=== PATIENT | female | born 1940 | race Caucasian/White ===

== ENCOUNTER 2016-08-25 13:25 | Emergency (ER) | payer MEDICARE ==
[~2016-08-25] VITALS: Ht 160 cm; Wt 58.0 kg
[~2016-08-25 13:25] MED LIST: ALPR.5 PO; ASPI-110 PO; BACL10TA PO; COZA100T PO; GABA600T PO; HYDR-3533 PO; HYDR-3583 PO; HYDR12.56 PO; LIDO2SOL11 PO; METO25TA3 PO; MIRTA15 PO; PRAV80TA PO; REST0.05 EACH EYE; VITA1000 PO; VITA500S3 SL; [UNRECOGNIZED DRUG - CODE] TOPICAL
[2016-08-25 13:30] VITALS: BP 160/75; PULSE 83; RESP 16; TEMP 97.9; O2SAT 95
--- NOTE | 2016-08-25 13:35 | PD ---
HPI . RASH WITH ITCHING X 2 DAYS Chief Complaint: Skin Problem Time Seen by Provider: 13:35 Travel History International Travel<30 days: No Contact w/Intl Traveler<30days: No Traveled to known affect area: No History of Present Illness HPI 76-year-old female with history of hypertension, hyperlipidemia, osteoarthritis , chronic back pain status post spinal fusion 2 and a wound on her back, which she is following at the wound care center here with complaints of an itchy rash that started about 2 days ago. Patient reports that the rash is localized to her neck sternum and back. She admits to increased itching, but denies any pain. She has tried [id number] diaper rash cream without any improvement. She denies any other symptoms. She denies any new hygiene products. She denies any change of laundry detergent. She is not certain with may have triggered the rash. Her biggest concern is the intense itching. PFSH Past Medical History Arthritis: Yes Asthma: No Autoimmune Disease: No Blood Disorders: No Anxiety: Yes Depression: Yes Heart Rhythm Problems: No Cancer: Yes ( LEFT TONSILAR REMOVED) Cardiovascular Problems: Yes High Cholesterol: Yes Chemotherapy: No Chest Pain: No Congestive Heart Failure: No COPD: No Cerebrovascular Accident: No Diabetes: No Endocrine: No GERD: Yes Genitourinary: No Hepatitis: No Hiatal Hernia: No Hypertension: Yes Immune Disorder: No Implanted Vascular Access Dvce: No Kidney Stones: No Musculoskeletal: Yes (OA) Neurologic: Yes (BACK PAIN) Psychiatric: No Reproductive: No Respiratory: No Migraines: Yes Radiation Therapy: No Renal Failure: No Seizures: No Sickle Cell Disease: No Sleep Apnea: No Thyroid Disease: No Ulcer: Yes PNEUMOCCOCAL Vaccine (Year): 1 Menopausal: Yes Dilation and Curettage (D&C): Yes Past Surgical History Abdominal Surgery: Yes (EXPL. LAP) AICD: No Arteriovenous Shunt: No Body Medical Devices: LUMBAR HARDWARE, BREASTS Cardiac Surgery: No Ear Surgery: No Endocrine Surgery: No Eye Surgery: Yes (GONZÁLEZ CATARACTS) Genitourinary Surgery: No Gynecologic Surgery: Yes (LASH/BSO) Hysterectomy: Yes Insulin Pump: No Joint Replacement: No Neurologic Surgery: Yes (LUMBAR FUSION - lami with resection 06/06) Oral Surgery: Yes (EXC. TUMOR LEFT THROAT) Pacemaker: No Thoracic Surgery: No Tonsillectomy: Yes Other Surgery: Yes (BREAST AUGMENTATION X 2) Social History Alcohol Use: No Tobacco Use: No Substance Use: No Allergies-Medications (Allergen,Severity, Reaction): Coded Allergies: RAJEEV Inhibitors (Verified Allergy, Severe, throat closure facial swelling, 08/25/16) Reported Meds & Prescriptions Reported Meds & Active Scripts Active Triamcinolone Topical (Triamcinolone Acetonide) 0.025% Cream 1 Applic TOPICAL BID dispense 30 gram tube Medrol Dosepak (Methylprednisolone) 4 Mg Dspk 4 Mg PO DIRECTED Per Pharmacist direction Balmex Complete Protection Topical (Zinc Oxide Topical) 11.3% Cream 1 Applic TOPICAL DIRECTED Hydrocodone-Acetaminophen 10-325 mg Tab 1 Tab PO Q8HR PRN Reported Baclofen 10 Mg Tab 10 Mg PO TID PRN Lidocaine Viscous 2% Liq 2 % Liq 15 Ml PO BID Vitamin D-1000 (Cholecalciferol) 1,000 Unit Tab 1,000 Units PO DAILY Vitamin B-12 (Cyanocobalamin) 500 Mcg Subl 500 Mcg SL DAILY Hydrochlorothiazide 12.5 Mg Tab 12.5 Mg PO DAILY Xanax (Alprazolam) 0.5 Mg Tab 0.5 Mg PO TID PRN Restasis Opth Drops (Cyclosporine Opth Drops) 0.05% Emul 1 Drop EACH EYE BID Mirtazapine 15 Mg Tab 15 Mg PO HS Metoprolol Tartrate 25 Mg Tab 25 Mg PO BID Gabapentin 600 Mg Tab 600 Mg PO TID Cozaar (Losartan Potassium) 100 Mg Tab 100 Mg PO DAILY Aspirin 81 (Aspirin) 81 Mg Tabdr 81 Mg PO DAILY Pravachol (Pravastatin) 80 Mg Tab 80 Mg PO HS Review of Systems General / Constitutional: No: Fever Eyes: No: Visual changes HENT: No: Headaches Cardiovascular: No: Chest Pain or Discomfort Respiratory: No: Shortness of Breath Gastrointestinal: No: Abdominal Pain Genitourinary: No: Dysuria Musculoskeletal: No: Pain Skin: Positive Rash, Positive Itching, Positive Dryness Neurologic: No: Weakness Psychiatric: No: Depression Endocrine: No: Polydipsia Hematologic/Lymphatic: No: Easy Bruising Physical Exam Narrative GENERAL: AAO x 3, no acute distress, Well-nourished, well-developed patient. SKIN: Warm and dry. There is a dry scaling rash to the patient's right side chest, sternum and scattered across her back. It is macular without evidence of pustules, blisters or herpetic-like lesions. It is very dry and does not show any signs of open excoriations or evidence of cellulitis. HEAD: Normocephalic and atraumatic. EYES: No scleral icterus. No injection or drainage. ENT: No nasal drainage noted. Mucous membranes pink. Airway patent. NECK: Supple, trachea midline. No JVD. CARDIOVASCULAR: Regular rate and rhythm without murmurs, gallops, or rubs. RESPIRATORY: Breath sounds equal bilaterally. No accessory muscle use. No rhonchi or rales. GASTROINTESTINAL: Abdomen soft, non-tender, nondistended. EXTREMITIES: No cyanosis or edema. BACK: Nontender without obvious deformity. No CVA tenderness. small dime sized wound with slight purulent drainage and minimal erythema. PSYCH: AAO x 3, normal affect. Data Data Last Documented VS Vital Signs Date Time Temp Pulse Resp B/P Pulse Ox O2 Delivery O2 Flow Rate FiO2 08/25/16 13:30 97.9 83 16 160/75 95 MDM Medical Decision Making Medical Screen Exam Complete: Yes Emergency Medical Condition: Yes Medical Record Reviewed: Yes Differential Diagnosis Contact dermatitis, intertrigo, tinea Narrative Course 76-year-old female with history of hypertension, hyperlipidemia, osteoarthritis , chronic back pain status post spinal fusion 2 and a wound on her back, which she is following at the wound care center here with complaints of an itchy rash that started about 2 days ago. Patient reports that the rash is localized to her neck sternum and back. She admits to increased itching, but denies any pain. She has tried [id number] diaper rash cream without any improvement. She denies any other symptoms. She denies any new hygiene products. She denies any change of laundry detergent. She is not certain with may have triggered the rash. Her biggest concern is the intense itching. Patient seen and examined. She has a dry scaly rash to her neck, sternum and spread across her back. There are no blisters or specific distribution. There is no evidence of cellulitis. This appears to be a contact dermatitis. The offending agent is unknown at this time. The rash is not characteristic of shingles, tinea, or cellulitis. Recommend treatment with a round of short term steroids, lower dose as well as topical corticosteroid. Advised that if the rash continues, to follow-up with her primary care provider. Patient verbalized understanding of instructions, questions were answered, and thanked me for their care. I advised them if their condition worsens, please return to the nearest emergency room for further care. Diagnosis Primary Impression: Contact dermatitis Qualified Code: L25.9 - Contact dermatitis, unspecified contact dermatitis type, unspecified trigger Patient Instructions: Contact Dermatitis (ED), General Instructions Additional Instructions: Please return to emergency department if your symptoms return or worsen. Follow up with your primary care provider. Take medications as prescribed. These medications should help lessen the severity of ear itching. If this rash continues to spread please return to the emergency department or follow-up with her primary care provider. If the rash persists through this treatment, you may want to seek care from your primary care provider for further workup and possible dermatology referral. Med/Other Pt SpecificInfo: Prescription(s) given Scripts Triamcinolone Topical 0.025% Cream1 Applic TOPICAL BID #1 GM Ref 0 dispense 30 gram tube Prov:Emily Whitley MD 08/25/16 Methylprednisolone Dosepak (Medrol Dosepak)4 Mg Dspk4 Mg PO DIRECTED #1 DSPK Ref 0 Per Pharmacist direction Prov:Emily Whitley MD 08/25/16 Disposition: 01 DISCHARGE HOME Condition: Stable Shannon Craven Aug 25, 2016 13:35
[2016-08-25] MEDS ORDERED: TRIA.025%T TOPICAL (13:50)
[2016-08-25] MEDS ORDERED: MEDR4PAK PO (13:50)
[2016-09-11] MEDS ORDERED: PRED10PA PO (15:13)
== END 2016-08-25 14:02 | disposition home or self-care (01) ==
LOC: PHEFT 13:25
DX: L25.9 Unspecified contact dermatitis, unspecified cause (principal); I10 Essential (primary) hypertension; M54.9 Dorsalgia, unspecified; G89.29 Other chronic pain; E78.00 Pure hypercholesterolemia, unspecified
CPT/HCPCS: 99282

== ENCOUNTER 2016-11-06 14:39 | Emergency (ER) | payer MEDICARE ==
[~2016-11-06] VITALS: Ht 160 cm; Wt 59.0 kg
[~2016-11-06 14:39] MED LIST changes: -HYDR-3533 PO; +TRIA.025%T TOPICAL
[2016-11-06 14:45] VITALS: BP 112/56; PULSE 112; RESP 18; TEMP 99.1; O2SAT 92
[2016-11-06] MEDS ORDERED: MELO-1 PO (15:05)
[2016-11-06] MEDS ORDERED: SODIUM CHLORIDE 0.9% FLUSH 10 ML FLUSH IVF PRN (15:30)
--- NOTE | 2016-11-06 15:38 | PD ---
HPI Chief Complaint: Fall Time Seen by Provider: 15:33 Travel History International Travel<30 days: No Contact w/Intl Traveler<30days: No Traveled to known affect area: No History of Present Illness HPI 76-year-old female presents to the emergency room for evaluation of fall earlier today. Patient states she has felt shaky since waking up this morning and fell in the bathroom at 11:00 AM after her legs felt weak. She struck the back of her head on the toilet paper dispenser. She denies loss of consciousness. She also hurt her left ankle and bilateral elbows. Her home health aide came and bandaged her wounds. Patient takes aspirin daily. She reports associated mild, posterior headache, neck pain, and lightheadedness but denies chest pain, abdominal pain, nausea, vomiting, or paresthesias. Last tetanus was in 2014. is with her and states she is seemed a little woozy since falling. PFSH Past Medical History Arthritis: Yes Asthma: No Autoimmune Disease: No Blood Disorders: No Anxiety: Yes Depression: Yes Heart Rhythm Problems: No Cancer: Yes ( LEFT TONSILAR REMOVED) Cardiovascular Problems: Yes High Cholesterol: Yes Chemotherapy: No Chest Pain: No Congestive Heart Failure: No COPD: No Cerebrovascular Accident: No Diabetes: No Diminished Hearing: Yes Endocrine: No GERD: Yes Genitourinary: No Hepatitis: No Hiatal Hernia: No Hypertension: Yes Immune Disorder: No Implanted Vascular Access Dvce: No Kidney Stones: No Musculoskeletal: Yes (OA) Neurologic: Yes (BACK PAIN) Psychiatric: No Reproductive: No Respiratory: No Immunizations Current: Yes Migraines: Yes Radiation Therapy: No Renal Failure: No Seizures: No Sickle Cell Disease: No Sleep Apnea: No Thyroid Disease: No Ulcer: Yes Tetanus Vaccination: < 5 Years Influenza Vaccination: Yes PNEUMOCCOCAL Vaccine (Year): 1 ?: Not Menopausal: Yes Dilation and Curettage (D&C): Yes Past Surgical History Abdominal Surgery: Yes (EXPL. LAP) AICD: No Arteriovenous Shunt: No Body Medical Devices: LUMBAR HARDWARE, BREASTS Cardiac Surgery: No Ear Surgery: No Endocrine Surgery: No Eye Surgery: Yes (GONZÁLEZ CATARACTS) Genitourinary Surgery: No Gynecologic Surgery: Yes (LASH/BSO) Hysterectomy: Yes Insulin Pump: No Joint Replacement: No Mastectomy: Yes Neurologic Surgery: Yes (LUMBAR FUSION - lami with resection 06/06) Oral Surgery: Yes (EXC. TUMOR LEFT THROAT) Pacemaker: No Thoracic Surgery: No Tonsillectomy: Yes Other Surgery: Yes (BREAST AUGMENTATION X 2) Social History Alcohol Use: No Tobacco Use: No Substance Use: No Allergies-Medications (Allergen,Severity, Reaction): Coded Allergies: RAJEEV Inhibitors (Verified Allergy, Severe, throat closure facial swelling, 11/06/16) Reported Meds & Prescriptions Reported Meds & Active Scripts Active Walker/Adult/Folding (Device) 1 Mis Mis 1 Ea .ROUTE DIRECTED Lortab (Hydrocodone-Acetaminophen) 5-325 Mg Tab 1 Tab PO Q6H PRN Hydrocodone-Acetaminophen 10-325 mg Tab 1 Tab PO Q8HR PRN Reported Meloxicam 15 Mg Tab 15 Mg PO DAILY Baclofen 10 Mg Tab 10 Mg PO TID PRN Lidocaine Viscous 2% Liq 2 % Liq 15 Ml PO BID Vitamin D-1000 (Cholecalciferol) 1,000 Unit Tab 1,000 Units PO DAILY Vitamin B-12 (Cyanocobalamin) 500 Mcg Subl 500 Mcg SL DAILY Hydrochlorothiazide 12.5 Mg Tab 12.5 Mg PO DAILY Xanax (Alprazolam) 0.5 Mg Tab 0.5 Mg PO TID PRN Mirtazapine 15 Mg Tab 15 Mg PO HS Metoprolol Tartrate 25 Mg Tab 25 Mg PO BID Gabapentin 600 Mg Tab 600 Mg PO TID Cozaar (Losartan Potassium) 100 Mg Tab 100 Mg PO DAILY Aspirin 81 (Aspirin) 81 Mg Tabdr 81 Mg PO DAILY Pravachol (Pravastatin) 80 Mg Tab 80 Mg PO HS Review of Systems Except as stated in HPI: all other systems reviewed are Neg Physical Exam Narrative GENERAL: Well-developed, well-nourished female in no acute distress. SKIN: Focused skin assessment warm/dry. Moderate ecchymosis over the left lateral malleolus. There is a 5 cm well-approximated laceration in the posterior scalp with multiple ceramic foreign bodies. HEAD: Normocephalic. EYES: Pupils equal and round. No scleral icterus. No injection or drainage. ENT: No nasal bleeding or discharge. Mucous membranes pink and moist. EARS: Bilateral pinnae and external canals appear within normal limits. Bilateral tympanic membranes without erythema, dullness or perforation. No hemotympanum. NECK: Trachea midline. No JVD. No midline tenderness. Full range of motion. CARDIOVASCULAR: Regular rate and rhythm. No murmur appreciated. RESPIRATORY: No accessory muscle use. Clear to auscultation. Breath sounds equal bilaterally. MUSCULOSKELETAL: No obvious deformities. No clubbing. No cyanosis. Mild edema over the left lateral malleolus. 1+ dorsalis pedis pulse. Full range motion of the ankle and foot. Less than 2 second capillary refill distally. Mild to moderate tenderness to palpation of the left lateral malleolus. NEUROLOGICAL: Awake and alert. No obvious cranial nerve deficits. Motor grossly within normal limits. Normal speech. No pronator drift in upper or lower extremities. Strength 5/5 and equal in upper and lower extremity. Finger to nose test is normal. PSYCHIATRIC: Appropriate mood and affect; insight and judgment normal. Data Data Last Documented VS Vital Signs Date Time Temp Pulse Resp B/P Pulse Ox O2 Delivery O2 Flow Rate FiO2 11/06/16 19:13 88 18 127/68 98 11/06/16 16:35 Room Air 11/06/16 14:[address] Brain W/O Iv Contrast(Rout) (11/06/16 ) Ct Cerv Spine W/O Contrast (11/06/16 ) Electrocardiogram (11/06/16 15:28) Ckmb (Isoenzyme) Profile (11/06/16 15:28) Complete Blood Count With Diff (11/06/16 15:28) Comprehensive Metabolic Panel (11/06/16 15:28) Prothrombin Time / Inr (Pt) (11/06/16 15:28) Act Partial Throm Time (Ptt) (11/06/16 15:28) Troponin I (11/06/16 15:28) Ecg Monitoring (11/06/16 15:28) Bilateral Bp Monitoring (11/06/16 15:28) Iv Access Insert/Monitor (11/06/16 15:28) Oximetry (11/06/16 15:28) Oxygen Administration (11/06/16 15:28) Sodium Chloride 0.9% Flush (Ns Flush) (11/06/16 15:30) Urinalysis - C+S If Indicated (11/06/16 15:28) Ankle, Complete ([id number]) (11/06/16 ) Sodium Chlorid 0.9% 500 Ml Inj (Ns 500 M (11/06/16 16:30) Splint Or Brace Apply/Monitor (11/06/16 17:16) Lidocai-Epi 1%-1:100,000 Inj (Xylocaine- (11/06/16 18:15) Fiberglass Short Leg Splint Ad (11/06/16 ) Fiberglass Sugartong Sp Ad Sl (11/06/16 ) Labs Laboratory Tests Test 11/06/16 11/06/16 15:30 16:15 Urine Collection Type CLEAN CATCH Urine Color YELLOW Urine Turbidity CLEAR Urine pH 5.5 Urine Specific [place] 1.012 Urine Protein NEG mg/dL Urine Glucose (UA) NEG mg/dL Urine Ketones NEG mg/dL Urine Occult Blood NEG Urine Nitrite NEG Urine Bilirubin NEG Urine Leukocyte Esterase NEG Urine Squamous Epithelial 0-5 /hpf Cells Microscopic Urinalysis Comment CULT NOT INDICATED Urine Collection Time 15:30 White Blood Count 10.5 TH/MM3 Red Blood Count 3.09 MIL/MM3 Hemoglobin 9.0 GM/DL Hematocrit 27.7 % Mean Corpuscular Volume 89.7 FL Mean Corpuscular Hemoglobin 29.1 PG Mean Corpuscular Hemoglobin 32.4 % Concent Red Cell Distribution Width 14.6 % Platelet Count 351 TH/MM3 Mean Platelet Volume 7.2 FL Neutrophils (%) (Auto) 79.7 % Lymphocytes (%) (Auto) 12.3 % Monocytes (%) (Auto) 7.0 % Eosinophils (%) (Auto) 0.3 % Basophils (%) (Auto) 0.7 % Neutrophils # (Auto) 8.4 TH/MM3 Lymphocytes # (Auto) 1.3 TH/MM3 Monocytes # (Auto) 0.7 TH/MM3 Eosinophils # (Auto) 0.0 TH/MM3 Basophils # (Auto) 0.1 TH/MM3 CBC Comment DIFF FINAL Differential Comment Prothrombin Time 11.9 SEC Prothromb Time International 1.1 RATIO Ratio Activated Partial 27.3 SEC Thromboplast Time Sodium Level 139 MEQ/L Potassium Level 4.9 MEQ/L Chloride Level 106 MEQ/L Carbon Dioxide Level 25.4 MEQ/L Anion Gap 8 MEQ/L Blood Urea Nitrogen 40 MG/DL Creatinine 1.30 MG/DL Estimat Glomerular Filtration 40 ML/MIN Rate Random Glucose 104 MG/DL Calcium Level 9.1 MG/DL Total Bilirubin 0.3 MG/DL Aspartate Amino Transf 18 U/L (AST/SGOT) Alanine Aminotransferase 22 U/L (ALT/SGPT) Alkaline Phosphatase 123 U/L Total Creatine Kinase 66 U/L Troponin I LESS THAN 0.02 NG/ML Total Protein 7.3 GM/DL Albumin 3.0 GM/DL MDM Medical Decision Making Medical Screen Exam Complete: Yes Emergency Medical Condition: Yes Medical Record Reviewed: Yes Differential Diagnosis CAD versus electrolyte abnormality versus anemia versus intracranial hemorrhage Narrative Course 76 year-old female presents to the emergency room for evaluation after falling earlier today. Patient states she felt weak and her legs gave out which caused her to fall backwards striking her head on the toilet paper gonzalez. The toilet paper gonzalez shattered and cut her head. She denies loss of consciousness. Patient takes aspirin daily. She also reports left ankle pain. Left lower extremity is neurovascular intact with 1+ dorsalis pedis pulse, confirmed with Doppler. There is moderate ecchymosis over the lateral malleolus and mild tenderness to palpation. Full range of motion. In and out catheter was performed and patient had no urine in her bladder. She was given 1000 cc bolus and was able to urinate on her own. CBC shows mild anemia, stable for patient. CMP shows evidence of dehydration with elevated BUN and creatinine. Troponin is negative. EKG shows sinus rhythm with a rate of 97, no ST changes, signed out by my attending physician. UA negative. Orthostatic blood pressures within normal limits. CTs of the head and neck are negative for acute abnormality. X-ray of the left ankle shows distal fibular fracture. Patient placed in Damon splint and discharged with prescription for Lortab. is concerned that he will be unable to care for his because she cannot bear weight; however, she has home health and physical therapy who come to the house. She was told to follow up with orthopedic surgeon or return to the emergency room for worsening symptoms. She understands and agrees to plan. Procedures Procedure Narrative LACERATION LOCATION: Back of scalp LENGTH: 5 cm NUMBER OF STITCHES/VANE: 6 vane REPAIR: The area of the laceration was prepped with Betadine and sterilely draped. The laceration was infiltrated with 1% lidocaine with epinephrine. The wound was copiously irrigated and explored without evidence of foreign body , tendon injury or neurovascular injury. The wound was closed using staple gun. This was a single layer repair. A sterile dressing was applied. The patient was advised to keep the dressing clean and dry. Patient tolerated the procedure well. Diagnosis Primary Impression: Dehydration Additional Impressions: DERIC (acute kidney injury) Closed fibular fracture Qualified Code: S82.832A - Closed fracture of distal end of left fibula, unspecified fracture morphology, initial encounter Laceration of head Qualified Code: S01.02XA - Laceration of scalp with foreign body, initial encounter Referrals: iDck Lutz MD Orthopaedic Surgeon Primary Care Physician Patient Instructions: Dehydration (ED), General Instructions Additional Instructions: Rest and drink plenty of fluids. Keep wound clean and dry. Apply triple antibiotic appointment daily. Return in 7 days to have vane removed. Take Lortab with food as directed, as needed for pain. Do not drink alcohol or drive while taking this medication. Keep splint on. Elevate and apply ice to the affected area for 20 minutes at a time, as needed for pain and swelling. Do not bear weight. Follow-up with a primary care physician and orthopedic surgeon. Return to the emergency room for worsening symptoms. Med/Other Pt SpecificInfo: Prescription(s) given Scripts Walker/Adult/Folding 1 Mis Mis #1 EA .ROUTE DIRECTED Ref 0 Prov:Diogenes Nogueira MD 11/06/16 Hydrocodone-Acetaminophen (Lortab)5-325 Mg Tab1 Tab PO Q6H PRN (PAIN) #12 TAB Ref 0 Prov:Diogenes Nogueira MD 11/06/16 Disposition: 01 DISCHARGE HOME Condition: Stable Kristina Salvador November 06, 2016 15:38
--- NOTE | 2016-11-06 16:06 | RADHPO ---
EXAM DATE/TIME: 11/06/2016 15:36 [facility] COMPARISON: No previous studies available for comparison. INDICATIONS : Left ankle pain after fall today MEDICAL HISTORY : None. SURGICAL HISTORY : None. ENCOUNTER: Initial ACUITY: 1 day PAIN SCORE: 8/10 LOCATION: Left lateral ankle FINDINGS: There is a complete fracture of the distal fibula above the lateral malleolus without any significant angulation or displacement. There are atherosclerotic calcifications involving the visualized blood vessels chronic in nature. CONCLUSION: Distal fibular fracture. Eduard Marie MD on November 06, 2016 at 16:02 Board Certified Radiologist. This report was verified electronically.
[2016-11-06 16:29] LABS: AUTOMATED NEUTROPHIL # 8.4 TH/MM3 (1.8-7.7); BASOPHIL # 0.1 TH/MM3 (0-0.2); BASOPHIL % 0.7 % (0.0-2.0); EOSINOPHIL % 0.3 % (0.0-4.0); HEMATOCRIT 27.7 % (35.0-46.0); LYMPH % 12.3 % (9.0-44.0); LYMPHOCYTE # 1.3 TH/MM3 (1.0-4.8); MEAN CELL VOLUME 89.7 FL (80.0-100.0); MEAN CORPUSCULAR HEMOGLOBIN 29.1 PG (27.0-34.0); MEAN CORPUSCULAR HGB CONC 32.4 % (32.0-36.0); NEUT % 79.7 % (16.0-70.0); PLATELET COUNT 351 TH/MM3 (150-450); RED BLOOD COUNT 3.09 MIL/MM3 (4.00-5.30); RED CELL DISTRIBUTION WIDTH 14.6 % (11.6-17.2); WHITE BLOOD COUNT 10.5 TH/MM3 (4.0-11.0)
--- NOTE | 2016-11-06 16:29 | RADHPO ---
EXAM DATE/TIME: 11/06/2016 15:49 [facility] COMPARISON: CT BRAIN W/O CONTRAST, July 24, 2015, 13:02. INDICATIONS : Trauma, fall. RADIATION DOSE: 62.64 CTDIvol (mGy) MEDICAL HISTORY : Hypertension. Osteoporosis. Arthritis. SURGICAL HISTORY : None. ENCOUNTER: Initial ACUITY: 1 day PAIN SCALE: 5/10 LOCATION: cranial TECHNIQUE: Multiple contiguous axial images were obtained of the head. Using automated exposure control and adj ustment of the mA and/or kV according to patient size, radiation dose was kept as low as reasonably a chievable to obtain optimal diagnostic quality images. FINDINGS: CEREBRUM: The ventricles are normal for age. No evidence of midline shift, mass lesion, hemorrhage or acute in farction. No extra-axial fluid collections are seen. POSTERIOR FOSSA: The cerebellum and brainstem are intact. The 4th ventricle is midline. The cerebellopontine angle i s unremarkable. EXTRACRANIAL: The visualized portion of the orbits is intact. SKULL: The calvaria is intact. No evidence of skull fracture. CONCLUSION: 1. No evidence of acute intracranial pathology. No masses are identified. Pawel Gan MD on November 06, 2016 at 16:26 Board Certified Radiologist. This report was verified electronically.
[2016-11-06] MEDS ORDERED: SODIUM CHLORID 0.9% 500 ML INJ 500 ML IV ONE (16:30)
[2016-11-06 16:31] LABS: HEMO FLAGS DIFF FINAL
[2016-11-06 16:35] VITALS: BP_SYST 101; BP_SYST 107; BP_DIAS 55; BP_DIAS 57; O2SAT 95
[2016-11-06 16:39] LABS: CHLORIDE 106 MEQ/L (98-107); POTASSIUM 4.9 MEQ/L (3.5-5.1); SODIUM (NA) 139 MEQ/L (136-145)
[2016-11-06 16:43] LABS: ANION GAP 8 MEQ/L (5-15); BICARBONATE 25.4 MEQ/L (21.0-32.0); BLOOD UREA NITROGEN 40 MG/DL (7-18)
[2016-11-06 16:46] LABS: ALT (GPT) 22 U/L (10-53); AST (GOT) 18 U/L (15-37); GLOMERULAR FILTRATION RATE 40 ML/MIN (>89)
[2016-11-06 16:47] LABS: TOTAL BILIRUBIN ADULT 0.3 MG/DL (0.2-1.0)
[2016-11-06 16:49] LABS: ALKALINE PHOSPHATASE 123 U/L (45-117)
[2016-11-06 16:53] LABS: CREATINE KINASE 66 U/L (26-192)
--- NOTE | 2016-11-06 17:01 | RADHPO ---
EXAM DATE/TIME: 11/06/2016 15:49 [facility] COMPARISON: CT BRAIN W/O CONTRAST, July 24, 2015, 13:02. INDICATIONS : Trauma, fall. RADIATION DOSE: 25.23 CTDIvol (mGy) MEDICAL HISTORY : Osteoporosis. Hypercholesterolemia. Arthritis. SURGICAL HISTORY : None. ENCOUNTER: Initial ACUITY: 1 day PAIN SCALE: 5/10 LOCATION: neck TECHNIQUE: Volumetric scanning of the cervical spine was performed. Multiplanar reconstructions in the sagittal, coronal and oblique axial planes were performed. Using automated exposure control and adjustment o f the mA and/or kV according to patient size, radiation dose was kept as low as reasonably achievable to obtain optimal diagnostic quality images. FINDINGS: SAGITTAL AND CORONAL REFORMATS DEMONSTRATE SEVERE DEGENERATIVE CHANGES WITHIN THE CERVICAL SPINE. THE RE IS GRADE ONE ANTRAL LISTHESIS OF C2 RELATIVE TO C3. THERE ARE MODERATE DEGENERATIVE CHANGES IN THE ATL[place]OD[place] JOINT. C2-C3: There is a degenerated disc with diffuse osteophytic ridging. The facet joints appear fused. The thec al space and foramina are adequate. C3-C4: There is a degenerated disc. There is diffuse osteophytic ridging from the vertebral endplates. The f acet joints appear fused. There is mild bony foraminal narrowing bilaterally. C4-C5: There is a degenerated disc. There is osteophytic ridging and a small disc bulge. There is mild bony foraminal narrowing bilaterally. The facet joints appear fused. C5-C6: There is a severely degenerated disc. There is osteophytic ridging from the vertebral endplates. Ther e is moderate bony foraminal narrowing on the left. There is mild bony foraminal narrowing on the rig ht. The facet joints are severely arthritic bilaterally. C6-C7: There is a degenerated disc with diffuse osteophytic ridging. There is mild bony foraminal narrowing bilaterally. There is moderate facet arthritis bilaterally. C7-T1: There is a degenerated disc and osteophytic ridging. There is moderate facet arthritis bilaterally. T he thecal space and the foramina are adequate. CONCLUSION: Advanced degenerative changes throughout the cervical spine with grade 1 anterolisthesis of C2 relati ve to C3. No acute fracture is seen. Arnoldo Baer MD on November 06, 2016 at 16:56 Board Certified Radiologist. This report was verified electronically.
[2016-11-06 17:26] LABS: APTT (PATIENT) 27.3 SEC (24.3-30.1); INTERNATIONAL NORMALIZED RATIO 1.1 RATIO; PROTHROMBIN TIME - PATIENT 11.9 SEC (9.8-11.6)
[2016-11-06 17:38] LABS: BLOOD, URINE NEG (NEG); GLUCOSE,URINE NEG (NEG); KETONE, URINE NEG (NEG); NITRITE,URINE NEG (NEG); PH, URINE 5.5 (5.0-8.5)
[2016-11-06 17:52] LABS: METHOD OF COLLECTION CLEAN CATCH
[2016-11-06 17:53] LABS: URINE COLOR YELLOW (YELLW/STRAW)
[2016-11-06 17:57] LABS: COMMENT (UR) CULT NOT INDICATED; CULTURE IF INDICATED CULT NOT INDICATED; SQUAMOUS EPITHELIAL CELL URINE 0-5 /hpf (0-5)
[2016-11-06] MEDS ORDERED: HYDR-3533 PO (18:04)
[2016-11-06] MEDS ORDERED: LIDOCAINE 1%/EPINEPHrine 1:100,000 SOLN 20 ML VIAL INFIL ONE (18:15)
[2016-11-06] MEDS ORDERED: WALKER/ADULT/FO1 MIS (18:22)
[2016-11-06 19:13] VITALS: BP 127/68
--- NOTE | 2016-11-07 14:08 | EKG ---
Date Performed: 11/06/2016 Time Performed: 15:33:34 PTAGE: 76 years EKG: Sinus rhythm Low QRS voltages in precordial leads New Q-waves in III, cannot rule out inferior injury Poor R wave progression V1,V2- cannot rule out old anterior injury Voltage has decreased since prior tracing but otherwise largely unchanged Borderline ECG PREVIOUS TRACING : 07/24/2015 11.30 DOCTOR: Joshua Arango Interpretating Date/Time 11/07/2016 14:06:38
== END 2016-11-06 19:16 | disposition home or self-care (01) ==
LOC: PHEFT 14:39
DX: E86.0 Dehydration (principal); N17.9 Acute kidney failure, unspecified; S82.832A Other fracture of upper and lower end of left fibula, initial encounter for closed fracture; S01.01XA Laceration without foreign body of scalp, initial encounter; R94.31 Abnormal electrocardiogram [ECG] [EKG]; I10 Essential (primary) hypertension; W17.89XA Other fall from one level to another, initial encounter; Y92.002 Bathroom of unspecified non-institutional (private) residence as the place of occurrence of the external cause
CPT/HCPCS: 12002; 29515; 70450; 72125; 73610; 80053; 81001; 82550; 84484; 85025; 85610; 85730; 93005; 99284; J7040

== ENCOUNTER 2016-11-07 16:11 | Inpatient (IN) | payer MEDICARE ==
[~2016-11-07] VITALS: Ht 160 cm; Wt 63.0 kg
[~2016-11-07 16:11] MED LIST changes: +HYDR-3533 PO; +MELO-1 PO; -REST0.05 EACH EYE; -TRIA.025%T TOPICAL; +WALKER/ADULT/FO1 MIS; -[UNRECOGNIZED DRUG - CODE] TOPICAL
[2016-11-07 16:15] VITALS: BP 130/58; PULSE 84; RESP 16; TEMP 98.5; O2SAT 99
--- NOTE | 2016-11-07 16:58 | PD ---
HPI Chief Complaint: Pain: Acute or Chronic Time Seen by Provider: 16:17 Travel History International Travel<30 days: No Contact w/Intl Traveler<30days: No Traveled to known affect area: No History of Present Illness HPI 76-year-old female came to the emergency room brought by EMS with history of left leg/ankle pain. Patient was seen in the emergency room yesterday after sustaining a fall and was diagnosed with left distal fibular fracture. She had splint placed at that time. She also had a scalp laceration from the fall which was stapled. CAT scan of her head and cervical spine was done and they were within normal limit. Patient was discharged home after that. However patient says that she was up all night due to the pain and currently she is unable to take care of herself. Her is here with her as well and says that he cannot take care of her and would like her to be admitted for couple days. There was home health care arranged for her but patient came to the emergency room before home healthcare could go to their house at 4 PM. Also she was discharged home with a prescription for Lortab which she has not filled. She says she has Lortab with stronger strength at home for her chronic pain. Patient did not take any pain medication today. She received 4 mg of IV morphine once EMS got her. She was also asked to follow up with Dr. De La Fuente as outpatient for or so but no phone calls have been made yet by her or the family to get an appointment. [facility] Past Medical History Narrative Medical List of her past medical, surgical, social and family history was reviewed from the nursing note. Arthritis: Yes Asthma: No Autoimmune Disease: No Blood Disorders: No Anxiety: Yes Depression: Yes Heart Rhythm Problems: No Cancer: Yes ( LEFT TONSILAR REMOVED) Cardiovascular Problems: Yes High Cholesterol: Yes Chemotherapy: No Chest Pain: No Congestive Heart Failure: No COPD: No Cerebrovascular Accident: No Diabetes: No Diminished Hearing: Yes Endocrine: No Gastrointestinal Disorders: No GERD: Yes Genitourinary: No Headaches: No Hepatitis: No Hiatal Hernia: No Heparin Induced Thrombocytopen: No Hypertension: Yes Immune Disorder: No Implanted Vascular Access Dvce: No Kidney Stones: No Medical other: No Musculoskeletal: Yes (OA) Neurologic: Yes (BACK PAIN) Psychiatric: No Reproductive: No Respiratory: No Immunizations Current: Yes Migraines: Yes Radiation Therapy: No Renal Failure: No Seizures: No Sickle Cell Disease: No Sleep Apnea: No Thyroid Disease: No Ulcer: Yes Tetanus Vaccination: < 5 Years PNEUMOCCOCAL Vaccine (Year): 1 ?: Not Menopausal: Yes Dilation and Curettage (D&C): Yes Past Surgical History Abdominal Surgery: Yes (EXPL. 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 Reported Meds & Prescriptions Reported Meds & Active Scripts Active Walker/Adult/Folding (Device) 1 Mis Mis 1 Ea .ROUTE DIRECTED Lortab (Hydrocodone-Acetaminophen) 5-325 Mg Tab 1 Tab PO Q6H PRN Hydrocodone-Acetaminophen 10-325 mg Tab 1 Tab PO Q8HR PRN Reported Meloxicam 15 Mg Tab 15 Mg PO DAILY Baclofen 10 Mg Tab 10 Mg PO TID PRN Lidocaine Viscous 2% Liq 2 % Liq 15 Ml PO BID Vitamin D-1000 (Cholecalciferol) 1,000 Unit Tab 1,000 Units PO DAILY Vitamin B-12 (Cyanocobalamin) 500 Mcg Subl 500 Mcg SL DAILY Hydrochlorothiazide 12.5 Mg Tab 12.5 Mg PO DAILY Xanax (Alprazolam) 0.5 Mg Tab 0.5 Mg PO TID PRN Mirtazapine 15 Mg Tab 15 Mg PO HS Metoprolol Tartrate 25 Mg Tab 25 Mg PO BID Gabapentin 600 Mg Tab 600 Mg PO TID Cozaar (Losartan Potassium) 100 Mg Tab 100 Mg PO DAILY Aspirin 81 (Aspirin) 81 Mg Tabdr 81 Mg PO DAILY Pravachol (Pravastatin) 80 Mg Tab 80 Mg PO HS Narrative Medication List of her home medications reviewed from the nursing note. Review of Systems Except as stated in HPI: all other systems reviewed are Neg Physical Exam Narrative GENERAL: Awake, alert, elderly, looks older than her age, extremely depressed and crying SKIN: Focused skin assessment warm/dry. HEAD: Atraumatic. Normocephalic. EYES: Pupils equal and round. No scleral icterus. No injection or drainage. ENT: No nasal bleeding or discharge. Mucous membranes pink and moist. NECK: Trachea midline. No JVD. CARDIOVASCULAR: Regular rate and rhythm. No murmur appreciated. RESPIRATORY: No accessory muscle use. Clear to auscultation. Breath sounds equal bilaterally. GASTROINTESTINAL: Abdomen soft, non-tender, nondistended. Hepatic and splenic margins not palpable. MUSCULOSKELETAL: No obvious deformities. No clubbing. No cyanosis. No edema. The left foot splint was taken down. Cap refill distally at the toe tips are less than 2 seconds. Toes are pink in color. Sensation is intact. The splint was reapplied only the posterior splint at this point. NEUROLOGICAL: Awake and alert. No obvious cranial nerve deficits. Motor grossly within normal limits. Normal speech. PSYCHIATRIC: Appropriate mood and affect; insight and judgment normal. Data Data Last Documented VS Vital Signs Date Time Temp Pulse Resp B/P Pulse Ox O2 Delivery O2 Flow Rate FiO2 11/07/16 16:15 98.5 84 16 130/58 99 Orders Alprazolam (Xanax) (11/07/16 17:30) Baclofen (Lioresal) (11/07/16 17:30) Cholecalciferol (Vitamin D3) (11/08/16 09:00) Cyanocobalamin (Vitamin B12) (11/08/16 09:00) Gabapentin (Neurontin) (11/07/16 18:00) Hydrochlorothiazide (Microzide) (11/08/16 09:00) Acetamin-Hydrocod 325-10 Mg (Victor 10-32 (11/07/16 17:30) Acetamin-Hydrocod 325-5 Mg (Victor 5-325 (11/07/16 17:30) Losartan (Cozaar) (11/08/16 09:00) Meloxicam (Mobic) (11/08/16 09:00) Metoprolol Tartrate (Lopressor) (11/07/16 21:00) Mirtazapine (Remeron) (11/07/16 21:00) Pravastatin (Pravachol) (11/07/16 21:00) Aspirin Ec (Ecotrin Ec) (11/08/16 09:00) Lidocaine 2% Viscous (Xylocaine 2% Visco (11/07/16 21:00) Admit Order (Ed Use Only) (11/07/16 17:23) MDM Medical Decision Making Medical Screen Exam Complete: Yes Emergency Medical Condition: Yes Medical Record Reviewed: Yes Differential Diagnosis Inability to ambulate, depression Narrative Course 4:56 PM both patient and at this point her claiming that she is unsafe to be at home since she is unable to ambulate at all. There is no way she could go to see the orthopedist because of this. ED case management was involved and patient will be admitted for overnight observation and physical therapy evaluation. Awaiting for the hospitalist to call back. Procedures EKG Prior to Arrival: No Diagnosis Primary Impression: Fracture of distal fibula Qualified Code: S82.832D - Other closed fracture of distal end of left fibula with routine healing, subsequent encounter Additional Impression: Inability to ambulate due to ankle or foot Admitting Information Admitting Physician Requests: Observation Liseth Mejias MD November 07, 2016 16:58 Liseth Mejias MD November 07, 2016 16:58
[2016-11-07] MEDS ORDERED: MAGNESIUM HYDROXIDE SUSP 30 ML CUP PO PRN (17:30)
[2016-11-07] MEDS ORDERED: ONDANSETRON HCL 4 MG/2 ML VIAL IVP PRN (17:30)
[2016-11-07] MEDS ORDERED: BACLOFEN 10 MG TAB PO PRN (17:30)
[2016-11-07] MEDS ORDERED: ACETAMINOPHEN 325 MG TAB PO PRN (17:30)
[2016-11-07] MEDS ORDERED: ACETAMINOPHEN/HYDROcodone 325 MG/5 MG TAB PO PRN (17:30)
[2016-11-07] MEDS ORDERED: SODIUM CHLORIDE 0.9% FLUSH 10 ML FLUSH IV FLUSH PRN (17:30)
[2016-11-07 17:38] VITALS: BP 127/59; PULSE 77; RESP 16; O2SAT 96
[2016-11-07 17:59] VITALS: O2SAT 95
[2016-11-07] MEDS ORDERED: GABAPENTIN 300 MG CAP PO SCH (18:00)
[2016-11-07] MEDS: ENOXAPARIN SODIUM 40 MG/0.4 ML SYRINGE SQ SCH (18:18)
[2016-11-07 20:00] VITALS: BP 150/69; PULSE 82; RESP 19; TEMP 97.5; O2SAT 93
[2016-11-07 21:10] VITALS: O2SAT 96
[2016-11-07] MEDS: METOPROLOL TARTRATE 25 MG TAB PO SCH (21:20)
[2016-11-07] MEDS: LIDOCAINE VISCOUS 2% SOLN 15 ML UDC PO SCH (21:20)
[2016-11-07] MEDS: ACETAMINOPHEN/HYDROcodone 325 MG/10 MG TAB PO PRN (21:20)
[2016-11-07] MEDS: MIRTAZAPINE 15 MG TAB PO SCH (21:20)
[2016-11-07] MEDS: PRAVASTATIN SOD 80 MG TAB PO SCH (21:20)
--- NOTE | 2016-11-07 21:28 | HHI.HP ---
HPI Service [facility] Primary Care Physician Leander Marcus MD Admission Diagnosis distal fibular fracture, inability to ambulate Diagnoses: Chief Complaint: pain , inability to ambulate Travel History International Travel<30 Days: No Contact w/Intl Traveler <30 Da: No Traveled to Known Affected Are: No History of Present Illness 76-year-old female with past medical history of hypertension, hyperlipidemia, chronic pain, depression and anxiety came to the emergency room brought by EMS with history of left leg/ankle pain. Patient was seen in the emergency room yesterday after sustaining a fall and was diagnosed with left distal fibular fracture. She had splint placed at that time. She also had a scalp laceration from the fall which was stapled. CAT scan of her head and cervical spine was done and they were within normal limit. Patient was discharged home after that. However patient says that she was up all night due to the pain and currently she is unable to take care of herself. Her is here with her as well and says that he cannot take care of her and would like her to be admitted for couple days. There was home health care arranged for her but patient came to the emergency room before home healthcare could go to their house at 4 PM. Also she was discharged home with a prescription for Lortab which she has not filled. She says she has Lortab with stronger strength at home for her chronic pain. Patient did not take any pain medication today. She received 4 mg of IV morphine once EMS got her. She was also asked to follow up with Dr. De La Fuente as outpatient for or so but no phone calls have been made yet by her or the family to get an appointment. Review of Systems Except as stated in HPI: all other systems reviewed are Neg Past Family Social History Past Medical History Hypertension, hyperlipidemia, chronic pain, depression and anxiety Past Surgical History 2 back surgeries Breast implant. Hysterectomy Exploratory laparotomy Bilateral cataracts. Lumbar fusion laminectomy with resection 2014. Tumor removal left throat Reported Medications Reported Meds & Active Scripts Active Walker/Adult/Folding (Device) 1 Mis Mis 1 Ea .ROUTE DIRECTED Lortab (Hydrocodone-Acetaminophen) 5-325 Mg Tab 1 Tab PO Q6H PRN Hydrocodone-Acetaminophen 10-325 mg Tab 1 Tab PO Q8HR PRN Reported Meloxicam 15 Mg Tab 15 Mg PO DAILY Baclofen 10 Mg Tab 10 Mg PO TID PRN Lidocaine Viscous 2% Liq 2 % Liq 15 Ml PO BID Vitamin D-1000 (Cholecalciferol) 1,000 Unit Tab 1,000 Units PO DAILY Vitamin B-12 (Cyanocobalamin) 500 Mcg Subl 500 Mcg SL DAILY Hydrochlorothiazide 12.5 Mg Tab 12.5 Mg PO DAILY Xanax (Alprazolam) 0.5 Mg Tab 0.5 Mg PO TID PRN Mirtazapine 15 Mg Tab 15 Mg PO HS Metoprolol Tartrate 25 Mg Tab 25 Mg PO BID Gabapentin 600 Mg Tab 600 Mg PO TID Cozaar (Losartan Potassium) 100 Mg Tab 100 Mg PO DAILY Aspirin 81 (Aspirin) 81 Mg Tabdr 81 Mg PO DAILY Pravachol (Pravastatin) 80 Mg Tab 80 Mg PO HS Allergies: Coded Allergies: RAJEEV Inhibitors (Verified Allergy, Severe, throat closure facial swelling, 11/07/16) Family History Mother was healthy she at the age is 86. Father had colon cancer and and at the a 59 Social History Denies alcohol use, illicit drug use or tobacco use Physical Exam Vital Signs Vital Signs Date Time Temp Pulse Resp B/P Pulse Ox O2 Delivery O2 Flow Rate FiO2 11/07/16 21:10 96 21 11/07/16 18:22 72 16 96 11/07/16 17:59 95 21 11/07/16 17:38 77 16 127/59 96 Room Air 11/07/16 16:15 98.5 84 16 130/58 99 Physical Exam GENERAL: This is a well-nourished, well-developed patient, in no apparent distress. SKIN: No rashes, ecchymoses or lesions. Cool and dry. HEAD: Atraumatic. Normocephalic. No temporal or scalp tenderness. EYES: Pupils equal round and reactive. Extraocular motions intact. No scleral icterus. No injection or drainage. ENT: Nose without bleeding, purulent drainage or septal hematoma. Throat without erythema, tonsillar hypertrophy or exudate. Uvula midline. Airway patent. NECK: Trachea midline. No JVD or lymphadenopathy. Supple, nontender, no meningeal signs. CARDIOVASCULAR: Regular rate and rhythm without murmurs, gallops, or rubs. RESPIRATORY: Clear to auscultation. Breath sounds equal bilaterally. No wheezes , rales, or rhonchi. GASTROINTESTINAL: Abdomen soft, non-tender, nondistended. No hepato-splenomegaly , or palpable masses. No guarding. MUSCULOSKELETAL: Left foot splint in place. Left foot neurovascular intact. No calf tenderness. Negative Homans sign bilaterally. NEUROLOGICAL: Awake and alert. Cranial nerves II through XII intact. Motor and sensory grossly within normal limits. Five out of 5 muscle strength in all muscle groups. Normal speech. Assessment and Plan Assessment and Plan 76-year-old female with Closed fracture of distal end of left distal fibula with routine healing. Splint in place Inability to ambulate due to ankle or foot Pain medications by mouth and IV per pain scale Was instructed to follow up with orthopedic doctor as outpatient Consult physical therapy for evaluation Hypertension, hyperlipidemia, appears stable. Continue home medications. Monitor vital signs DVT prophylaxis SCD/teds, Lizettex Discussed Condition With Patient, nurse Rosemary Avery MD November 07, 2016 21:28
[2016-11-07] MEDS: SODIUM CHLORIDE 0.9% FLUSH 10 ML FLUSH IV FLUSH SCH (21:35)
[2016-11-07] MEDS: ALPRAZolam 0.5 MG TAB PO PRN (21:41)
[2016-11-08] VITALS: BP 106/52; PULSE 75; RESP 18; TEMP 96.5; O2SAT 93
[2016-11-08 07:28] LABS: AUTOMATED NEUTROPHIL # 4.1 TH/MM3 (1.8-7.7); BASOPHIL % 0.5 % (0.0-2.0); EOSINOPHIL # 0.1 TH/MM3 (0-0.4); EOSINOPHIL % 1.7 % (0.0-4.0); HEMATOCRIT 25.9 % (35.0-46.0); HEMO FLAGS DIFF FINAL; LYMPH % 21.9 % (9.0-44.0); LYMPHOCYTE # 1.4 TH/MM3 (1.0-4.8); MEAN CELL VOLUME 88.5 FL (80.0-100.0); MEAN CORPUSCULAR HEMOGLOBIN 28.3 PG (27.0-34.0); NEUT % 62.9 % (16.0-70.0); PLATELET COUNT 348 TH/MM3 (150-450); RED BLOOD COUNT 2.92 MIL/MM3 (4.00-5.30); RED CELL DISTRIBUTION WIDTH 13.8 % (11.6-17.2); WHITE BLOOD COUNT 6.4 TH/MM3 (4.0-11.0)
[2016-11-08 07:56] LABS: BICARBONATE 29.6 MEQ/L (21.0-32.0); POTASSIUM 4.1 MEQ/L (3.5-5.1)
[2016-11-08] MEDS: MELOXICAM 15 MG TAB PO SCH (08:31)
[2016-11-08] MEDS: CHOLECALCIFEROL (VIT D3) 1000 UNIT TAB PO SCH (08:31)
[2016-11-08] MEDS: LIDOCAINE VISCOUS 2% SOLN 15 ML UDC PO SCH ×2 (08:31→21:11)
[2016-11-08] MEDS: GABAPENTIN 300 MG CAP PO SCH ×2 (08:32→21:12)
[2016-11-08] MEDS: ASPIRIN EC 81 MG TABEC PO SCH (08:32)
[2016-11-08] MEDS: LOSARTAN 50 MG TAB PO SCH (08:32)
[2016-11-08] MEDS: HYDROCHLOROTHIAZIDE 12.5 MG CAP PO SCH (08:32)
[2016-11-08] MEDS: METOPROLOL TARTRATE 25 MG TAB PO SCH ×2 (08:32→21:13)
[2016-11-08] MEDS: CYANOCOBALAMIN 1,000 MCG TAB PO SCH (08:32)
[2016-11-08] MEDS: SODIUM CHLORIDE 0.9% FLUSH 10 ML FLUSH IV FLUSH SCH ×2 (08:33→21:13)
[2016-11-08] MEDS: ACETAMINOPHEN/HYDROcodone 325 MG/10 MG TAB PO PRN ×3 (08:45→21:12)
[2016-11-08 09:46] VITALS: BP 142/71; PULSE 81; RESP 17; TEMP 98.2; O2SAT 90
[2016-11-08] MEDS: HYDROmorphone HCL PF 1 MG/ML VIAL IV PUSH PRN (12:43)
[2016-11-08 13:20] VITALS: BP 140/73; PULSE 82; RESP 19; TEMP 98.3; O2SAT 91
[2016-11-08] MEDS ORDERED: HYPROMELLOSE 0.3 % OPTH GEL 10 GM (0.34 FL OZ) TUBE EACH EYE PRN (14:45)
[2016-11-08 16:19] VITALS: BP 141/72; PULSE 85; RESP 17; TEMP 98.3; O2SAT 90
[2016-11-08] MEDS: ENOXAPARIN SODIUM 40 MG/0.4 ML SYRINGE SQ SCH (18:13)
[2016-11-08 20:39] VITALS: O2SAT 93
[2016-11-08 21:02] VITALS: BP 103/62; PULSE 73; RESP 14; TEMP 98; O2SAT 92
[2016-11-08] MEDS: PRAVASTATIN SOD 80 MG TAB PO SCH (21:11)
[2016-11-08] MEDS: MIRTAZAPINE 15 MG TAB PO SCH (21:12)
[2016-11-08] MEDS: ALPRAZolam 0.5 MG TAB PO PRN (21:13)
[2016-11-09] VITALS (7 sets, daily range): BP systolic 102–126; BP diastolic 59–71; PULSE 63–99; RESP 14–20; TEMP 96–98.4; O2SAT 92–95
[2016-11-09] MEDS: ACETAMINOPHEN/HYDROcodone 325 MG/10 MG TAB PO PRN ×4 (02:27→21:32)
--- NOTE | 2016-11-09 08:36 | HHI.PR ---
Subjective Remarks Lat eentry> Patient was seen 11/08/16 at 1200pm Patient is in bed, says she feels tired. Says she is weak. Says she has severe pain but would rather hold taking pain meds as it makes her sick. Denies fever or chills. Denies n/v/d/c. No chest pain or sob. Objective Vitals Vital Signs Date Time Temp Pulse Resp B/P Pulse Ox O2 Delivery O2 Flow Rate FiO2 11/09/16 08:00 96.0 79 18 116/61 92 11/09/16 00:04 96.2 71 14 102/59 93 11/08/16 21:02 98.0 73 14 103/62 92 11/08/16 20:39 93 21 11/08/16 16:32 16 11/08/16 16:19 98.3 85 17 141/72 90 11/08/16 13:20 98.3 82 19 140/73 91 11/08/16 13:15 16 11/08/16 09:46 98.2 81 17 142/71 90 I/O 11/08/16 11/08/16 11/08/16 11/09/16 11/09/16 11/09/16 07:00 15:00 23:00 07:00 15:00 23:00 Intake Total 240 ml 950 ml Balance 240 ml 950 ml Intake Oral 240 ml 950 ml # Voids 3 4 1 # Bowel Movements 0 1 Result Diagram: 11/08/1615 11/08/16 0615 Objective Remarks GENERAL: This is a frail elderly female, well-nourished, well-developed patient , in no apparent distress. SKIN: No rashes, ecchymoses or lesions. Cool and dry. HEAD: Atraumatic. Normocephalic. No temporal or scalp tenderness. EYES: Pupils equal round and reactive. Extraocular motions intact. No scleral icterus. No injection or drainage. ENT: Nose without bleeding, purulent drainage or septal hematoma. Throat without erythema, tonsillar hypertrophy or exudate. Uvula midline. Airway patent. NECK: Trachea midline. No JVD or lymphadenopathy. Supple, nontender, no meningeal signs. CARDIOVASCULAR: Regular rate and rhythm without murmurs, gallops, or rubs. RESPIRATORY: Clear to auscultation. Breath sounds equal bilaterally. No wheezes , rales, or rhonchi. GASTROINTESTINAL: Abdomen soft, non-tender, nondistended. No hepato-splenomegaly , or palpable masses. No guarding. MUSCULOSKELETAL: Left foot splint in place. Left foot neurovascular intact. No calf tenderness. Negative Homans sign bilaterally. NEUROLOGICAL: Awake and alert. Cranial nerves II through XII intact. Motor and sensory grossly within normal limits. Five out of 5 muscle strength in all muscle groups. Normal speech. A/P Assessment and Plan 76-year-old female with Closed fracture of distal end of left distal fibula with routine healing. Splint in place Inability to ambulate due to ankle or foot pain Pain medications by mouth and IV per pain scale. Monitor VS closely. Was instructed to follow up with orthopedic doctor as outpatient Consult physical therapy for evaluation Hypertension, hyperlipidemia, appears stable. Continue home medications. Monitor vital signs DVT prophylaxis SCD/tedsDrea Discussed Condition With Patient, nurse Rosemary Avery MD November 09, 2016 08:36
[2016-11-09] MEDS: SODIUM CHLORIDE 0.9% FLUSH 10 ML FLUSH IV FLUSH SCH ×2 (09:11→21:31)
[2016-11-09] MEDS: METOPROLOL TARTRATE 25 MG TAB PO SCH ×2 (09:11→21:31)
[2016-11-09] MEDS: HYDROCHLOROTHIAZIDE 12.5 MG CAP PO SCH (09:11)
[2016-11-09] MEDS: LOSARTAN 50 MG TAB PO SCH (09:12)
[2016-11-09] MEDS: GABAPENTIN 300 MG CAP PO SCH ×2 (09:12→21:31)
[2016-11-09] MEDS: CYANOCOBALAMIN 1,000 MCG TAB PO SCH (09:12)
[2016-11-09] MEDS: CHOLECALCIFEROL (VIT D3) 1000 UNIT TAB PO SCH (09:12)
[2016-11-09] MEDS: ASPIRIN EC 81 MG TABEC PO SCH (09:12)
[2016-11-09] MEDS: LIDOCAINE VISCOUS 2% SOLN 15 ML UDC PO SCH ×2 (09:12→21:31)
[2016-11-09] MEDS: MELOXICAM 15 MG TAB PO SCH (09:12)
--- NOTE | 2016-11-09 10:20 | HHI.PR ---
Subjective Remarks Patient in nad. At the margin of the bed. Says she feels improved today. No chest pain, sob, n/v/d/c. Had a normal BM yesterday . Eating better. Pain is better controlled. However she feels dizzy after taking pain meds. Objective Vitals Vital Signs Date Time Temp Pulse Resp B/P Pulse Ox O2 Delivery O2 Flow Rate FiO2 11/09/16 09:46 93 21 11/09/16 08:00 96.0 79 18 116/61 92 11/09/16 00:04 96.2 71 14 102/59 93 11/08/16 21:02 98.0 73 14 103/62 92 11/08/16 20:39 93 21 11/08/16 16:32 16 11/08/16 16:19 98.3 85 17 141/72 90 11/08/16 13:20 98.3 82 19 140/73 91 11/08/16 13:15 16 I/O 11/08/16 11/08/16 11/08/16 11/09/16 11/09/16 11/09/16 07:00 15:00 23:00 07:00 15:00 23:00 Intake Total 240 ml 950 ml Balance 240 ml 950 ml Intake Oral 240 ml 950 ml # Voids 3 4 1 # Bowel Movements 0 1 Result Diagram: 11/08/1661411/08/16614 Objective Remarks GENERAL: This is a frail elderly female, well-nourished, well-developed patient , in no apparent distress. SKIN: No rashes, ecchymoses or lesions. Cool and dry. HEAD: Atraumatic. Normocephalic. No temporal or scalp tenderness. EYES: Pupils equal round and reactive. Extraocular motions intact. No scleral icterus. No injection or drainage. ENT: Nose without bleeding, purulent drainage or septal hematoma. Throat without erythema, tonsillar hypertrophy or exudate. Uvula midline. Airway patent. NECK: Trachea midline. No JVD or lymphadenopathy. Supple, nontender, no meningeal signs. CARDIOVASCULAR: Regular rate and rhythm without murmurs, gallops, or rubs. RESPIRATORY: Clear to auscultation. Breath sounds equal bilaterally. No wheezes , rales, or rhonchi. GASTROINTESTINAL: Abdomen soft, non-tender, nondistended. No hepato-splenomegaly , or palpable masses. No guarding. MUSCULOSKELETAL: Left foot splint in place. Left foot neurovascular intact. No calf tenderness. Negative Homans sign bilaterally. NEUROLOGICAL: Awake and alert. Cranial nerves II through XII intact. Motor and sensory grossly within normal limits. Five out of 5 muscle strength in all muscle groups. Normal speech. A/P Assessment and Plan 76-year-old female with Closed fracture of distal end of left distal fibula with routine healing. Splint in place Inability to ambulate due to ankle or foot pain Pain medications by mouth and IV per pain scale. Monitor VS closely. Was instructed to follow up with orthopedic doctor as outpatient Consult physical therapy for evaluation. PT recommends rehab Hypertension, hyperlipidemia, appears stable. Continue home medications. Monitor vital signs DVT prophylaxis SCD/teds, Lizettex Discussed Condition With Patient, nurse DC plan: Plan to DC to rehab. CM consulted for DC plan . Rosemary Avery MD November 09, 2016 10:20
[2016-11-09] MEDS: ALPRAZolam 0.5 MG TAB PO PRN (16:05)
[2016-11-09] MEDS: ENOXAPARIN SODIUM 40 MG/0.4 ML SYRINGE SQ SCH (17:41)
[2016-11-09] MEDS: PRAVASTATIN SOD 80 MG TAB PO SCH (21:30)
[2016-11-09] MEDS: MIRTAZAPINE 15 MG TAB PO SCH (21:31)
[2016-11-10] VITALS (7 sets, daily range): BP systolic 105–130; BP diastolic 61–71; PULSE 75–92; RESP 16–20; TEMP 96.9–98.9; O2SAT 92–95
[2016-11-10] MEDS: SODIUM CHLORIDE 0.9% FLUSH 10 ML FLUSH IV FLUSH SCH ×2 (08:12→20:45)
[2016-11-10] MEDS: ACETAMINOPHEN/HYDROcodone 325 MG/10 MG TAB PO PRN ×2 (08:12→20:43)
[2016-11-10] MEDS: MELOXICAM 15 MG TAB PO SCH (08:13)
[2016-11-10] MEDS: LIDOCAINE VISCOUS 2% SOLN 15 ML UDC PO SCH ×2 (08:13→20:45)
[2016-11-10] MEDS: METOPROLOL TARTRATE 25 MG TAB PO SCH ×2 (08:13→20:43)
[2016-11-10] MEDS: CHOLECALCIFEROL (VIT D3) 1000 UNIT TAB PO SCH (08:13)
[2016-11-10] MEDS: CYANOCOBALAMIN 1,000 MCG TAB PO SCH (08:13)
[2016-11-10] MEDS: HYDROCHLOROTHIAZIDE 12.5 MG CAP PO SCH (08:13)
[2016-11-10] MEDS: LOSARTAN 50 MG TAB PO SCH (08:13)
[2016-11-10] MEDS: GABAPENTIN 300 MG CAP PO SCH ×2 (08:13→20:43)
[2016-11-10] MEDS: ASPIRIN EC 81 MG TABEC PO SCH (08:13)
--- NOTE | 2016-11-10 09:29 | HHI.PR ---
Subjective Remarks Patient in nad. Says she is less dizzy today. Pain is fairly controlled by meds. No cp, sob, n/v/d/c. Objective Vitals Vital Signs Date Time Temp Pulse Resp B/P Pulse Ox O2 Delivery O2 Flow Rate FiO2 11/10/16 09:13 18 11/10/16 08:00 98.9 91 16 117/65 92 11/10/16 05:16 11/10/16 00:54 98.2 75 16 105/64 93 11/09/16 21:21 97.0 99 18 126/71 94 11/09/16 19:30 95 21 11/09/16 16:00 98.4 63 20 109/65 92 11/09/16 12:00 97.2 77 18 105/59 93 11/09/16 09:46 93 21 I/O 11/09/16 11/09/16 11/09/16 11/10/16 11/10/16 11/10/16 07:00 15:00 23:00 07:00 15:00 23:00 Intake Total 890 ml 0 ml 0 ml Output Total 300 ml 1 ml Balance 590 ml 0 ml -1 ml Intake Oral 890 ml IV Total 0 ml 0 ml Output Urine Total 300 ml 1 ml # Voids 1 2 2 # Bowel Movements 0 1 Result Diagram: 11/08/1661411/08/16614 Objective Remarks GENERAL: This is a frail elderly female, well-nourished, well-developed patient , in no apparent distress. SKIN: No rashes, ecchymoses or lesions. Cool and dry. HEAD: Atraumatic. Normocephalic. No temporal or scalp tenderness. EYES: Pupils equal round and reactive. Extraocular motions intact. No scleral icterus. No injection or drainage. ENT: Nose without bleeding, purulent drainage or septal hematoma. Throat without erythema, tonsillar hypertrophy or exudate. Uvula midline. Airway patent. NECK: Trachea midline. No JVD or lymphadenopathy. Supple, nontender, no meningeal signs. CARDIOVASCULAR: Regular rate and rhythm without murmurs, gallops, or rubs. RESPIRATORY: Clear to auscultation. Breath sounds equal bilaterally. No wheezes , rales, or rhonchi. GASTROINTESTINAL: Abdomen soft, non-tender, nondistended. No hepato-splenomegaly , or palpable masses. No guarding. MUSCULOSKELETAL: Left foot splint in place. Left foot neurovascular intact. No calf tenderness. Negative Homans sign bilaterally. NEUROLOGICAL: Awake and alert. Cranial nerves II through XII intact. Motor and sensory grossly within normal limits. Five out of 5 muscle strength in all muscle groups. Normal speech. A/P Assessment and Plan 76-year-old female with Closed fracture of distal end of left distal fibula with routine healing. Splint in place Inability to ambulate due to ankle / foot pain Pain medications by mouth and IV per pain scale. Monitor VS closely. Was instructed to follow up with orthopedic doctor as outpatient Consult physical therapy for evaluation. PT recommends rehab Hypertension, hyperlipidemia, appears stable. Continue home medications. Monitor vital signs DVT prophylaxis SCD/tedDrea laguerre Discussed Condition With Patient, nurse DC plan: Plan to DC to rehab. CM consulted for DC plan. Rosemary Avery MD November 10, 2016 09:29
[2016-11-10] MEDS: ALPRAZolam 0.5 MG TAB PO PRN ×2 (10:54→20:43)
[2016-11-10] MEDS: HYDROmorphone HCL PF 1 MG/ML VIAL IV PUSH PRN ×3 (10:55→22:18)
[2016-11-10] MEDS: ENOXAPARIN SODIUM 40 MG/0.4 ML SYRINGE SQ SCH (16:58)
[2016-11-10] MEDS: PRAVASTATIN SOD 80 MG TAB PO SCH (20:43)
[2016-11-10] MEDS: MIRTAZAPINE 15 MG TAB PO SCH (20:43)
[2016-11-11 00:39] VITALS: BP 114/60; PULSE 74; RESP 16; TEMP 96.5; O2SAT 95
[2016-11-11 08:00] VITALS: BP 172/91; PULSE 80; RESP 20; TEMP 97.3; O2SAT 93
[2016-11-11 08:01] VITALS: O2SAT 96
[2016-11-11] MEDS: CYANOCOBALAMIN 1,000 MCG TAB PO SCH (08:39)
[2016-11-11] MEDS: HYDROCHLOROTHIAZIDE 12.5 MG CAP PO SCH (08:39)
[2016-11-11] MEDS: METOPROLOL TARTRATE 25 MG TAB PO SCH (08:39)
[2016-11-11] MEDS: ASPIRIN EC 81 MG TABEC PO SCH (08:39)
[2016-11-11] MEDS: ACETAMINOPHEN/HYDROcodone 325 MG/10 MG TAB PO PRN ×2 (08:39→14:29)
[2016-11-11] MEDS: MELOXICAM 15 MG TAB PO SCH (08:39)
[2016-11-11] MEDS: GABAPENTIN 300 MG CAP PO SCH (08:39)
[2016-11-11] MEDS: LIDOCAINE VISCOUS 2% SOLN 15 ML UDC PO SCH (08:40)
[2016-11-11] MEDS: LOSARTAN 50 MG TAB PO SCH (08:40)
[2016-11-11] MEDS: SODIUM CHLORIDE 0.9% FLUSH 10 ML FLUSH IV FLUSH SCH (08:40)
[2016-11-11] MEDS: CHOLECALCIFEROL (VIT D3) 1000 UNIT TAB PO SCH (08:40)
[2016-11-11 12:00] VITALS: BP 87/69; PULSE 74; RESP 18; TEMP 96.8; O2SAT 95
--- NOTE | 2016-11-11 13:29 | HHI.DS ---
Discharge Summary Admission Date November 08, 2016 at 4:22 pm Discharge Date: November 11, 2016 Admitting Diagnosis distal fibular fracture, inability to ambulate (1) Fracture of distal fibula ICD Code: S82.839A Diagnosis: Principal (2) Inability to ambulate due to ankle or foot ICD Code: R26.2 Procedures None Brief History - From Admission 76-year-old female with past medical history of hypertension, hyperlipidemia, chronic pain, depression and anxiety came to the emergency room brought by EMS with history of left leg/ankle pain. Patient was seen in the emergency room yesterday after sustaining a fall and was diagnosed with left distal fibular fracture. She had splint placed at that time. She also had a scalp laceration from the fall which was stapled. CAT scan of her head and cervical spine was done and they were within normal limit. Patient was discharged home after that. However patient says that she was up all night due to the pain and currently she is unable to take care of herself. Her is here with her as well and says that he cannot take care of her and would like her to be admitted for couple days. There was home health care arranged for her but patient came to the emergency room before home healthcare could go to their house at 4 PM. Also she was discharged home with a prescription for Lortab which she has not filled. She says she has Lortab with stronger strength at home for her chronic pain. Patient did not take any pain medication today. She received 4 mg of IV morphine once EMS got her. She was also asked to follow up with Dr. De La Fuente as outpatient for or so but no phone calls have been made yet by her or the family to get an appointment. CBC/BMP: 11/08/1615 11/08/16 0615 PE at Discharge GENERAL: This is a frail elderly female, well-nourished, well-developed patient , in no apparent distress. SKIN: No rashes, ecchymoses or lesions. Cool and dry. HEAD: Atraumatic. Normocephalic. No temporal or scalp tenderness. EYES: Pupils equal round and reactive. Extraocular motions intact. No scleral icterus. No injection or drainage. ENT: Nose without bleeding, purulent drainage or septal hematoma. Throat without erythema, tonsillar hypertrophy or exudate. Uvula midline. Airway patent. NECK: Trachea midline. No JVD or lymphadenopathy. Supple, nontender, no meningeal signs. CARDIOVASCULAR: Regular rate and rhythm without murmurs, gallops, or rubs. RESPIRATORY: Clear to auscultation. Breath sounds equal bilaterally. No wheezes , rales, or rhonchi. GASTROINTESTINAL: Abdomen soft, non-tender, nondistended. No hepato-splenomegaly , or palpable masses. No guarding. MUSCULOSKELETAL: Left foot splint in place. Left foot neurovascular intact. No calf tenderness. Negative Homans sign bilaterally. NEUROLOGICAL: Awake and alert. Cranial nerves II through XII intact. Motor and sensory grossly within normal limits. Five out of 5 muscle strength in all muscle groups. Normal speech. Hospital Course Mrs. Parsons is a 76-year-old female who was admitted with a left distal fibular fracture. Other conditions are hypertension, hyperlipidemia, chronic pain, depression and anxiety. Fractures nonsurgical and she has been splinted. Thus far she has been unable to ambulate. Today she is medically stable but unable to return home secondary to poor ambulation. She will discharged to [facility] for further rehabilitation. Medically stable for discharge. Pt Condition on Discharge: Stable Discharge Disposition: Discharge to SNF Discharge Time: > 30 minutes Discharge Instructions DIET: Follow Instructions for: As Tolerated, No Restrictions Activities you can perform: Regular-No Restrictions Follow up Referrals: Orthopedics - 2 Weeks PCP Follow-up - 2 Weeks Continued Medications: Alprazolam (Xanax) 0.5 Mg Tab 0.5 MG PO TID PRN ANXIETY Ref [address] (Aspirin 81) 81 Mg Tabdr 81 MG PO DAILY Ref 0 TAB Baclofen (Baclofen) 10 Mg Tab 10 MG PO TID PRN MUSCLE SPASM Ref 0 TAB Cholecalciferol (Vitamin D-1000) 1,000 Unit Tab 1000 UNITS PO DAILY Nutritional Supplement Ref 0 BOTTLE Cyanocobalamin (Vitamin B-12) 500 Mcg Subl 500 MCG SL DAILY Nutritional Supplement Ref 0 TAB.SL Gabapentin (Gabapentin) 600 Mg Tab 600 MG PO TID Ref 0 TAB Hydrochlorothiazide (Hydrochlorothiazide) 12.5 Mg Tab 12.5 MG PO DAILY Ref 0 TAB Hydrocodone-Acetaminophen (Lortab) 5-325 Mg Tab 1 TAB PO Q6H PRN PAIN #12 Ref 0 TAB Lidocaine Viscous 2% Liq (Lidocaine Viscous 2% Liq) 2 % Liq 15 ML PO BID Losartan (Cozaar) 100 Mg Tab 100 MG PO DAILY Blood Pressure Management #30 Ref 0 TAB Meloxicam (Meloxicam) 15 Mg Tab 15 MG PO DAILY Arthritis Pain #30 Ref 0 TAB Metoprolol Tartrate (Metoprolol Tartrate) 25 Mg Tab 25 MG PO BID #60 Ref 0 TAB Mirtazapine (Mirtazapine) 15 Mg Tab 15 MG PO HS Depression Control Ref 0 TAB Pravastatin (Pravachol) 80 Mg Tab 80 MG PO HS Cholesterol Management Ref 0 TAB Walker/Adult/Folding (Walker/Adult/Folding) 1 Mis Mis 1 EA .ROUTE DIRECTED #1 Ref 0 EA Discontinued Medications: Hydrocodone-Acetaminophen (Hydrocodone-Acetaminophen) 10-325 mg Tab 1 TAB PO Q8HR PRN PAIN SCALE 1 TO 10 #90 Ref 0 TAB Arnoldo Mora MD November 11, 2016 1:29 pm
[2016-11-11 15:37] VITALS: RESP 16
== END 2016-11-11 16:10 | DRG 563 ==
LOC: PHED 16:11 → PHEDA 17:23 → PH3B 18:36 → OBSVTOIN 11-08 16:22
PROVIDERS: ADMIT Hospitalist; ATTEND Hospitalist
DX: S82.832A Other fracture of upper and lower end of left fibula, initial encounter for closed fracture (principal); N17.9 Acute kidney failure, unspecified; E86.0 Dehydration; I10 Essential (primary) hypertension; R26.2 Difficulty in walking, not elsewhere classified; F32.9 Major depressive disorder, single episode, unspecified; G89.29 Other chronic pain; F41.9 Anxiety disorder, unspecified; E78.5 Hyperlipidemia, unspecified; S01.01XA Laceration without foreign body of scalp, initial encounter; R94.31 Abnormal electrocardiogram [ECG] [EKG]; W17.89XA Other fall from one level to another, initial encounter; Y92.002 Bathroom of unspecified non-institutional (private) residence as the place of occurrence of the external cause
CPT/HCPCS: 12002; 29515; 70450; 72125; 73610; 80048; 80053; 81001; 82550; 84484; 85025; 85610; 85730; 93005; 99284; G8987-GP; G8988-GP; J1170; J1650; J7040

== ENCOUNTER 2017-01-08 23:36 | Inpatient (IN) | payer MEDICARE ==
[~2017-01-08] VITALS: Ht 160 cm; Wt 63.3 kg
[~2017-01-08 23:36] MED LIST changes: -HYDR-3583 PO
[2017-01-08 23:41] VITALS: BP 175/76; PULSE 81; RESP 20; TEMP 98; O2SAT 97
[2017-01-09] VITALS (11 sets, daily range): BP systolic 129–162; BP diastolic 63–74; PULSE 72–98; RESP 17–22; TEMP 98–98.9; O2SAT 94–98
[2017-01-09] MEDS ORDERED: Vancomycin Consult Pharmacy 1 EA OTHER SCH (00:45)
[2017-01-09] MEDS ORDERED: cefTRIAXone INJ 2,000 MG in SODIUM CHLORIDE 0.9% INJ 100 ML IV ONE (00:45)
[2017-01-09] MEDS ORDERED: NALOXONE HCL 0.4 MG/ML AMP IV PRN (00:45)
[2017-01-09] MEDS ORDERED: VANCOMYCIN INJ 1,500 MG in SODIUM CHLORID 0.9% 500 ML INJ 500 ML IV ONE (00:45)
[2017-01-09] MEDS ORDERED: SODIUM CHLORIDE 0.9% FLUSH 10 ML FLUSH IVF PRN (00:45)
[2017-01-09] MEDS ORDERED: SODIUM CHLORIDE 0.9% FLUSH 10 ML FLUSH IV FLUSH PRN (00:45)
--- NOTE | 2017-01-09 01:08 | PD ---
HPI Chief Complaint: Wound/Suture/Staple Re-Check Time Seen by Provider: 00:24 Travel History International Travel<30 days: No Contact w/Intl Traveler<30days: No Traveled to known affect area: No History of Present Illness HPI The patient 76 years old. She arrives as a direct transfer from [facility] in [place]. She underwent a spinal surgery in [address] Morrissey. She reports intermittent drainage from the area since. Drainage became somewhat purulent over the last couple days and the patient was evaluated there with an MRI revealing the appearance of abscess potentially as well as a fistula in addition to concern for discitis. Patient reports chronic severe pain involving her back. She also complains of pain involving the dorsal right foot where there is about a 2 cm wound. She received Zosyn from the outside hospital. PFSH Past Medical History Arthritis: Yes Asthma: No Autoimmune Disease: No Blood Disorders: No Anxiety: Yes Depression: Yes Heart Rhythm Problems: No Cancer: Yes ( LEFT TONSILAR REMOVED) Cardiovascular Problems: Yes High Cholesterol: Yes Chemotherapy: No Chest Pain: No Congestive Heart Failure: No COPD: No Cerebrovascular Accident: No Diabetes: No Diminished Hearing: Yes Endocrine: No Gastrointestinal Disorders: No GERD: Yes Genitourinary: No Headaches: No Hepatitis: No Hiatal Hernia: No Heparin Induced Thrombocytopen: No Hypertension: Yes Immune Disorder: No Implanted Vascular Access Dvce: No Kidney Stones: No Musculoskeletal: Yes (OA) Neurologic: Yes (BACK PAIN) Psychiatric: No Reproductive: No Respiratory: No Immunizations Current: Yes Migraines: Yes Radiation Therapy: No Renal Failure: No Seizures: No Sickle Cell Disease: No Sleep Apnea: No Thyroid Disease: No Ulcer: Yes PNEUMOCCOCAL Vaccine (Year): 1 ?: Not Menopausal: Yes Dilation and Curettage (D&C): Yes Past Surgical History Abdominal Surgery: Yes (EXPL. LAP) AICD: No Arteriovenous Shunt: No Body Medical Devices: LUMBAR HARDWARE, BREASTS Cardiac Surgery: No Ear Surgery: No Endocrine Surgery: No Eye Surgery: Yes (GONZÁLEZ CATARACTS) Genitourinary Surgery: No Gynecologic Surgery: Yes (LASH/BSO) Hysterectomy: Yes Insulin Pump: No Joint Replacement: No Mastectomy: Yes Neurologic Surgery: Yes Oral Surgery: Yes (EXC. TUMOR LEFT THROAT) Pacemaker: No Thoracic Surgery: No Tonsillectomy: Yes Other Surgery: Yes (BREAST AUGMENTATION X 2) Social History Alcohol Use: No Tobacco Use: No Substance Use: No Allergies-Medications (Allergen,Severity, Reaction): Coded Allergies: RAJEEV Inhibitors (Verified Allergy, Severe, throat closure facial swelling, 11/07/16) Reported Meds & Prescriptions Reported Meds & Active Scripts Active Walker/Adult/Folding (Device) 1 Mis Mis 1 Ea .ROUTE DIRECTED Lortab (Hydrocodone-Acetaminophen) 5-325 Mg Tab 1 Tab PO Q6H PRN Reported Meloxicam 15 Mg Tab 15 Mg PO DAILY Baclofen 10 Mg Tab 10 Mg PO TID PRN Lidocaine Viscous 2% Liq 2 % Liq 15 Ml PO BID Vitamin D-1000 (Cholecalciferol) 1,000 Unit Tab 1,000 Units PO DAILY Vitamin B-12 (Cyanocobalamin) 500 Mcg Subl 500 Mcg SL DAILY Hydrochlorothiazide 12.5 Mg Tab 12.5 Mg PO DAILY Xanax (Alprazolam) 0.5 Mg Tab 0.5 Mg PO TID PRN Mirtazapine 15 Mg Tab 15 Mg PO HS Metoprolol Tartrate 25 Mg Tab 25 Mg PO BID Gabapentin 600 Mg Tab 600 Mg PO TID Cozaar (Losartan Potassium) 100 Mg Tab 100 Mg PO DAILY Aspirin 81 (Aspirin) 81 Mg Tabdr 81 Mg PO DAILY Pravachol (Pravastatin) 80 Mg Tab 80 Mg PO HS Review of Systems Except as stated in HPI: all other systems reviewed are Neg Physical Exam Narrative GENERAL: 76 yo F, WNWD, moderate discomfort 2/2 pain SKIN: Warm and dry. HEAD: Atraumatic. Normocephalic. EYES: Pupils equal and round. No scleral icterus. No injection or drainage. ENT: No nasal bleeding or discharge. Mucous membranes pink and moist. NECK: Trachea midline. No JVD. CARDIOVASCULAR: Regular rate and rhythm. RESPIRATORY: No accessory muscle use. Clear to auscultation. Breath sounds equal bilaterally. GASTROINTESTINAL: Abdomen soft, non-tender, nondistended. Hepatic and splenic margins not palpable. MUSCULOSKELETAL: Midline lumbar spine drainage. Yellowish discharge about 4x4 dressing of lumbar spine. No erythema in area. Minimal TTP about the region. 2cm abrasion dorsal right foot. NEUROLOGICAL: Awake and alert. No obvious cranial nerve deficits. Motor grossly within normal limits. Ankle flexion/extension preserved. Hip flexion equally bilaterally. PSYCHIATRIC: Appropriate anxiety. Data Data Last Documented VS Vital Signs Date Time Temp Pulse Resp B/P Pulse Ox O2 Delivery O2 Flow Rate FiO2 01/08/17 23:41 98.0 81 20 175/76 97 VS reviewed Orders Ecg Monitoring (01/09/17 00:31) Oximetry (01/09/17 00:31) Sodium Chloride 0.9% Flush (Ns Flush) (01/09/17 00:45) Vancomycin Inj (Vancomycin Inj) (01/09/17 00:45) Ceftriaxone Inj (Rocephin Inj) (01/09/17 00:45) Consult Neurosurgery (01/09/17 ) Oxygen Administration (01/09/17 00:31) Admit To Inpatient (01/09/17 ) Vital Signs (Adult) Q4H (01/09/17 00:40) Activity Bed Rest (01/09/17 00:40) Sole Painter / Telemetry .CONTINUOUS (01/09/17 00:40) Diet Npo (01/09/17 Breakfast) Sodium Chloride 0.9% Flush (Ns Flush) (01/09/17 00:45) Sodium Chloride 0.9% Flush (Ns Flush) (01/09/17 09:00) Basic Metabolic Panel (Bmp) (01/10/17 06:00) Complete Blood Count With Diff (01/10/17 06:00) Case Management Consult (01/09/17 00:40) Naloxone Inj (Narcan Inj) (01/09/17 00:45) Inpatient Certification (01/09/17 ) (Hub Use Only)Inp Phy Cons/Ref (01/09/17 ) Admit Order (Ed Use Only) (01/09/17 00:40) Vancomycin Consult Pharmacy (Vancomycin (01/09/17 00:45) MDM Medical Decision Making Medical Screen Exam Complete: Yes Emergency Medical Condition: Yes Differential Diagnosis Epidural abscess, osteomyelitis, paraspinal abscess, cellulitis, chronic wound, sepsis Narrative Course Workup from outside hospital reveals a white count of 6.2 and a BUN/creatinine ratio 40 over 1.0. Two months prior BUN/creatinine was 19 over 0.76. The hemoglobin obtained just earlier today was 9.3. Two months prior Hgb 8.3. Case discussed with Dr. Morrissey who requests IV antibiotics and admission to the hospital service. Rocephin and vancomycin ordered. A CT biopsy will be performed. He reviewed MR images and notes there is no indication for surgical intervention at this time. Case d/w Dr Alvarado. Diagnosis Primary Impression: Non-healing surgical wound Qualified Code: T81.89XS - Non-healing surgical wound, sequela Admitting Information Admitting Physician Requests: Arnoldo Munoz MD Jan 09, 2017 01:08
[2017-01-09] MEDS: HYDROmorphone HCL PF 1 MG/ML VIAL IV PUSH PRN ×3 (01:14→16:04)
--- NOTE | 2017-01-09 01:20 | HHI.HP ---
[facility] Leander Marcus MD Admission Diagnosis Abscess Diagnoses: Chief Complaint: pain in back and left ankle Travel History International Travel<30 Days: No Contact w/Intl Traveler <30 Da: No Traveled to Known Affected Are: No History of Present Illness Written by MAKEDA Manzano acting as scribe for [Jenny] on 01/09/17 at 01: 04. 76 y/o female with a history of HTN, HLD, chronic pain, depression and anxiety was a transfer from [facility] with severe back pain and she couldn 't walk for the past 2 days. She was sent home from rehab 10 days ago after suffering an ankle fracture, she was being followed by [facility]. She explained to them her problem and they sent her to the hospital. She feels the ankle is the reason she can not walk, she tried taking off her boot to walk 2 days after rehab per Dr. Beach's ordered but it was not healed all the way and it was very painful. She has a history of lumbar spine surgery [address] Morrissey. Lumbar spine MRI completed at [facility] and shows a complex collection with a thick enhancing wall enhancing wall along the right side of the thecal sac at L4-L5 with a fistulous tract extending to the skin surface and commination with the disk space is suspicious for infection/phlegmon with only a minimal amount of nonenhancing internal fluid. Associated enhancement in the right side of the disk space with edema in the L4 and L5 vertebra is suspicious for diskitis osteomyelitis. She states she was taking antibiotics PO for the infection in her back and was seen by wound care in [place] [facility]. She denies any fever, chills, chest pain, sob, nausea, vomiting or headaches. Review of Systems Except as stated in HPI: all other systems reviewed are Neg Past Family Social History Past Medical History HTN HLD chronic pain depression anxiety Past Surgical History 2 Back surgeries 2015 Breast augmentation Hysterectomy Cataracts Throat tumor removed Appendectomy Multiple D&C Reported Medications Reported Meds & Active Scripts Active Walker/Adult/Folding (Device) 1 Mis Mis 1 Ea .ROUTE DIRECTED Lortab (Hydrocodone-Acetaminophen) 5-325 Mg Tab 1 Tab PO Q6H PRN Reported Meloxicam 15 Mg Tab 15 Mg PO DAILY Baclofen 10 Mg Tab 10 Mg PO TID PRN Lidocaine Viscous 2% Liq 2 % Liq 15 Ml PO BID Vitamin D-1000 (Cholecalciferol) 1,000 Unit Tab 1,000 Units PO DAILY Vitamin B-12 (Cyanocobalamin) 500 Mcg Subl 500 Mcg SL DAILY Hydrochlorothiazide 12.5 Mg Tab 12.5 Mg PO DAILY Xanax (Alprazolam) 0.5 Mg Tab 0.5 Mg PO TID PRN Mirtazapine 15 Mg Tab 15 Mg PO HS Metoprolol Tartrate 25 Mg Tab 25 Mg PO BID Gabapentin 600 Mg Tab 600 Mg PO TID Cozaar (Losartan Potassium) 100 Mg Tab 100 Mg PO DAILY Aspirin 81 (Aspirin) 81 Mg Tabdr 81 Mg PO DAILY Pravachol (Pravastatin) 80 Mg Tab 80 Mg PO HS Allergies: Coded Allergies: RAJEEV Inhibitors (Verified Allergy, Severe, throat closure facial swelling, 11/07/16) Active Ordered Medications Current Medications Medications (Trade) Dose Ordered Sig/Johan Route Start Time Stop Time Status Last Admin Vancomycin HCl 1500 mg/Sodium Chloride 515 ml @ 257.5 mls/ hr ONCE ONCE IV 01/09/17 00:45 01/09/17 02:44 (Rocephin Inj/NS Inj) 100 ml @ 200 mls/hr ONCE ONCE IV 01/09/17 00:45 01/09/17 01:14 (NS Flush) 2 ml UNSCH PRN IV FLUSH 01/09/17 00:45 (NS Flush) 2 ml BID IV FLUSH 01/09/17 09:00 Naloxone HCl 0.4 mg 0.4 mg UNSCH PRN IV 01/09/17 00:45 Pharmacy Profile Note 0 ml @ 0 mls/hr UNSCH OTHER 01/09/17 00:45 (Zosyn 4.5 Gm Premix) 100 ml @ 200 mls/hr Q6H IV 01/09/17 03:00 UNV Family History Dad: Colon cancer Sister: MS Brother: Lung cancer Social History Denies any tobacco, alcohol or illicit drug use. Physical Exam Vital Signs Vital Signs Date Time Temp Pulse Resp B/P Pulse Ox O2 Delivery O2 Flow Rate FiO2 01/08/17 23:41 98.0 81 20 175/76 97 Physical Exam GENERAL: This is a well-nourished, well-developed patient, who is emotional and painful SKIN: Small open area on lumbar spine with purulent drainage, Top of right foot wound open with no drainage covered with a bandage. HEAD: Atraumatic. Normocephalic. EYES: Pupils equal round and reactive. Extraocular motions intact. ENT: Nose without bleeding, purulent drainage or septal hematoma. Airway patent. NECK: Trachea midline. No JVD or lymphadenopathy. CARDIOVASCULAR: Regular rate and rhythm without murmurs, gallops, or rubs. RESPIRATORY: Clear to auscultation. Breath sounds equal bilaterally. No wheezes , rales, or rhonchi. GASTROINTESTINAL: Abdomen soft, round, non-tender, nondistended. No hepato- splenomegaly, or palpable masses. No guarding. MUSCULOSKELETAL: Extremities without clubbing, cyanosis, or edema. No joint tenderness, effusion, or edema noted. No calf tenderness. NEUROLOGICAL: Awake and alert. Motor and sensory grossly within normal limits. Normal speech. Assessment and Plan Problem List: (1) Infected surgical wound ICD Code: T81.4XXA Status: Acute (2) Inability to ambulate due to ankle or foot ICD Code: R26.2 Status: Acute Assessment and Plan 76 y/o female with a history of HTN, HLD, chronic pain, depression and anxiety was a transfer from [facility] with severe back pain and she couldn 't walk for the past 2 days. Infected surgical wound, spinal abscess on MRI -Consult Dr. Morrissey who recommended drainage with CT guided -Interventional radiology consulted for am -Infectious disease consult for recommendations -Pain management with IV Dilaudid -IV antibiotics Vancomycin and Zosyn -Wound culture ordered Inability to ambulate due to ankle pain, patient was in rehab for 7 weeks for a non surgical ankle fracture, increased pain -Consult Dr. Beach, orthopedics for recommendations, patient is known to him -Left ankle x ray ordered -PT eval and treat Right foot wound -Consult wound care for recommendations HTN, chronic -Will order home medication when med rec is updated DVT prophylaxis: SCDs This note was transcribed by rohithibsuellen [Ethel Linder]. I, Dr. Murali Alvarado personally performed the history, physical exam, and medical decision making; and confirmed the accuracy of the information in the transcribed note. Authenticated by Dr. Murali Alvarado on 01/09/17 at 01:04. Discussed Condition With Patient, RN and ED physician Physician Certification 2 Midnight Certification Type: Admission for Inpatient Services Order for Inpatient Services The services are ordered in accordance with Medicare regulations or non- Medicare payer requirements, as applicable. In the case of services not specified as inpatient-only, they are appropriately provided as inpatient services in accordance with the 2-midnight benchmark. Estimated LOS (days): 4 days is the estimated time the patient will need to remain in the hospital, assuming treatment plan goals are met and no additional complications. Post-Hospital Plan: Not yet determined Ethel Linder Jan 09, 2017 01:20 Murali Alvarado MD Jan 09, 2017 08:13
--- NOTE | 2017-01-09 02:52 | RADRPT ---
EXAM DATE/TIME: 01/09/2017 02:43 [facility] COMPARISON: ANKLE LEFT COMPLETE ([id number]), November 06, 2016, 15:36. INDICATIONS : Left ankle pain. MEDICAL HISTORY : Osteoporosis. Arthritis. SURGICAL HISTORY : None. ENCOUNTER: Initial ACUITY: 1 day PAIN SCORE: 5/10 LOCATION: Left ankle. FINDINGS: Patient has an oblique fracture involving the distal fibula. This was noted on the prior study. There has been no change in the alignment or position of the fracture fragments. The fracture line is stil l visible. There does appear to be some degree of healing. There is good alignment the mortise joint. No other new or significant changes are demonstrated. CONCLUSION: Healing fracture of the distal fibula. No change in alignment or position compared to the prior study . Memo Cheng MD on January 09, 2017 at 2:49 Board Certified Radiologist. This report was verified electronically.
[2017-01-09] MEDS ORDERED: LIDOCAINE 1%/EPINEPHrine 1:100,000 SOLN 20 ML VIAL ONE ×2 (08:57→09:32)
[2017-01-09] MEDS ORDERED: MIDAZOLAM HCL 2 MG/2 ML VIAL ONE (09:40)
--- NOTE | 2017-01-09 10:22 | MB ---
cc: KEVIN COSTELLO DATE OF CONSULTATION 01/09/[address] Stevan Oseguera REASON FOR CONSULTATION Pain in the left ankle with a history of a fracture. HISTORY This patient is a 76-year-old female [facility] yesterday. The patient has a known history of a fracture of her left ankle. She was seen by my partner, Dr. Deion Beach who recommend nonsurgical treatment. According to the patient, the fracture is about seven weeks old. The patient normally has a fracture boot on the left ankle which she left at home. She was admitted to the hospital with concerns of back pain with a workup consistent with a diskitis and possible abscess in her spine. She has been seen by the neurosurgical department. During her admission, she was noted to be having severe pain in the region of the left ankle. An x-ray was obtained showing evidence of healing lateral malleolus fracture. I have been asked to see the with regard to the left ankle. Dr. Beach is out-of-town PAST MEDICAL HISTORY MEDICATIONS 1. Meloxicam 2. Baclofen 3. Lidocaine 4. Multiple Vitamins 5. Hydrochlorothiazide 6. Xanax 7. Metoprolol 8. Gabapentin 9. Cozaar 10. Aspirin 11. Pravachol ALLERGIES RAJEEV INHIBITORS MEDICAL HISTORY Significant for: 1. Previous low back surgery with Dr. Morrissey in the past. 2. Breast augmentation 3. Hysterectomy 4. Cataracts 5. Previous head and neck cancer status post surgical removal. 6. Appendectomy 7. Multiple D&C's MEDICAL HISTORY 1. Hypertension 2. Hyperlipidemia 3. Chronic back pain 4. Depression 5. Anxiety REVIEW OF SYSTEMS All negative for anxiety, back pain, and left ankle pain. PHYSICAL EXAMINATION Alert cooperative, emotional white female. HEENT: Normocephalic, atraumatic. Pupils equal, round, reactive to light. Extraocular motions intact. NECK: Supple. CHEST: Clear. HEART: Regular rate rhythm. ABDOMEN: Soft, nontender. Active bowel sounds. MUSCULOSKELETAL: The lumbar spine is deferred to the neurosurgery department. Left ankle shows mild swelling over the lateral malleolus. Alignment is satisfactory nearly normal motion, mild pain to palpation. No obvious instability. Dorsalis pedis 1+. No redness, no warmth. There is significant swelling except for over the region of fracture. X-rays reviewed and review of the radiologist interpretation shows evidence of a lateral malleolus fracture with callus formation in the near anatomic alignment. The fracture is not completely healed. IMPRESSION Fracture left ankle, lateral malleolus PLAN 1. She has a fracture walker at home that I have encouraged her to have family members bring in. 2. Weightbearing as tolerated with a fracture walker. 3. No followup Hospital is necessary at this time. 4. Dr. Beach will follow her when he returns and she can be followed as an outpatient. MD ANH Escobedo/CARITO /8:31 AM /10:17 AM
--- NOTE | 2017-01-09 10:23 | PD.RAD ---
Post CT Procedure Prog Note Pre Procedure Diagnosis: (1) Paraspinal abscess Post Procedure Diagnosis: (1) paraspinal phlegmon Procedure Date: Jan 09, 2017 Supervising Radiologist: Jake Brown Proceduralist/Assist: Luz Elena Danielle Anesthesia: Conscious Sedation Plan of Activity Patient to Unit: ROPU Patient Condition: Good See PACS Report for procedural detail/treatment Jake Brown MD Jan 09, 2017 10:23
[2017-01-09] MEDS: PIPERACIL-TAZO 4.5 GM PREMIX 100 ML IV SCH ×3 (12:32→20:32)
[2017-01-09] MEDS: SODIUM CHLORIDE 0.9% FLUSH 10 ML FLUSH IV FLUSH SCH ×2 (12:32→20:32)
[2017-01-09] MEDS ORDERED: REST0.05 EACH EYE (13:35)
--- NOTE | 2017-01-09 15:04 | PD.CONS ---
(Casper Morrissey MD) HPI Consult Requested By Primary Care Physician Leander Marcus MD (Casper Morrissey MD) Service NRS History of Present Illness Ms. Parsons is a 75 year old female who had underwent a L4-5 laminectomy with interbody arthrodesis and posterolateral fusion on 05/24/15. She developed a wound infection that was surgically debrided on 06/08/15. She was doing well then unfortunately developed a nonhealing granuloma. She again underwent surgical debridement and resection of wound granuloma on 04/24/16. Ms. Parsons had been managed by wound care after that. She was transferred from [facility] for wound drainage and possible spinal infection. The MRI L spine shows some fluid collection and abnormality at the disc space at L4-5, no evidence of epidural abscess. She is awaiting to undergo CT guided aspiration. 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 Past Medical History Hypertension Hyperlipidemia depression anxiety Past Surgical History Lumbar laminectomy, I&D of lumbar wound Breast surgery Hysterectomy Cataracts Throat tumor removed Appendectomy Reported Medications reviewed in EMR Active Ordered Medications Current Medications Medications (Trade) Dose Ordered Sig/Johan Route PRN Reason Start Time Stop Time Status Last Admin Dose Admin Sodium Chloride (NS Flush) 2 ml UNSCH PRN IV FLUSH FLUSH AFTER USING IV ACCESS 01/09/17 00:45 01/09/17 16:04 Sodium Chloride (NS Flush) 2 ml BID IV FLUSH 01/09/17 09:00 01/09/17 12:32 Naloxone HCl 0.4 mg 0.4 mg UNSCH PRN IV SEE LABEL COMMENTS 01/09/17 00:45 Pharmacy Profile Note 0 ml @ 0 mls/hr UNSCH OTHER 01/09/17 00:45 Piperacillin Sod/ Tazobactam Sod (Zosyn 4.5 Gm Premix) 100 ml @ 200 mls/hr Q6H IV 01/09/17 08:00 01/09/17 12:32 Hydromorphone HCl 0.5 mg 0.5 mg Q4H PRN IV PUSH pain 6-10 01/09/17 01:15 01/09/17 16:04 Vancomycin HCl/ Sodium Chloride (Vancomycin Inj/ NS 250 ml Inj) 250 ml @ 250 mls/hr Q24H IV 01/10/17 15:00 Miscellaneous Information SPECIFIC LAB TO BE RYLEY... ONCE ONCE .XX 01/12/17 14:45 01/12/17 14:46 Family History noncontributory Social History denies tobacco, etoh, and illicit drug use (Marian Dow) Physical Exam Vital Signs Vital Signs Date Time Temp Pulse Resp B/P Pulse Ox O2 Delivery O2 Flow Rate FiO2 01/09/17 12:52 98.0 89 18 134/63 95 01/09/17 11:00 94 18 133/66 96 01/09/17 10:45 98 22 144/74 97 01/09/17 10:30 98.5 98 20 132/72 94 01/09/17 07:41 98.4 97 20 129/64 96 01/09/17 05:56 18 01/09/17 04:33 98.1 88 18 158/70 96 01/09/17 02:00 72 20 145/70 98 Room Air 01/09/17 01:00 98 Room Air 01/08/17 23:41 98.0 81 20 175/76 97 Physical Exam Ms Parsons is alert, anxious Lumbar wound there is a 3-4 mm round opening, there is mild drainage noted, her dressing moderately saturated with yellow/green drainage. 4 mm round opening, with yellow/green drainage. Wound was probe with measurement of 8 mm deep. Motor: moving all major muscle groups 4/5, except for left foot which she has very minimal movement due to her ankle injury Sensory: intact to light touch x 4 extremities Plantars flexion response bilateral Laboratory Laboratory Tests Test 01/09/17 12:03 Creatinine 0.69 Estimat Glomerular Filtration 83 Rate Date/Time Procedure Status Source Growth 01/09/17 10:15 Gram Stain Received Abscess Back Pending 01/09/17 10:15 Wound Culture Received Abscess Back Pending 01/09/17 10:15 Fungal Smear Received Abscess Back Pending 01/09/17 10:15 Fungal Culture Received Abscess Back Pending 01/09/17 10:15 Acid Fast Stain Received Abscess Back Pending 01/09/17 10:15 Mycobacterial Culture Received Abscess Back Pending 01/09/17 01:50 Gram Stain - Final Resulted Wound Back 01/09/17 01:50 Wound Culture Resulted Wound Back Pending (Casper Morrissey MD) Physical Exam Alert, appears mildly anxious awaiting CT aspiration Lumbar wound there is a 3-4 mm round opening, there is mild drainage noted, her dressing moderately saturated with yellow/green drainage. 4 mm round opening, with yellow/green drainage. Wound was probe with measurement of 8 mm deep. Motor: moving all major muscle groups 4/5, except for left foot which she has very minimal movement due to her ankle injury Sensory: intact to light touch x 4 extremities Plantars downgoing b/l (Marian Dow) Result Diagram: 01/09/17 1203 Imaging Last Impressions Ankle X-Ray 01/09/17 0000 Signed Impressions: Service Date/Time: December 02:43 - CONCLUSION: Healing fracture of the distal fibula. No change in alignment or position compared to the prior study. Memo Cheng MD (Casper Morrissey MD) Imaging Last Impressions Ankle X-Ray 01/09/17 0000 Signed Impressions: Service Date/Time: December 02:43 - CONCLUSION: Healing fracture of the distal fibula. No change in alignment or position compared to the prior study. Memo Cheng MD Abscess Drainage CT 01/09/17 0000 Signed Impressions: Service Date/Time: December 09:49 - CONCLUSION: No significant paraspinal fluid aspiration at L4-5. There was a small area of pus more inferiorly seen within a superficial fluid collection which was aspirated. Jake F. Tocci, MD (Marian Dow) Attending Statement Neuro. neuro checks in a serial fashion. I dont think she has a deep infection. A follow-up CT-guided aspiration for cultures.is appropriated. Discussed with Radiologist, Dr Brown Pulmonary. aggressive pulmonary toilette, nasotracheal suction, and breathing treatments with nebulizers. PT and OT evaluation Ankle fracture. X-rays reviewed and review of the radiologist interpretation shows evidence of a lateral malleolus fracture with callus formation in the near anatomic alignment. The fracture is not completely heale Nutrition. Oral diet Renal. monitor closely urine output, BUN and creatinine Endocrine. Monitor serial Acu checks and SSI as needed in detail ID monitor for signs of infection Protonix for stress ulcer prophylaxis Stevie hose and SCD's for DVT prophylaxis The exam, history, and the medical decision-making described in the above note were completed with the assistance of the mid-level provider. I reviewed and agree with the findings presented. I attest that I had a [id number] encounter with the patient on the same day, and personally performed and documented my assessment and findings in the medical record. (Casper Morrissey MD) Casper Morrissey MD Jan 09, 2017 15:04 Marian Dow Jan 09, 2017 17:05
--- NOTE | 2017-01-09 16:03 | RADRPT ---
EXAM DATE/TIME: 01/09/2017 09:49 [place] COMPARISON: No previous studies available for comparison. INDICATIONS : Lumbar spine abscess. SEDATION TIME: 30 minutes MEDICATION(S): 1.) 1 mg midazolam (Versed) IV 2.) 50 mcg fentanyl (Sublimaze) IV DEVICE(S): 1.) 18 gauge Poon blunt needle MEDICAL HISTORY : Hyperlipidemia. SURGICAL HISTORY : Appendectomy. Hysterectomy. Fusion, lumbar. Cholecystectomy. ENCOUNTER: Initial ACUITY: 1 day PAIN SCORE: 5/10 LOCATION: lower back. PROCEDURE: 1.) Conscious sedation with continuous EKG and oximetry monitoring. 2.) EKG and oximetry remained stable throughout the procedure. PROCEDURE : 1. CT guided aspiration of paraspinal posterior soft tissues 2. Conscious sedation with continuous EKG and oximetry monitoring. The risks, benefits and alternatives to the procedure were explained and verbal and written consent w as obtained. Using automated exposure control and adjustment of the mA and/or kV according to patient size, radiation dose was kept as low as reasonably achievable to obtain optimal diagnostic quality i mages. The site was prepped in sterile fashion. Full sterile technique was used, including cap, ma sk, sterile gloves and gown and a large sterile sheet. Hand hygiene and 2% chlorhexidine and/or beta dine/alcohol prep was utilized per protocol for cutaneous antisepsis. The skin and subcutaneous tiss ues were infiltrated with local anesthetic solution. DICOM format image data is available electronic ally for review and comparison. Using CT guidance the prescribed site was localized. Attempted aspiration of the L4-5 level was unsuc cessful. A small area of possibly seen at the skin at L5-S1 level. Minimal aspiration obtained. The patient tolerated the procedure well and there were no complications. Conscious sedation was per formed with the prescribed dosages and duration as above in the presence of an independent trained ra diology nurse to assist in the monitoring of the patient. EKG and oximetry remained stable throughou t the procedure. The patient tolerated the procedure well and there were no complications. The patient was sent to pos t anesthesia recovery in stable condition. CONCLUSION: No significant paraspinal fluid aspiration at L4-5. There was a small area of pus more inferiorly see n within a superficial fluid collection which was aspirated. Jake Brown MD on January 09, 2017 at 15:59 Board Certified Radiologist. This report was verified electronically.
--- NOTE | 2017-01-09 18:24 | PD.WCN.NOT ---
Wound Consult Description: Dorsal R foot Communicated with: ERIN Miller pod and Doctor Avery Recommendation: Please cleanse wound to R dorsal foot with normal saline or wound cleanser and apply optifoam AG non adhesive dressing and secure with rolled gauze and tape. Please change dressing every 2 days and PRN if saturated or dislodged. Additional Information: Patient seen on G pod for evaluation of wound to dorsal R foot. Patient assessed with Doctor Jamarcus in room. Removed rolled gauze, non stick dressing , and calcium alginate in place to reveal wound to R dorsal foot. Wound bed presents with ~50% clean red non granulation tissue, ~30% dark red tissue and ~ 20%adipose tissue. Wound noted with minimal sero-sanguinous drainage that is with out odor. Periwound is slightly edematous with slight erythema.Cleansed wound with normal saline and applied Optifoam AG non adhesive over wound bed and secured with rolled gauze and tape. Assisted Doctor Jamarcus with assessment of Lower back wound. Back wound presents as small abscess, measuring ~0.3 cm x ~0.3cm.Small puncture site noted at ~4cm above abscess. Abscess is noted with minimal active purulent drainage. Cleansed abscess wound on back with normal saline and applied bordered gauze in place. Covered small puncture site with bordered gauze. Manju Tierney CRN Jan 09, 2017 18:24
--- NOTE | 2017-01-09 23:16 | MB ---
cc: ASAY SHIN MD DATE OF CONSULTATION 01/09/[address] Alvarado REASON FOR CONSULTATION Spinal abscess and nonhealing wound to the right foot. HISTORY OF PRESENT ILLNESS This is a 76-year-old white female who has had spinal surgery on April 2016 for resection of a granuloma. The patient states that she has had some degree of seepage of fluid in small quantities from the back wound ever since. She has had problems with fracture of the left leg and subsequently when she was in rehab a bottle of liquid was dropped onto her right foot and caused a wound at the dorsum of the right foot which has been ongoing and really has never healed per patient. The patient is not a very poor historian. She reports that she was given antibiotics by mouth by an orthopedic physician whom she saw for left ankle fracture and she was following up with the wound care clinic for the wound. The drainage from the back continued all along. She states that she saw Dr. Morrissey and she had debridement of the wound on the back. From what I can see in the medical record the patient had L4-L5 laminectomy and posterior lateral fusion using transpedicular screws and rods and then she developed a small opening in the incision and was draining fluid. She had irrigation and debridement of the draining lumbar wound on June 08, 2015 and again in April of 2016 she underwent debridement and resection of the granuloma followup of the lumbar region which was noted to be nonhealing and had continued to grow and drain over the 6 months prior to that second debridement. The patient was having tremors at home and the mentioned that she had uncontrollable shaking and also that she spent 2 days in bed and when she tried to get up from bed she sort of slumped over and fortunately the was around and was able to hold onto her and prevent her from falling. She was brought to [facility] and an MRI of the back was performed and reportedly showed a fluid collection and the patient was subsequently transferred to [facility] for evaluation. She went to radiology for drainage procedure of the fluid collection. This was done under lumbar CT guidance. The report noted that there was a small area of pus more inferiorly seen within a superficial fluid collection which was aspirated and sent for culture. The culture is pending. The patient states that she has severe back pain approximately 8/10 scale. She denies fevers at home. She denies nausea or vomiting or abdominal pain. She has been afebrile since she was transferred here to [place] from [facility]. The patient went to [facility] yesterday. An ankle x-ray showed a healing fracture of the distal fibula on the left. PAST MEDICAL HISTORY Hypertension, anxiety, depression, hyperlipidemia, chronic pain, status post lumbar laminectomy with instrumentation, breast augmentation, hysterectomy, cataract surgery, appendectomy, removal of a throat tumor. ALLERGIES RAJEEV INHIBITORS. MEDICATIONS 1. Vancomycin. 2. Piperacillin/tazobactam. 3. Dilaudid p.r.n. PERSONAL AND SOCIAL HISTORY The patient is . No tobacco, no alcohol. No illicit drugs. FAMILY HISTORY Noncontributory. REVIEW OF SYSTEMS Pertinent mentioned in the history of present illness. No other significant findings on review of systems. PHYSICAL EXAMINATION GENERAL: This is a thin, frail-appearing female who is in no acute distress. She is awake and alert and oriented. She is in distress from pain. VITAL SIGNS: Include temperature 98.5, BP 135/68, respirations 20, heart rate 90. HEENT: Head is atraumatic. Extraocular movements grossly intact, pupils reactive to light. No icterus. Oropharynx no visible lesions. NECK: Supple without adenopathy. No swelling. LUNGS: Clear to auscultation. BACK: There was a tiny opening at the lumbar region which has some grayish tissue visible within the crater. This is approximately 1-2 mm diameter. No tenderness on palpation of the lower back. No swelling around the area of the opening. RECTAL: Not performed. EXTREMITIES: No clubbing or cyanosis. The right foot has a tiny ulceration approximately 1.5 cm diameter with an ulcer crater without slough but there is some purulence on the dressing that was removed. Once the dressing was taken off the crater appears clean based. SKIN: No rash. NEURO: Nonfocal. PSYCHIATRIC: The patient calm and cooperative. LABORATORY DATA Creatinine 0.69, estimated GFR 83. Wound cultures pending. IMPRESSION 1. 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 Patient status post lumbar laminectomy in the past. 2. 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 RECOMMENDATIONS 1. Continue vancomycin. 2. Monitor the aspirate culture of the spinal fluid. 3. Wound dressing to the wound to be recommended by wound nurse. The wound on the right foot does not appear grossly infected. 4. Monitor the patients symptomatology and temperature since she apparently had chills from the description of the tremors that was given by her . Thank you for this consultation. The patient's progress will be monitored and further recommendations will be given upon followup and review of cultures. Asya Shin MD FD/MAAME /6:01 PM /10:53 PM [facility]ZEGORZ
[2017-01-10] VITALS (10 sets, daily range): BP systolic 122–184; BP diastolic 66–84; PULSE 74–93; RESP 16–20; TEMP 96.6–98.7; O2SAT 96–98
[2017-01-10] MEDS ORDERED: ALPRAZolam 0.5 MG TAB PO ONE (00:30)
[2017-01-10] MEDS: MIRTAZAPINE 15 MG TAB PO SCH ×2 (00:51→22:03)
[2017-01-10] MEDS: PRAVASTATIN SOD 80 MG TAB PO SCH ×2 (00:51→22:03)
[2017-01-10] MEDS: PIPERACIL-TAZO 4.5 GM PREMIX 100 ML IV SCH ×3 (02:31→14:07)
[2017-01-10 07:49] LABS: AUTOMATED NEUTROPHIL # 4.2 TH/MM3 (1.8-7.7); BASOPHIL % 0.2 % (0.0-2.0); EOSINOPHIL % 0.3 % (0.0-4.0); HEMATOCRIT 28.8 % (35.0-46.0); HEMO FLAGS DIFF FINAL; LYMPH % 19.7 % (9.0-44.0); LYMPHOCYTE # 1.2 TH/MM3 (1.0-4.8); MEAN CELL VOLUME 85.6 FL (80.0-100.0); MEAN CORPUSCULAR HEMOGLOBIN 28.6 PG (27.0-34.0); MEAN CORPUSCULAR HGB CONC 33.4 % (32.0-36.0); MONO % 9.4 % (0.0-8.0); NEUT % 70.4 % (16.0-70.0); PLATELET COUNT 311 TH/MM3 (150-450); RED BLOOD COUNT 3.37 MIL/MM3 (4.00-5.30); RED CELL DISTRIBUTION WIDTH 13.7 % (11.6-17.2); WHITE BLOOD COUNT 5.9 TH/MM3 (4.0-11.0)
[2017-01-10 08:23] LABS: POTASSIUM 3.4 MEQ/L (3.5-5.1)
--- NOTE | 2017-01-10 08:47 | HHI.PR ---
Subjective Remarks Complaints of diarrhea. Feels cold, has chills, however the room is cold. Patient denies any pain at this time. No leg pain or abdominal pain. Feels very weak. Has the boot from home. No n/v, able to eat some. Denies cp or sob. Objective Vitals Vital Signs Date Time Temp Pulse Resp B/P Pulse Ox O2 Delivery O2 Flow Rate FiO2 01/10/17 08:15 97.8 84 16 158/77 96 01/10/17 06:42 98.0 77 18 122/68 97 01/10/17 03:48 89 01/10/17 03:42 98.7 74 18 145/66 98 01/10/17 00:05 84 01/09/17 23:33 98.4 90 18 162/73 97 01/09/17 20:05 83 01/09/17 19:55 98.9 81 17 140/65 95 01/09/17 15:56 98.5 90 21 135/68 95 01/09/17 12:52 98.0 89 18 134/63 95 01/09/17 11:00 94 18 133/66 96 01/09/17 10:45 98 22 144/74 97 01/09/17 10:30 98.5 98 20 132/72 94 I/O 01/09/17 01/09/17 01/09/17 01/10/17 01/10/17 01/10/17 07:00 15:00 23:00 07:00 15:00 23:00 Intake Total 250 ml 240 ml Balance 250 ml 240 ml Intake Oral 250 ml 240 ml # Voids 1 Result Diagram: 01/10/17 0645 01/10/17 0645 Imaging Last Impressions Ankle X-Ray 01/09/17 0000 Signed Impressions: Service Date/Time: December 02:43 - CONCLUSION: Healing fracture of the distal fibula. No change in alignment or position compared to the prior study. Memo Cheng MD Abscess Drainage CT 01/09/17 0000 Signed Impressions: Service Date/Time: December 09:49 - CONCLUSION: No significant paraspinal fluid aspiration at L4-5. There was a small area of pus more inferiorly seen within a superficial fluid collection which was aspirated. Jake Brown MD Objective Remarks GENERAL: This is a well-nourished, well-developed patient, who is emotional and painful SKIN: Small open area on lumbar spine with purulent drainage, Top of right foot wound open with no drainage covered with a bandage. CARDIOVASCULAR: Regular rate and rhythm without murmurs, gallops, or rubs. RESPIRATORY: Clear to auscultation. Breath sounds equal bilaterally. No wheezes , rales, or rhonchi. GASTROINTESTINAL: Abdomen soft, round, non-tender, nondistended. No hepato- splenomegaly, or palpable masses. No guarding. MUSCULOSKELETAL: Extremities without clubbing, cyanosis, or edema. No joint tenderness, effusion, or edema noted. No calf tenderness. NEUROLOGICAL: Awake and alert. Motor and sensory grossly within normal limits. Normal speech. A/P Problem List: (1) Infected surgical wound ICD Code: T81.4XXA Status: Acute (2) Inability to ambulate due to ankle or foot ICD Code: R26.2 Status: Acute Assessment and Plan 76 y/o female with a history of HTN, HLD, chronic pain, depression and anxiety was a transfer from [facility] with severe back pain and she couldn 't walk for the past 2 days. Infected surgical wound, spinal abscess on MRI Consult Dr. Morrissey who recommended drainage with CT guided Interventional radiology consulted s/p drainage Infectious disease consulted appreciate recommendations Pain management with IV Dilaudid IV antibiotics Vancomycin and Zosyn Wound culture ordered Inability to ambulate due to ankle pain, patient was in rehab for 7 weeks for a non surgical ankle fracture, increased pain Consult Dr. Beach, orthopedics for recommendations, patient is known to him. Patient was seen by ortho team, recommends follow up as OP with Dr Beach Left ankle x ray reviewed PT eval and treat Right foot wound Consult wound care for recommendations. Discussed with Shi from wound care Diarrhea: Check C diff. Start probiotic. Keep hydrated. Monitor electrolytes. HTN, chronic Monitor VS and adjust meds as appropriate Continue home medication DVT prophylaxis: SCDs Discussed Condition With Patient, nurse Rosemary Avery MD Jan 10, 2017 08:47
[2017-01-10] MEDS: RESTASIS EYE EACH EYE SCH ×2 (09:00→21:00)
[2017-01-10] MEDS: ALPRAZolam 0.5 MG TAB PO PRN ×2 (09:36→22:03)
[2017-01-10] MEDS: GABAPENTIN 300 MG CAP PO SCH ×3 (09:36→18:36)
[2017-01-10] MEDS: LIDOCAINE VISCOUS 2% SOLN 15 ML UDC PO SCH ×2 (09:36→21:00)
[2017-01-10] MEDS: HYDROCHLOROTHIAZIDE 12.5 MG CAP PO SCH (09:37)
[2017-01-10] MEDS: METOPROLOL TARTRATE 25 MG TAB PO SCH ×2 (09:37→22:03)
[2017-01-10] MEDS: LOSARTAN 50 MG TAB PO SCH (09:37)
[2017-01-10] MEDS: CYANOCOBALAMIN 1,000 MCG TAB PO SCH (09:37)
[2017-01-10] MEDS: ASPIRIN EC 81 MG TABEC PO SCH (09:37)
[2017-01-10] MEDS: CHOLECALCIFEROL (VIT D3) 1000 UNIT TAB PO SCH (09:38)
[2017-01-10] MEDS: SODIUM CHLORIDE 0.9% FLUSH 10 ML FLUSH IV FLUSH SCH ×2 (09:38→21:00)
[2017-01-10] MEDS ORDERED: LACTOBACILLUS ACIDOPHILUS TAB PO ONE (10:00)
--- NOTE | 2017-01-10 10:41 | HHI.NSPN ---
(Marian Dow) Note Status Status: Progress Note (Marian Dow) Interval History Interval History Ms. Parsons is a 75 year old female who had underwent a L4-5 laminectomy with interbody arthrodesis and posterolateral fusion on 05/24/15. She developed a wound infection that was surgically debrided on 06/08/15. She was doing well then unfortunately developed a nonhealing granuloma. She again underwent surgical debridement and resection of wound granuloma on 04/24/16. Ms. Parsons had been managed by wound care after that. She was transferred from [facility] for wound drainage and possible spinal infection. The MRI L spine shows some fluid collection and abnormality at the disc space at L4-5, no evidence of epidural abscess. She is awaiting to undergo CT guided aspiration. 01/10: unchanged symptoms overnight, cultures pending (Marian Dow) Labs, Micro, & Vital Signs Results Date Time Temp Pulse Resp B/P Pulse Ox O2 Delivery O2 Flow Rate FiO2 01/10/17 08:15 97.8 84 16 158/77 96 01/10/17 06:42 98.0 77 18 122/68 97 01/10/17 03:48 89 01/10/17 03:42 98.7 74 18 145/66 98 01/10/17 00:05 84 01/09/17 23:33 98.4 90 18 162/73 97 01/09/17 20:05 83 01/09/17 19:55 98.9 81 17 140/65 95 01/09/17 15:56 98.5 90 21 135/68 95 01/09/17 12:52 98.0 89 18 134/63 95 01/09/17 11:00 94 18 133/66 96 01/09/17 10:45 98 22 144/74 97 01/10/17 06:59 Intake Total 240 ml Balance 240 ml Constitutional Vital Signs Date Time Temp Pulse Resp B/P Pulse Ox O2 Delivery O2 Flow Rate FiO2 01/10/17 08:15 97.8 84 16 158/77 96 01/10/17 06:42 98.0 77 18 122/68 97 01/10/17 03:48 89 01/10/17 03:42 98.7 74 18 145/66 98 01/10/17 00:05 84 01/09/17 23:33 98.4 90 18 162/73 97 01/09/17 20:05 83 01/09/17 19:55 98.9 81 17 140/65 95 01/09/17 15:56 98.5 90 21 135/68 95 01/09/17 12:52 98.0 89 18 134/63 95 01/09/17 11:00 94 18 133/66 96 01/09/17 10:45 98 22 144/74 97 01/10/17 06:59 Intake Total 240 ml Balance 240 ml (Marian Dow) Review of Systems/Exam Exam She is Alert, awake, Ox3 Lumbar wound there is a 3-4 mm round opening, there is mild drainage noted, her dressing moderately saturated with yellow/green drainage. 4 mm round opening, with yellow/green drainage. Wound was probe with measurement of 8 mm deep. Motor: moving all major muscle groups 4/5, except for left foot which she has very minimal movement due to her ankle injury Sensory: intact to light touch x 4 extremities Plantars flexion response Cerebellarv exam is intact (Casper Morrissey MD) Medications Current Medications Current Medications Medications (Trade) Dose Ordered Sig/Johan Route PRN Reason Start Time Stop Time Status Last Admin Dose Admin Sodium Chloride (NS Flush) 2 ml UNSCH PRN IV FLUSH FLUSH AFTER USING IV ACCESS 01/09/17 00:45 01/09/17 16:04 Sodium Chloride (NS Flush) 2 ml BID IV FLUSH 01/09/17 09:00 01/10/17 09:38 Naloxone HCl 0.4 mg 0.4 mg UNSCH PRN IV SEE LABEL COMMENTS 01/09/17 00:45 Pharmacy Profile Note 0 ml @ 0 mls/hr UNSCH OTHER 01/09/17 00:45 Piperacillin Sod/ Tazobactam Sod (Zosyn 4.5 Gm Premix) 100 ml @ 200 mls/hr Q6H IV 01/09/17 08:00 01/10/17 09:36 Hydromorphone HCl 0.5 mg 0.5 mg Q4H PRN IV PUSH pain 6-10 01/09/17 01:15 01/09/17 16:04 Vancomycin HCl/ Sodium Chloride (Vancomycin Inj/ NS 250 ml Inj) 250 ml @ 250 mls/hr Q24H IV 01/10/17 15:00 Miscellaneous Information SPECIFIC LAB TO BE RYLEY... ONCE ONCE .XX 01/12/17 14:45 01/12/17 14:46 Alprazolam (Xanax) 0.5 mg TID PRN PO ANXIETY 01/10/17 00:30 01/10/17 09:36 Aspirin (Ecotrin Ec) 81 mg DAILY PO 01/10/17 09:00 01/10/17 09:37 Baclofen (Lioresal) 10 mg TID PRN PO MUSCLE SPASM 01/10/17 00:30 Cholecalciferol (Vitamin D3) 1,000 units DAILY PO 01/10/17 09:00 01/10/17 09:38 Cyanocobalamin (Vitamin B12) 500 mcg DAILY PO 01/10/17 09:00 01/10/17 09:37 Gabapentin (Neurontin) 600 mg TID PO 01/10/17 09:00 01/10/17 09:36 Hydrochlorothiazide (Microzide) 12.5 mg DAILY PO 01/10/17 09:00 01/10/17 09:37 Lidocaine HCl (Xylocaine 2% Viscous) 15 ml BID PO 01/10/17 09:00 01/10/17 09:36 Losartan Potassium (Cozaar) 100 mg DAILY PO 01/10/17 09:00 01/10/17 09:37 Meloxicam (Mobic) 15 mg DAILY PO 01/10/17 09:00 Metoprolol Tartrate (Lopressor) 25 mg BID PO 01/10/17 09:00 01/10/17 09:37 Mirtazapine (Remeron) 15 mg HS PO 01/10/17 00:30 01/10/17 00:51 Pravastatin Sodium (Pravachol) 80 mg HS PO 01/10/17 00:30 01/10/17 00:51 Patient Own Medication PT OWN MED: RESTA... BID EACH EYE 01/10/17 09:00 Lactobacillus Acidophilus (Lactinex) 1 tab TID PO 01/10/17 13:00 (Marian Dow) Medical Decision Making MDM Remarks 76 year old female with chronic nonhealing wound with drainage MRI L spine shows some fluid collection and abnormality at the disc space at L4- 5, no evidence of epidural abscess (Marian Dow) Plan Plan Remarks cont IV abx per Infectious Disease, wound care following, f/u wound cultures and needle aspiration if positive, will require I&D early next week (Marian Dow) Attending Statement Neuro. neuro checks in a serial fashion. I dont think she has a deep infection. A follow-up CT-guided aspiration for cultures.is appropriated. Discussed with Radiologist, Dr Brown Pulmonary. aggressive pulmonary toilette, nasotracheal suction, and breathing treatments with nebulizers. PT and OT evaluation Ankle fracture. X-rays reviewed and review of the radiologist interpretation shows evidence of a lateral malleolus fracture with callus formation in the near anatomic alignment. The fracture is not completely heale Nutrition. Oral diet Renal. monitor closely urine output, BUN and creatinine Endocrine. Monitor serial Acu checks and SSI as needed in detail ID monitor for signs of infection Protonix for stress ulcer prophylaxis Stevie hose and SCD's for DVT prophylaxis The exam, history, and the medical decision-making described in the above note were completed with the assistance of the mid-level provider. I reviewed and agree with the findings presented. I attest that I had a [id number] encounter with the patient on the same day, and personally performed and documented my assessment and findings in the medical record (Casper Morrissey MD) Marian Dow Jan 10, 2017 10:41 Casper Morrissey MD Jan 17, 2017 17:33
[2017-01-10] MEDS: MELOXICAM 15 MG TAB PO SCH (11:47)
[2017-01-10 12:16] LABS: C. DIFF EPI 027 PRESUMPTIVE NEGATIVE (NEGATIVE); C. DIFF TOXIN PCR NEGATIVE (NEGATIVE)
[2017-01-10] MEDS ORDERED: POTASSIUM CHLORIDE 10 MEQ CAP PO ONE (13:00)
[2017-01-10] MEDS: LACTOBACILLUS ACIDOPHILUS TAB PO SCH ×2 (13:35→18:37)
[2017-01-10] MEDS: VANCOMYCIN 1,000 MG/NS 250 ML IV SCH ×2 (15:23)
--- NOTE | 2017-01-10 17:25 | HHI.IDPN ---
Note Infectious Disease Note Patient feels better. Notes that she has diarrhea. No chills. Less pain in the back. Sitting on side of the bed. Stool c. diff is negative. Wound culture has staph PAST MEDICAL HISTORY Hypertension, anxiety, depression, hyperlipidemia, chronic pain, status post lumbar laminectomy with instrumentation, breast augmentation, hysterectomy, cataract surgery, appendectomy, removal of a throat tumor. ALLERGIES RAJEEV INHIBITORS. MEDICATIONS 1. Vancomycin. 2. Piperacillin/tazobactam. PERSONAL AND SOCIAL HISTORY The patient is . No tobacco, no alcohol. No illicit drugs. FAMILY HISTORY Noncontributory. PHYSICAL EXAMINATION GENERAL: No acute distress. She is awake and alert and oriented. HEENT: No icterus. Oropharynx no visible lesions. NECK: Supple without adenopathy. No swelling. LUNGS: Clear to auscultation. BACK: (+) drainage from back. There was a tiny opening at the lumbar region. EXTREMITIES: No clubbing or cyanosis or edema. SKIN: No rash. NEURO: Nonfocal. PSYCHIATRIC: The patient calm and cooperative. IMPRESSION 1. 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 Gram positive cocci. 2. Patient status post lumbar laminectomy. 3. 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 RECOMMENDATIONS 1. Continue vancomycin. 2. Stop Zosyn. 3. Monitor the wound culture. Francois Ricketts MD Jan 10, 2017 17:25
[2017-01-10] MEDS: BACLOFEN 10 MG TAB PO PRN (22:10)
[2017-01-11] VITALS (8 sets, daily range): BP systolic 131–175; BP diastolic 61–87; PULSE 75–96; RESP 16–20; TEMP 97.4–98.8; O2SAT 94–98
[2017-01-11] MEDS: HYDROmorphone HCL PF 1 MG/ML VIAL IV PUSH PRN ×3 (04:44→20:40)
[2017-01-11] MEDS: RESTASIS EYE EACH EYE SCH ×2 (09:00→20:41)
[2017-01-11] MEDS: LACTOBACILLUS ACIDOPHILUS TAB PO SCH ×3 (09:00→18:12)
[2017-01-11] MEDS: GABAPENTIN 300 MG CAP PO SCH ×3 (09:29→18:11)
[2017-01-11] MEDS: LOSARTAN 50 MG TAB PO SCH (09:29)
[2017-01-11] MEDS: ASPIRIN EC 81 MG TABEC PO SCH (09:29)
[2017-01-11] MEDS: CYANOCOBALAMIN 1,000 MCG TAB PO SCH (09:30)
[2017-01-11] MEDS: METOPROLOL TARTRATE 25 MG TAB PO SCH ×3 (09:30→20:39)
[2017-01-11] MEDS: HYDROCHLOROTHIAZIDE 12.5 MG CAP PO SCH (09:30)
[2017-01-11] MEDS: MELOXICAM 15 MG TAB PO SCH (09:31)
[2017-01-11] MEDS: CHOLECALCIFEROL (VIT D3) 1000 UNIT TAB PO SCH (09:31)
[2017-01-11] MEDS: SODIUM CHLORIDE 0.9% FLUSH 10 ML FLUSH IV FLUSH SCH ×2 (09:35→20:39)
--- NOTE | 2017-01-11 09:39 | HHI.PR ---
Subjective Remarks no fever or chills, no pain complains, no diarrhea states she has been dealingn with this on and off for about a year Objective Vitals Vital Signs Date Time Temp Pulse Resp B/P Pulse Ox O2 Delivery O2 Flow Rate FiO2 01/11/17 08:11 97.6 75 18 162/75 95 01/11/17 04:52 78 01/11/17 04:05 97.8 77 20 172/77 98 01/11/17 00:07 97.4 78 16 152/68 96 01/10/17 20:00 97.9 79 20 184/84 96 01/10/17 19:20 98.3 79 18 156/67 97 01/10/17 16:23 96.6 81 19 146/76 97 01/10/17 12:00 97.7 77 18 145/67 98 01/10/17 11:32 93 I/O 01/10/17 01/10/17 01/10/17 01/11/17 01/11/17 01/11/17 07:00 15:00 23:00 07:00 15:00 23:00 Intake Total 240 ml 80 ml 160 ml Output Total 15 ml 2 ml Balance 225 ml 80 ml 158 ml Intake Oral 240 ml 80 ml 160 ml Output Stool Total 15 ml 2 ml # Voids 2 2 # Bowel Movements 2 Result Diagram: 01/10/17 0645 01/10/17 0645 Imaging Last Impressions Ankle X-Ray 01/09/17 0000 Signed Impressions: Service Date/Time: December 02:43 - CONCLUSION: Healing fracture of the distal fibula. No change in alignment or position compared to the prior study. Memo Cheng MD Abscess Drainage CT 01/09/17 0000 Signed Impressions: Service Date/Time: December 09:49 - CONCLUSION: No significant paraspinal fluid aspiration at L4-5. There was a small area of pus more inferiorly seen within a superficial fluid collection which was aspirated. Jake Brown MD Objective Remarks awake and alert, NAD anicteric lungs clear regular rhythm abdomen soft nontender back- lumbar area- draining seropurulent drainage- extremities no edema, motor 5/5 A/P Problem List: (1) Infected surgical wound ICD Code: T81.4XXA Status: Acute (2) Inability to ambulate due to ankle or foot ICD Code: R26.2 Status: Acute Assessment and Plan 76 y/o female with a history of HTN, HLD, chronic pain, depression and anxiety was a transfer from [facility] with severe back pain and she couldn 't walk for the past 2 days. Infected surgical wound, spinal abscess on MRI- Gram + Neuro surgery ff- possible I and D early next week Infectious disease consulted appreciate recommendations- IV vancomycin Pain management with IV Dilaudid Inability to ambulate due to ankle pain, patient was in rehab for 7 weeks for a non surgical ankle fracture, increased pain Orthopedics ff PT eval and treat- up and ambulating - SBA Right foot wound- chronic ulcer - dry wound care team Diarrhea: Check C diff.- no further episodes. BM regular yesterday Start probiotic. Keep hydrated. Monitor electrolytes. HTN, chronic Monitor VS and adjust meds as appropriate on HCTZ and ARB. Increase Lopressor to 25 mg po q8 Continue home medication HYpokalemia- replaced. recheck today DVT prophylaxis: SCDs Up and ambulating Domitila Baron MD Jan 11, 2017 09:39 Domitila Baron MD Jan 11, 2017 09:39
[2017-01-11] MEDS: LIDOCAINE VISCOUS 2% SOLN 15 ML UDC PO SCH ×2 (11:00→20:53)
[2017-01-11 11:50] LABS: BICARBONATE 24.7 MEQ/L (21.0-32.0); POTASSIUM 3.8 MEQ/L (3.5-5.1)
[2017-01-11] MEDS: VANCOMYCIN 1,000 MG/NS 250 ML IV SCH ×2 (13:53)
--- NOTE | 2017-01-11 17:16 | HHI.NSPN ---
History Chief Complaint: low back pain Interval History 76-year-old female several months status post lumbar laminectomy with postoperative wound infection with several subsequent debridements. Readmitted now with paraspinal fluid collection noted on recent imaging study. Status post CT-guided aspiration of lumbar paraspinous fluid collection. Exam Results Vital Signs Date Time Temp Pulse Resp B/P Pulse Ox O2 Delivery O2 Flow Rate FiO2 01/11/17 16:47 98.2 89 18 175/82 95 01/09/17 02:00 Room Air Intake and Output 01/10/17 01/10/17 01/11/17 08:00 16:00 00:00 Intake Total 240 ml 80 ml Output Total 15 ml Balance 225 ml 80 ml Physical Examination Awake and alert She has a fracture boot at the left ankle and foot. Ambulating with a walker. Sensation intact to light touch in lower extremities with intact motor function except not fully tested left lower extremity due to fracture. Dressing is dry over the lumbar region. No significant erythema or edema or tenderness at the lumbosacral region. Lab, Micro, Other Results Microbiology Date/Time Procedure Status Source Growth 01/09/17 01:50 Gram Stain - Final Complete Wound Back 01/09/17 01:50 Wound Culture - Final Complete S. Aureus Mrsa 01/09/17 10:15 Gram Stain - Final Resulted Abscess Back 01/09/17 10:15 Wound Culture - Preliminary Resulted Abscess Back NO GROWTH IN 48 HOURS. 01/09/17 10:15 Acid Fast Stain - Final Resulted Abscess Back NO ACID FAST BACILLI SEEN 01/09/17 10:15 Mycobacterial Culture Resulted Abscess Back Pending 01/09/17 10:15 Fungal Smear - Final Resulted Abscess Back NO FUNGAL ELEMENTS SEEN. 01/09/17 10:15 Fungal Culture Resulted Abscess Back Pending Medical Decision Making Impression and Plan Impression: 1. Stable neurologic exam. 2. Initial superficial wound culture with staph aureus-MRSA but deep aspiration is negative for growth at 48 hours. Plan: Continue observation, PT, mobilize out of bed as tolerated. Await final culture results. Remains on vancomycin. Infectious disease is following. Joe Guerrero MD Jan 11, 2017 17:16
[2017-01-11] MEDS: BACLOFEN 10 MG TAB PO PRN (18:11)
[2017-01-11] MEDS: ALPRAZolam 0.5 MG TAB PO PRN (20:38)
[2017-01-11] MEDS: MIRTAZAPINE 15 MG TAB PO SCH (20:38)
[2017-01-11] MEDS: PRAVASTATIN SOD 80 MG TAB PO SCH (20:39)
[2017-01-12] VITALS: BP 133/63; PULSE 80; RESP 18; TEMP 97.9; O2SAT 95
[2017-01-12 04:00] VITALS: BP 139/62; PULSE 71; RESP 16; TEMP 98.7; O2SAT 93
[2017-01-12] MEDS: METOPROLOL TARTRATE 25 MG TAB PO SCH ×3 (06:03→20:28)
[2017-01-12 08:24] VITALS: BP 138/63; PULSE 69; RESP 17; TEMP 98.7; O2SAT 95
[2017-01-12] MEDS: LIDOCAINE VISCOUS 2% SOLN 15 ML UDC PO SCH ×2 (08:52→21:42)
[2017-01-12] MEDS: GABAPENTIN 300 MG CAP PO SCH ×3 (08:52→18:33)
[2017-01-12] MEDS: LACTOBACILLUS ACIDOPHILUS TAB PO SCH ×3 (08:52→18:33)
[2017-01-12] MEDS: MELOXICAM 15 MG TAB PO SCH (08:53)
[2017-01-12] MEDS: LOSARTAN 50 MG TAB PO SCH (08:53)
[2017-01-12] MEDS: ASPIRIN EC 81 MG TABEC PO SCH (08:54)
[2017-01-12] MEDS: CHOLECALCIFEROL (VIT D3) 1000 UNIT TAB PO SCH (08:54)
[2017-01-12] MEDS: CYANOCOBALAMIN 1,000 MCG TAB PO SCH (08:54)
[2017-01-12] MEDS: HYDROCHLOROTHIAZIDE 12.5 MG CAP PO SCH (08:54)
[2017-01-12] MEDS: SODIUM CHLORIDE 0.9% FLUSH 10 ML FLUSH IV FLUSH SCH ×2 (08:55→20:28)
[2017-01-12] MEDS: RESTASIS EYE EACH EYE SCH ×2 (08:55→20:28)
[2017-01-12] MEDS: BACLOFEN 10 MG TAB PO PRN ×2 (10:29→21:43)
[2017-01-12] MEDS: ALPRAZolam 0.5 MG TAB PO PRN ×2 (10:29→21:43)
[2017-01-12 12:01] VITALS: BP 124/60; PULSE 90; RESP 18; TEMP 97.9; O2SAT 96
[2017-01-12] MEDS: HYDROmorphone HCL PF 1 MG/ML VIAL IV PUSH PRN ×2 (14:44→21:43)
[2017-01-12] MEDS ORDERED: PHARMACY ORDERED LAB ONE (14:45)
--- NOTE | 2017-01-12 15:06 | HHI.NSPN ---
History Chief Complaint: low back pain Interval History 76-year-old female several months status post lumbar laminectomy with postoperative wound infection with several subsequent debridements. Readmitted now with paraspinal fluid collection noted on recent imaging study. Status post CT-guided aspiration of lumbar paraspinous fluid collection. Exam Results Vital Signs Date Time Temp Pulse Resp B/P Pulse Ox O2 Delivery O2 Flow Rate FiO2 01/12/17 12:01 97.9 90 18 124/60 96 01/09/17 02:00 Room Air Intake and Output 01/11/17 01/11/17 01/12/17 08:00 16:00 00:00 Intake Total 160 ml Output Total 2 ml Balance 158 ml Physical Examination Awake and alert She is ambulating without the left lower extremity fracture boot. She is doing well with this and states she has less pain without the boot in place. No significant lower extremity edema Ambulating with a walker. Sensation intact to light touch in lower extremities with intact motor function except not fully tested left lower extremity due to fracture. Dressing is dry over the lumbar region. No significant erythema or edema or tenderness at the lumbosacral region. Lab, Micro, Other Results Laboratory Tests Test 01/12/17 07:09 Creatinine 0.70 MG/DL Estimat Glomerular Filtration 82 ML/MIN Rate Medical Decision Making Impression and Plan Impression: 1. Stable neurologic exam. 2. Initial superficial wound culture with staph aureus-MRSA but deep aspiration is negative for growth at 72 hours Plan: Continue observation, PT, mobilize out of bed as tolerated. Remains on vancomycin per infectious disease. Joe Guerrero MD Jan 12, 2017 15:06
--- NOTE | 2017-01-12 15:51 | HHI.PR ---
Subjective Remarks doing very well getting around more- decrease pain Objective Vitals Vital Signs Date Time Temp Pulse Resp B/P Pulse Ox O2 Delivery O2 Flow Rate FiO2 01/12/17 12:01 97.9 90 18 124/60 96 01/12/17 08:24 98.7 69 17 138/63 95 01/12/17 04:00 98.7 71 16 139/62 93 01/12/17 00:00 97.9 80 18 133/63 95 01/11/17 21:11 18 01/11/17 20:00 98.2 86 18 172/87 96 01/11/17 19:27 79 01/11/17 16:47 98.2 89 18 175/82 95 I/O 01/11/17 01/11/17 01/11/17 01/12/17 01/12/17 01/12/17 07:00 15:00 23:00 07:00 15:00 23:00 Intake Total 160 ml Output Total 2 ml Balance 158 ml Intake Oral 160 ml Output Stool Total 2 ml # Voids 2 10 3 # Bowel Movements 1 Result Diagram: 01/10/17 0645 01/12/17 0709 Imaging Last Impressions Ankle X-Ray 01/09/17 0000 Signed Impressions: Service Date/Time: December 02:43 - CONCLUSION: Healing fracture of the distal fibula. No change in alignment or position compared to the prior study. Memo Cheng MD Abscess Drainage CT 01/09/17 0000 Signed Impressions: Service Date/Time: December 09:49 - CONCLUSION: No significant paraspinal fluid aspiration at L4-5. There was a small area of pus more inferiorly seen within a superficial fluid collection which was aspirated. Jake Brown MD Objective Remarks awake and alert, NAD anicteric lungs clear regular rhythm abdomen soft good bowel sounds extremities no edema, motor 5/5, good peripheral pulses A/P Problem List: (1) Infected surgical wound ICD Code: T81.4XXA Status: Acute (2) Inability to ambulate due to ankle or foot ICD Code: R26.2 Status: Acute Assessment and Plan 76 y/o female with a history of HTN, HLD, chronic pain, depression and anxiety was a transfer from [facility] with severe back pain and she couldn 't walk for the past 2 days. Infected surgical wound, spinal abscess on MRI- Gram + Neuro surgery ff- possible I and D early next week Infectious disease consulted appreciate recommendations- IV vancomycin Pain management with IV Dilaudid Inability to ambulate due to ankle pain, patient was in rehab for 7 weeks for a non surgical ankle fracture, Orthopedics ff PT - ff up and ambulating - SBA Right foot wound- chronic ulcer - dry wound care team Diarrhea: Check C diff.- no further episodes. BMs regular probiotic. Keep hydrated. Monitor electrolytes. HTN, chronic Monitor VS and adjust meds as appropriate on HCTZ and ARB. Increase Lopressor to 25 mg po q8 Continue home medication HYpokalemia- improved DVT prophylaxis: SCDs Up and ambulating Domitila Baron MD Jan 12, 2017 15:51
[2017-01-12 16:32] VITALS: BP 174/79; PULSE 82; RESP 19; TEMP 98.5; O2SAT 96
[2017-01-12] MEDS: VANCOMYCIN 1,000 MG/NS 250 ML IV SCH ×2 (16:44)
[2017-01-12 20:00] VITALS: BP_SYST 142; BP_SYST 164; BP_DIAS 65; BP_DIAS 92; PULSE 76; PULSE 86; RESP 18; RESP 20; TEMP 97.5; TEMP 98; O2SAT 95; O2SAT 97
[2017-01-12] MEDS: MIRTAZAPINE 15 MG TAB PO SCH (20:28)
[2017-01-12] MEDS: PRAVASTATIN SOD 80 MG TAB PO SCH (20:29)
[2017-01-13] VITALS (7 sets, daily range): BP systolic 108–133; BP diastolic 52–63; PULSE 73–85; RESP 16–20; TEMP 97.6–98.8; O2SAT 94–98
[2017-01-13] MEDS: METOPROLOL TARTRATE 25 MG TAB PO SCH ×3 (06:12→22:42)
[2017-01-13] MEDS: HYDROmorphone HCL PF 1 MG/ML VIAL IV PUSH PRN ×3 (06:13→20:32)
[2017-01-13] MEDS: RESTASIS EYE EACH EYE SCH ×2 (09:00→21:00)
[2017-01-13] MEDS: ASPIRIN EC 81 MG TABEC PO SCH (09:38)
[2017-01-13] MEDS: LACTOBACILLUS ACIDOPHILUS TAB PO SCH ×3 (09:38→18:27)
[2017-01-13] MEDS: CHOLECALCIFEROL (VIT D3) 1000 UNIT TAB PO SCH (09:38)
[2017-01-13] MEDS: LOSARTAN 50 MG TAB PO SCH (09:38)
[2017-01-13] MEDS: GABAPENTIN 300 MG CAP PO SCH ×3 (09:39→18:28)
[2017-01-13] MEDS: HYDROCHLOROTHIAZIDE 12.5 MG CAP PO SCH (09:39)
[2017-01-13] MEDS: CYANOCOBALAMIN 1,000 MCG TAB PO SCH (09:39)
[2017-01-13] MEDS: BACLOFEN 10 MG TAB PO PRN (09:48)
[2017-01-13] MEDS: ALPRAZolam 0.5 MG TAB PO PRN (09:48)
[2017-01-13] MEDS: MELOXICAM 15 MG TAB PO SCH (09:48)
[2017-01-13] MEDS: SODIUM CHLORIDE 0.9% FLUSH 10 ML FLUSH IV FLUSH SCH ×2 (09:48→22:40)
[2017-01-13] MEDS: LIDOCAINE VISCOUS 2% SOLN 15 ML UDC PO SCH ×2 (09:48→23:04)
--- NOTE | 2017-01-13 12:22 | HHI.IDPN ---
Note Infectious Disease Note Patient notes that she gets pain 8/10 level max in the back. Notes having difficulty sleeping. Afebrile. Dressing gauze at the back wound is saturated with purulent greenish drainage. PAST MEDICAL HISTORY Hypertension, anxiety, depression, hyperlipidemia, chronic pain, status post lumbar laminectomy with instrumentation, breast augmentation, hysterectomy, cataract surgery, appendectomy, removal of a throat tumor. ALLERGIES RAJEEV INHIBITORS. MEDICATIONS 1. Vancomycin. 2. Piperacillin/tazobactam. PHYSICAL EXAMINATION GENERAL: No acute distress. Awake, alert, oriented. HEENT: No icterus. Oropharynx no visible lesions. HEART: Distant S1S2, No murmurs. LUNGS: Clear. BACK: (+) drainage from back, tiny opening at the lumbar region. No erythema. EXTREMITIES: No clubbing or cyanosis or edema. SKIN: No rash. NEURO: Nonfocal. PSYCHIATRIC: Calm and cooperative. IMPRESSION 1. Lumbar wound infection MRSA. 2. 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 Discitis of L4-5 vertebrae on MRI done at [facility] on 01/08/17. 2. Patient status post lumbar laminectomy. 3. Persistent back pain. 4. 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 Does not look infected. RECOMMENDATIONS 1. Continue vancomycin. 2. Obtain sed rate. 3. Further disposition after neurosurgical plans are given. Francois Ricketts MD Jan 13, 2017 12:22
--- NOTE | 2017-01-13 13:59 | HHI.PR ---
Subjective Remarks stea having loose stools no nausea or vomiting or abdominal pain though Objective Vitals Vital Signs Date Time Temp Pulse Resp B/P Pulse Ox O2 Delivery O2 Flow Rate FiO2 01/13/17 12:09 97.8 79 17 122/63 96 01/13/17 08:00 97.7 73 16 130/57 95 01/13/17 04:00 98.8 81 18 121/61 94 01/13/17 00:04 82 01/13/17 00:00 97.6 80 16 108/52 94 01/12/17 20:00 98.0 76 18 142/65 95 01/12/17 20:00 97.5 86 20 164/92 97 01/12/17 16:32 98.5 82 19 174/79 96 01/12/17 15:15 14 I/O 01/12/17 01/12/17 01/12/17 01/13/17 01/13/17 01/13/17 07:00 15:00 23:00 07:00 15:00 23:00 Intake Total 250 ml Balance 250 ml IV Total 250 ml # Voids 3 9 # Bowel Movements 2 Result Diagram: 01/10/17 0645 01/12/17 0709 Imaging Last Impressions Ankle X-Ray 01/09/17 0000 Signed Impressions: Service Date/Time: December 02:43 - CONCLUSION: Healing fracture of the distal fibula. No change in alignment or position compared to the prior study. Memo Cheng MD Abscess Drainage CT 01/09/17 0000 Signed Impressions: Service Date/Time: December 09:49 - CONCLUSION: No significant paraspinal fluid aspiration at L4-5. There was a small area of pus more inferiorly seen within a superficial fluid collection which was aspirated. Jake Brown MD Objective Remarks awake and alert, NAD anicteric lungs clear regular rhythm abdomen soft good bowel sounds back - low back area with open wound with minimal purulent drainage on the gauze extremities no edema, motor 5/5, good peripheral pulses A/P Problem List: (1) Infected surgical wound ICD Code: T81.4XXA Status: Acute (2) Inability to ambulate due to ankle or foot ICD Code: R26.2 Status: Acute Assessment and Plan 76 y/o female with a history of HTN, HLD, chronic pain, depression and anxiety was a transfer from [facility] with severe back pain and she couldn 't walk for the past 2 days. Infected surgical wound, spinal abscess on MRI-MRSA Neuro surgery ff- possible I and D early next week Infectious disease consulted appreciate recommendations- IV vancomycin Pain management with IV Dilaudid Inability to ambulate due to ankle pain, patient was in rehab for 7 weeks for a non surgical ankle fracture, Orthopedics ff PT - ff up and ambulating - SBA- progressing well Right foot wound- chronic ulcer - dry wound care team Diarrhea: Check C diff.-states going on probiotic. Keep hydrated. Monitor electrolytes. HTN, chronic Monitor VS and adjust meds as appropriate on HCTZ and ARB. Increase Lopressor to 25 mg po q8 Continue home medication HYpokalemia- improved DVT prophylaxis: SCDs Up and ambulating Domitila Baron MD Jan 13, 2017 13:59
--- NOTE | 2017-01-13 17:30 | HHI.NSPN ---
(Marian Dow) Note Status Status: Progress Note (Marian Dow) Interval History Interval History Ms. Parsons is a 75 year old female who had underwent a L4-5 laminectomy with interbody arthrodesis and posterolateral fusion on 05/24/15. She developed a wound infection that was surgically debrided on 06/08/15. She was doing well then unfortunately developed a nonhealing granuloma. She again underwent surgical debridement and resection of wound granuloma on 04/24/16. Ms. Parsons had been managed by wound care after that. She was transferred from [facility] for wound drainage and possible spinal infection. The MRI L spine shows some fluid collection and abnormality at the disc space at L4-5, no evidence of epidural abscess. She is awaiting to undergo CT guided aspiration. 01/10: unchanged symptoms overnight, cultures pending 01/13: patient and reports they feel wound has been draining less, overall pt is feeling much better compared to last week. Offered possible surgical debridement of wound. (Marian Dow) Labs, Micro, & Vital Signs Results Date Time Temp Pulse Resp B/P Pulse Ox O2 Delivery O2 Flow Rate FiO2 01/13/17 16:00 97.6 82 17 133/59 96 01/13/17 12:09 97.8 79 17 122/63 96 01/13/17 08:00 97.7 73 16 130/57 95 01/13/17 04:00 98.8 81 18 121/61 94 01/13/17 00:04 82 01/13/17 00:00 97.6 80 16 108/52 94 01/12/17 20:00 98.0 76 18 142/65 95 01/12/17 20:00 97.5 86 20 164/92 97 Constitutional Vital Signs Date Time Temp Pulse Resp B/P Pulse Ox O2 Delivery O2 Flow Rate FiO2 01/13/17 16:00 97.6 82 17 133/59 96 01/13/17 12:09 97.8 79 17 122/63 96 01/13/17 08:00 97.7 73 16 130/57 95 01/13/17 04:00 98.8 81 18 121/61 94 01/13/17 00:04 82 01/13/17 00:00 97.6 80 16 108/52 94 01/12/17 20:00 98.0 76 18 142/65 95 01/12/17 20:00 97.5 86 20 164/92 97 (Marian Dow) Review of Systems/Exam Exam Awake and alert. Sitting up in edge of bed. CN: pupils equal, facial motor symmetric. lumbar wound with some drainage noted on dressing Sensation intact to light touch in lower extremities with intact motor function except not fully tested left lower extremity due to fracture. No significant erythema or edema or tenderness at the lumbosacral region (Marian Dow) Exam She is alert, awake and oriented to time, place and person. Speech is fluent. Cranial nerve examination: pupils to be equal, round and reactive to light. Extra-ocular movements are intact. Facial motor and sensory function are normal and symmetrical. Gross hearing appears intact. Sternocleidomastoid and trapezius muscles are symmetrical. Other cranial nerves are intact. Neck is soft and supple with a good range of motion without pain. Muscle strength is normal in all muscle groups of both upper and lower extremities. Sensory examination is intact to light touch and pin prick in both the upper and lower extremities. lumbar wound with some drainage noted on dressing Sensation intact to light touch in lower extremities with intact motor function except not fully tested left lower extremity due to fracture. No significant erythema or edema or tenderness at the lumbosacral region Deep tendon reflexes are symmetrical in both upper and lower extremities. There is a bilateral plantar flexion response. Cerebellar examination is unremarkable, without deficits. (Casper Morrissey MD) Medications Current Medications Current Medications Medications (Trade) Dose Ordered Sig/Johan Route PRN Reason Start Time Stop Time Status Last Admin Dose Admin Sodium Chloride (NS Flush) 2 ml UNSCH PRN IV FLUSH FLUSH AFTER USING IV ACCESS 01/09/17 00:45 01/09/17 16:04 Sodium Chloride (NS Flush) 2 ml BID IV FLUSH 01/09/17 09:00 01/13/17 09:48 Naloxone HCl 0.4 mg 0.4 mg UNSCH PRN IV SEE LABEL COMMENTS 01/09/17 00:45 Pharmacy Profile Note (Vancomycin Consult Pharmacy) 0 ml @ 0 mls/hr UNSCH OTHER 01/09/17 00:45 Hydromorphone HCl (Dilaudid Pf Inj) 0.5 mg Q4H PRN IV PUSH pain 6-10 01/09/17 01:15 01/13/17 14:46 Alprazolam (Xanax) 0.5 mg TID PRN PO ANXIETY 01/10/17 00:30 01/13/17 09:48 Aspirin (Ecotrin Ec) 81 mg DAILY PO 01/10/17 09:00 01/13/17 09:38 Baclofen (Lioresal) 10 mg TID PRN PO MUSCLE SPASM 01/10/17 00:30 01/13/17 09:48 Cholecalciferol (Vitamin D3) 1,000 units DAILY PO 01/10/17 09:00 01/13/17 09:38 Cyanocobalamin (Vitamin B12) 500 mcg DAILY PO 01/10/17 09:00 01/13/17 09:39 Gabapentin (Neurontin) 600 mg TID PO 01/10/17 09:00 01/13/17 12:55 Hydrochlorothiazide (Microzide) 12.5 mg DAILY PO 01/10/17 09:00 01/13/17 09:39 Lidocaine HCl (Xylocaine 2% Viscous) 15 ml BID PO 01/10/17 09:00 01/13/17 09:48 Losartan Potassium (Cozaar) 100 mg DAILY PO 01/10/17 09:00 01/13/17 09:38 Meloxicam (Mobic) 15 mg DAILY PO 01/10/17 09:00 01/13/17 09:48 Mirtazapine (Remeron) 15 mg HS PO 01/10/17 00:30 01/12/17 20:28 Pravastatin Sodium (Pravachol) 80 mg HS PO 01/10/17 00:30 01/12/17 20:29 Patient Own Medication PT OWN MED: RESTA... BID EACH EYE 01/10/17 09:00 01/13/17 09:00 Lactobacillus Acidophilus (Lactinex) 1 tab TID PO 01/10/17 13:00 01/13/17 12:55 Metoprolol Tartrate 25 mg 25 mg Q8HR PO 01/11/17 14:00 01/13/17 12:55 Vancomycin HCl/ Sodium Chloride (Vancomycin Inj/ NS 250 ml Inj) 262 ml @ 250 mls/hr Q24H IV 01/13/17 17:00 Miscellaneous Information SPECIFIC LAB TO BE DRAWN:VANCOMYCIN TROUGH DATE TO... ONCE ONCE .XX 01/15/17 16:45 01/15/17 16:46 (Marian Dow) Current Medications Current Medications Sodium Chloride 2 ml 2 ml UNSCH PRN IVF FLUSH AFTER USING IV ACCESS; Start at 00:45; Stop 01/09/17 at 00:48; Status DC Vancomycin HCl 1500 mg/Sodium Chloride 515 ml @ 257.5 mls/ hr ONCE ONCE IV Last administered on 01/09/17 02:46; Start 01/09/17 at 00:45; Stop 01/09/17 at 02:44; Status DC Ceftriaxone Sodium/Sodium Chloride (Rocephin Inj/NS Inj) 100 ml @ 200 mls/hr ONCE ONCE IV Last administered on 01/09/17 02:56; Start 01/09/17 at 00:45; Stop 01/09/17 at 01:14; Status DC Sodium Chloride (NS Flush) 2 ml UNSCH PRN IV FLUSH FLUSH AFTER USING IV ACCESS Last administered on 01/09/17 16:04; Start 01/09/17 at 00:45; Stop 01/18/17 at 10:30; Status DC Sodium Chloride (NS Flush) 2 ml BID IV FLUSH Last administered on 01/16/17 21: 00; Start 01/09/17 at 09:00; Stop 01/18/17 at 10:30; Status DC Naloxone HCl 0.4 mg 0.4 mg UNSCH PRN IV SEE LABEL COMMENTS; Start 01/09/17 at 00:45 Pharmacy Profile Note 0 ml @ 0 mls/hr UNSCH OTHER ; Start 01/09/17 at 00:45 Piperacillin Sod/ Tazobactam Sod (Zosyn 4.5 Gm Premix) 100 ml @ 200 mls/hr Q6H IV Last administered on 01/10/17 14:07; Start 01/09/17 at 08:00; Stop at 17:32; Status DC Hydromorphone HCl (Dilaudid Pf Inj) 0.5 mg Q4H PRN IV PUSH pain 6-10 Last administered on 01/14/17 05:51; Start 01/09/17 at 01:15; Stop 01/14/17 at 12:59 ; Status DC Lidocaine/ Epinephrine (Xylocaine-Epi 1%-1:100,000 Inj) 20 ml STK-MED ONCE .ROUTE Last administered on 01/09/17 08:57; Start 01/09/17 at 08:57; Stop at 08:58; Status DC Lidocaine/ Epinephrine (Xylocaine-Epi 1%-1:100,000 Inj) 20 ml STK-MED ONCE .ROUTE Last administered on 01/09/17 09:32; Start 01/09/17 at 09:32; Stop at 09:33; Status DC Fentanyl Citrate (fentaNYL INJ) 100 mcg STK-MED ONCE .ROUTE Last administered on 01/09/17 09:55; Start 01/09/17 at 09:40; Stop 01/09/17 at 09:41; Status DC Midazolam HCl 2 mg 2 mg STK-MED ONCE .ROUTE Last administered on 01/09/17 09: 55; Start 01/09/17 at 09:40; Stop 01/09/17 at 09:41; Status DC Vancomycin HCl/ Sodium Chloride (Vancomycin Inj/ NS 250 ml Inj) 250 ml @ 250 mls/hr Q24H IV Last administered on 01/12/17 16:44; Start 01/10/17 at 15:00; Stop 01/12/17 at 18:54; Status DC Miscellaneous Information SPECIFIC LAB TO BE RYLEY... ONCE ONCE .XX Last administered on 01/12/17 16:30; Start 01/12/17 at 14:45; Stop 01/12/17 at 14:46 ; Status DC Alprazolam (Xanax) 0.5 mg ONCE ONCE PO Last administered on 01/10/17 00:51; Start 01/10/17 at 00:30; Stop 01/10/17 at 00:33; Status DC Alprazolam (Xanax) 0.5 mg TID PRN PO ANXIETY Last administered on 01/18/17 08: 50; Start 01/10/17 at 00:30 Aspirin (Ecotrin Ec) 81 mg DAILY PO Last administered on 01/16/17 08:41; Start 01/10/17 at 09:00; Status Hold Baclofen (Lioresal) 10 mg TID PRN PO MUSCLE SPASM Last administered on 23:59; Start 01/10/17 at 00:30 Cholecalciferol (Vitamin D3) 1,000 units DAILY PO Last administered on 08:49; Start 01/10/17 at 09:00 Cyanocobalamin (Vitamin B12) 500 mcg DAILY PO Last administered on 01/18/17 08 :49; Start 01/10/17 at 09:00 Gabapentin (Neurontin) 600 mg TID PO Last administered on 01/18/17 08:50; Start 01/10/17 at 09:00; Stop 01/18/17 at 10:28; Status DC Hydrochlorothiazide (Microzide) 12.5 mg DAILY PO Last administered on 08:49; Start 01/10/17 at 09:00 Lidocaine HCl (Xylocaine 2% Viscous) 15 ml BID PO Last administered on 08:50; Start 01/10/17 at 09:00 Losartan Potassium (Cozaar) 100 mg DAILY PO Last administered on 01/18/17 08: 49; Start 01/10/17 at 09:00 Meloxicam (Mobic) 15 mg DAILY PO Last administered on 01/18/17 08:49; Start at 09:00 Metoprolol Tartrate (Lopressor) 25 mg BID PO Last administered on 01/11/17 09: 30; Start 01/10/17 at 09:00; Stop 01/11/17 at 09:57; Status DC Mirtazapine (Remeron) 15 mg HS PO Last administered on 01/17/17 21:40; Start 01/10/17 at 00:30 Pravastatin Sodium (Pravachol) 80 mg HS PO Last administered on 01/17/17 21:40 ; Start 01/10/17 at 00:30 Patient Own Medication PT OWN MED: RESTA... BID EACH EYE Last administered on 21:41; Start 01/10/17 at 09:00 Lactobacillus Acidophilus (Lactinex) 1 tab TID PO Last administered on 12:52; Start 01/10/17 at 13:00 Lactobacillus Acidophilus (Lactinex) 1 tab ONCE ONCE PO Last administered on 11:47; Start 01/10/17 at 10:00; Stop 01/10/17 at 10:03; Status DC Potassium Chloride (KCl) 30 meq ONCE ONCE PO Last administered on 01/10/17 13 :35; Start 01/10/17 at 13:00; Stop 01/10/17 at 13:01; Status DC Metoprolol Tartrate 25 mg 25 mg Q8HR PO Last administered on 01/18/17 12:53; Start 01/11/17 at 14:00 Vancomycin HCl/ Sodium Chloride (Vancomycin Inj/ NS 250 ml Inj) 262 ml @ 250 mls/hr Q24H IV Last administered on 01/14/17 17:27; Start 01/13/17 at 17:00; Stop 01/15/17 at 20:44; Status DC Miscellaneous Information SPECIFIC LAB TO BE DRAWN:VANCOMYCIN TROUGH DATE TO... ONCE ONCE .XX ; Start 01/15/17 at 16:45; Stop 01/15/17 at 16:46; Status DC Gadodiamide (Omniscan Pf Inj) 10 ml STK-MED ONCE IV Last administered on 11:49; Start 01/14/17 at 11:49; Stop 01/14/17 at 11:50; Status DC Hydromorphone HCl 0.25 mg 0.25 mg Q4H PRN IV PUSH Breakthrough Pain Last administered on 01/17/17 23:59; Start 01/14/17 at 13:15 Vancomycin HCl/ Sodium Chloride (Vancomycin Inj/ NS 250 ml Inj) 250 ml @ 250 mls/hr Q24H IV Last administered on 01/17/17 21:40; Start 01/15/17 at 22:00 Miscellaneous Information SPECIFIC LAB TO BE DRAWN:VA... ONCE ONCE .XX ; Start 01/17/17 at 21:45; Stop 01/17/17 at 21:46; Status DC Loperamide HCl (Imodium Liq) 4 mg ONCE ONCE PO Last administered on 01/16/17 17:02; Start 01/16/17 at 14:00; Stop 01/16/17 at 14:47; Status DC Loperamide HCl (Imodium Liq) 2 mg UNSCH PRN PO DIARRHEA Last administered on 08:50; Start 01/16/17 at 14:00 Acetaminophen/ Hydrocodone Bitart 1 tab 1 tab Q4H PRN PO Pain 4 to 10 Last administered on 01/17/17 10:21; Start 01/16/17 at 14:00; Stop 01/17/17 at 18:00 ; Status DC Lactated Ringer's 1,000 ml @ 30 mls/hr Q24H PRN IV SEE LABEL COMMENTS; Start at 05:45; Stop 01/17/17 at 19:27; Status DC Sodium Chloride (NS 500 ml Inj) 500 ml @ 30 mls/hr [id number] PRN IV SEE LABEL COMMENTS; Start 01/17/17 at 05:45; Stop 01/17/17 at 19:27; Status DC Povidone Iodine (Betadine 5% Antisepsis Kit) 1 applic DIRECTOR OF REHABILITATION PRN EACH NARE SEE LABEL COMMENTS; Start 01/17/17 at 05:45; Stop 01/17/17 at 19:27; Status DC Chlorhexidine Gluconate (Chlorhexidine 2% Cloth) 3 pack DIRECTOR OF REHABILITATION PRN TOPICAL SEE LABEL COMMENTS; Start 01/17/17 at 05:45; Stop 01/17/17 at 19:27; Status DC Insulin Human Regular (NovoLIN R INJ) See Protocol Table ... DIRECTOR OF REHABILITATION PRN SQ SEE PROTOCOL TABLE; Start 01/17/17 at 05:45; Stop 01/17/17 at 19:27; Status DC Acetaminophen/ Butalbital/ Caffeine (Fioricet 325-50-40) 1 tab ONCE ONCE PO Last administered on 01/17/17 10:22; Start 01/17/17 at 10:00; Stop 01/17/17 at 10:01; Status DC Thrombin (Thrombin Top Soln) 5,000 units STK-MED ONCE .ROUTE ; Start 01/17/17 at 11:52; Stop 01/17/17 at 11:53; Status DC Gelatin (Gelfoam 12 Mm/7 Mm Top) 1 foam STK-MED ONCE .ROUTE ; Start 01/17/17 at 11:52; Stop 01/17/17 at 11:53; Status DC Bacitracin (Baciguent Oint) 15 applic STK-MED ONCE .ROUTE ; Start 01/17/17 at 11 :52; Stop 01/17/17 at 11:53; Status DC Gentamicin Sulfate (Gentamicin Inj) 240 mg STK-MED ONCE .ROUTE ; Start 01/17/17 at 11:53; Stop 01/17/17 at 11:54; Status DC Sodium Chloride (NS Flush) See Protocol DAILY IV FLUSH Last administered on 08:51; Start 01/18/17 at 09:00 Sodium Chloride (NS Flush) See Protocol UNSCH PRN IV FLUSH SEE PROTOCOL TABLE; Start 01/17/17 at 13:00 Heparin Sodium (Porcine) (Heparin Central Flush) See Protocol DAILY IV FLUSH Last administered on 01/18/17 08:48; Start 01/18/17 at 09:00 Heparin Sodium (Porcine) (Heparin Central Flush) See Protocol UNSCH PRN IV FLUSH SEE PROTOCOL TABLE; Start 01/17/17 at 13:00 Sodium Chloride (NS Flush) UNSCH PRN IV FLUSH SEE PROTOCOL TABLE; Start at 13:00 Thrombin (Thrombin Top Soln) 5,000 units STK-MED ONCE .ROUTE ; Start 01/17/17 at 16:27; Stop 01/17/17 at 16:28; Status DC Sugammadex Sodium (Bridion Inj) 200 mg STK-MED ONCE IV PUSH ; Start 01/17/17 at 16:38; Stop 01/17/17 at 16:39; Status DC Acetaminophen 1000 mg 1,000 mg STK-MED ONCE IV ; Start 01/17/17 at 16:38; Stop 01/17/17 at 16:39; Status DC Cefazolin Sodium/ Dextrose 50 ml @ As Directed STK-MED ONCE .ROUTE Last administered on 01/17/17 17:24; Start 01/17/17 at 16:53; Stop 01/17/17 at 16:54 ; Status DC Potassium Chloride/Sodium Chloride (NS + KCl 20 Meq Inj) 1,000 ml @ 100 mls/hr Q10H IV Last administered on 01/18/17 09:48; Start 01/17/17 at 17:17 IV Flush (NS Flush) 2 ml UNSCH PRN IVF FLUSH AFTER USING IV ACCESS; Start 01/17 at 17:30 IV Flush 2 ml 2 ml BID IVF Last administered on 01/17/17 21:41; Start at 21:00 Cefazolin Sodium/ Dextrose (Ancef 2 Gm Premix) 50 ml @ 100 mls/hr Q8H IV Last administered on 01/18/17 08:48; Start 01/18/17 at 01:00; Stop 01/18/17 at 17:29 Docusate Sodium (Colace) 100 mg BID PO ; Start 01/17/17 at 21:00 Pantoprazole Sodium (Protonix) 40 mg DAILY PO Last administered on 01/18/17 08 :49; Start 01/18/17 at 09:00 Acetaminophen/ Hydrocodone Bitart ([place] 10-325 Mg) 1 tab Q4H PRN PO PAIN SCALE 1 TO 5 Last administered on 01/18/17 12:53; Start 01/17/17 at 17:30 Acetaminophen/ Hydrocodone Bitart ([place] 10-325 Mg) 2 tab Q4H PRN PO PAIN SCALE 6 TO 10; Start 01/17/17 at 17:30 Morphine Sulfate (Morphine Inj) 2 mg Q2H PRN IV PUSH PAIN SCALE 1 TO 6; Start 01/17/17 at 17:30 Morphine Sulfate (Morphine Inj) 4 mg Q2H PRN IV PUSH PAIN SCALE 7 TO 10; Start 01/17/17 at 17:30 Acetaminophen (Tylenol) 650 mg Q4H PRN PO TEMPERATURE > 101.5 F; Start at 17:30 Gentamicin Sulfate (Gentamicin Inj) 240 mg STK-MED ONCE IRRIGATION Last administered on 01/17/17 17:46; Start 01/17/17 at 17:46; Stop 01/17/17 at 17:53 ; Status DC Vancomycin HCl (Vancomycin Inj) 1,000 mg STK-MED ONCE .ROUTE ; Start 01/17/17 at 17:55; Stop 01/17/17 at 17:56; Status DC Morphine Sulfate (*morphine INJ PERIprocedure ONLY) 8 mg STK-MED ONCE .ROUTE Last administered on 01/17/17 18:35; Start 01/17/17 at 18:35; Stop 01/17/17 at 18:36; Status DC Miscellaneous Information ALL NURSING DEPARTME... UNSCH PRN .XX SEE LABEL COMMENTS; Start 01/17/17 at 18:32; Stop 01/18/17 at 18:31 Miscellaneous Information SPECIFIC LAB TO BE ... ONCE ONCE .XX ; Start 01/20 at 21:45; Stop 01/20/17 at 21:46 Gabapentin (Neurontin) 600 mg BID PO ; Start 01/18/17 at 21:00 (Casper Morrissey MD) Medical Decision Making MDM Remarks 76 year old female with chronic nonhealing wound with drainage outpatient MRI L spine shows some fluid collection and abnormality at the disc space at L4-5, no evidence of epidural abscess positive MRSA swab cultures of wound, negative needle aspiration of fluid collection (Marian Dow) Plan Plan Remarks cont antibiotic tx per Infectious Disease, wound care following, dw patient regarding surgical mgt with an I&D vs cont nonsurgical mgt, Dr. Morrissey recommending repeat MRI L spine to reassess further recommendations to follow (Marian Dow) Attending Statement As above Continue neuro checks Pulmonary. aggressive pulmonary toilette, nasotracheal suction, and breathing treatments with nebulizers. Daily PT and OT Nutrition. Oral diet Renal. monitor closely urine output, BUN and creatinine Endocrine. Monitor serial Acu checks and SSI as needed in detail ID monitor for signs of infection Protonix for stress ulcer prophylaxis Stevie hose and SCD's for DVT prophylaxis The exam, history, and the medical decision-making described in the above note were completed with the assistance of the mid-level provider. I reviewed and agree with the findings presented. I attest that I had a [id number] encounter with the patient on the same day, and personally performed and documented my assessment and findings in the medical record. (Casper Morrissey MD) Marian Dow Jan 13, 2017 17:30 Casper Morrissey MD Jan 18, 2017 14:44
[2017-01-13] MEDS: VANCOMYCIN INJ 1,200 MG in SODIUM CHLOR 0.9% 250 ML INJ 250 ML IV SCH (18:27)
[2017-01-13] MEDS: MIRTAZAPINE 15 MG TAB PO SCH (22:40)
[2017-01-13] MEDS: PRAVASTATIN SOD 80 MG TAB PO SCH (22:40)
[2017-01-14] VITALS (8 sets, daily range): BP systolic 113–170; BP diastolic 6–76; PULSE 66–88; RESP 16–20; TEMP 97.4–97.9; O2SAT 90–96
[2017-01-14] MEDS: HYDROmorphone HCL PF 1 MG/ML VIAL IV PUSH PRN ×3 (05:51→21:47)
[2017-01-14] MEDS: METOPROLOL TARTRATE 25 MG TAB PO SCH ×3 (05:51→21:40)
[2017-01-14] MEDS: SODIUM CHLORIDE 0.9% FLUSH 10 ML FLUSH IV FLUSH SCH ×2 (09:00→21:40)
[2017-01-14] MEDS: RESTASIS EYE EACH EYE SCH ×2 (09:00→21:00)
[2017-01-14] MEDS: CYANOCOBALAMIN 1,000 MCG TAB PO SCH (09:39)
[2017-01-14] MEDS: LACTOBACILLUS ACIDOPHILUS TAB PO SCH ×3 (09:39→17:27)
[2017-01-14] MEDS: ASPIRIN EC 81 MG TABEC PO SCH (09:40)
[2017-01-14] MEDS: HYDROCHLOROTHIAZIDE 12.5 MG CAP PO SCH (09:40)
[2017-01-14] MEDS: CHOLECALCIFEROL (VIT D3) 1000 UNIT TAB PO SCH (09:40)
[2017-01-14] MEDS: MELOXICAM 15 MG TAB PO SCH (09:40)
[2017-01-14] MEDS: GABAPENTIN 300 MG CAP PO SCH ×3 (09:40→17:27)
[2017-01-14] MEDS: LIDOCAINE VISCOUS 2% SOLN 15 ML UDC PO SCH ×2 (09:41→21:54)
[2017-01-14] MEDS: LOSARTAN 50 MG TAB PO SCH (09:41)
[2017-01-14] MEDS: ALPRAZolam 0.5 MG TAB PO PRN ×2 (09:46→21:40)
[2017-01-14] MEDS ORDERED: WHEEMIS3 (11:40)
[2017-01-14] MEDS ORDERED: GADODIAMIDE PF 287 MG/ML 10 ML VIAL (for RAD MRI) IV ONE (11:49)
--- NOTE | 2017-01-14 12:57 | HHI.PR ---
Subjective Remarks no complains Objective Vitals Vital Signs Date Time Temp Pulse Resp B/P Pulse Ox O2 Delivery O2 Flow Rate FiO2 01/14/17 08:00 97.8 73 16 125/60 95 01/14/17 04:00 97.8 75 20 170/6 90 01/14/17 00:00 97.9 81 20 113/51 94 01/13/17 20:00 97.7 85 20 131/60 98 01/13/17 20:00 85 01/13/17 16:00 97.6 82 17 133/59 96 I/O 01/13/17 01/13/17 01/13/17 01/14/17 01/14/17 01/14/17 07:00 15:00 23:00 07:00 15:00 23:00 Intake Total 610 ml Balance 610 ml Intake Oral 360 ml IV Total 250 ml # Voids 4 1 1 # Bowel Movements 3 Result Diagram: 01/10/17 0645 01/12/17 0709 Imaging Last Impressions Ankle X-Ray 01/09/17 0000 Signed Impressions: Service Date/Time: December 02:43 - CONCLUSION: Healing fracture of the distal fibula. No change in alignment or position compared to the prior study. Memo Cheng MD Abscess Drainage CT 01/09/17 0000 Signed Impressions: Service Date/Time: December 09:49 - CONCLUSION: No significant paraspinal fluid aspiration at L4-5. There was a small area of pus more inferiorly seen within a superficial fluid collection which was aspirated. Jake Brown MD Objective Remarks awake and alert, NAD anicteric lungs clear regular rhythm abdomen soft good bowel sounds back - low back area with open wound with minimal purulent drainage on the gauze extremities no edema, motor 5/5, good peripheral pulses, left leg brace in place A/P Problem List: (1) Infected surgical wound ICD Code: T81.4XXA Status: Acute (2) Inability to ambulate due to ankle or foot ICD Code: R26.2 Status: Acute Assessment and Plan 76 y/o female with a history of HTN, HLD, chronic pain, depression and anxiety was a transfer from [facility] with severe back pain and she couldn 't walk for the past 2 days. Infected surgical wound, spinal abscess on MRI-MRSA Neuro surgery ff- closely for possible I and D Infectious disease consulted appreciate recommendations- IV vancomycin Pain management with IV Dilaudid Inability to ambulate due to ankle pain, patient was in rehab for 7 weeks for a non surgical ankle fracture, Orthopedics ff PT - ff up and ambulating - SBA- progressing well Right foot wound- chronic ulcer - dry wound care team Diarrhea: C diff negative probiotic. Keep hydrated. Monitor electrolytes. HTN, chronic Monitor VS and adjust meds as appropriate on HCTZ and ARB. Increase Lopressor to 25 mg po q8 Continue home medication HYpokalemia- improved DVT prophylaxis: SCDs Up and ambulating Domitila Baron MD Jan 14, 2017 12:57
--- NOTE | 2017-01-14 13:57 | RADRPT ---
EXAM DATE/TIME: 01/14/2017 10:01 [facility] COMPARISON: MRI LUMBAR SPINE W & W/O CONTRAST, April 24, 2016, 8:09. INDICATIONS : Abscess. CONTRAST: 10 cc Omniscan (gadodiamide) IV MEDICAL HISTORY : Hypertension. SURGICAL HISTORY : Fusion, lumbar. Tonsillectomy. Hysterectomy. ENCOUNTER: Initial ACUITY: 2 day PAIN SCORE: 4/10 LOCATION: Back TECHNIQUE: Multiplanar multisequence MRI of the lumbar spine was performed with and without contrast. FINDINGS: The most caudal appearing lumbar vertebra is numbered as L5. The sagittal T1, pre-and postcontrast, T2 and inversion recovery images show stable transpedicular fi xation from L2-L5. Intervertebral disc prostheses are seen at the intervening levels. There is shrink ing of the normal lordotic curvature the vertebral body heights are maintained without an acute fract ure. There is a stable levoscoliosis of the lumbar spine. Far lateral T1-weighted images show narrowi ng of the foramina rightward L4-L5 with abnormal signal in the epidural fat around the right L4 nerve root. This does show enhancement following gadolinium administration characteristic of postoperative scarring. Extensive postsurgical changes in the soft tissues posterior to the spinal canal in the re gion of previous total laminectomies. Due to a combination of marginal spurring and posterior element hypertrophy, there is moderate central spinal stenosis at the superior motion segment, L1-2. Detaile d axial images as follows: T12-L1: The thecal sac has a normal diameter. No evidence of disc bulge or protrusion. The neural foramina are patent bilaterally. L1-L2: This is the superior motion segment. Combination of vertebral body marginal spurring and marked poste rior element hypertrophy results in moderate central spinal stenosis which may be severe compromise C entral nerve roots. Both neural foramina are adequate. L2-L3: Posteriorly fixated level. Total laminectomy. Spinal canal and neural foramina are adequate. L3-L4: Posteriorly fixated level with total laminectomy and postsurgical changes in the regional soft tissue s. Spinal canal and neural foramina are adequate. There appears to be a small lipoma of the filum ter minale. L4-L5: Posteriorly fixated level. Narrowing of the right neural foramina with suggestion of some scarring in the region of the epidural fat around L4. Despite some facet hypertrophy, the spinal canal and left neural foramina are adequate with a decompressive laminectomy. L5-S1: The thecal sac has a normal diameter. No evidence of disc bulge or protrusion. The neural foramina are patent bilaterally. CONCLUSION: 1. Stable transpedicular posterior fixation with intervertebral disc prostheses from L2-L5. 2. Moderate central spinal stenosis at the superior motion segment, L1-2 due to a combination of roxane inal vertebral body spurring and marked posterior element hypertrophy. This may be severe enough to c ompromise the regional nerve roots. Spinal canal appears to be adequate all remaining lumbar levels w ith extensive multilevel decompressive laminectomies. 3. Narrowing of the right neural foramina at L4-5 with epidural scarring. The diameter of the spinal canal widely does adequate, and the exiting right L4 nerve root, however. Neural foramina are adequat e all remaining levels. 4. Small lipoma of the filum terminale. No tethering. Saul Madera MD on January 14, 2017 at 13:40 Board Certified Radiologist. This report was verified electronically.
[2017-01-14 16:08] LABS: C. DIFF EPI 027 PRESUMPTIVE NEGATIVE (NEGATIVE); C. DIFF TOXIN PCR NEGATIVE (NEGATIVE)
[2017-01-14] MEDS: VANCOMYCIN INJ 1,200 MG in SODIUM CHLOR 0.9% 250 ML INJ 250 ML IV SCH (17:27)
[2017-01-14] MEDS: PRAVASTATIN SOD 80 MG TAB PO SCH (21:40)
[2017-01-14] MEDS: BACLOFEN 10 MG TAB PO PRN (21:40)
[2017-01-14] MEDS: MIRTAZAPINE 15 MG TAB PO SCH (21:40)
[2017-01-15 00:30] VITALS: BP 130/59; PULSE 80; RESP 19; TEMP 97.6; O2SAT 97
[2017-01-15 04:45] VITALS: BP 128/60; PULSE 69; RESP 20; TEMP 97.9; O2SAT 98
[2017-01-15] MEDS: HYDROmorphone HCL PF 1 MG/ML VIAL IV PUSH PRN ×4 (05:46→20:21)
[2017-01-15] MEDS: METOPROLOL TARTRATE 25 MG TAB PO SCH ×3 (05:46→20:21)
[2017-01-15 08:00] VITALS: BP 125/58; PULSE 61; RESP 16; TEMP 97.5; O2SAT 94
[2017-01-15] MEDS: SODIUM CHLORIDE 0.9% FLUSH 10 ML FLUSH IV FLUSH SCH ×2 (09:00→20:22)
[2017-01-15] MEDS: RESTASIS EYE EACH EYE SCH ×2 (09:00→21:00)
[2017-01-15] MEDS: CYANOCOBALAMIN 1,000 MCG TAB PO SCH (09:43)
[2017-01-15] MEDS: LACTOBACILLUS ACIDOPHILUS TAB PO SCH ×3 (09:43→17:19)
[2017-01-15] MEDS: ASPIRIN EC 81 MG TABEC PO SCH (09:44)
[2017-01-15] MEDS: MELOXICAM 15 MG TAB PO SCH (09:44)
[2017-01-15] MEDS: CHOLECALCIFEROL (VIT D3) 1000 UNIT TAB PO SCH (09:44)
[2017-01-15] MEDS: LOSARTAN 50 MG TAB PO SCH (09:44)
[2017-01-15] MEDS: LIDOCAINE VISCOUS 2% SOLN 15 ML UDC PO SCH ×2 (09:44→20:21)
[2017-01-15] MEDS: GABAPENTIN 300 MG CAP PO SCH ×3 (09:44→17:19)
[2017-01-15] MEDS: HYDROCHLOROTHIAZIDE 12.5 MG CAP PO SCH (09:45)
[2017-01-15] MEDS: ALPRAZolam 0.5 MG TAB PO PRN (09:59)
--- NOTE | 2017-01-15 11:45 | HHI.FF ---
Face to Face Verification I have seen patient Karma Parsons on 01/15/17. My clinical findings support the need for the requested home health care services because: I certify that my clinical findings support that this patient is homebound because: Domitila Baron MD Jan 15, 2017 11:45
[2017-01-15 12:00] VITALS: BP 125/57; PULSE 63; RESP 18; TEMP 97.9; O2SAT 97
--- NOTE | 2017-01-15 14:05 | HHI.NSPN ---
(Marian Dow) Note Status Status: Progress Note (Marian Dow) Interval History Interval History Ms. Parsons is a 75 year old female who had underwent a L4-5 laminectomy with interbody arthrodesis and posterolateral fusion on 05/24/15. She developed a wound infection that was surgically debrided on 06/08/15. She was doing well then unfortunately developed a nonhealing granuloma. She again underwent surgical debridement and resection of wound granuloma on 04/24/16. Ms. Parsons had been managed by wound care after that. She was transferred from [facility] for wound drainage and possible spinal infection. The MRI L spine shows some fluid collection and abnormality at the disc space at L4-5, no evidence of epidural abscess. She is awaiting to undergo CT guided aspiration. 01/10: unchanged symptoms overnight, cultures pending 01/13: patient and reports they feel wound has been draining less, overall pt is feeling much better compared to last week. Offered possible surgical debridement of wound. 01/15: repeat MRI L spine completed. again dw her regarding performing a surgical debridement of her wound, she is unsure at this time, she would like to speak with her first. (Marian Dow) Labs, Micro, & Vital Signs Results Date Time Temp Pulse Resp B/P Pulse Ox O2 Delivery O2 Flow Rate FiO2 01/15/17 12:00 97.9 63 18 125/57 97 01/15/17 08:00 97.5 61 16 125/58 94 01/15/17 04:45 97.9 69 20 128/60 98 01/15/17 00:30 97.6 80 19 130/59 97 01/14/17 21:00 97.8 79 18 132/61 96 01/14/17 20:00 80 01/14/17 16:00 97.4 70 17 130/60 96 01/15/17 06:59 Intake Total 2050 ml Balance 2050 ml Constitutional Vital Signs Date Time Temp Pulse Resp B/P Pulse Ox O2 Delivery O2 Flow Rate FiO2 01/15/17 12:00 97.9 63 18 125/57 97 01/15/17 08:00 97.5 61 16 125/58 94 01/15/17 04:45 97.9 69 20 128/60 98 01/15/17 00:30 97.6 80 19 130/59 97 01/14/17 21:00 97.8 79 18 132/61 96 01/14/17 20:00 80 01/14/17 16:00 97.4 70 17 130/60 96 01/15/17 06:59 Intake Total 2050 ml Balance 2050 ml (Marian Dow) Review of Systems/Exam Exam Awake and alert. Sitting up in chair. CN: pupils equal, facial motor symmetric. small 3-4 mm opening of lumbar wound with drainage noted on dressing Sensation intact to light touch in lower extremities with intact motor function except not fully tested left lower extremity due to fracture. No significant erythema or edema or tenderness at the lumbosacral region (Marian Dow) Exam She is alert, awake and oriented to time, place and person. Speech is fluent. Cranial nerve examination: pupils to be equal, round and reactive to light. Extra-ocular movements are intact. Facial motor and sensory function are normal and symmetrical. Gross hearing appears intact. Sternocleidomastoid and trapezius muscles are symmetrical. Other cranial nerves are intact. Neck is soft and supple with a good range of motion without pain. Muscle strength is normal in all muscle groups of both upper and lower extremities. Sensory examination is intact to light touch and pin prick in both the upper and lower extremities. Lumbar region. small 3-4 mm opening of lumbar wound with drainage noted on dressing Sensation intact to light touch in lower extremities with intact motor function except not fully tested left lower extremity due to fracture. No significant erythema or edema or tenderness at the lumbosacral region Deep tendon reflexes are symmetrical in both upper and lower extremities. There is a bilateral plantar flexion response. Cerebellar examination is unremarkable, without deficits. (Casper Morrissey MD) Medications Current Medications Current Medications Medications (Trade) Dose Ordered Sig/Johan Route PRN Reason Start Time Stop Time Status Last Admin Dose Admin Sodium Chloride (NS Flush) 2 ml UNSCH PRN IV FLUSH FLUSH AFTER USING IV ACCESS 01/09/17 00:45 01/09/17 16:04 Sodium Chloride (NS Flush) 2 ml BID IV FLUSH 01/09/17 09:00 01/15/17 09:00 Naloxone HCl 0.4 mg 0.4 mg UNSCH PRN IV SEE LABEL COMMENTS 01/09/17 00:45 Pharmacy Profile Note (Vancomycin Consult Pharmacy) 0 ml @ 0 mls/hr UNSCH OTHER 01/09/17 00:45 Alprazolam (Xanax) 0.5 mg TID PRN PO ANXIETY 01/10/17 00:30 01/15/17 09:59 Aspirin (Ecotrin Ec) 81 mg DAILY PO 01/10/17 09:00 01/15/17 09:44 Baclofen (Lioresal) 10 mg TID PRN PO MUSCLE SPASM 01/10/17 00:30 01/14/17 21:40 Cholecalciferol (Vitamin D3) 1,000 units DAILY PO 01/10/17 09:00 01/15/17 09:44 Cyanocobalamin (Vitamin B12) 500 mcg DAILY PO 01/10/17 09:00 01/15/17 09:43 Gabapentin (Neurontin) 600 mg TID PO 01/10/17 09:00 01/15/17 09:44 Hydrochlorothiazide (Microzide) 12.5 mg DAILY PO 01/10/17 09:00 01/15/17 09:45 Lidocaine HCl (Xylocaine 2% Viscous) 15 ml BID PO 01/10/17 09:00 01/15/17 09:44 Losartan Potassium (Cozaar) 100 mg DAILY PO 01/10/17 09:00 01/15/17 09:44 Meloxicam (Mobic) 15 mg DAILY PO 01/10/17 09:00 01/15/17 09:44 Mirtazapine (Remeron) 15 mg HS PO 01/10/17 00:30 01/14/17 21:40 Pravastatin Sodium (Pravachol) 80 mg HS PO 01/10/17 00:30 01/14/17 21:40 Patient Own Medication PT OWN MED: RESTA... BID EACH EYE 01/10/17 09:00 01/14/17 21:00 Lactobacillus Acidophilus (Lactinex) 1 tab TID PO 01/10/17 13:00 01/15/17 09:43 Metoprolol Tartrate 25 mg 25 mg Q8HR PO 01/11/17 14:00 01/15/17 05:46 Vancomycin HCl/ Sodium Chloride (Vancomycin Inj/ NS 250 ml Inj) 262 ml @ 250 mls/hr Q24H IV 01/13/17 17:00 01/14/17 17:27 Miscellaneous Information SPECIFIC LAB TO BE DRAWN:VANCOMYCIN TROUGH DATE TO... ONCE ONCE .XX 01/15/17 16:45 01/15/17 16:46 Hydromorphone HCl (Dilaudid Pf Inj) 0.25 mg Q4H PRN IV PUSH pain 6-10 01/14/17 13:15 01/15/17 10:02 (Marian Dow) Current Medications Current Medications Sodium Chloride 2 ml 2 ml UNSCH PRN IVF FLUSH AFTER USING IV ACCESS; Start at 00:45; Stop 01/09/17 at 00:48; Status DC Vancomycin HCl 1500 mg/Sodium Chloride 515 ml @ 257.5 mls/ hr ONCE ONCE IV Last administered on 01/09/17 02:46; Start 01/09/17 at 00:45; Stop 01/09/17 at 02:44; Status DC Ceftriaxone Sodium/Sodium Chloride (Rocephin Inj/NS Inj) 100 ml @ 200 mls/hr ONCE ONCE IV Last administered on 01/09/17 02:56; Start 01/09/17 at 00:45; Stop 01/09/17 at 01:14; Status DC Sodium Chloride (NS Flush) 2 ml UNSCH PRN IV FLUSH FLUSH AFTER USING IV ACCESS Last administered on 01/09/17 16:04; Start 01/09/17 at 00:45; Stop 01/18/17 at 10:30; Status DC Sodium Chloride (NS Flush) 2 ml BID IV FLUSH Last administered on 01/16/17 21: 00; Start 01/09/17 at 09:00; Stop 01/18/17 at 10:30; Status DC Naloxone HCl 0.4 mg 0.4 mg UNSCH PRN IV SEE LABEL COMMENTS; Start 01/09/17 at 00:45 Pharmacy Profile Note 0 ml @ 0 mls/hr UNSCH OTHER ; Start 01/09/17 at 00:45 Piperacillin Sod/ Tazobactam Sod (Zosyn 4.5 Gm Premix) 100 ml @ 200 mls/hr Q6H IV Last administered on 01/10/17 14:07; Start 01/09/17 at 08:00; Stop at 17:32; Status DC Hydromorphone HCl (Dilaudid Pf Inj) 0.5 mg Q4H PRN IV PUSH pain 6-10 Last administered on 01/14/17 05:51; Start 01/09/17 at 01:15; Stop 01/14/17 at 12:59 ; Status DC Lidocaine/ Epinephrine (Xylocaine-Epi 1%-1:100,000 Inj) 20 ml STK-MED ONCE .ROUTE Last administered on 01/09/17 08:57; Start 01/09/17 at 08:57; Stop at 08:58; Status DC Lidocaine/ Epinephrine (Xylocaine-Epi 1%-1:100,000 Inj) 20 ml STK-MED ONCE .ROUTE Last administered on 01/09/17 09:32; Start 01/09/17 at 09:32; Stop at 09:33; Status DC Fentanyl Citrate (fentaNYL INJ) 100 mcg STK-MED ONCE .ROUTE Last administered on 01/09/17 09:55; Start 01/09/17 at 09:40; Stop 01/09/17 at 09:41; Status DC Midazolam HCl 2 mg 2 mg STK-MED ONCE .ROUTE Last administered on 01/09/17 09: 55; Start 01/09/17 at 09:40; Stop 01/09/17 at 09:41; Status DC Vancomycin HCl/ Sodium Chloride (Vancomycin Inj/ NS 250 ml Inj) 250 ml @ 250 mls/hr Q24H IV Last administered on 01/12/17 16:44; Start 01/10/17 at 15:00; Stop 01/12/17 at 18:54; Status DC Miscellaneous Information SPECIFIC LAB TO BE RYLEY... ONCE ONCE .XX Last administered on 01/12/17 16:30; Start 01/12/17 at 14:45; Stop 01/12/17 at 14:46 ; Status DC Alprazolam (Xanax) 0.5 mg ONCE ONCE PO Last administered on 01/10/17 00:51; Start 01/10/17 at 00:30; Stop 01/10/17 at 00:33; Status DC Alprazolam (Xanax) 0.5 mg TID PRN PO ANXIETY Last administered on 01/18/17 08: 50; Start 01/10/17 at 00:30 Aspirin (Ecotrin Ec) 81 mg DAILY PO Last administered on 01/16/17 08:41; Start 01/10/17 at 09:00; Status Hold Baclofen (Lioresal) 10 mg TID PRN PO MUSCLE SPASM Last administered on 23:59; Start 01/10/17 at 00:30 Cholecalciferol (Vitamin D3) 1,000 units DAILY PO Last administered on 08:49; Start 01/10/17 at 09:00 Cyanocobalamin (Vitamin B12) 500 mcg DAILY PO Last administered on 01/18/17 08 :49; Start 01/10/17 at 09:00 Gabapentin (Neurontin) 600 mg TID PO Last administered on 01/18/17 08:50; Start 01/10/17 at 09:00; Stop 01/18/17 at 10:28; Status DC Hydrochlorothiazide (Microzide) 12.5 mg DAILY PO Last administered on 08:49; Start 01/10/17 at 09:00 Lidocaine HCl (Xylocaine 2% Viscous) 15 ml BID PO Last administered on 08:50; Start 01/10/17 at 09:00 Losartan Potassium (Cozaar) 100 mg DAILY PO Last administered on 01/18/17 08: 49; Start 01/10/17 at 09:00 Meloxicam (Mobic) 15 mg DAILY PO Last administered on 01/18/17 08:49; Start at 09:00 Metoprolol Tartrate (Lopressor) 25 mg BID PO Last administered on 01/11/17 09: 30; Start 01/10/17 at 09:00; Stop 01/11/17 at 09:57; Status DC Mirtazapine (Remeron) 15 mg HS PO Last administered on 01/17/17 21:40; Start 01/10/17 at 00:30 Pravastatin Sodium (Pravachol) 80 mg HS PO Last administered on 01/17/17 21:40 ; Start 01/10/17 at 00:30 Patient Own Medication PT OWN MED: RESTA... BID EACH EYE Last administered on 21:41; Start 01/10/17 at 09:00 Lactobacillus Acidophilus (Lactinex) 1 tab TID PO Last administered on 12:52; Start 01/10/17 at 13:00 Lactobacillus Acidophilus (Lactinex) 1 tab ONCE ONCE PO Last administered on 11:47; Start 01/10/17 at 10:00; Stop 01/10/17 at 10:03; Status DC Potassium Chloride (KCl) 30 meq ONCE ONCE PO Last administered on 01/10/17 13 :35; Start 01/10/17 at 13:00; Stop 01/10/17 at 13:01; Status DC Metoprolol Tartrate 25 mg 25 mg Q8HR PO Last administered on 01/18/17 12:53; Start 01/11/17 at 14:00 Vancomycin HCl/ Sodium Chloride (Vancomycin Inj/ NS 250 ml Inj) 262 ml @ 250 mls/hr Q24H IV Last administered on 01/14/17 17:27; Start 01/13/17 at 17:00; Stop 01/15/17 at 20:44; Status DC Miscellaneous Information SPECIFIC LAB TO BE DRAWN:VANCOMYCIN TROUGH DATE TO... ONCE ONCE .XX ; Start 01/15/17 at 16:45; Stop 01/15/17 at 16:46; Status DC Gadodiamide (Omniscan Pf Inj) 10 ml STK-MED ONCE IV Last administered on 11:49; Start 01/14/17 at 11:49; Stop 01/14/17 at 11:50; Status DC Hydromorphone HCl 0.25 mg 0.25 mg Q4H PRN IV PUSH Breakthrough Pain Last administered on 01/17/17 23:59; Start 01/14/17 at 13:15 Vancomycin HCl/ Sodium Chloride (Vancomycin Inj/ NS 250 ml Inj) 250 ml @ 250 mls/hr Q24H IV Last administered on 01/17/17 21:40; Start 01/15/17 at 22:00 Miscellaneous Information SPECIFIC LAB TO BE DRAWN:VA... ONCE ONCE .XX ; Start 01/17/17 at 21:45; Stop 01/17/17 at 21:46; Status DC Loperamide HCl (Imodium Liq) 4 mg ONCE ONCE PO Last administered on 01/16/17 17:02; Start 01/16/17 at 14:00; Stop 01/16/17 at 14:47; Status DC Loperamide HCl (Imodium Liq) 2 mg UNSCH PRN PO DIARRHEA Last administered on 08:50; Start 01/16/17 at 14:00 Acetaminophen/ Hydrocodone Bitart 1 tab 1 tab Q4H PRN PO Pain 4 to 10 Last administered on 01/17/17 10:21; Start 01/16/17 at 14:00; Stop 01/17/17 at 18:00 ; Status DC Lactated Ringer's 1,000 ml @ 30 mls/hr Q24H PRN IV SEE LABEL COMMENTS; Start at 05:45; Stop 01/17/17 at 19:27; Status DC Sodium Chloride (NS 500 ml Inj) 500 ml @ 30 mls/hr [id number] PRN IV SEE LABEL COMMENTS; Start 01/17/17 at 05:45; Stop 01/17/17 at 19:27; Status DC Povidone Iodine (Betadine 5% Antisepsis Kit) 1 applic CLAIM PROFESSIONAL PRN EACH NARE SEE LABEL COMMENTS; Start 01/17/17 at 05:45; Stop 01/17/17 at 19:27; Status DC Chlorhexidine Gluconate (Chlorhexidine 2% Cloth) 3 pack CLAIM PROFESSIONAL PRN TOPICAL SEE LABEL COMMENTS; Start 01/17/17 at 05:45; Stop 01/17/17 at 19:27; Status DC Insulin Human Regular (NovoLIN R INJ) See Protocol Table ... CLAIM PROFESSIONAL PRN SQ SEE PROTOCOL TABLE; Start 01/17/17 at 05:45; Stop 01/17/17 at 19:27; Status DC Acetaminophen/ Butalbital/ Caffeine (Fioricet 325-50-40) 1 tab ONCE ONCE PO Last administered on 01/17/17 10:22; Start 01/17/17 at 10:00; Stop 01/17/17 at 10:01; Status DC Thrombin (Thrombin Top Soln) 5,000 units STK-MED ONCE .ROUTE ; Start 01/17/17 at 11:52; Stop 01/17/17 at 11:53; Status DC Gelatin (Gelfoam 12 Mm/7 Mm Top) 1 foam STK-MED ONCE .ROUTE ; Start 01/17/17 at 11:52; Stop 01/17/17 at 11:53; Status DC Bacitracin (Baciguent Oint) 15 applic STK-MED ONCE .ROUTE ; Start 01/17/17 at 11 :52; Stop 01/17/17 at 11:53; Status DC Gentamicin Sulfate (Gentamicin Inj) 240 mg STK-MED ONCE .ROUTE ; Start 01/17/17 at 11:53; Stop 01/17/17 at 11:54; Status DC Sodium Chloride (NS Flush) See Protocol DAILY IV FLUSH Last administered on 08:51; Start 01/18/17 at 09:00 Sodium Chloride (NS Flush) See Protocol UNSCH PRN IV FLUSH SEE PROTOCOL TABLE; Start 01/17/17 at 13:00 Heparin Sodium (Porcine) (Heparin Central Flush) See Protocol DAILY IV FLUSH Last administered on 01/18/17 08:48; Start 01/18/17 at 09:00 Heparin Sodium (Porcine) (Heparin Central Flush) See Protocol UNSCH PRN IV FLUSH SEE PROTOCOL TABLE; Start 01/17/17 at 13:00 Sodium Chloride (NS Flush) UNSCH PRN IV FLUSH SEE PROTOCOL TABLE; Start at 13:00 Thrombin (Thrombin Top Soln) 5,000 units STK-MED ONCE .ROUTE ; Start 01/17/17 at 16:27; Stop 01/17/17 at 16:28; Status DC Sugammadex Sodium (Bridion Inj) 200 mg STK-MED ONCE IV PUSH ; Start 01/17/17 at 16:38; Stop 01/17/17 at 16:39; Status DC Acetaminophen 1000 mg 1,000 mg STK-MED ONCE IV ; Start 01/17/17 at 16:38; Stop 01/17/17 at 16:39; Status DC Cefazolin Sodium/ Dextrose 50 ml @ As Directed STK-MED ONCE .ROUTE Last administered on 01/17/17 17:24; Start 01/17/17 at 16:53; Stop 01/17/17 at 16:54 ; Status DC Potassium Chloride/Sodium Chloride (NS + KCl 20 Meq Inj) 1,000 ml @ 100 mls/hr Q10H IV Last administered on 01/18/17 09:48; Start 01/17/17 at 17:17 IV Flush (NS Flush) 2 ml UNSCH PRN IVF FLUSH AFTER USING IV ACCESS; Start 01/17 at 17:30 IV Flush 2 ml 2 ml BID IVF Last administered on 01/17/17 21:41; Start at 21:00 Cefazolin Sodium/ Dextrose (Ancef 2 Gm Premix) 50 ml @ 100 mls/hr Q8H IV Last administered on 01/18/17 08:48; Start 01/18/17 at 01:00; Stop 01/18/17 at 17:29 Docusate Sodium (Colace) 100 mg BID PO ; Start 01/17/17 at 21:00 Pantoprazole Sodium (Protonix) 40 mg DAILY PO Last administered on 01/18/17 08 :49; Start 01/18/17 at 09:00 Acetaminophen/ Hydrocodone Bitart ([place] 10-325 Mg) 1 tab Q4H PRN PO PAIN SCALE 1 TO 5 Last administered on 01/18/17 12:53; Start 01/17/17 at 17:30 Acetaminophen/ Hydrocodone Bitart ([place] 10-325 Mg) 2 tab Q4H PRN PO PAIN SCALE 6 TO 10; Start 01/17/17 at 17:30 Morphine Sulfate (Morphine Inj) 2 mg Q2H PRN IV PUSH PAIN SCALE 1 TO 6; Start 01/17/17 at 17:30 Morphine Sulfate (Morphine Inj) 4 mg Q2H PRN IV PUSH PAIN SCALE 7 TO 10; Start 01/17/17 at 17:30 Acetaminophen (Tylenol) 650 mg Q4H PRN PO TEMPERATURE > 101.5 F; Start at 17:30 Gentamicin Sulfate (Gentamicin Inj) 240 mg STK-MED ONCE IRRIGATION Last administered on 01/17/17 17:46; Start 01/17/17 at 17:46; Stop 01/17/17 at 17:53 ; Status DC Vancomycin HCl (Vancomycin Inj) 1,000 mg STK-MED ONCE .ROUTE ; Start 01/17/17 at 17:55; Stop 01/17/17 at 17:56; Status DC Morphine Sulfate (*morphine INJ PERIprocedure ONLY) 8 mg STK-MED ONCE .ROUTE Last administered on 01/17/17t 18:35; Start 01/17/17 at 18:35; Stop 01/17/17 at 18:36; Status DC Miscellaneous Information ALL NURSING DEPARTME... UNSCH PRN .XX SEE LABEL COMMENTS; Start 01/17/17 at 18:32; Stop 01/18/17 at 18:31 Miscellaneous Information SPECIFIC LAB TO BE RYLEY... ONCE ONCE .XX ; Start 01/20 at 21:45; Stop 01/20/17 at 21:46 Gabapentin (Neurontin) 600 mg BID PO ; Start 01/18/17 at 21:00 (Casper Morrissey MD) Medical Decision Making MDM Remarks 76 year old female with chronic nonhealing wound with drainage outpatient MRI L spine shows some fluid collection and abnormality at the disc space at L4-5, no evidence of epidural abscess positive MRSA swab cultures of wound, negative needle aspiration of fluid collection (Marian Dow) Plan Plan Remarks repeat MRI L spine reviewed by Dr. Morrissey, again offered patient surgical debridement of her nonhealing wound vs cont nonsurgical mgt with wound care, she would like to discuss with her first prior to making a decision, cont antibiotic tx per Infectious Disease, wound care following, (Marian Dow) Attending Statement Continue neuro checks Pulmonary. aggressive pulmonary toilette, nasotracheal suction, and breathing treatments with nebulizers. Daily PT and OT Nutrition. Oral diet Renal. monitor closely urine output, BUN and creatinine Endocrine. Monitor serial Acu checks and SSI as needed in detail ID monitor for signs of infection Protonix for stress ulcer prophylaxis Stevie hose and SCD's for DVT prophylaxis The exam, history, and the medical decision-making described in the above note were completed with the assistance of the mid-level provider. I reviewed and agree with the findings presented. I attest that I had a [id number] encounter with the patient on the same day, and personally performed and documented my assessment and findings in the medical record. (Casper Morrissey MD) Marian Dow Jan 15, 2017 14:05 Casper Morrissey MD Jan 18, 2017 15:41
--- NOTE | 2017-01-15 14:21 | HHI.PR ---
Subjective Remarks awake and alert, no complains Objective Vitals Vital Signs Date Time Temp Pulse Resp B/P Pulse Ox O2 Delivery O2 Flow Rate FiO2 01/15/17 12:00 97.9 63 18 125/57 97 01/15/17 08:00 97.5 61 16 125/58 94 01/15/17 04:45 97.9 69 20 128/60 98 01/15/17 00:30 97.6 80 19 130/59 97 01/14/17 21:00 97.8 79 18 132/61 96 01/14/17 20:00 80 01/14/17 16:00 97.4 70 17 130/60 96 I/O 01/14/17 01/14/17 01/14/17 01/15/17 01/15/17 01/15/17 07:00 15:00 23:00 07:00 15:00 23:00 Intake Total 600 ml 800 ml 650 ml Balance 600 ml 800 ml 650 ml Intake Oral 600 ml 800 ml 650 ml # Voids 1 7 0 2 # Bowel Movements 1 0 0 Result Diagram: 01/15/17 0711 Imaging Last Impressions Lumbar Spine MRI 01/14/17 0000 Signed Impressions: Service Date/Time: Saturday, January 14, 2017 10:01 - CONCLUSION: 1. Stable transpedicular posterior fixation with intervertebral disc prostheses from L2-L5. 2. Moderate central spinal stenosis at the superior motion segment, L1- 2 due to a combination of marginal vertebral body spurring and marked posterior element hypertrophy. This may be severe enough to compromise the regional nerve roots. Spinal canal appears to be adequate all remaining lumbar levels with extensive multilevel decompressive laminectomies. 3. Narrowing of the right neural foramina at L4-5 with epidural scarring. The diameter of the spinal canal widely does adequate, and the exiting right L4 nerve root, however. Neural foramina are adequate all remaining levels. 4. Small lipoma of the filum terminale. No tethering. Saul Madera MD Ankle X-Ray 01/09/17 0000 Signed Impressions: Service Date/Time: December 02:43 - CONCLUSION: Healing fracture of the distal fibula. No change in alignment or position compared to the prior study. Memo Cheng MD Abscess Drainage CT 01/09/17 0000 Signed Impressions: Service Date/Time: December 09:49 - CONCLUSION: No significant paraspinal fluid aspiration at L4-5. There was a small area of pus more inferiorly seen within a superficial fluid collection which was aspirated. Jake Brown MD Objective Remarks awake and alert, NAD anicteric lungs clear regular rhythm abdomen soft good bowel sounds back - low back area with open wound with minimal purulent drainage on the gauze extremities no edema, motor 5/5, good peripheral pulses, left leg brace in place A/P Problem List: (1) Infected surgical wound ICD Code: T81.4XXA Status: Acute (2) Inability to ambulate due to ankle or foot ICD Code: R26.2 Status: Acute Assessment and Plan 76 y/o female with a history of HTN, HLD, chronic pain, depression and anxiety was a transfer from [facility] with severe back pain and she couldn 't walk for the past 2 days. Infected surgical wound, spinal abscess on MRI-MRSA Neuro surgery ff- closely - planning for possible I and D Infectious disease consulted appreciate recommendations- IV vancomycin Pain management with IV Dilaudid S/P left ankle fracture - was in rehab for 7 weeks for a non surgical ankle fracture Orthopedics ff PT - ff up and ambulating - Standby assist- progressing well Right foot wound- chronic ulcer - dry wound care team Diarrhea: C diff negative- improved probiotic. Keep hydrated. Monitor electrolytes. HTN, chronic Monitor VS and adjust meds as appropriate on HCTZ and ARB. Increase Lopressor to 25 mg po q8 Continue home medication HYpokalemia- improved DVT prophylaxis: SCDs Up and ambulating Domitila Baron MD Jan 15, 2017 14:20
--- NOTE | 2017-01-15 14:49 | HHI.IDPN ---
Note Infectious Disease Note Patient notes that she still gets gets pain 8/10 level max in the back. No chills. Sitting up on side of bed. Afebrile. Dressing gauze at the back wound removed today is saturated with purulent greenish drainage. Dressing was last changed yesterday evening. PAST MEDICAL HISTORY Hypertension, anxiety, depression, hyperlipidemia, chronic pain, status post lumbar laminectomy with instrumentation, breast augmentation, hysterectomy, cataract surgery, appendectomy, removal of a throat tumor. ALLERGIES RAJEEV INHIBITORS. ANTIBIOTICS Vancomycin. OBJECTIVE: Vital Signs Date Time Temp Pulse Resp B/P Pulse Ox O2 Delivery O2 Flow Rate FiO2 01/15/17 12:00 97.9 63 18 125/57 97 01/15/17 08:00 97.5 61 16 125/58 94 01/15/17 04:45 97.9 69 20 128/60 98 01/15/17 00:30 97.6 80 19 130/59 97 01/14/17 21:00 97.8 79 18 132/61 96 01/14/17 20:00 80 01/14/17 16:00 97.4 70 17 130/60 96 01/14/17 01/14/17 01/15/17 15:00 23:00 07:00 Intake Total 600 ml 800 ml 650 ml Balance 600 ml 800 ml 650 ml Intake Oral 600 ml 800 ml 650 ml # Voids 7 0 2 # Bowel Movements 1 0 0 Laboratory Tests Test 01/14/17 11:20 Erythrocyte Sedimentation Rate 66 mm/hr Laboratory Tests Test 01/15/17 07:11 Creatinine 0.90 MG/DL Estimat Glomerular Filtration 61 ML/MIN Rate PHYSICAL EXAMINATION GENERAL: No acute distress. Awake, alert, oriented. HEENT: No icterus. Oropharynx no visible lesions. HEART: Distant S1S2, No murmurs. LUNGS: Clear BS. BACK: (+) drainage from back, tiny opening at the lumbar region. No erythema. EXTREMITIES: No clubbing or cyanosis or edema. SKIN: No rash. NEURO: Nonfocal. PSYCHIATRIC: Calm and cooperative. IMPRESSION 1. Lumbar wound infection MRSA. 2. 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 Discitis of L4-5 vertebrae on MRI done at [facility] on 01/08/17. 2. Patient status post lumbar laminectomy. 3. Persistent back pain. 4. 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 Does not look infected. RECOMMENDATIONS 1. Continue vancomycin. 2. Disposition by neurosurgical. I think she will benefit from wound debridement followed by IV antibiotics x 4 - 6 weeks and follow sed rate. Francois Ricketts MD Jan 15, 2017 14:49
[2017-01-15] MEDS ORDERED: PHARMACY ORDERED LAB-VANCO TROUGH ONE (16:45)
[2017-01-15] MEDS: VANCOMYCIN INJ 1,200 MG in SODIUM CHLOR 0.9% 250 ML INJ 250 ML IV SCH (17:21)
[2017-01-15 20:00] VITALS: BP 149/71; PULSE 72; PULSE 76; RESP 17; TEMP 97.8; O2SAT 98
[2017-01-15] MEDS: MIRTAZAPINE 15 MG TAB PO SCH (20:21)
[2017-01-15] MEDS: PRAVASTATIN SOD 80 MG TAB PO SCH (20:21)
[2017-01-15] MEDS: VANCOMYCIN 1,000 MG/NS 250 ML IV SCH ×2 (22:44)
[2017-01-16] VITALS (7 sets, daily range): BP systolic 123–169; BP diastolic 60–70; PULSE 67–85; RESP 16–19; TEMP 97.6–98.4; O2SAT 94–97
[2017-01-16] MEDS: ALPRAZolam 0.5 MG TAB PO PRN ×3 (00:11→23:46)
[2017-01-16] MEDS: MIRTAZAPINE 15 MG TAB PO SCH ×2 (00:11→22:05)
[2017-01-16] MEDS: BACLOFEN 10 MG TAB PO PRN ×3 (00:11→23:46)
[2017-01-16] MEDS: HYDROmorphone HCL PF 1 MG/ML VIAL IV PUSH PRN ×3 (00:11→17:01)
[2017-01-16] MEDS: METOPROLOL TARTRATE 25 MG TAB PO SCH ×3 (04:28→22:04)
[2017-01-16] MEDS: CHOLECALCIFEROL (VIT D3) 1000 UNIT TAB PO SCH (08:41)
[2017-01-16] MEDS: GABAPENTIN 300 MG CAP PO SCH ×3 (08:41→17:01)
[2017-01-16] MEDS: ASPIRIN EC 81 MG TABEC PO SCH (08:41)
[2017-01-16] MEDS: HYDROCHLOROTHIAZIDE 12.5 MG CAP PO SCH (08:41)
[2017-01-16] MEDS: MELOXICAM 15 MG TAB PO SCH (08:41)
[2017-01-16] MEDS: CYANOCOBALAMIN 1,000 MCG TAB PO SCH (08:41)
[2017-01-16] MEDS: LOSARTAN 50 MG TAB PO SCH (08:42)
[2017-01-16] MEDS: LIDOCAINE VISCOUS 2% SOLN 15 ML UDC PO SCH ×2 (08:42→21:00)
[2017-01-16] MEDS: LACTOBACILLUS ACIDOPHILUS TAB PO SCH ×3 (08:42→17:01)
[2017-01-16] MEDS: SODIUM CHLORIDE 0.9% FLUSH 10 ML FLUSH IV FLUSH SCH ×2 (08:46→21:00)
[2017-01-16] MEDS: RESTASIS EYE EACH EYE SCH ×2 (08:46→21:00)
[2017-01-16] MEDS ORDERED: LOPERAMIDE HCL SOLN 2 MG/10 ML UDC PO ONE (14:00)
[2017-01-16] MEDS ORDERED: LOPERAMIDE HCL SOLN 2 MG/10 ML UDC PO PRN (14:00)
--- NOTE | 2017-01-16 14:01 | HHI.IDPN ---
Note Infectious Disease Note Patient notes in the back is the same. No chills. Sitting up on side of bed. Afebrile. PAST MEDICAL HISTORY Hypertension, anxiety, depression, hyperlipidemia, chronic pain, status post lumbar laminectomy with instrumentation, breast augmentation, hysterectomy, cataract surgery, appendectomy, removal of a throat tumor. ALLERGIES RAJEEV INHIBITORS. ANTIBIOTICS Vancomycin. OBJECTIVE: Vital Signs Date Time Temp Pulse Resp B/P Pulse Ox O2 Delivery O2 Flow Rate FiO2 01/16/17 13:36 98.0 85 17 128/65 94 01/16/17 11:04 69 01/16/17 08:07 98.4 72 16 123/60 97 01/16/17 00:15 98.1 76 17 139/65 96 01/15/17 20:00 97.8 72 17 149/71 98 01/15/17 20:00 76 Laboratory Tests Test 01/15/17 07:11 Creatinine 0.90 MG/DL Estimat Glomerular Filtration 61 ML/MIN Rate PHYSICAL EXAMINATION GENERAL: No acute distress. HEENT: No icterus. Oropharynx no visible lesions. HEART: Distant S1S2, No murmurs. LUNGS: Clear BS. BACK: (+) drainage from back, tiny opening at the lumbar region. No erythema. EXTREMITIES: No clubbing or cyanosis or edema. SKIN: No rash. NEURO: Nonfocal. PSYCHIATRIC: Calm and cooperative. IMPRESSION 1. Lumbar wound infection MRSA. 2. 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 Discitis of L4-5 vertebrae on MRI done at [facility] on 01/08/17. 2. Patient status post lumbar laminectomy. 3. Persistent back pain. 4. 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 Does not look infected. RECOMMENDATIONS 1. Continue vancomycin IV. 2. Disposition by neurosurgical. Patient says she and her is agreeable to surgery. Plan on IV antibiotics x 4 - 6 weeks and follow sed rate. Francois Ricketts MD Jan 16, 2017 14:01
--- NOTE | 2017-01-16 14:07 | HHI.PR ---
Subjective Remarks Complaints of diarrhea today. Pain control is not yet optimize, she is on IV Dilaudid. She also complains of the gluteal lesion at her right gluteus which occurs about once a year, and will sometimes bleed. This occurred just recently. After exam there are no acute concerns. Objective Vital Signs Date Time Temp Pulse Resp B/P Pulse Ox O2 Delivery O2 Flow Rate FiO2 01/16/17 13:36 98.0 85 17 128/65 94 01/16/17 11:04 69 01/16/17 08:07 98.4 72 16 123/60 97 01/16/17 00:15 98.1 76 17 139/65 96 01/15/17 20:00 97.8 72 17 149/71 98 01/15/17 20:00 76 I/O 01/15/17 01/15/17 01/15/17 01/16/17 01/16/17 01/16/17 07:00 15:00 23:00 07:00 15:00 23:00 Intake Total 650 ml 600 ml 800 ml 1150 ml Output Total 800 ml Balance 650 ml 600 ml 800 ml 1150 ml -800 ml Intake Oral 650 ml 600 ml 800 ml 900 ml IV Total 250 ml Output Urine Total 800 ml # Voids 2 5 1 4 # Bowel Movements 0 0 3 Result Diagram: 01/15/17 0711 Objective Remarks GENERAL: NAD, A&Ox3 HEAD: Normocephalic. NECK: Supple, trachea midline. No lymphadenopathy. EYES: No scleral icterus. No injection or drainage. CARDIOVASCULAR: Regular rate and rhythm without murmurs, gallops, or rubs. RESPIRATORY: Breath sounds equal bilaterally. No accessory muscle use. GASTROINTESTINAL: Abdomen soft, non-tender, nondistended. MUSCULOSKELETAL: No cyanosis, or edema. SKIN: Warm and dry. 1.5 cm circular lesion at right gluteus which appears to be a drained blister. NEURO: No focal neurological deficitis. 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 Infected surgical wound spinal abscess IV vancomycin Infectious disease following Neurosurgery following Incision and drainage has been recommended on MRI-MRSA Pain management expanded to by mouth [place] and breakthrough IV Dilaudid S/P left ankle fracture She has been in rehabilitation for 7 weeks Orthopedics following Chronic Right foot wound chronic ulcer now dry/scabbed wound care team Diarrhea C diff negative Diarrhea remains Imodium started Continue probiotics probiotic HTN Chronic Continue his chlorothiazide Continue our Continue Lopressor Hypokalemia Replace as needed Follow potassium levels DVT prophylaxis SCDs Patient is ambulatory Problem Qualifiers (1) Non-healing surgical wound: Qualified Code: T81.89XS - Non-healing surgical wound, sequela Arnoldo Mora MD Jan 16, 2017 14:07
--- NOTE | 2017-01-16 14:47 | HHI.NSPN ---
(Marian Dow) Note Status Status: Progress Note (Marian Dow) Interval History Interval History Ms. Parsons is a 75 year old female who had underwent a L4-5 laminectomy with interbody arthrodesis and posterolateral fusion on 05/24/15. She developed a wound infection that was surgically debrided on 06/08/15. She was doing well then unfortunately developed a nonhealing granuloma. She again underwent surgical debridement and resection of wound granuloma on 04/24/16. Ms. Parsons had been managed by wound care after that. She was transferred from [facility] for wound drainage and possible spinal infection. The MRI L spine shows some fluid collection and abnormality at the disc space at L4-5, no evidence of epidural abscess. She is awaiting to undergo CT guided aspiration. 01/10: unchanged symptoms overnight, cultures pending 01/13: patient and reports they feel wound has been draining less, overall pt is feeling much better compared to last week. Offered possible surgical debridement of wound. 01/15: repeat MRI L spine completed. again dw her regarding performing a surgical debridement of her wound, she is unsure at this time, she would like to speak with her first. 01/16: and patient decided to proceed with surgical debridement, no new complaints (Marian Dow) Labs, Micro, & Vital Signs Results Date Time Temp Pulse Resp B/P Pulse Ox O2 Delivery O2 Flow Rate FiO2 01/16/17 13:36 98.0 85 17 128/65 94 01/16/17 11:04 69 01/16/17 08:07 98.4 72 16 123/60 97 01/16/17 00:15 98.1 76 17 139/65 96 01/15/17 20:00 97.8 72 17 149/71 98 01/15/17 20:00 76 01/16/17 07:00 Intake Total 2550 ml Balance 2550 ml Constitutional Vital Signs Date Time Temp Pulse Resp B/P Pulse Ox O2 Delivery O2 Flow Rate FiO2 01/16/17 13:36 98.0 85 17 128/65 94 01/16/17 11:04 69 01/16/17 08:07 98.4 72 16 123/60 97 01/16/17 00:15 98.1 76 17 139/65 96 01/15/17 20:00 97.8 72 17 149/71 98 01/15/17 20:00 76 01/16/17 07:00 Intake Total 2550 ml Balance 2550 ml (Marian Dow) Review of Systems/Exam Exam Awake and alert. Sitting up in chair. CN: pupils equal, facial motor symmetric. small 3-4 mm opening of lumbar wound with drainage noted on dressing Sensation intact to light touch in lower extremities with intact motor function except not fully tested left lower extremity due to fracture. No significant erythema or edema or tenderness at the lumbosacral region Gait: ambulating with a rolling walker. Left Ortho boot in place. (Marian Dow) Exam Ms Parsons is alert, awake and oriented to time, place and person. Speech is fluent. Cranial nerve examination: pupils to be equal, round and reactive to light. Extra-ocular movements are intact. Facial motor and sensory function are normal and symmetrical. Gross hearing appears intact. Sternocleidomastoid and trapezius muscles are symmetrical. Other cranial nerves are intact. Neck is soft and supple with a good range of motion without pain. Small amount of drainage in lumbar region without significant erythema or edema or tenderness Muscle strength is normal in all muscle groups of both upper and lower extremities. Sensory examination is intact to light touch and pin prick in both the upper and lower extremities. Deep tendon reflexes are symmetrical in both upper and lower extremities. There is a bilateral plantar flexion response. Cerebellar examination is unremarkable, without deficits. (Casper Morrissey MD) Medications Current Medications Current Medications Medications (Trade) Dose Ordered Sig/Johan Route PRN Reason Start Time Stop Time Status Last Admin Dose Admin Sodium Chloride (NS Flush) 2 ml UNSCH PRN IV FLUSH FLUSH AFTER USING IV ACCESS 01/09/17 00:45 01/09/17 16:04 Sodium Chloride (NS Flush) 2 ml BID IV FLUSH 01/09/17 09:00 01/16/17 08:46 Naloxone HCl 0.4 mg 0.4 mg UNSCH PRN IV SEE LABEL COMMENTS 01/09/17 00:45 Pharmacy Profile Note (Vancomycin Consult Pharmacy) 0 ml @ 0 mls/hr UNSCH OTHER 7/20/17 00:45 Alprazolam (Xanax) 0.5 mg TID PRN PO ANXIETY 01/10/17 00:30 01/16/17 09:27 Aspirin (Ecotrin Ec) 81 mg DAILY PO 01/10/17 09:00 Hold 01/16/17 08:41 Baclofen (Lioresal) 10 mg TID PRN PO MUSCLE SPASM 01/10/17 00:30 01/16/17 12:36 Cholecalciferol (Vitamin D3) 1,000 units DAILY PO 01/10/17 09:00 01/16/17 08:41 Cyanocobalamin (Vitamin B12) 500 mcg DAILY PO 01/10/17 09:00 01/16/17 08:41 Gabapentin (Neurontin) 600 mg TID PO 01/10/17 09:00 01/16/17 12:36 Hydrochlorothiazide (Microzide) 12.5 mg DAILY PO 01/10/17 09:00 01/16/17 08:41 Lidocaine HCl (Xylocaine 2% Viscous) 15 ml BID PO 01/10/17 09:00 01/16/17 08:42 Losartan Potassium (Cozaar) 100 mg DAILY PO 01/10/17 09:00 01/16/17 08:42 Meloxicam (Mobic) 15 mg DAILY PO 01/10/17 09:00 01/16/17 08:41 Mirtazapine (Remeron) 15 mg HS PO 01/10/17 00:30 01/15/17 20:21 Pravastatin Sodium (Pravachol) 80 mg HS PO 01/10/17 00:30 01/15/17 20:21 Patient Own Medication PT OWN MED: RESTA... BID EACH EYE 01/10/17 09:00 01/16/17 08:46 Lactobacillus Acidophilus (Lactinex) 1 tab TID PO 01/10/17 13:00 01/16/17 12:36 Metoprolol Tartrate (Lopressor) 25 mg Q8HR PO 01/11/17 14:00 01/15/17 20:21 Hydromorphone HCl 0.25 mg 0.25 mg Q4H PRN IV PUSH Breakthrough Pain 01/14/17 13:15 01/16/17 08:43 Vancomycin HCl/ Sodium Chloride (Vancomycin Inj/ NS 250 ml Inj) 250 ml @ 250 mls/hr Q24H IV 01/15/17 22:00 01/15/17 22:44 Miscellaneous Information SPECIFIC LAB TO BE DRAWN:VA... ONCE ONCE .XX 01/17/17 21:45 01/17/17 21:46 Loperamide HCl (Imodium Liq) 4 mg ONCE ONCE PO 01/16/17 14:00 01/16/17 14:01 UNV Loperamide HCl (Imodium Liq) 2 mg UNSCH PRN PO DIARRHEA 01/16/17 14:00 UNV Acetaminophen/ Hydrocodone Bitart ([place] 7.5-325 Mg) 1 tab Q4H PRN PO Pain 4 to 10 01/16/17 14:00 UNV (Marian Dow) Medical Decision Making MDM Remarks 76 year old female with chronic nonhealing wound with drainage outpatient MRI L spine shows some fluid collection and abnormality at the disc space at L4-5, no evidence of epidural abscess positive MRSA swab cultures of wound, negative needle aspiration of fluid collection (Marian Dow) Plan Plan Remarks discussed with patient and again, they would like to proceed with surgical debridement, plan OR tomorrow for I&D of lumbar wound NPO after midnight tonight hold aspirin cont antibiotic tx per Infectious Disease, (Marian Dow) Attending Statement As above. Continue neuro checks. ABX For surgical debridement in AM. We have discussed the details including the [id number] details of the surgical procedure, its indications, alternatives, risks, and potential complications. Risks and potential complications include, but are not limited to, infection, blood loss, CSF leak, partial or complete loss of sight in one or both eyes, paresis, paralysis, permanent pain or difficulty swallowing, loss of bowel or bladder function, complications from anesthesia, blood clot, stroke, myocardial infarction, or even . Pulmonary. aggressive pulmonary toilette, nasotracheal suction, and breathing treatments with nebulizers. Daily PT and OT Nutrition. Oral diet Renal. monitor closely urine output, BUN and creatinine Endocrine. Monitor serial Acu checks and SSI as needed in detail ID monitor for signs of infection Protonix for stress ulcer prophylaxis Stevie hose and SCD's for DVT prophylaxis The exam, history, and the medical decision-making described in the above note were completed with the assistance of the mid-level provider. I reviewed and agree with the findings presented. I attest that I had a [id number] encounter with the patient on the same day, and personally performed and documented my assessment and findings in the medical record. (Casper Morrissey MD) Marian Dow Jan 16, 2017 14:47 Casper Morrissey MD Jan 18, 2017 16:01
[2017-01-16] MEDS: ACETAMINOPHEN/HYDROcodone 325 MG/7.5 MG TAB PO PRN ×3 (14:51→23:46)
[2017-01-16] MEDS: PRAVASTATIN SOD 80 MG TAB PO SCH (22:04)
[2017-01-16] MEDS: VANCOMYCIN 1,000 MG/NS 250 ML IV SCH ×2 (22:04)
[2017-01-17 00:59] VITALS: BP 135/65; PULSE 65; RESP 19; TEMP 97.4; O2SAT 96
[2017-01-17] MEDS ORDERED: LACTATED RINGER'S 1000 ML IV PRN (05:45)
[2017-01-17] MEDS ORDERED: SODIUM CHLORID 0.9% 500 ML IV PRN (05:45)
[2017-01-17] MEDS ORDERED: CHLORHEXIDINE GLUCONATE 2 % 1 PACK (2 CLOTHS) TOPICAL PRN (05:45)
[2017-01-17] MEDS ORDERED: POVIDONE IODINE 5% (ANTISEPSIS KIT) 4 APPLICATIONS EACH NARE PRN (05:45)
[2017-01-17] MEDS ORDERED: INSULIN HUMAN REGULAR 1,000 UNITS/10 ML VIAL SQ PRN (05:45)
[2017-01-17] MEDS: METOPROLOL TARTRATE 25 MG TAB PO SCH ×3 (06:00→21:40)
[2017-01-17 06:52] VITALS: BP 111/53; PULSE 68; RESP 20; O2SAT 95
[2017-01-17 08:25] VITALS: BP 118/58; PULSE 73; RESP 16; TEMP 97.5; O2SAT 97
[2017-01-17 08:58] LABS: HEMATOCRIT 28.5 % (35.0-46.0); MEAN CELL VOLUME 87.3 FL (80.0-100.0); MEAN CORPUSCULAR HEMOGLOBIN 27.6 PG (27.0-34.0); MEAN CORPUSCULAR HGB CONC 31.6 % (32.0-36.0); PLATELET COUNT 286 TH/MM3 (150-450); RED BLOOD COUNT 3.27 MIL/MM3 (4.00-5.30); RED CELL DISTRIBUTION WIDTH 13.6 % (11.6-17.2); REVIEW FLAG FINAL
[2017-01-17] MEDS: SODIUM CHLORIDE 0.9% FLUSH 10 ML FLUSH IV FLUSH SCH ×2 (09:00→21:00)
[2017-01-17] MEDS: RESTASIS EYE EACH EYE SCH ×2 (09:00→21:41)
[2017-01-17] MEDS: CHOLECALCIFEROL (VIT D3) 1000 UNIT TAB PO SCH (09:10)
[2017-01-17] MEDS: MELOXICAM 15 MG TAB PO SCH (09:10)
[2017-01-17] MEDS: LACTOBACILLUS ACIDOPHILUS TAB PO SCH ×3 (09:10→18:00)
[2017-01-17] MEDS: LOSARTAN 50 MG TAB PO SCH (09:10)
[2017-01-17] MEDS: LIDOCAINE VISCOUS 2% SOLN 15 ML UDC PO SCH ×2 (09:10→21:41)
[2017-01-17] MEDS: HYDROCHLOROTHIAZIDE 12.5 MG CAP PO SCH (09:11)
[2017-01-17] MEDS: CYANOCOBALAMIN 1,000 MCG TAB PO SCH (09:11)
[2017-01-17] MEDS: GABAPENTIN 300 MG CAP PO SCH ×3 (09:11→23:59)
[2017-01-17 09:27] LABS: BICARBONATE 25.4 MEQ/L (21.0-32.0); POTASSIUM 4.4 MEQ/L (3.5-5.1)
--- NOTE | 2017-01-17 09:39 | HHI.PR ---
Subjective Remarks Diarrhea has improved. Pain control is improved. Primary complaint today is headache. She rarely drinks caffeine as an outpatient and this may be a caffeine headache. Plan for PICC line placement today. Plan for surgery regarding abscess drainage today. Objective Vital Signs Date Time Temp Pulse Resp B/P Pulse Ox O2 Delivery O2 Flow Rate FiO2 01/17/17 08:25 97.5 73 16 118/58 97 01/17/17 06:52 68 20 111/53 95 01/17/17 00:59 97.4 65 19 135/65 96 01/16/17 21:03 98.3 72 19 169/70 96 01/16/17 20:00 67 01/16/17 15:52 97.6 73 17 142/61 96 01/16/17 13:36 98.0 85 17 128/65 94 01/16/17 11:04 69 I/O 01/16/17 01/16/17 01/16/17 01/17/17 01/17/17 01/17/17 07:00 15:00 23:00 07:00 15:00 23:00 Intake Total 1150 ml 480 ml Output Total 800 ml Balance 1150 ml -800 ml 480 ml Intake Oral 900 ml 480 ml IV Total 250 ml Output Urine Total 800 ml # Voids 4 5 1 # Bowel Movements 3 2 1 Result Diagram: 01/17/1748 01/17/17 0748 Objective Remarks GENERAL: NAD, A&Ox3 HEAD: Normocephalic. NECK: Supple, trachea midline. No lymphadenopathy. EYES: No scleral icterus. No injection or drainage. CARDIOVASCULAR: Regular rate and rhythm without murmurs, gallops, or rubs. RESPIRATORY: Breath sounds equal bilaterally. No accessory muscle use. GASTROINTESTINAL: Abdomen soft, non-tender, nondistended. MUSCULOSKELETAL: No cyanosis, or edema. SKIN: Warm and dry. 1.5 cm circular lesion at right gluteus which appears to be a drained blister. NEURO: No focal neurological deficitis. 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 Fioricet provided for headache. Continue Imodium for diarrhea. Nothing by mouth currently for surgery this afternoon. Pending PICC line placement today. Infected surgical wound spinal abscess IV vancomycin Infectious disease following Neurosurgery following Incision and drainage has been recommended on MRI-MRSA Pain management expanded to by mouth [place] and breakthrough IV Dilaudid S/P left ankle fracture She has been in rehabilitation for 7 weeks Orthopedics following Chronic Right foot wound chronic ulcer now dry/scabbed wound care team Diarrhea C diff negative Diarrhea remains Imodium started Continue probiotics probiotic HTN Chronic Continue his chlorothiazide Continue our Continue Lopressor Hypokalemia Replace as needed Follow potassium levels DVT prophylaxis SCDs Patient is ambulatory Problem Qualifiers (1) Non-healing surgical wound: Qualified Code: T81.89XS - Non-healing surgical wound, sequela Arnoldo Mora MD Jan 17, 2017 09:39
--- NOTE | 2017-01-17 09:41 | HHI.FF ---
Face to Face Verification Diagnosis: (1) Infected surgical wound (2) Paraspinal abscess Physical Therapy Order: Evaluate and Treat Home Health Nursing Order: Signs/symptoms of disease process Wound care and dressing changes I have seen patient Karma Parsons on 01/17/17. My clinical findings support the need for the requested home health care services because: Ltd mobility - disease progression Limited ability to care for self High risk of falls Infection w/ risk of complications I certify that my clinical findings support that this patient is homebound because: Unsteady gait/balance Unable to use public transportation Arnoldo Mora MD Jan 17, 2017 09:41
[2017-01-17] MEDS ORDERED: ACETAMIN 325 MG/BUTALBITAL 50 MG/CAFFEINE 40 MG TAB PO ONE (10:00)
[2017-01-17] MEDS: ACETAMINOPHEN/HYDROcodone 325 MG/7.5 MG TAB PO PRN (10:21)
[2017-01-17] MEDS: ALPRAZolam 0.5 MG TAB PO PRN ×2 (10:21→23:59)
--- NOTE | 2017-01-17 11:34 | HHI.FF ---
Infusion Therapy Location of Infusion Therapy: Home Health Care IV Infusion Order Patient Information Patient Weight 57 kg Diagnosis: Coded Allergies: RAJEEV Inhibitors (Verified Allergy, Severe, throat closure facial swelling, 11/07/16) *MDRO Multi-Drug Resistant Organism (Verified Adverse Reaction, Unknown, ) 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 Administer Medication Vancomycin 1 gram IV q 24 hours Stop Treatment: Feb 20, 2017 Additional Information Venous access: PICC Line Additional Instructions [x] Peripheral flush and dressing changes per protocol [x] Implanted port and central online media director: * Implanted port: 10 ml Normal Saline followed by 5 ml Heparin 100 units/ml Heparin flush after each use and monthly to maintain. [] May leave port accessed during therapy. [] May leave peripheral site accessed for duration of therapy. [x] If patient has SOB or respiratory distress, check oxygen saturation. If less than 90% or clinical signs of respiratory distress, administer oxygen at 2 L/min. via nasal cannula and notify physician. [x] Anaphylaxis/Reaction orders: * Stop infusion. * Keep IV line open with saline flush. * Notify physician. * Monitor vital signs every 15 minutes until symptoms resolve. * Check Oxygen saturation; Oxygen at 2 L/min. via nasal cannula if less than 90% or clinical signs of respiratory distress. * Administer diphenhydramine (Benadryl) 25 mg IV STAT, (unless patient has received as pre-med). May repeat once, if necessary. * Solu-Cortef 250 mg IVP over 30-60 seconds, use 100 mg vials for each dissolution. * Epinephrine (1mg/1 ml) 0.3 mg subcutaneously or IVP now with any signs of respiratory distress. * Check with physician for new additional pre-med orders if patient is re- challenged or re-treated. [x] May remove PICC line when treatment complete, after confirming with Physician. [x] If the patient is admitted to the hospital, the ED, or transferred via [facility] , complete transfer form including medication reconciliation order sheet. Laboratory Tests Weekly Labs: BMP, CBC w/diff, SED Rate, Vancomycin Trough Additional Information Fax lab results to Dr Ricketts [phone] Francois Ricketts MD Jan 17, 2017 11:34
--- NOTE | 2017-01-17 11:42 | HHI.IDPN ---
Note Infectious Disease Note Patient Says she had a headache earlier. Notes she had best sleep in a week. No fever. Purulent drainage on dressing removed from the back. PAST MEDICAL HISTORY Hypertension, anxiety, depression, hyperlipidemia, chronic pain, status post lumbar laminectomy with instrumentation, breast augmentation, hysterectomy, cataract surgery, appendectomy, removal of a throat tumor. ALLERGIES RAJEEV INHIBITORS. ANTIBIOTICS Vancomycin. OBJECTIVE: Vital Signs Date Time Temp Pulse Resp B/P Pulse Ox O2 Delivery O2 Flow Rate FiO2 01/17/17 08:25 97.5 73 16 118/58 97 01/17/17 06:52 68 20 111/53 95 01/17/17 00:59 97.4 65 19 135/65 96 01/16/17 21:03 98.3 72 19 169/70 96 01/16/17 20:00 67 01/16/17 15:52 97.6 73 17 142/61 96 01/16/17 13:36 98.0 85 17 128/65 94 Laboratory Tests Test 01/17/17 07:48 White Blood Count 5.0 TH/MM3 Red Blood Count 3.27 MIL/MM3 Hemoglobin 9.0 GM/DL Hematocrit 28.5 % Mean Corpuscular Volume 87.3 FL Mean Corpuscular Hemoglobin 27.6 PG Mean Corpuscular Hemoglobin 31.6 % Concent Red Cell Distribution Width 13.6 % Platelet Count 286 TH/MM3 Mean Platelet Volume 7.8 FL Laboratory Tests Test 01/17/17 07:48 Sodium Level 138 MEQ/L Potassium Level 4.4 MEQ/L Chloride Level 107 MEQ/L Carbon Dioxide Level 25.4 MEQ/L Anion Gap 6 MEQ/L Blood Urea Nitrogen 34 MG/DL Creatinine 0.95 MG/DL Estimat Glomerular Filtration 57 ML/MIN Rate Random Glucose 83 MG/DL Calcium Level 9.2 MG/DL PHYSICAL EXAMINATION GENERAL: No acute distress. Awake and alert. HEENT: No icterus. HEART: Distant S1S2, No murmurs. LUNGS: Clear to auscultation. BACK: (+) drainage from back, tiny opening at the lumbar region. No erythema. EXTREMITIES: No clubbing or cyanosis or edema. SKIN: No rash. NEURO: Nonfocal. PSYCHIATRIC: Calm and cooperative. IMPRESSION 1. Lumbar wound infection MRSA. 2. 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 Discitis of L4-5 vertebrae on MRI done at [facility] on 01/08/17. 2. Patient status post lumbar laminectomy. 3. Persistent back pain. 4. 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 Does not look infected. RECOMMENDATIONS 1. Continue vancomycin IV until 02/20/17. IV orders antibiotics written for when cleared by neurosurgery for discharge. Follow sed rate BMP and CBC and Vanco levels. 2. Case management to arrange for IV antibiotics. 3. PICC ordered. Okay to discharge on the antibiotics when arranged. Francois Ricketts MD Jan 17, 2017 11:42 Francois Ricketts MD Jan 17, 2017 11:42
[2017-01-17] MEDS ORDERED: BACITRACIN TOP OINT 15 GM TUBE ONE (11:52)
[2017-01-17] MEDS ORDERED: GELATIN 12 MM/7 MM FOAM ONE (11:52)
[2017-01-17] MEDS ORDERED: THROMBIN (TOPICAL) 5,000 UNIT VIAL ONE ×2 (11:52→16:27)
[2017-01-17] MEDS ORDERED: GENTAMICIN SULFATE 80 MG/2 ML VIAL ONE (11:53)
[2017-01-17] MEDS ORDERED: PHENYLEPH/NS 1000 MCG/10 ML SYR IV ONE (12:00)
[2017-01-17] MEDS ORDERED: fentaNYL CITRATE 250 MCG/5 ML AMP IV ONE (12:00)
[2017-01-17] MEDS ORDERED: ONDANSETRON HCL 4 MG/2 ML VIAL IV PUSH ONE (12:00)
[2017-01-17] MEDS ORDERED: PROPOFOL 200 MG/20 ML AMP IV ONE (12:00)
[2017-01-17] MEDS ORDERED: LACTATED RINGER'S 1000 ML INJ 1,000 ML IV ONE (12:00)
[2017-01-17] MEDS ORDERED: ePHEDrine/NS 25 MG/5 ML SYR IV ONE (12:00)
[2017-01-17 12:12] VITALS: BP 128/60; PULSE 84; RESP 16; TEMP 97.7; O2SAT 94
[2017-01-17] MEDS ORDERED: SODIUM CHLORIDE 0.9% FLUSH 10 ML FLUSH IV FLUSH PRN (13:00)
--- NOTE | 2017-01-17 14:14 | RADRPT ---
EXAM DATE/TIME: 01/17/2017 12:49 [place] COMPARISON: CHEST SINGLE AP, July 24, 2015, 11:04. INDICATIONS : PICC line placement. MEDICAL HISTORY : Hypertension. SURGICAL HISTORY : None. ENCOUNTER: Subsequent ACUITY: 1 day PAIN SCORE: 0/10 LOCATION: Bilateral chest FINDINGS: Right PICC line tip obscured by overlying lead but likely near the cavoatrial junction. Lungs are bessie ar. Cardiomediastinal contours are within normal limits. Bony thorax is intact. CONCLUSION: 1. Right PICC line tip obscured but likely near the cavoatrial junction. Manav Finch MD on January 17, 2017 at 14:11 Board Certified Radiologist. This report was verified electronically.
[2017-01-17 14:30] VITALS: BP 138/63; PULSE 64; RESP 16; TEMP 97.5; O2SAT 97
[2017-01-17] MEDS ORDERED: SUGAMMADEX SODIUM 200 MG/2 ML VIAL IV PUSH ONE ×2 (16:38)
[2017-01-17] MEDS ORDERED: ACETAMINOPHEN 1000 MG/100 ML VIAL IV ONE (16:38)
[2017-01-17] MEDS ORDERED: ceFAZolin 2 GM PREMIX 50 ML ONE (16:53)
[2017-01-17] MEDS: NS + KCL 20 MEQ INJ 1,000 ML IV SCH (17:17)
[2017-01-17] MEDS ORDERED: MORPHINE SULFATE 4 MG/ML INJ IV PUSH PRN ×2 (17:30)
[2017-01-17] MEDS ORDERED: SODIUM CHLORIDE 0.9% FLUSH 5 ML FLUSH IVF PRN (17:30)
[2017-01-17] MEDS ORDERED: ACETAMINOPHEN 325 MG TAB PO PRN (17:30)
[2017-01-17] MEDS ORDERED: GENTAMICIN SULFATE 80 MG/2 ML VIAL IRRIGATION ONE (17:46)
[2017-01-17] MEDS ORDERED: VANCOMYCIN HCL 1000 MG VIAL ONE (17:55)
--- NOTE | 2017-01-17 18:31 | PD.OP ---
Operative Report Surgeon: Casper Morrissey Operation and Findings: INDICATIONS FOR PROCEDURE Ms Parsons is a 75 year-old female who presented with a non healing wound granuoma. It continued to drain for several months. The patient has undergone a previous surgical procedure. A revision and debridement of the wound with resection of the fistula was indicated. The [id number] details of the procedure, indications, alternatives, risks and potential complications were fully discussed with the patient. The patient fully understood. All the questions were answered. No guarantees were given. The patient voiced requesting the procedure and provided informed consents. The patient was offered the alternative of delaying the procedure and continuing with nonsurgical management. DETAILS OF THE SURGICAL PROCEDURE Prior to the procedure, the surgical incision was marked in the preoperative surgical holding room, and the procedure, risks, and potential complications revisited with the patient. Placement of electrodes for intraoperative neurophysiological monitoring was completed. The patient was taken to the operative room, and following induction of general anesthesia, endotracheal intubation was performed. The patient was positioned prone, over a Dusty table over a Chace frame. All pressure in the preoperative surgical holding room points were carefully padded with eggcrate and gel mattress. The eyes were tapped shut after ointment was applied by the anesthesiologist to prevent corneal abrasion. A Matt hugger was placed over the expossed lower body to maintain control of the core body temperature. A small incision was outlined on the skin. The skin incisions was made with a # 10 blade around the abnormal tract. The dissection was then carried out into deeper planes following the tract through the lumbar fascia. Cultures were sent. A gross total resection of the fiustula was was achieved, Activated collagen with vancomycisn was applied to the incision. The deeper planes were closed with 3-0 Vycril. The skin was closed with 3-0 Ethylon The patient tolerated the procedure well. There were no complications. Estimated blood loss 5-10cc Casper Morrissey MD Jan 17, 2017 18:30
[2017-01-17] MEDS ORDERED: DO NOT ADM ANY ANTICOAGULANT DRUGS PRN (18:32)
[2017-01-17] MEDS ORDERED: *morphine SULFATE 8 MG/ML PERIprocedure ONLY ONE (18:35)
[2017-01-17] MEDS: DOCUSATE SODIUM 100 MG CAP PO SCH ×2 (21:00→21:40)
[2017-01-17] MEDS: PRAVASTATIN SOD 80 MG TAB PO SCH (21:40)
[2017-01-17] MEDS: MIRTAZAPINE 15 MG TAB PO SCH (21:40)
[2017-01-17] MEDS: VANCOMYCIN 1,000 MG/NS 250 ML IV SCH ×2 (21:40)
[2017-01-17] MEDS: SODIUM CHLORIDE 0.9% FLUSH 5 ML FLUSH IVF SCH (21:41)
[2017-01-17] MEDS ORDERED: PHARMACY ORDERED LAB ONE (21:45)
[2017-01-17 21:53] VITALS: BP 158/67; PULSE 80; RESP 18; TEMP 98.9; O2SAT 98
[2017-01-17] MEDS: HYDROmorphone HCL PF 1 MG/ML VIAL IV PUSH PRN (23:59)
[2017-01-17] MEDS: BACLOFEN 10 MG TAB PO PRN (23:59)
[2017-01-18] VITALS (9 sets, daily range): BP systolic 122–158; BP diastolic 58–71; PULSE 78–90; RESP 18; TEMP 96.5–98.7; O2SAT 94–100
[2017-01-18] MEDS: ceFAZolin 2 GM PREMIX 50 ML IV SCH ×3 (02:16→16:00)
[2017-01-18] MEDS: NS + KCL 20 MEQ INJ 1,000 ML IV SCH ×3 (03:17→23:13)
[2017-01-18] MEDS: METOPROLOL TARTRATE 25 MG TAB PO SCH ×3 (06:53→21:37)
[2017-01-18 08:19] LABS: AUTOMATED NEUTROPHIL # 6.5 TH/MM3 (1.8-7.7); BASOPHIL % 0.1 % (0.0-2.0); HEMATOCRIT 27.1 % (35.0-46.0); HEMO FLAGS DIFF FINAL; LYMPH % 10.1 % (9.0-44.0); LYMPHOCYTE # 0.7 TH/MM3 (1.0-4.8); MEAN CELL VOLUME 85.9 FL (80.0-100.0); MEAN CORPUSCULAR HEMOGLOBIN 28.5 PG (27.0-34.0); MEAN CORPUSCULAR HGB CONC 33.2 % (32.0-36.0); MONO % 2.5 % (0.0-8.0); NEUT % 87.3 % (16.0-70.0); PLATELET COUNT 271 TH/MM3 (150-450); RED BLOOD COUNT 3.15 MIL/MM3 (4.00-5.30); RED CELL DISTRIBUTION WIDTH 13.8 % (11.6-17.2); WHITE BLOOD COUNT 7.4 TH/MM3 (4.0-11.0)
[2017-01-18 08:33] LABS: ANION GAP 7 MEQ/L (5-15); AST (GOT) 15 U/L (15-37); BLOOD UREA NITROGEN 27 MG/DL (7-18); CHLORIDE 110 MEQ/L (98-107); GLOMERULAR FILTRATION RATE 50 ML/MIN (>89); POTASSIUM 4.8 MEQ/L (3.5-5.1); SODIUM (NA) 140 MEQ/L (136-145)
[2017-01-18 08:34] LABS: ALT (GPT) 19 U/L (10-53)
[2017-01-18 08:36] LABS: ALKALINE PHOSPHATASE 89 U/L (45-117); TOTAL BILIRUBIN ADULT 0.2 MG/DL (0.2-1.0)
[2017-01-18] MEDS: LACTOBACILLUS ACIDOPHILUS TAB PO SCH ×3 (08:48→18:20)
[2017-01-18] MEDS: RESTASIS EYE EACH EYE SCH ×2 (08:48→21:00)
[2017-01-18] MEDS: MELOXICAM 15 MG TAB PO SCH (08:49)
[2017-01-18] MEDS: ACETAMINOPHEN/HYDROcodone 325 MG/10 MG TAB PO PRN ×4 (08:49→23:14)
[2017-01-18] MEDS: LOSARTAN 50 MG TAB PO SCH (08:49)
[2017-01-18] MEDS: PANTOPRAZOLE SOD 40 MG DELAYED RELEASE TAB PO SCH (08:49)
[2017-01-18] MEDS: CHOLECALCIFEROL (VIT D3) 1000 UNIT TAB PO SCH (08:49)
[2017-01-18] MEDS: HYDROCHLOROTHIAZIDE 12.5 MG CAP PO SCH (08:49)
[2017-01-18] MEDS: CYANOCOBALAMIN 1,000 MCG TAB PO SCH (08:49)
[2017-01-18] MEDS: SODIUM CHLORIDE 0.9% FLUSH 5 ML FLUSH IVF SCH ×2 (08:50→21:00)
[2017-01-18] MEDS: GABAPENTIN 300 MG CAP PO SCH ×2 (08:50→21:35)
[2017-01-18] MEDS: DOCUSATE SODIUM 100 MG CAP PO SCH ×2 (08:50→21:00)
[2017-01-18] MEDS: ALPRAZolam 0.5 MG TAB PO PRN ×2 (08:50→23:14)
[2017-01-18] MEDS: LIDOCAINE VISCOUS 2% SOLN 15 ML UDC PO SCH ×2 (08:50→21:38)
[2017-01-18] MEDS: SODIUM CHLORIDE 0.9% FLUSH 10 ML FLUSH IV FLUSH SCH ×2 (08:51)
--- NOTE | 2017-01-18 10:09 | HHI.PR ---
Subjective Remarks Pain control and diarrhea continues to be improved. Status post spinal surgery yesterday. Abscess drained. Cultures pending. Patient has no new complaints. Objective Vital Signs Date Time Temp Pulse Resp B/P Pulse Ox O2 Delivery O2 Flow Rate FiO2 01/18/17 08:17 97.6 87 18 130/62 95 01/18/17 04:54 98.7 90 18 146/65 98 01/18/17 02:51 98.6 90 18 143/63 97 01/18/17 02:50 98.6 90 18 143/63 97 01/17/17 21:53 98.9 80 18 158/67 98 01/17/17 18:45 80 23 132/58 97 Nasal Cannula 3 01/17/17 18:30 97.4 90 14 152/67 98 Nasal Cannula 3 01/17/17 14:30 97.5 64 16 138/63 97 01/17/17 12:12 97.7 84 16 128/60 94 I/O 01/17/17 01/17/17 01/17/17 01/18/17 01/18/17 01/18/17 07:00 15:00 23:00 07:00 15:00 23:00 Intake Total 800 ml 622 ml Output Total 10 ml Balance 790 ml 622 ml IV Total 622 ml Other 800 ml Estimated Blood Loss 10 ml # Voids 1 3 1 6 # Bowel Movements 1 0 Result Diagram: 01/18/1762901/18/1730 Objective Remarks GENERAL: NAD, A&Ox3 HEAD: Normocephalic. NECK: Supple, trachea midline. No lymphadenopathy. EYES: No scleral icterus. No injection or drainage. CARDIOVASCULAR: Regular rate and rhythm without murmurs, gallops, or rubs. RESPIRATORY: Breath sounds equal bilaterally. No accessory muscle use. GASTROINTESTINAL: Abdomen soft, non-tender, nondistended. MUSCULOSKELETAL: No cyanosis, or edema. SKIN: Warm and dry. 1.5 cm circular lesion at right gluteus which appears to be a drained blister. NEURO: No focal neurological deficitis. 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 Continue Imodium for diarrhea. Follow abscess cultures. Continue antibiotics. Infected surgical wound spinal abscess IV vancomycin Infectious disease following Neurosurgery following Incision and drainage has been recommended on MRI-MRSA Pain management expanded to by mouth [place] and breakthrough IV Dilaudid S/P left ankle fracture She has been in rehabilitation for 7 weeks Orthopedics following Chronic Right foot wound chronic ulcer now dry/scabbed wound care team Diarrhea C diff negative Diarrhea remains Imodium started Continue probiotics probiotic HTN Chronic Continue his chlorothiazide Continue our Continue Lopressor Hypokalemia Replace as needed Follow potassium levels DVT prophylaxis SCDs Patient is ambulatory Problem Qualifiers (1) Non-healing surgical wound: Qualified Code: T81.89XS - Non-healing surgical wound, sequela Arnoldo oMra MD Jan 18, 2017 10:09
--- NOTE | 2017-01-18 10:41 | HHI.NSPN ---
History Chief Complaint: low back pain Interval History Interval History Ms. Parsons is a 75 year old female who had underwent a L4-5 laminectomy with interbody arthrodesis and posterolateral fusion on 05/24/15. She developed a wound infection that was surgically debrided on 06/08/15. She was doing well then unfortunately developed a nonhealing granuloma. She again underwent surgical debridement and resection of wound granuloma on 04/24/16. Ms. Parsons had been managed by wound care after that. She was transferred from [facility] for wound drainage and possible spinal infection. The MRI L spine shows some fluid collection and abnormality at the disc space at L4-5, no evidence of epidural abscess. She is awaiting to undergo CT guided aspiration. 01/10: unchanged symptoms overnight, cultures pending 01/13: patient and reports they feel wound has been draining less, overall pt is feeling much better compared to last week. Offered possible surgical debridement of wound. 01/15: repeat MRI L spine completed. again dw her regarding performing a surgical debridement of her wound, she is unsure at this time, she would like to speak with her first. 01/16: and patient decided to proceed with surgical debridement, no new complaints 01/18: Patient postop day 1 status post drainage of lumbar wound infection. She is sitting up in bed eating breakfast. Only moderate incisional pain. Exam Results Vital Signs Date Time Temp Pulse Resp B/P Pulse Ox O2 Delivery O2 Flow Rate FiO2 01/18/17 08:17 97.6 87 18 130/62 95 01/17/17 18:45 Nasal Cannula 3 Intake and Output 01/17/17 01/17/17 01/18/17 08:00 16:00 00:00 Intake Total 800 ml Output Total 10 ml Balance 790 ml Physical Examination She is Alert, awake, Ox3 Lumbar wound dressing showing shadowing of blood from surgical debridement yesterday. Motor: Is 5 minus over 5 throughout except for the left ankle which has chronic immobility from previous injury. Sensory: intact to light touch/pain x 4 extremities Lab, Micro, Other Results Laboratory Tests Test 01/18/17 06:30 White Blood Count 7.4 Red Blood Count 3.15 Hemoglobin 9.0 Hematocrit 27.1 Mean Corpuscular Volume 85.9 Mean Corpuscular Hemoglobin 28.5 Mean Corpuscular Hemoglobin 33.2 Concent Red Cell Distribution Width 13.8 Platelet Count 271 Mean Platelet Volume 8.3 Neutrophils (%) (Auto) 87.3 Lymphocytes (%) (Auto) 10.1 Monocytes (%) (Auto) 2.5 Eosinophils (%) (Auto) 0.0 Basophils (%) (Auto) 0.1 Neutrophils # (Auto) 6.5 Lymphocytes # (Auto) 0.7 Monocytes # (Auto) 0.2 Eosinophils # (Auto) 0.0 Basophils # (Auto) 0.0 CBC Comment DIFF FINAL Differential Comment Sodium Level 140 Potassium Level 4.8 Chloride Level 110 Carbon Dioxide Level 23.0 Anion Gap 7 Blood Urea Nitrogen 27 Creatinine 1.07 Estimat Glomerular Filtration 50 Rate Random Glucose 125 Calcium Level 8.8 Total Bilirubin 0.2 Aspartate Amino Transf 15 (AST/SGOT) Alanine Aminotransferase 19 (ALT/SGPT) Alkaline Phosphatase 89 Total Protein 6.9 Albumin 3.1 Date/Time Procedure Status Source Growth 01/17/17 18:41 Gram Stain - Final Resulted Wound Other 01/17/17 18:41 Wound Culture Resulted Wound Other Pending 01/17/17 18:41 Fungal Smear - Final Resulted Wound Other NO FUNGAL ELEMENTS SEEN. 01/17/17 18:41 Fungal Culture Resulted Wound Other Pending 01/17/17 18:41 Acid Fast Stain Received Wound Other Pending 01/17/17 18:41 Mycobacterial Culture Received Wound Other Pending Medical Decision Making Impression and Plan Lumbar wound infection. Operative cultures pending. Culture from 01/09 growing MRSA. Plan: Continue observation and medical management as per infectious disease. Troy Simon MD Jan 18, 2017 10:41
[2017-01-18] MEDS: HYDROmorphone HCL PF 1 MG/ML VIAL IV PUSH PRN ×2 (15:59→21:39)
[2017-01-18] MEDS: MIRTAZAPINE 15 MG TAB PO SCH (21:35)
[2017-01-18] MEDS: PRAVASTATIN SOD 80 MG TAB PO SCH (21:36)
[2017-01-18] MEDS: VANCOMYCIN 1,000 MG/NS 250 ML IV SCH ×2 (21:38)
[2017-01-18] MEDS: BACLOFEN 10 MG TAB PO PRN (23:14)
[2017-01-19] VITALS (8 sets, daily range): BP systolic 114–160; BP diastolic 54–72; PULSE 64–81; RESP 18; TEMP 96.8–98.1; O2SAT 93–100
[2017-01-19] MEDS: METOPROLOL TARTRATE 25 MG TAB PO SCH ×3 (05:37→21:34)
[2017-01-19] MEDS: LOSARTAN 50 MG TAB PO SCH (09:54)
[2017-01-19] MEDS: LACTOBACILLUS ACIDOPHILUS TAB PO SCH ×3 (09:54→18:02)
[2017-01-19] MEDS: CYANOCOBALAMIN 1,000 MCG TAB PO SCH (09:54)
[2017-01-19] MEDS: ACETAMINOPHEN/HYDROcodone 325 MG/10 MG TAB PO PRN ×4 (09:55→23:34)
[2017-01-19] MEDS: GABAPENTIN 300 MG CAP PO SCH ×2 (09:55→21:33)
[2017-01-19] MEDS: MELOXICAM 15 MG TAB PO SCH (09:55)
[2017-01-19] MEDS: CHOLECALCIFEROL (VIT D3) 1000 UNIT TAB PO SCH (09:55)
[2017-01-19] MEDS: ALPRAZolam 0.5 MG TAB PO PRN ×2 (09:55→23:34)
[2017-01-19] MEDS: LIDOCAINE VISCOUS 2% SOLN 15 ML UDC PO SCH ×2 (09:55→21:36)
[2017-01-19] MEDS: HYDROCHLOROTHIAZIDE 12.5 MG CAP PO SCH (09:55)
[2017-01-19] MEDS: PANTOPRAZOLE SOD 40 MG DELAYED RELEASE TAB PO SCH (09:55)
[2017-01-19] MEDS: SODIUM CHLORIDE 0.9% FLUSH 10 ML FLUSH IV FLUSH SCH (09:56)
[2017-01-19] MEDS: SODIUM CHLORIDE 0.9% FLUSH 5 ML FLUSH IVF SCH ×2 (09:56→21:36)
[2017-01-19] MEDS: RESTASIS EYE EACH EYE SCH ×2 (09:56→21:37)
[2017-01-19] MEDS: NS + KCL 20 MEQ INJ 1,000 ML IV SCH ×2 (09:56→21:37)
[2017-01-19] MEDS: DOCUSATE SODIUM 100 MG CAP PO SCH ×2 (09:56→21:00)
--- NOTE | 2017-01-19 11:24 | HHI.PR ---
Subjective Remarks Complaint of yeast infection today. Will need long-term IV antibiotics. Plan for arrangement of IV antibiotics and discharge tomorrow tentatively. Objective Vital Signs Date Time Temp Pulse Resp B/P Pulse Ox O2 Delivery O2 Flow Rate FiO2 01/19/17 08:28 98.1 64 18 120/59 95 01/19/17 07:30 68 01/19/17 04:00 97.5 73 18 114/54 93 01/19/17 00:43 96.8 81 18 131/60 100 01/18/17 22:09 18 01/18/17 21:09 96.5 81 18 158/71 100 01/18/17 21:04 96.5 81 18 158/71 100 01/18/17 16:28 97.4 78 18 122/58 96 01/18/17 11:27 98.0 88 18 135/63 94 I/O 01/18/17 01/18/17 01/18/17 01/19/17 01/19/17 01/19/17 07:00 15:00 23:00 07:00 15:00 23:00 Intake Total 622 ml 360 ml Balance 622 ml 360 ml Intake Oral 360 ml IV Total 622 ml # Voids 6 5 2 5 # Bowel Movements 0 Result Diagram: 01/18/17 0630 01/19/17 0542 Objective Remarks GENERAL: NAD, A&Ox3 HEAD: Normocephalic. NECK: Supple, trachea midline. No lymphadenopathy. EYES: No scleral icterus. No injection or drainage. CARDIOVASCULAR: Regular rate and rhythm without murmurs, gallops, or rubs. RESPIRATORY: Breath sounds equal bilaterally. No accessory muscle use. GASTROINTESTINAL: Abdomen soft, non-tender, nondistended. MUSCULOSKELETAL: No cyanosis, or edema. SKIN: Warm and dry. 1.5 cm circular lesion at right gluteus which appears to be a drained blister. NEURO: No focal neurological deficitis. 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 Diarrhea improved. Continue Imodium when necessary. Diflucan 1 time today and tomorrow morning to treat yeast infection. She will need intermittent Diflucan as an outpatient and she'll be on long-term IV antibiotics. Arranging IV antibiotics for possible discharge tomorrow. Infected surgical wound spinal abscess IV vancomycin Infectious disease following Neurosurgery following Incision and drainage has been recommended on MRI-MRSA Pain management expanded to by mouth [place] and breakthrough IV Dilaudid S/P left ankle fracture She has been in rehabilitation for 7 weeks Orthopedics following Chronic Right foot wound chronic ulcer now dry/scabbed wound care team Diarrhea C diff negative Diarrhea remains Imodium started Continue probiotics probiotic HTN Chronic Continue his chlorothiazide Continue our Continue Lopressor Hypokalemia Replace as needed Follow potassium levels DVT prophylaxis SCDs Patient is ambulatory Discharge planning Possible discharge tomorrow Problem Qualifiers (1) Non-healing surgical wound: Qualified Code: T81.89XS - Non-healing surgical wound, sequela Arnoldo Mora MD Jan 19, 2017 11:24
[2017-01-19] MEDS ORDERED: FLUCONAZOLE 200 MG TAB PO ONE (11:30)
--- NOTE | 2017-01-19 11:59 | HHI.NSPN ---
History Chief Complaint: low back pain Interval History Interval History Ms. Parsons is a 75 year old female who had underwent a L4-5 laminectomy with interbody arthrodesis and posterolateral fusion on 05/24/15. She developed a wound infection that was surgically debrided on 06/08/15. She was doing well then unfortunately developed a nonhealing granuloma. She again underwent surgical debridement and resection of wound granuloma on 04/24/16. Ms. Parsons had been managed by wound care after that. She was transferred from [facility] for wound drainage and possible spinal infection. The MRI L spine shows some fluid collection and abnormality at the disc space at L4-5, no evidence of epidural abscess. She is awaiting to undergo CT guided aspiration. 01/10: unchanged symptoms overnight, cultures pending 01/13: patient and reports they feel wound has been draining less, overall pt is feeling much better compared to last week. Offered possible surgical debridement of wound. 01/15: repeat MRI L spine completed. again dw her regarding performing a surgical debridement of her wound, she is unsure at this time, she would like to speak with her first. 01/16: and patient decided to proceed with surgical debridement, no new complaints 01/18: Patient postop day 1 status post drainage of lumbar wound infection. She is sitting up in bed eating breakfast. Only moderate incisional pain. 01/19: Patient is sitting up eating breakfast. Very good spirits. Not complaining of any significant pain. Exam Results Vital Signs Date Time Temp Pulse Resp B/P Pulse Ox O2 Delivery O2 Flow Rate FiO2 01/19/17 08:28 98.1 64 18 120/59 95 01/17/17 18:45 Nasal Cannula 3 Intake and Output 01/18/17 01/18/17 01/19/17 08:00 16:00 00:00 Intake Total 622 ml 360 ml Balance 622 ml 360 ml Physical Examination Neurological: Patient is alert and oriented 3. Motor function 5 over 5 in the upper and lower extremities and the patient is ambulatory. Lumbar dressing is intact with slight shadowing in the central portion. Lab, Micro, Other Results Laboratory Tests Test 01/19/17 05:42 Creatinine 0.96 Estimat Glomerular Filtration 57 Rate Date/Time Procedure Status Source Growth 01/17/17 18:41 Gram Stain - Final Resulted Wound Other 01/17/17 18:41 Wound Culture - Preliminary Resulted Wound Other NO GROWTH IN 48 HOURS. 01/17/17 18:41 Fungal Smear - Final Resulted Wound Other NO FUNGAL ELEMENTS SEEN. 01/17/17 18:41 Fungal Culture Resulted Wound Other Pending 01/17/17 18:41 Acid Fast Stain Received Wound Other Pending 01/17/17 18:41 Mycobacterial Culture Received Wound Other Pending Medical Decision Making Impression and Plan Lumbar wound infection. Operative cultures currently no growth. Culture from growing MRSA. Plan: Continue observation and medical management as per infectious disease. Troy Simon MD Jan 19, 2017 11:59
[2017-01-19] MEDS: MIRTAZAPINE 15 MG TAB PO SCH (21:34)
[2017-01-19] MEDS: PRAVASTATIN SOD 80 MG TAB PO SCH (21:34)
[2017-01-19] MEDS: VANCOMYCIN 1,000 MG/NS 250 ML IV SCH ×2 (21:36)
[2017-01-19] MEDS: BACLOFEN 10 MG TAB PO PRN (23:33)
[2017-01-20] VITALS (7 sets, daily range): BP systolic 124–172; BP diastolic 59–75; PULSE 60–85; RESP 16–18; TEMP 97.8–98.8; O2SAT 94–98
[2017-01-20] MEDS: NS + KCL 20 MEQ INJ 1,000 ML IV SCH ×3 (05:17→22:33)
[2017-01-20] MEDS: METOPROLOL TARTRATE 25 MG TAB PO SCH ×3 (06:00→22:32)
[2017-01-20] MEDS: RESTASIS EYE EACH EYE SCH ×2 (09:00→22:32)
[2017-01-20] MEDS ORDERED: FLUCONAZOLE 100 MG TAB PO ONE (09:00)
[2017-01-20] MEDS: LIDOCAINE VISCOUS 2% SOLN 15 ML UDC PO SCH ×2 (09:00→22:29)
[2017-01-20] MEDS: DOCUSATE SODIUM 100 MG CAP PO SCH ×2 (09:00→21:00)
[2017-01-20] MEDS: SODIUM CHLORIDE 0.9% FLUSH 5 ML FLUSH IVF SCH ×2 (09:00→22:32)
[2017-01-20] MEDS: SODIUM CHLORIDE 0.9% FLUSH 10 ML FLUSH IV FLUSH SCH (09:53)
[2017-01-20] MEDS: LACTOBACILLUS ACIDOPHILUS TAB PO SCH ×3 (09:54→18:18)
[2017-01-20] MEDS: HYDROCHLOROTHIAZIDE 12.5 MG CAP PO SCH (09:54)
[2017-01-20] MEDS: ACETAMINOPHEN/HYDROcodone 325 MG/10 MG TAB PO PRN ×4 (09:56→22:31)
[2017-01-20] MEDS: CHOLECALCIFEROL (VIT D3) 1000 UNIT TAB PO SCH (09:57)
[2017-01-20] MEDS: LOSARTAN 50 MG TAB PO SCH (09:58)
[2017-01-20] MEDS: CYANOCOBALAMIN 1,000 MCG TAB PO SCH (09:58)
[2017-01-20] MEDS: PANTOPRAZOLE SOD 40 MG DELAYED RELEASE TAB PO SCH (09:58)
[2017-01-20] MEDS: MELOXICAM 15 MG TAB PO SCH (09:58)
[2017-01-20] MEDS: GABAPENTIN 300 MG CAP PO SCH ×2 (09:58→22:31)
[2017-01-20] MEDS: ALPRAZolam 0.5 MG TAB PO PRN ×2 (10:02→22:31)
[2017-01-20] MEDS ORDERED: ONDANSETRON HCL 4 MG/2 ML VIAL IV PUSH PRN (10:15)
--- NOTE | 2017-01-20 11:48 | HHI.NSPN ---
Note Status Status: Progress Note Interval History Interval History Ms. Parsons is a 75 year old female who had underwent a L4-5 laminectomy with interbody arthrodesis and posterolateral fusion on 05/24/15. She developed a wound infection that was surgically debrided on 06/08/15. She was doing well then unfortunately developed a nonhealing granuloma. She again underwent surgical debridement and resection of wound granuloma on 04/24/16. Ms. Parsons had been managed by wound care after that. She was transferred from [facility] for wound drainage and possible spinal infection. The MRI L spine shows some fluid collection and abnormality at the disc space at L4-5, no evidence of epidural abscess. She is awaiting to undergo CT guided aspiration. 01/10: unchanged symptoms overnight, cultures pending 01/13: patient and reports they feel wound has been draining less, overall pt is feeling much better compared to last week. Offered possible surgical debridement of wound. 01/15: repeat MRI L spine completed. again dw her regarding performing a surgical debridement of her wound, she is unsure at this time, she would like to speak with her first. 01/16: and patient decided to proceed with surgical debridement, no new complaints 01/20: c/o nausea, dc planning to rehab Labs, Micro, & Vital Signs Results Date Time Temp Pulse Resp B/P Pulse Ox O2 Delivery O2 Flow Rate FiO2 01/20/17 08:05 70 01/20/17 08:00 98.5 85 16 172/75 95 01/20/17 00:00 01/19/17 20:00 75 01/19/17 20:00 97.0 75 18 138/66 95 01/19/17 19:40 97 21 01/19/17 16:28 98.1 72 18 160/72 98 01/19/17 12:21 97.9 77 18 159/69 96 01/20/17 07:00 Intake Total 1640 ml Balance 1640 ml Constitutional Vital Signs Date Time Temp Pulse Resp B/P Pulse Ox O2 Delivery O2 Flow Rate FiO2 01/20/17 08:05 70 01/20/17 08:00 98.5 85 16 172/75 95 01/20/17 00:00 01/19/17 20:00 75 01/19/17 20:00 97.0 75 18 138/66 95 01/19/17 19:40 97 21 01/19/17 16:28 98.1 72 18 160/72 98 01/19/17 12:21 97.9 77 18 159/69 96 01/20/17 07:00 Intake Total 1640 ml Balance 1640 ml Review of Systems/Exam Exam Ms. Parsons is alert and oriented 3. Motor function 5 over 5 in the upper and lower extremities Lumbar dressing is intact there is moderate drainage noted on the dressing, New dressings placed. Medications Current Medications Current Medications Medications (Trade) Dose Ordered Sig/Johan Route PRN Reason Start Time Stop Time Status Last Admin Dose Admin Naloxone HCl 0.4 mg 0.4 mg UNSCH PRN IV SEE LABEL COMMENTS 01/09/17 00:45 Pharmacy Profile Note (Vancomycin Consult Pharmacy) 0 ml @ 0 mls/hr UNSCH OTHER 01/09/17 00:45 Alprazolam (Xanax) 0.5 mg TID PRN PO ANXIETY 01/10/17 00:30 01/20/17 10:02 Aspirin (Ecotrin Ec) 81 mg DAILY PO 01/10/17 09:00 Hold 01/16/17 08:41 Baclofen (Lioresal) 10 mg TID PRN PO MUSCLE SPASM 01/10/17 00:30 01/19/17 23:33 Cholecalciferol (Vitamin D3) 1,000 units DAILY PO 01/10/17 09:00 01/20/17 09:57 Cyanocobalamin (Vitamin B12) 500 mcg DAILY PO 01/10/17 09:00 01/20/17 09:58 Hydrochlorothiazide (Microzide) 12.5 mg DAILY PO 01/10/17 09:00 01/20/17 09:54 Lidocaine HCl (Xylocaine 2% Viscous) 15 ml BID PO 01/10/17 09:00 01/19/17 21:36 Losartan Potassium (Cozaar) 100 mg DAILY PO 01/10/17 09:00 01/20/17 09:58 Meloxicam (Mobic) 15 mg DAILY PO 01/10/17 09:00 01/20/17 09:58 Mirtazapine (Remeron) 15 mg HS PO 01/10/17 00:30 01/19/17 21:34 Pravastatin Sodium (Pravachol) 80 mg HS PO 01/10/17 00:30 01/19/17 21:34 Patient Own Medication PT OWN MED: RESTA... BID EACH EYE 01/10/17 09:00 01/20/17 09:00 Lactobacillus Acidophilus (Lactinex) 1 tab TID PO 01/10/17 13:00 01/20/17 09:54 Metoprolol Tartrate (Lopressor) 25 mg Q8HR PO 01/11/17 14:00 01/19/17 21:34 Hydromorphone HCl 0.25 mg 0.25 mg Q4H PRN IV PUSH Breakthrough Pain 01/14/17 13:15 01/18/17 21:39 Vancomycin HCl/ Sodium Chloride (Vancomycin Inj/ NS 250 ml Inj) 250 ml @ 250 mls/hr Q24H IV 01/15/17 22:00 01/19/17 21:36 Loperamide HCl (Imodium Liq) 2 mg UNSCH PRN PO DIARRHEA 01/16/17 14:00 01/18/17 08:50 Sodium Chloride (NS Flush) See Protocol DAILY IV FLUSH 01/18/17 09:00 01/20/17 09:53 Sodium Chloride (NS Flush) See Protocol UNSCH PRN IV FLUSH SEE PROTOCOL TABLE 01/17/17 13:00 Heparin Sodium (Porcine) (Heparin Central Flush) See Protocol DAILY IV FLUSH 01/18/17 09:00 01/20/17 09:51 Heparin Sodium (Porcine) (Heparin Central Flush) See Protocol UNSCH PRN IV FLUSH SEE PROTOCOL TABLE 01/17/17 13:00 Sodium Chloride UNSCH PRN IV FLUSH SEE PROTOCOL TABLE 01/17/17 13:00 Potassium Chloride/Sodium Chloride (NS + KCl 20 Meq Inj) 1,000 ml @ 100 mls/hr Q10H IV 01/17/17 17:17 01/19/17 21:37 IV Flush (NS Flush) 2 ml UNSCH PRN IVF FLUSH AFTER USING IV ACCESS 01/17/17 17:30 IV Flush (NS Flush) 2 ml BID IVF 01/17/17 21:00 01/20/17 09:00 Docusate Sodium (Colace) 100 mg BID PO 01/17/17 21:00 Pantoprazole Sodium (Protonix) 40 mg DAILY PO 01/18/17 09:00 01/20/17 09:58 Acetaminophen/ Hydrocodone Bitart (Byron 10-325 Mg) 1 tab Q4H PRN PO PAIN SCALE 1 TO 5 01/17/17 17:30 01/20/17 09:56 Acetaminophen/ Hydrocodone Bitart (Byron 10-325 Mg) 2 tab Q4H PRN PO PAIN SCALE 6 TO 10 01/17/17 17:30 01/18/17 23:14 Morphine Sulfate (Morphine Inj) 2 mg Q2H PRN IV PUSH PAIN SCALE 1 TO 6 01/17/17 17:30 Morphine Sulfate (Morphine Inj) 4 mg Q2H PRN IV PUSH PAIN SCALE 7 TO 10 01/17/17 17:30 Acetaminophen (Tylenol) 650 mg Q4H PRN PO TEMPERATURE > 101.5 F 01/17/17 17:30 Miscellaneous Information SPECIFIC LAB TO BE RYLEY... ONCE ONCE .XX 01/20/17 21:45 01/20/17 21:46 Gabapentin (Neurontin) 600 mg BID PO 01/18/17 21:00 01/20/17 09:58 Ondansetron HCl (Zofran Inj) 4 mg Q6H PRN IV PUSH NAUSEA 01/20/17 10:15 Medical Decision Making MDM Remarks 76 year old female with chronic nonhealing wound with drainage outpatient MRI L spine shows some fluid collection and abnormality at the disc space at L4-5, no evidence of epidural abscess positive MRSA swab cultures of wound, negative needle aspiration of fluid collection s/p I&D of lumbar wound 01/17/17 Plan Plan Remarks cont change surgical dressing daily, cont antibiotic tx per Infectious Disease, dc planning to rehab Marian Dow Jan 20, 2017 11:48
--- NOTE | 2017-01-20 13:06 | HHI.IDPN ---
Note Infectious Disease Note Patient notes she had a headache.States that she had no headache yesterday and felt well. Afebrile. Light galdamez drainage on the dressing at lumbar. No pain. PAST MEDICAL HISTORY Hypertension, anxiety, depression, hyperlipidemia, chronic pain, status post lumbar laminectomy with instrumentation, breast augmentation, hysterectomy, cataract surgery, appendectomy, removal of a throat tumor. ALLERGIES RAJEEV INHIBITORS. ANTIBIOTICS Vancomycin. OBJECTIVE: Vital Signs Date Time Temp Pulse Resp B/P Pulse Ox O2 Delivery O2 Flow Rate FiO2 01/20/17 12:00 98.6 81 16 154/68 96 01/20/17 08:05 70 01/20/17 08:00 98.5 85 16 172/75 95 01/20/17 00:00 01/19/17 20:00 75 01/19/17 20:00 97.0 75 18 138/66 95 01/19/17 19:40 97 21 01/19/17 16:28 98.1 72 18 160/72 98 01/19/17 01/19/17 01/20/17 15:00 23:00 07:00 Intake Total 480 ml 60 ml 1100 ml Balance 480 ml 60 ml 1100 ml Intake Oral 480 ml 60 ml IV Total 1100 ml # Voids 4 1 # Bowel Movements 1 Laboratory Tests Test 01/19/17 05:42 Creatinine 0.96 MG/DL Estimat Glomerular Filtration 57 ML/MIN Rate PHYSICAL EXAMINATION GENERAL: No acute distress. Awake and alert. HEENT: No icterus. HEART: Nl S1S2, No murmurs. LUNGS: Clear. BACK: Non tender. No erythema. EXTREMITIES: No clubbing or cyanosis or edema. SKIN: No rash. NEURO: Nonfocal. PSYCHIATRIC: Calm and cooperative. IMPRESSION 1. Lumbar wound infection MRSA. 2. 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 Discitis of L4-5 vertebrae on MRI done at [facility] on 01/08/17. Post resection of fistula 01/17/17. Operative culture no growth. Pain improved. 3. 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 Does not look infected. RECOMMENDATIONS 1. Continue vancomycin IV until 02/20/17. IV orders antibiotics and labs on infusion form. 2. Case management to arrange for IV antibiotics. 3. Okay to discharge from my standpoint. Francois Ricketts MD Jan 20, 2017 13:06
--- NOTE | 2017-01-20 14:47 | HHI.PR ---
Subjective Remarks Patient had episodes of nausea this morning with some vomiting overnight. She also complains of headache. Stop by this afternoon to reevaluate see how much she is improved and she is not improved significantly. She requests to be monitored overnight which is an appropriate request. Objective Vital Signs Date Time Temp Pulse Resp B/P Pulse Ox O2 Delivery O2 Flow Rate FiO2 01/20/17 12:00 98.6 81 16 154/68 96 01/20/17 08:05 70 01/20/17 08:00 98.5 85 16 172/75 95 01/20/17 00:00 01/19/17 20:00 75 01/19/17 20:00 97.0 75 18 138/66 95 01/19/17 19:40 97 21 01/19/17 16:28 98.1 72 18 160/72 98 I/O 01/19/17 01/19/17 01/19/17 01/20/17 01/20/17 01/20/17 07:00 15:00 23:00 07:00 15:00 23:00 Intake Total 480 ml 60 ml 1100 ml Balance 480 ml 60 ml 1100 ml Intake Oral 480 ml 60 ml IV Total 1100 ml # Voids 5 4 1 1 # Bowel Movements 1 1 Result Diagram: 01/18/17 0630 01/19/17 0542 Objective Remarks GENERAL: NAD, A&Ox3 HEAD: Normocephalic. NECK: Supple, trachea midline. No lymphadenopathy. EYES: No scleral icterus. No injection or drainage. CARDIOVASCULAR: Regular rate and rhythm without murmurs, gallops, or rubs. RESPIRATORY: Breath sounds equal bilaterally. No accessory muscle use. GASTROINTESTINAL: Abdomen soft, non-tender, nondistended. MUSCULOSKELETAL: No cyanosis, or edema. SKIN: Warm and dry. 1.5 cm circular lesion at right gluteus which appears to be a drained blister. NEURO: No focal neurological deficitis. 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 Diarrhea improved. Continue Imodium when necessary. Diflucan 1 time today and tomorrow morning to treat yeast infection. She will need intermittent Diflucan as an outpatient and she'll be on long-term IV antibiotics. IV antibiotics range. Plan for discharge held secondary to the nausea, vomiting, and headache. If this improves tomorrow we'll consider discharge again. Infected surgical wound spinal abscess IV vancomycin Infectious disease following Neurosurgery following Incision and drainage has been recommended on MRI-MRSA Pain management expanded to by mouth [place] and breakthrough IV Dilaudid S/P left ankle fracture She has been in rehabilitation for 7 weeks Orthopedics following Chronic Right foot wound chronic ulcer now dry/scabbed wound care team Diarrhea C diff negative Diarrhea remains Imodium started Continue probiotics probiotic HTN Chronic Continue his chlorothiazide Continue our Continue Lopressor Hypokalemia Replace as needed Follow potassium levels DVT prophylaxis SCDs Patient is ambulatory Discharge planning Possible discharge tomorrow Problem Qualifiers (1) Non-healing surgical wound: Qualified Code: T81.89XS - Non-healing surgical wound, sequela Arnoldo Mora MD Jan 20, 2017 14:47
[2017-01-20] MEDS ORDERED: LACT PO (14:49)
--- NOTE | 2017-01-20 14:53 | HHI.FF ---
Face to Face Verification Diagnosis: (1) Infected surgical wound (2) Paraspinal abscess (3) Non-healing surgical wound Physical Therapy Order: Evaluate and Treat Home Health Nursing Order: Wound care and dressing changes I have seen patient Karma Parsons on 01/20/17. My clinical findings support the need for the requested home health care services because: Ltd mobility - disease progression Deconditioned w/ increased weakness Limited ability to care for self High risk of falls Infection w/ risk of complications I certify that my clinical findings support that this patient is homebound because: Post-op weakness Unsteady gait/balance Unsafe to leave home unassisted Unable to use public transportation Arnoldo Mora MD Jan 20, 2017 14:52
[2017-01-20] MEDS ORDERED: WHEEMIS3 (14:54)
[2017-01-20] MEDS ORDERED: PHARMACY ORDERED LAB ONE (21:45)
[2017-01-20] MEDS: VANCOMYCIN 1,000 MG/NS 250 ML IV SCH ×2 (22:24)
[2017-01-20] MEDS: MIRTAZAPINE 15 MG TAB PO SCH (22:31)
[2017-01-20] MEDS: PRAVASTATIN SOD 80 MG TAB PO SCH (22:32)
[2017-01-20] MEDS: BACLOFEN 10 MG TAB PO PRN (22:32)
[2017-01-21] VITALS: BP 134/63; PULSE 72; RESP 16; TEMP 98.2; O2SAT 93
[2017-01-21 04:00] VITALS: BP 120/78; PULSE 63; RESP 18; TEMP 98.3; O2SAT 94
[2017-01-21] MEDS: METOPROLOL TARTRATE 25 MG TAB PO SCH ×2 (06:48→13:11)
[2017-01-21 08:02] VITALS: BP 159/68; PULSE 74; PULSE 77; RESP 18; TEMP 97.8; O2SAT 92
[2017-01-21] MEDS: MELOXICAM 15 MG TAB PO SCH (08:48)
[2017-01-21] MEDS: LOSARTAN 50 MG TAB PO SCH (08:50)
[2017-01-21] MEDS: ACETAMINOPHEN/HYDROcodone 325 MG/10 MG TAB PO PRN ×2 (08:50→13:11)
[2017-01-21] MEDS: HYDROCHLOROTHIAZIDE 12.5 MG CAP PO SCH (08:51)
[2017-01-21] MEDS: GABAPENTIN 300 MG CAP PO SCH (08:51)
[2017-01-21] MEDS: CHOLECALCIFEROL (VIT D3) 1000 UNIT TAB PO SCH (08:51)
[2017-01-21] MEDS: LACTOBACILLUS ACIDOPHILUS TAB PO SCH ×2 (08:51→13:11)
[2017-01-21] MEDS: DOCUSATE SODIUM 100 MG CAP PO SCH (08:52)
[2017-01-21] MEDS: PANTOPRAZOLE SOD 40 MG DELAYED RELEASE TAB PO SCH (08:53)
[2017-01-21] MEDS: CYANOCOBALAMIN 1,000 MCG TAB PO SCH (08:53)
[2017-01-21] MEDS: SODIUM CHLORIDE 0.9% FLUSH 10 ML FLUSH IV FLUSH SCH (08:55)
[2017-01-21] MEDS: SODIUM CHLORIDE 0.9% FLUSH 5 ML FLUSH IVF SCH (08:55)
[2017-01-21] MEDS: LIDOCAINE VISCOUS 2% SOLN 15 ML UDC PO SCH (08:56)
[2017-01-21] MEDS: RESTASIS EYE EACH EYE SCH (08:57)
[2017-01-21] MEDS: ALPRAZolam 0.5 MG TAB PO PRN (09:12)
[2017-01-21] MEDS: NS + KCL 20 MEQ INJ 1,000 ML IV SCH (11:07)
--- NOTE | 2017-01-21 11:10 | HHI.PR ---
Subjective Remarks resting comfortably with no distress. denies pain. no fever. had some nausea earlier which has resolved. d/w the RN. Objective Vitals Vital Signs Date Time Temp Pulse Resp B/P Pulse Ox O2 Delivery O2 Flow Rate FiO2 01/21/17 08:02 97.8 77 18 159/68 92 01/21/17 04:00 98.3 63 18 120/78 94 01/21/17 00:00 98.2 72 16 134/63 93 01/20/17 20:00 72 01/20/17 20:00 97.9 83 18 140/61 97 01/20/17 16:00 97.8 76 16 131/59 94 01/20/17 12:00 98.6 81 16 154/68 96 I/O 01/20/17 01/20/17 01/20/17 01/21/17 01/21/17 01/21/17 07:00 15:00 23:00 07:00 15:00 23:00 Intake Total 1100 ml 580 ml 1140 ml 1350 ml Balance 1100 ml 580 ml 1140 ml 1350 ml Intake Oral 580 ml 60 ml IV Total 1100 ml 1080 ml 1350 ml # Voids 4 3 # Bowel Movements 1 Result Diagram: 01/18/17 0630 01/21/17 0640 Imaging Last Impressions Chest X-Ray 01/17/17 0000 Signed Impressions: Service Date/Time: Tuesday, January 17, 2017 12:49 - CONCLUSION: 1. Right PICC line tip obscured but likely near the cavoatrial junction. Manav Finch MD Lumbar Spine MRI 01/14/17 0000 Signed Impressions: Service Date/Time: Saturday, January 14, 2017 10:01 - CONCLUSION: 1. Stable transpedicular posterior fixation with intervertebral disc prostheses from L2-L5. 2. Moderate central spinal stenosis at the superior motion segment, L1- 2 due to a combination of marginal vertebral body spurring and marked posterior element hypertrophy. This may be severe enough to compromise the regional nerve roots. Spinal canal appears to be adequate all remaining lumbar levels with extensive multilevel decompressive laminectomies. 3. Narrowing of the right neural foramina at L4-5 with epidural scarring. The diameter of the spinal canal widely does adequate, and the exiting right L4 nerve root, however. Neural foramina are adequate all remaining levels. 4. Small lipoma of the filum terminale. No tethering. Saul Madera MD Ankle X-Ray 01/09/17 0000 Signed Impressions: Service Date/Time: December 02:43 - CONCLUSION: Healing fracture of the distal fibula. No change in alignment or position compared to the prior study. Memo Cheng MD Abscess Drainage CT 01/09/17 0000 Signed Impressions: Service Date/Time: December 09:49 - CONCLUSION: No significant paraspinal fluid aspiration at L4-5. There was a small area of pus more inferiorly seen within a superficial fluid collection which was aspirated. Jake Brown MD Objective Remarks GENERAL: This is a well-nourished, well-developed patient, in no apparent distress. CARDIOVASCULAR: Regular rate and regular rhythm without murmurs, gallops, or rubs. RESPIRATORY: Clear to auscultation. Breath sounds equal bilaterally. No wheezes , rales, or rhonchi. GASTROINTESTINAL: Abdomen soft, non-tender, nondistended. Normal, active bowel sounds MUSCULOSKELETAL: Extremities without clubbing, cyanosis, or edema. NEURO: Alert & Oriented x4 to person, place, time, situation. Moves all ext x4 Procedures PICC line insertion Medications and IVs Current Medications Sodium Chloride 2 ml 2 ml UNSCH PRN IVF FLUSH AFTER USING IV ACCESS; Start at 00:45; Stop 01/09/17 at 00:48; Status DC Vancomycin HCl 1500 mg/Sodium Chloride 515 ml @ 257.5 mls/ hr ONCE ONCE IV Last administered on 01/09/17 02:46; Start 01/09/17 at 00:45; Stop 01/09/17 at 02:44; Status DC Ceftriaxone Sodium/Sodium Chloride (Rocephin Inj/NS Inj) 100 ml @ 200 mls/hr ONCE ONCE IV Last administered on 01/09/17 02:56; Start 01/09/17 at 00:45; Stop 01/09/17 at 01:14; Status DC Sodium Chloride (NS Flush) 2 ml UNSCH PRN IV FLUSH FLUSH AFTER USING IV ACCESS Last administered on 01/09/17 16:04; Start 01/09/17 at 00:45; Stop 01/18/17 at 10:30; Status DC Sodium Chloride (NS Flush) 2 ml BID IV FLUSH Last administered on 01/16/17 21: 00; Start 01/09/17 at 09:00; Stop 01/18/17 at 10:30; Status DC Naloxone HCl 0.4 mg 0.4 mg UNSCH PRN IV SEE LABEL COMMENTS; Start 01/09/17 at 00:45 Pharmacy Profile Note 0 ml @ 0 mls/hr UNSCH OTHER ; Start 01/09/17 at 00:45 Piperacillin Sod/ Tazobactam Sod (Zosyn 4.5 Gm Premix) 100 ml @ 200 mls/hr Q6H IV Last administered on 01/10/17 14:07; Start 01/09/17 at 08:00; Stop at 17:32; Status DC Hydromorphone HCl (Dilaudid Pf Inj) 0.5 mg Q4H PRN IV PUSH pain 6-10 Last administered on 01/14/17 05:51; Start 01/09/17 at 01:15; Stop 01/14/17 at 12:59 ; Status DC Lidocaine/ Epinephrine (Xylocaine-Epi 1%-1:100,000 Inj) 20 ml STK-MED ONCE .ROUTE Last administered on 01/09/17 08:57; Start 01/09/17 at 08:57; Stop at 08:58; Status DC Lidocaine/ Epinephrine (Xylocaine-Epi 1%-1:100,000 Inj) 20 ml STK-MED ONCE .ROUTE Last administered on 01/09/17 09:32; Start 01/09/17 at 09:32; Stop at 09:33; Status DC Fentanyl Citrate (fentaNYL INJ) 100 mcg STK-MED ONCE .ROUTE Last administered on 01/09/17 09:55; Start 01/09/17 at 09:40; Stop 01/09/17 at 09:41; Status DC Midazolam HCl 2 mg 2 mg STK-MED ONCE .ROUTE Last administered on 01/09/17 09: 55; Start 01/09/17 at 09:40; Stop 01/09/17 at 09:41; Status DC Vancomycin HCl/ Sodium Chloride (Vancomycin Inj/ NS 250 ml Inj) 250 ml @ 250 mls/hr Q24H IV Last administered on 01/12/17 16:44; Start 01/10/17 at 15:00; Stop 01/12/17 at 18:54; Status DC Miscellaneous Information SPECIFIC LAB TO BE ... ONCE ONCE .XX Last administered on 01/12/17 16:30; Start 01/12/17 at 14:45; Stop 01/12/17 at 14:46 ; Status DC Alprazolam (Xanax) 0.5 mg ONCE ONCE PO Last administered on 01/10/17 00:51; Start 01/10/17 at 00:30; Stop 01/10/17 at 00:33; Status DC Alprazolam (Xanax) 0.5 mg TID PRN PO ANXIETY Last administered on 01/21/17 09: 12; Start 01/10/17 at 00:30 Aspirin (Ecotrin Ec) 81 mg DAILY PO Last administered on 01/16/17 08:41; Start 01/10/17 at 09:00; Status Hold Baclofen (Lioresal) 10 mg TID PRN PO MUSCLE SPASM Last administered on 22:32; Start 01/10/17 at 00:30 Cholecalciferol (Vitamin D3) 1,000 units DAILY PO Last administered on 08:51; Start 01/10/17 at 09:00 Cyanocobalamin (Vitamin B12) 500 mcg DAILY PO Last administered on 01/21/17 08: 53; Start 01/10/17 at 09:00 Gabapentin (Neurontin) 600 mg TID PO Last administered on 01/18/17 08:50; Start 01/10/17 at 09:00; Stop 01/18/17 at 10:28; Status DC Hydrochlorothiazide (Microzide) 12.5 mg DAILY PO Last administered on 01/21/17 08:51; Start 01/10/17 at 09:00 Lidocaine HCl (Xylocaine 2% Viscous) 15 ml BID PO Last administered on 08:56; Start 01/10/17 at 09:00 Losartan Potassium (Cozaar) 100 mg DAILY PO Last administered on 01/21/17 08:50 ; Start 01/10/17 at 09:00 Meloxicam (Mobic) 15 mg DAILY PO Last administered on 01/21/17 08:48; Start at 09:00 Metoprolol Tartrate (Lopressor) 25 mg BID PO Last administered on 01/11/17 09: 30; Start 01/10/17 at 09:00; Stop 01/11/17 at 09:57; Status DC Mirtazapine (Remeron) 15 mg HS PO Last administered on 01/20/17 22:31; Start 01/10/17 at 00:30 Pravastatin Sodium (Pravachol) 80 mg HS PO Last administered on 01/20/17 22:32 ; Start 01/10/17 at 00:30 Patient Own Medication PT OWN MED: RESTA... BID EACH EYE Last administered on 08:57; Start 01/10/17 at 09:00 Lactobacillus Acidophilus (Lactinex) 1 tab TID PO Last administered on 08:51; Start 01/10/17 at 13:00 Lactobacillus Acidophilus (Lactinex) 1 tab ONCE ONCE PO Last administered on 11:47; Start 01/10/17 at 10:00; Stop 01/10/17 at 10:03; Status DC Potassium Chloride (KCl) 30 meq ONCE ONCE PO Last administered on 01/10/17 13 :35; Start 01/10/17 at 13:00; Stop 01/10/17 at 13:01; Status DC Metoprolol Tartrate 25 mg 25 mg Q8HR PO Last administered on 01/21/17 06:48; Start 01/11/17 at 14:00 Vancomycin HCl/ Sodium Chloride (Vancomycin Inj/ NS 250 ml Inj) 262 ml @ 250 mls/hr Q24H IV Last administered on 01/14/17 17:27; Start 01/13/17 at 17:00; Stop 01/15/17 at 20:44; Status DC Miscellaneous Information SPECIFIC LAB TO BE DRAWN:VANCOMYCIN TROUGH DATE TO... ONCE ONCE .XX ; Start 01/15/17 at 16:45; Stop 01/15/17 at 16:46; Status DC Gadodiamide (Omniscan Pf Inj) 10 ml STK-MED ONCE IV Last administered on 11:49; Start 01/14/17 at 11:49; Stop 01/14/17 at 11:50; Status DC Hydromorphone HCl 0.25 mg 0.25 mg Q4H PRN IV PUSH Breakthrough Pain Last administered on 01/18/17 21:39; Start 01/14/17 at 13:15 Vancomycin HCl/ Sodium Chloride (Vancomycin Inj/ NS 250 ml Inj) 250 ml @ 250 mls/hr Q24H IV Last administered on 01/20/17 22:24; Start 01/15/17 at 22:00 Miscellaneous Information SPECIFIC LAB TO BE DRAWN:VA... ONCE ONCE .XX ; Start 01/17/17 at 21:45; Stop 01/17/17 at 21:46; Status DC Loperamide HCl (Imodium Liq) 4 mg ONCE ONCE PO Last administered on 01/16/17 17:02; Start 01/16/17 at 14:00; Stop 01/16/17 at 14:47; Status DC Loperamide HCl (Imodium Liq) 2 mg UNSCH PRN PO DIARRHEA Last administered on 08:50; Start 01/16/17 at 14:00 Acetaminophen/ Hydrocodone Bitart 1 tab 1 tab Q4H PRN PO Pain 4 to 10 Last administered on 01/17/17 10:21; Start 01/16/17 at 14:00; Stop 01/17/17 at 18:00 ; Status DC Lactated Ringer's 1,000 ml @ 30 mls/hr Q24H PRN IV SEE LABEL COMMENTS; Start at 05:45; Stop 01/17/17 at 19:27; Status DC Sodium Chloride (NS 500 ml Inj) 500 ml @ 30 mls/hr [id number] PRN IV SEE LABEL COMMENTS; Start 01/17/17 at 05:45; Stop 01/17/17 at 19:27; Status DC Povidone Iodine (Betadine 5% Antisepsis Kit) 1 applic FASHION EDITOR PRN EACH NARE SEE LABEL COMMENTS; Start 01/17/17 at 05:45; Stop 01/17/17 at 19:27; Status DC Chlorhexidine Gluconate (Chlorhexidine 2% Cloth) 3 pack FASHION EDITOR PRN TOPICAL SEE LABEL COMMENTS; Start 01/17/17 at 05:45; Stop 01/17/17 at 19:27; Status DC Insulin Human Regular (NovoLIN R INJ) See Protocol Table ... FASHION EDITOR PRN SQ SEE PROTOCOL TABLE; Start 01/17/17 at 05:45; Stop 01/17/17 at 19:27; Status DC Acetaminophen/ Butalbital/ Caffeine (Fioricet 325-50-40) 1 tab ONCE ONCE PO Last administered on 01/17/17 10:22; Start 01/17/17 at 10:00; Stop 01/17/17 at 10:01; Status DC Thrombin (Thrombin Top Soln) 5,000 units STK-MED ONCE .ROUTE ; Start 01/17/17 at 11:52; Stop 01/17/17 at 11:53; Status DC Gelatin (Gelfoam 12 Mm/7 Mm Top) 1 foam STK-MED ONCE .ROUTE ; Start 01/17/17 at 11:52; Stop 01/17/17 at 11:53; Status DC Bacitracin (Baciguent Oint) 15 applic STK-MED ONCE .ROUTE ; Start 01/17/17 at 11 :52; Stop 01/17/17 at 11:53; Status DC Gentamicin Sulfate (Gentamicin Inj) 240 mg STK-MED ONCE .ROUTE ; Start 01/17/17 at 11:53; Stop 01/17/17 at 11:54; Status DC Sodium Chloride (NS Flush) See Protocol DAILY IV FLUSH Last administered on 01/21 08:55; Start 01/18/17 at 09:00 Sodium Chloride (NS Flush) See Protocol UNSCH PRN IV FLUSH SEE PROTOCOL TABLE; Start 01/17/17 at 13:00 Heparin Sodium (Porcine) (Heparin Central Flush) See Protocol DAILY IV FLUSH Last administered on 01/21/17 08:54; Start 01/18/17 at 09:00 Heparin Sodium (Porcine) (Heparin Central Flush) See Protocol UNSCH PRN IV FLUSH SEE PROTOCOL TABLE; Start 01/17/17 at 13:00 Sodium Chloride (NS Flush) UNSCH PRN IV FLUSH SEE PROTOCOL TABLE; Start at 13:00 Thrombin (Thrombin Top Soln) 5,000 units STK-MED ONCE .ROUTE ; Start 01/17/17 at 16:27; Stop 01/17/17 at 16:28; Status DC Sugammadex Sodium (Bridion Inj) 200 mg STK-MED ONCE IV PUSH ; Start 01/17/17 at 16:38; Stop 01/17/17 at 16:39; Status DC Acetaminophen 1000 mg 1,000 mg STK-MED ONCE IV ; Start 01/17/17 at 16:38; Stop 01/17/17 at 16:39; Status DC Cefazolin Sodium/ Dextrose 50 ml @ As Directed STK-MED ONCE .ROUTE Last administered on 01/17/17 17:24; Start 01/17/17 at 16:53; Stop 01/17/17 at 16:54 ; Status DC Potassium Chloride/Sodium Chloride (NS + KCl 20 Meq Inj) 1,000 ml @ 100 mls/hr Q10H IV Last administered on 01/20/17 15:17; Start 01/17/17 at 17:17 IV Flush (NS Flush) 2 ml UNSCH PRN IVF FLUSH AFTER USING IV ACCESS; Start 01/17 at 17:30 IV Flush 2 ml 2 ml BID IVF Last administered on 01/20/17 22:32; Start at 21:00 Cefazolin Sodium/ Dextrose (Ancef 2 Gm Premix) 50 ml @ 100 mls/hr Q8H IV Last administered on 01/18/17 16:00; Start 01/18/17 at 01:00; Stop 01/18/17 at 17:29 ; Status DC Docusate Sodium (Colace) 100 mg BID PO ; Start 01/17/17 at 21:00 Pantoprazole Sodium (Protonix) 40 mg DAILY PO Last administered on 01/21/17 08: 53; Start 01/18/17 at 09:00 Acetaminophen/ Hydrocodone Bitart ([place] 10-325 Mg) 1 tab Q4H PRN PO PAIN SCALE 1 TO 5 Last administered on 01/20/17 22:31; Start 01/17/17 at 17:30 Acetaminophen/ Hydrocodone Bitart ([place] 10-325 Mg) 2 tab Q4H PRN PO PAIN SCALE 6 TO 10 Last administered on 01/21/17 08:50; Start 01/17/17 at 17:30 Morphine Sulfate (Morphine Inj) 2 mg Q2H PRN IV PUSH PAIN SCALE 1 TO 6; Start 01/17/17 at 17:30 Morphine Sulfate (Morphine Inj) 4 mg Q2H PRN IV PUSH PAIN SCALE 7 TO 10; Start 01/17/17 at 17:30 Acetaminophen (Tylenol) 650 mg Q4H PRN PO TEMPERATURE > 101.5 F; Start at 17:30 Gentamicin Sulfate (Gentamicin Inj) 240 mg STK-MED ONCE IRRIGATION Last administered on 01/17/17 17:46; Start 01/17/17 at 17:46; Stop 01/17/17 at 17:53 ; Status DC Vancomycin HCl (Vancomycin Inj) 1,000 mg STK-MED ONCE .ROUTE ; Start 01/17/17 at 17:55; Stop 01/17/17 at 17:56; Status DC Morphine Sulfate (*morphine INJ PERIprocedure ONLY) 8 mg STK-MED ONCE .ROUTE Last administered on 01/17/17 18:35; Start 01/17/17 at 18:35; Stop 01/17/17 at 18:36; Status DC Miscellaneous Information ALL NURSING DEPARTME... UNSCH PRN .XX SEE LABEL COMMENTS; Start 01/17/17 at 18:32; Stop 01/18/17 at 18:31; Status DC Miscellaneous Information SPECIFIC LAB TO BE RYLEY... ONCE ONCE .XX Last administered on 01/20/17 22:30; Start 01/20/17 at 21:45; Stop 01/20/17 at 21:46 ; Status DC Gabapentin (Neurontin) 600 mg BID PO Last administered on 01/21/17 08:51; Start 01/18/17 at 21:00 Fluconazole (Diflucan) 200 mg ONCE ONCE PO Last administered on 01/19/17 11: 59; Start 01/19/17 at 11:30; Stop 01/19/17 at 11:43; Status DC Fluconazole (Diflucan) 100 mg ONCE ONCE PO Last administered on 01/20/17 09: 57; Start 01/20/17 at 09:00; Stop 01/20/17 at 09:01; Status DC Ondansetron HCl (Zofran Inj) 4 mg Q6H PRN IV PUSH NAUSEA; Start 01/20/17 at 10: 15 A/P Assessment and Plan Infected surgical wound spinal abscess IV vancomycin till 02/20/2017. Infectious disease follow- up appreciated and cleared for discharge. Neurosurgery following continue pain control. S/P left ankle fracture She has been in rehabilitation for 7 weeks /u with Orthopedics -outpatient. Chronic Right foot wound chronic ulcer now dry/scabbed wound care team Diarrhea C diff negative probiotic HTN Chronic Continue his chlorothiazide Continue our Continue Lopressor Hypokalemia Replace as needed Follow potassium levels DVT prophylaxis SCDs Patient is ambulatory Discharge Planning dc home with [facility] and outpatient IV antibiotic therapy. f/u; pcp,ID,neurosurgery and ortho. d/w the patient, RN. d/w case management. time spent 35 min. Elida Neves MD Jan 21, 2017 11:10
--- NOTE | 2017-01-21 11:12 | HHI.DS ---
Discharge Summary Admission Date Jan 09, 2017 at 00:43 Discharge Date: Jan 21, 2017 Admitting Diagnosis Abscess (1) Infected surgical wound ICD Code: T81.4XXA Diagnosis: Principal (2) Inability to ambulate due to ankle or foot ICD Code: R26.2 Diagnosis: Principal Procedures PICC line insertion Brief History - From Admission Written by MAKEDA Manzano acting as scribe for [Jenny] on 01/09/17 at 01: 04. 76 y/o female with a history of HTN, HLD, chronic pain, depression and anxiety was a transfer from [facility] with severe back pain and she couldn 't walk for the past 2 days. She was sent home from rehab 10 days ago after suffering an ankle fracture, she was being followed by [facility]. She explained to them her problem and they sent her to the hospital. She feels the ankle is the reason she can not walk, she tried taking off her boot to walk 2 days after rehab per Dr. Beach's ordered but it was not healed all the way and it was very painful. She has a history of lumbar spine surgery [address] Morrissey. Lumbar spine MRI completed at [facility] and shows a complex collection with a thick enhancing wall enhancing wall along the right side of the thecal sac at L4-L5 with a fistulous tract extending to the skin surface and commination with the disk space is suspicious for infection/phlegmon with only a minimal amount of nonenhancing internal fluid. Associated enhancement in the right side of the disk space with edema in the L4 and L5 vertebra is suspicious for diskitis osteomyelitis. She states she was taking antibiotics PO for the infection in her back and was seen by wound care in [facility]. She denies any fever, chills, chest pain, sob, nausea, vomiting or headaches. CBC/BMP: 01/18/17 0630 01/21/17 0640 Significant Findings Laboratory Tests Test 01/19/17 01/20/17 01/21/17 05:42 22:30 06:40 Estimat Glomerular Filtration 57 ML/MIN (>89) 74 ML/MIN (>89) Rate Vancomycin Level Trough 15.4 MCG/ML (5.0-10.0) Imaging Last Impressions Chest X-Ray 01/17/17 0000 Signed Impressions: Service Date/Time: Tuesday, January 17, 2017 12:49 - CONCLUSION: 1. Right PICC line tip obscured but likely near the cavoatrial junction. Manav Finch MD Lumbar Spine MRI 01/14/17 0000 Signed Impressions: Service Date/Time: Saturday, January 14, 2017 10:01 - CONCLUSION: 1. Stable transpedicular posterior fixation with intervertebral disc prostheses from L2-L5. 2. Moderate central spinal stenosis at the superior motion segment, L1- 2 due to a combination of marginal vertebral body spurring and marked posterior element hypertrophy. This may be severe enough to compromise the regional nerve roots. Spinal canal appears to be adequate all remaining lumbar levels with extensive multilevel decompressive laminectomies. 3. Narrowing of the right neural foramina at L4-5 with epidural scarring. The diameter of the spinal canal widely does adequate, and the exiting right L4 nerve root, however. Neural foramina are adequate all remaining levels. 4. Small lipoma of the filum terminale. No tethering. Saul Madera MD Ankle X-Ray 01/09/17 0000 Signed Impressions: Service Date/Time: December 02:43 - CONCLUSION: Healing fracture of the distal fibula. No change in alignment or position compared to the prior study. Memo Cheng MD Abscess Drainage CT 01/09/17 0000 Signed Impressions: Service Date/Time: December 09:49 - CONCLUSION: No significant paraspinal fluid aspiration at L4-5. There was a small area of pus more inferiorly seen within a superficial fluid collection which was aspirated. Jake Brown MD PE at Discharge GENERAL: This is a well-nourished, well-developed patient, in no apparent distress. CARDIOVASCULAR: Regular rate and regular rhythm without murmurs, gallops, or rubs. RESPIRATORY: Clear to auscultation. Breath sounds equal bilaterally. No wheezes , rales, or rhonchi. GASTROINTESTINAL: Abdomen soft, non-tender, nondistended. Normal, active bowel sounds MUSCULOSKELETAL: Extremities without clubbing, cyanosis, or edema. NEURO: Alert & Oriented x4 to person, place, time, situation. Moves all ext x4 Hospital Course Infected surgical wound spinal abscess IV vancomycin till 02/20/2017. Infectious disease follow- up appreciated and cleared for discharge. Neurosurgery following continue pain control. S/P left ankle fracture She has been in rehabilitation for 7 weeks /u with Orthopedics -outpatient. Chronic Right foot wound chronic ulcer now dry/scabbed wound care team Diarrhea C diff negative probiotic HTN Chronic Continue his chlorothiazide Continue our Continue Lopressor Hypokalemia Replace as needed Follow potassium levels DVT prophylaxis SCDs Patient is ambulatory Pt Condition on Discharge: Fair Discharge Disposition: Disch w/ Home Health Serv Discharge Time: > 30 minutes Discharge Instructions DIET: Follow Instructions for: Heart Healthy Diet Activities you can perform: Regular-No Restrictions Follow up Referrals: Infectious Disease Neurosurgery Orthopedics - 2 Weeks with Wu Beach MD PCP Follow-up - 2 Weeks New Medications: Wheelchair (Wheelchair) 1 Mis Mis 1 EA .ROUTE DIRECTED sherita #1 Ref 0 EA Lactobacillus Acidophilus (Acidophilus/l-Sporogenes) 1 Tab Tab 1 TAB PO TID Probiotic #90 TAB Continued Medications: Alprazolam (Xanax) 0.5 Mg Tab 0.5 MG PO TID PRN ANXIETY Ref [address] (Aspirin 81) 81 Mg Tabdr 81 MG PO DAILY Ref 0 TAB Baclofen (Baclofen) 10 Mg Tab 10 MG PO TID PRN MUSCLE SPASM Ref 0 TAB Cholecalciferol (Vitamin D-1000) 1,000 Unit Tab 1000 UNITS PO DAILY Nutritional Supplement Ref 0 BOTTLE Cyanocobalamin (Vitamin B-12) 500 Mcg Subl 500 MCG SL DAILY Nutritional Supplement Ref 0 TAB.SL Cyclosporine Opth 0.05% (Restasis Opth 0.05%) 0.05% Emul 1 DROP EACH EYE BID Dry Eye #1 Ref 0 BOX Gabapentin (Gabapentin) 600 Mg Tab 600 MG PO TID Ref 0 TAB Hydrochlorothiazide (Hydrochlorothiazide) 12.5 Mg Tab 12.5 MG PO DAILY Ref 0 TAB Hydrocodone-Acetaminophen (Lortab) 5-325 Mg Tab 1 TAB PO Q6H PRN PAIN #12 Ref 0 TAB Lidocaine Viscous 2% Liq (Lidocaine Viscous 2% Liq) 2 % Liq 15 ML PO BID Losartan (Cozaar) 100 Mg Tab 100 MG PO DAILY Blood Pressure Management #30 Ref 0 TAB Meloxicam (Meloxicam) 15 Mg Tab 15 MG PO DAILY Arthritis Pain #30 Ref 0 TAB Metoprolol Tartrate (Metoprolol Tartrate) 25 Mg Tab 25 MG PO BID #60 Ref 0 TAB Mirtazapine (Mirtazapine) 15 Mg Tab 15 MG PO HS Depression Control Ref 0 TAB Pravastatin (Pravachol) 80 Mg Tab 80 MG PO HS Cholesterol Management Ref 0 TAB Elida Neves MD Jan 21, 2017 11:12
--- NOTE | 2017-01-21 11:12 | HHI.DCPOC ---
Discharge Care Plan Diagnosis: (1) Infected surgical wound Your Health Problems Are: Inflammation Goals to Promote Your Health * To prevent worsening of your condition and complications * To maintain your health at the optimal level Directions to Meet Your Goals Take your medications as prescribed Follow your dietary instruction Follow activity as directed Keep your appointments as scheduled Take your immunizations and boosters as scheduled If your symptoms worsen call your PCP, if no PCP go to Urgent Care Center or Emergency Room Smoking is Dangerous to Your Health. Avoid second hand smoke Call the 24-hour hour crisis hotline for domestic abuse at Elida Neves MD Jan 21, 2017 11:12
[2017-01-21 12:06] VITALS: BP 152/66; PULSE 89; RESP 18; TEMP 98.2; O2SAT 95
== END 2017-01-21 14:39 | disposition home health service (06) | DRG 856 ==
LOC: NEPE 23:36 → NEDA 01-09 00:43 → NEPGCP 01-09 03:17 → N05B 01-10 20:23
PROVIDERS: ADMIT Internal Medicine; ATTEND Internal Medicine
PROC: 00H Central Nervous System and Cranial Nerves, Insertion (ICD-10-PCS; 2017-01-17)
PROC: 0JB70ZZ Excision of Back Subcutaneous Tissue and Fascia, Open Approach (ICD-10-PCS; principal; 2017-01-17 16:39)
DX: T81.4XXA Infection following a procedure, initial encounter (principal); G06.1 Intraspinal abscess and granuloma; A04.7 Enterocolitis due to Clostridium difficile; B37.9 Candidiasis, unspecified; E78.5 Hyperlipidemia, unspecified; E87.6 Hypokalemia; I10 Essential (primary) hypertension; K21.9 Gastro-esophageal reflux disease without esophagitis; S82.63XD Displaced fracture of lateral malleolus of unspecified fibula, subsequent encounter for closed fracture with routine healing; S91.301A Unspecified open wound, right foot, initial encounter; Y93.9 Activity, unspecified
CPT/HCPCS: 36569; 71010; 72158; 73610; 75989; 76937; 80048; 80053; 80202; 82565; 85025; 85027; 85652; 87015; 87070; 87077; 87102; 87116; 87186; 87205; 87206; 87493; 88304; 88305; 94150; 99285; A6010; A9579; J0131; J0690; J0696; J1170; J1580; J1642; J2250; J2270; J2370; J2405; J2543; J3010; J3370; J3480; J7040; J7050; J7120

== ENCOUNTER 2017-01-24 16:08 | Inpatient (IN) | payer MEDICARE ==
[~2017-01-24] VITALS: Ht 160 cm; Wt 60.0 kg
[~2017-01-24 16:08] MED LIST changes: +LACT PO; +REST0.05 EACH EYE; +WHEEMIS3
[2017-01-24 16:12] VITALS: BP 169/116; PULSE 66; RESP 25; TEMP 97.5; O2SAT 94
--- NOTE | 2017-01-24 16:43 | PD ---
HPI . lethargic and draining wound since discharge Chief Complaint: Altered Mental Status Time Seen by Provider: 16:43 Travel History International Travel<30 days: No Contact w/Intl Traveler<30days: No Traveled to known affect area: No History of Present Illness HPI 76 yr old female who was recently discharged from the hospital on 01/21/2017 due to infected spinal wound receiving vanco brought in by her due to lethargy and wound drainage. Patient is very lethargic and answers questions, but falls asleep shortly after. Her provided most of the information. He reports she was discharged on 01/21/17 and seemed to be ok, however over the past 1.5 days has grown increasingly lethargic. He says she tries to eat, but falls asleep while eating. He says she doesn't really talk much and just seems extremely tired. Home health has been coming in and assessing the patient who remains afebrile. He says they were not concerned yesterday, but today home health advised him to bring her to the ED. She is following with wound care on an outpatient basis. PFSH Past Medical History Arthritis: No Asthma: No Autoimmune Disease: Yes (arthritis) Blood Disorders: No Anxiety: No Depression: No Heart Rhythm Problems: No Cancer: No Cardiovascular Problems: No High Cholesterol: No Chemotherapy: No Chest Pain: No Congestive Heart Failure: No COPD: No Cerebrovascular Accident: No Diabetes: No Diminished Hearing: Yes Endocrine: No Gastrointestinal Disorders: Yes GERD: No Genitourinary: No Headaches: No Hepatitis: No Hiatal Hernia: No Heparin Induced Thrombocytopen: No Hypertension: Yes Immune Disorder: No Implanted Vascular Access Dvce: No Kidney Stones: No Musculoskeletal: No Neurologic: Yes (back numbness and weakness, open wound oozes) Psychiatric: No Reproductive: No Respiratory: No Immunizations Current: Yes Migraines: No Radiation Therapy: No Renal Failure: No Seizures: No Sickle Cell Disease: No Sleep Apnea: No Thyroid Disease: No Ulcer: No Tetanus Vaccination: < 5 Years Influenza Vaccination: Yes PNEUMOCCOCAL Vaccine (Year): 1 Menopausal: Yes Dilation and Curettage (D&C): Yes Past Surgical History Abdominal Surgery: Yes (appendix out, gall bladder out) AICD: No Arteriovenous Shunt: No Body Medical Devices: LUMBAR HARDWARE, BREASTS Cardiac Surgery: No Ear Surgery: No Endocrine Surgery: No Eye Surgery: Yes (cataracts out both eyes) Genitourinary Surgery: Yes (cesearean) Gynecologic Surgery: Yes Hysterectomy: Yes Insulin Pump: No Joint Replacement: No Mastectomy: Yes Neurologic Surgery: Yes Oral Surgery: No Pacemaker: No Thoracic Surgery: No Tonsillectomy: Yes Other Surgery: Yes (spinal surgery, gall out, appendix out, hysterectomy) Social History Alcohol Use: No Tobacco Use: No (QUIT 15 YEARS AGO) Substance Use: No Allergies-Medications (Allergen,Severity, Reaction): Coded Allergies: RAJEEV Inhibitors (Verified Allergy, Severe, throat closure facial swelling, 11/07/16) *MDRO Multi-Drug Resistant Organism (Verified Adverse Reaction, Unknown, ) 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 Reported Meds & Prescriptions Reported Meds & Active Scripts Active Acidophilus/l-Sporogenes (Lactobacillus Acidophilus) 1 Tab Tab 1 Tab PO TID Lortab (Hydrocodone-Acetaminophen) 5-325 Mg Tab 1 Tab PO Q6H PRN Reported Restasis Opth 0.05% (Cyclosporine Opth 0.05%) 0.05% Emul 1 Drop EACH EYE BID Meloxicam 15 Mg Tab 15 Mg PO DAILY Baclofen 10 Mg Tab 10 Mg PO TID PRN Lidocaine Viscous 2% Liq 2 % Liq 15 Ml PO BID Vitamin D-1000 (Cholecalciferol) 1,000 Unit Tab 1,000 Units PO DAILY Vitamin B-12 (Cyanocobalamin) 500 Mcg Subl 500 Mcg SL DAILY Hydrochlorothiazide 12.5 Mg Tab 12.5 Mg PO DAILY Xanax (Alprazolam) 0.5 Mg Tab 0.5 Mg PO TID PRN Mirtazapine 15 Mg Tab 15 Mg PO HS Metoprolol Tartrate 25 Mg Tab 25 Mg PO BID Gabapentin 600 Mg Tab 600 Mg PO TID Cozaar (Losartan Potassium) 100 Mg Tab 100 Mg PO DAILY Aspirin 81 (Aspirin) 81 Mg Tabdr 81 Mg PO DAILY Pravachol (Pravastatin) 80 Mg Tab 80 Mg PO HS Review of Systems General / Constitutional: Positive: Other (lethargic ), No: Fever Eyes: No: Visual changes HENT: No: Headaches Cardiovascular: No: Chest Pain or Discomfort Respiratory: No: Shortness of Breath Gastrointestinal: No: Abdominal Pain Genitourinary: No: Dysuria Musculoskeletal: No: Pain Skin: Positive Other (infected back wound ), No Rash Neurologic: No: Weakness Psychiatric: No: Depression Endocrine: No: Polydipsia Hematologic/Lymphatic: No: Easy Bruising Physical Exam Narrative GENERAL: lethargic, but responds when woken up and spoken to SKIN: Warm and dry. No visible rashes or bruising. HEAD: Normocephalic and atraumatic. EYES: No scleral icterus. No injection or drainage. EOM intact, ENT: No nasal drainage noted. Mucous membranes pink. Airway patent. NECK: Supple, trachea midline. No JVD. CARDIOVASCULAR: Regular rate and rhythm without murmurs, gallops, or rubs. RESPIRATORY: Breath sounds equal bilaterally. No accessory muscle use. No rhonchi or rales. GASTROINTESTINAL: Abdomen soft, non-tender, nondistended. EXTREMITIES: No cyanosis or edema. BACK: L spine wound with increased amounts of purulent drainage, soaking through gauze NEURO: difficult to assess with level of lethargy, but grossly intact when aroused and asked to perform tasks Data Data Last Documented VS Vital Signs Date Time Temp Pulse Resp B/P Pulse Ox O2 Delivery O2 Flow Rate FiO2 01/24/17 18:30 97.9 69 18 141/63 96 Room Air Orders Electrocardiogram (01/24/17 ) Electrocardiogram (01/24/17 16:50) Complete Blood Count With Diff (01/24/17 16:50) Comprehensive Metabolic Panel (01/24/17 16:50) Prothrombin Time / Inr (Pt) (01/24/17 16:50) Act Partial Throm Time (Ptt) (01/24/17 16:50) Lactic Acid Sepsis Protocol (01/24/17 16:50) Urinalysis - C+S If Indicated (01/24/17 16:50) Blood Culture (01/24/17 16:50) Wound Culture And Gram Stain (01/24/17 16:50) Chest, Single Ap (01/24/17 16:50) Blood Glucose (01/24/17 16:50) Ecg Monitoring (01/24/17 16:50) Iv Access Insert/Monitor (01/24/17 16:50) Oximetry (01/24/17 16:50) Oxygen Administration (01/24/17 16:50) Clindamycin Inj (Cleocin Inj) (01/24/17 17:00) Vancomycin Inj (Vancomycin Inj) (01/24/17 17:00) Admit Order (Ed Use Only) (01/24/17 19:06) Labs Laboratory Tests Test 01/24/17 17:00 White Blood Count 5.4 TH/MM3 Red Blood Count 3.11 MIL/MM3 Hemoglobin 8.8 GM/DL Hematocrit 26.9 % Mean Corpuscular Volume 86.5 FL Mean Corpuscular Hemoglobin 28.1 PG Mean Corpuscular Hemoglobin 32.5 % Concent Red Cell Distribution Width 14.1 % Platelet Count 299 TH/MM3 Mean Platelet Volume 8.0 FL Neutrophils (%) (Auto) 57.2 % Lymphocytes (%) (Auto) 24.7 % Monocytes (%) (Auto) 13.7 % Eosinophils (%) (Auto) 3.1 % Basophils (%) (Auto) 1.3 % Neutrophils # (Auto) 3.1 TH/MM3 Lymphocytes # (Auto) 1.3 TH/MM3 Monocytes # (Auto) 0.7 TH/MM3 Eosinophils # (Auto) 0.2 TH/MM3 Basophils # (Auto) 0.1 TH/MM3 CBC Comment DIFF FINAL Differential Comment Prothrombin Time 12.1 SEC Prothromb Time International 1.1 RATIO Ratio Activated Partial 28.5 SEC Thromboplast Time Urine Color YELLOW Urine Turbidity HAZY Urine pH 5.5 Urine Specific [place] 1.019 Urine Protein TRACE mg/dL Urine Glucose (UA) NEG mg/dL Urine Ketones NEG mg/dL Urine Occult Blood NEG Urine Nitrite NEG Urine Bilirubin NEG Urine Urobilinogen LESS THAN 2.0 MG/DL Urine Leukocyte Esterase NEG Urine RBC 7 /hpf Urine Amorphous Sediment RARE Urine Hyaline Casts 8 /lpf Urine Mucus FEW /lpf Microscopic Urinalysis Comment CATH-CULT NOT IND Sodium Level 142 MEQ/L Potassium Level 4.3 MEQ/L Chloride Level 111 MEQ/L Carbon Dioxide Level 25.8 MEQ/L Anion Gap 5 MEQ/L Blood Urea Nitrogen 14 MG/DL Creatinine 0.80 MG/DL Estimat Glomerular Filtration 70 ML/MIN Rate Random Glucose 81 MG/DL Lactic Acid Level 0.5 mmol/L Calcium Level 8.7 MG/DL Total Bilirubin 0.2 MG/DL Aspartate Amino Transf 16 U/L (AST/SGOT) Alanine Aminotransferase 14 U/L (ALT/SGPT) Alkaline Phosphatase 103 U/L Total Protein 6.9 GM/DL Albumin 3.0 GM/DL MDM Medical Decision Making Medical Screen Exam Complete: Yes Emergency Medical Condition: Yes Medical Record Reviewed: Yes Differential Diagnosis sepsis, infected surgical wound, osteomyelitis, encephalopathy, Narrative Course 76 yr old female here with worsening lethargy and infected back wound. She is afebrile. IV access obtained, labs, EKG and imaging have been ordered. Case discussed with Dr. Canela. We initially started patient on vanco and clindamycin. However, upon further review of chart, patient on vanco and received a dose this morning. She will receive clindamycin. We will go ahead and administer Dalvance. 1906: Discussed with Pharmacist and patient does not meet criteria for Dalvance as she is being admitted. Order cancelled. 1904: Discussed with Dr. Arnoldo Mora, patient will be admitted for further workup and treatment. I discussed all results with patient and her . He was agreeable to admission. 2030: Dr. Vela came to discuss case with me. requests MRI of L spine and CT brain. I have ordered. Diagnosis Primary Impression: Infected surgical wound Qualified Code: T81.4XXA - Postoperative wound infection, initial encounter Admitting Information Admitting Physician Requests: Admit Condition: Stable Shannon Craven Jan 24, 2017 16:43
[2017-01-24 16:53] VITALS: RESP 18; O2SAT 96
[2017-01-24 16:57] VITALS: BP 183/77; PULSE 63; RESP 17; TEMP 98; O2SAT 96
[2017-01-24] MEDS ORDERED: CLINDAMYCIN INJ 600 MG in SODIUM CHLORIDE 0.9% INJ 100 ML IV ONE (17:00)
[2017-01-24] MEDS ORDERED: VANCOMYCIN INJ 1,000 MG in SODIUM CHLOR 0.9% 250 ML INJ 250 ML IV ONE (17:00)
--- NOTE | 2017-01-24 17:26 | RADRPT ---
EXAM DATE/TIME: 01/24/2017 16:51 [facility] COMPARISON: CHEST SINGLE AP, January 17, 2017, 12:49. INDICATIONS : Fever, shortness of breath. MEDICAL HISTORY : Hypertension. SURGICAL HISTORY : None. ENCOUNTER: Initial ACUITY: 1 day PAIN SCORE: Non-responsive. LOCATION: Bilateral chest FINDINGS: A single view of the chest demonstrates the lungs to be symmetrically aerated without evidence of mas s, infiltrate or effusion. The cardiomediastinal contours are unremarkable. Osseous structures are intact. PICC line in good position. CONCLUSION: PICC line in good position. Negative for consolidation.. Lexa Baer MD FACR on January 24, 2017 at 17:24 Board Certified Radiologist. This report was verified electronically.
[2017-01-24 17:43] LABS: AUTOMATED NEUTROPHIL # 3.1 TH/MM3 (1.8-7.7); BASOPHIL # 0.1 TH/MM3 (0-0.2); BASOPHIL % 1.3 % (0.0-2.0); EOSINOPHIL # 0.2 TH/MM3 (0-0.4); EOSINOPHIL % 3.1 % (0.0-4.0); HEMATOCRIT 26.9 % (35.0-46.0); HEMO FLAGS DIFF FINAL; LYMPH % 24.7 % (9.0-44.0); LYMPHOCYTE # 1.3 TH/MM3 (1.0-4.8); MEAN CELL VOLUME 86.5 FL (80.0-100.0); MEAN CORPUSCULAR HEMOGLOBIN 28.1 PG (27.0-34.0); MEAN CORPUSCULAR HGB CONC 32.5 % (32.0-36.0); MONO % 13.7 % (0.0-8.0); NEUT % 57.2 % (16.0-70.0); PLATELET COUNT 299 TH/MM3 (150-450); RED BLOOD COUNT 3.11 MIL/MM3 (4.00-5.30); RED CELL DISTRIBUTION WIDTH 14.1 % (11.6-17.2); WHITE BLOOD COUNT 5.4 TH/MM3 (4.0-11.0)
[2017-01-24 17:50] LABS: APTT (PATIENT) 28.5 SEC (24.3-30.1); INTERNATIONAL NORMALIZED RATIO 1.1 RATIO; PROTHROMBIN TIME - PATIENT 12.1 SEC (9.8-11.6)
[2017-01-24 18:05] LABS: ALT (GPT) 14 U/L (10-53); ANION GAP 5 MEQ/L (5-15); AST (GOT) 16 U/L (15-37); BICARBONATE 25.8 MEQ/L (21.0-32.0); BLOOD UREA NITROGEN 14 MG/DL (7-18); CHLORIDE 111 MEQ/L (98-107); GLOMERULAR FILTRATION RATE 70 ML/MIN (>89); POTASSIUM 4.3 MEQ/L (3.5-5.1); SODIUM (NA) 142 MEQ/L (136-145)
[2017-01-24 18:06] LABS: BLOOD, URINE NEG (NEG); GLUCOSE,URINE NEG (NEG); HYALINE CAST, URINE 8 /lpf (RARE); KETONE, URINE NEG (NEG); MUCUS URINE FEW /lpf (OCC); NITRITE,URINE NEG (NEG); PH, URINE 5.5 (5.0-8.5); URINE COLOR YELLOW (YELLW/STRAW)
[2017-01-24 18:07] LABS: ALKALINE PHOSPHATASE 103 U/L (45-117); TOTAL BILIRUBIN ADULT 0.2 MG/DL (0.2-1.0)
[2017-01-24 18:15] LABS: COMMENT (UR) CATH-CULT NOT IND; CULTURE IF INDICATED CATH CULTURE NOT IND
[2017-01-24 18:30] VITALS: BP 141/63; PULSE 69; RESP 18; TEMP 97.9; O2SAT 96
[2017-01-24] MEDS ORDERED: BISACODYL 10 MG SUPP RECTAL PRN (19:30)
[2017-01-24] MEDS ORDERED: NALOXONE HCL 0.4 MG/ML AMP IV PRN (19:30)
[2017-01-24] MEDS ORDERED: SODIUM CHLORIDE 0.9% FLUSH 10 ML FLUSH IV FLUSH PRN ×2 (19:30→20:15)
[2017-01-24] MEDS ORDERED: LACTULOSE SYRUP 20 GM/30 ML CUP PO PRN (19:30)
[2017-01-24] MEDS ORDERED: ONDANSETRON HCL 4 MG/2 ML VIAL IVP PRN (19:30)
[2017-01-24] MEDS ORDERED: MAGNESIUM HYDROXIDE SUSP 30 ML CUP PO PRN (19:30)
[2017-01-24] MEDS ORDERED: SENNOSIDES 8.6 MG TAB PO PRN (19:30)
[2017-01-24] MEDS ORDERED: SODIUM CHLOR 0.9% 1000 ML INJ 1,000 ML IV SCH (20:00)
--- NOTE | 2017-01-24 20:10 | HHI.HP ---
HPI [facility] Hospitalists Primary Care Physician Leander Marcus MD Admission Diagnosis infected wound on back Diagnoses: (1) Encephalopathy Diagnosis: Principal (2) Infected surgical wound Diagnosis: Principal (3) Dehydration Diagnosis: Principal Travel History International Travel<30 Days: No Contact w/Intl Traveler <30 Da: No Traveled to Known Affected Are: No History of Present Illness This is a 76-year-old female with a PMH of HTN, Hyperlipidemia and Lumbar Wound was brought to the ER by EMS secondary to AMS. Per , patient is admitted to be progressively lethargic over the last 1-2 days, falling asleep while eating and decreasingly verbal. No reported fever or chills. Recent admit 01/09-01/21/17 for Infected Surgical Wound, s/p L4-L5 Laminectomy 05/24/15 w/ wound infection s/p debridement 06/08/15, developed non-healing granuloma and underwent debridement w/ resection 04/24/16. Had presented to [facility] w/ complaints of severe back pain and transferred to [place] 01/09/17 for abnormal fluid collection at L4-L5, s/p eval by Dr. Morrissey w/ I&D 01/17/17. Wound Culture 01/09/17 +MRSA. S/p eval by ID w/ recommendation to continue IV Vanc x4-6 wks. HHC following, noted pt to have AMS today w/ drainage from lumbar wound and referred to ER. On arrival, BP 183/77, HR 63, O2 sat 96% on RA, Afebrile. WBC normal. Hemoglobin 8.8. GFR 70. Lactic Acid 0.5. INR 1.1. UA negative. CXR with no infiltrate, PICC line in good position. While in the ER, patient difficult to arouse, waxing and waning mental status-conversive at times, altered at others. S/p Blood/Wound Cultures in ER, in addition to Clinda Review of Systems ROS: Unable to obtain secondary to AMS. 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 No h/o DM or CAD Social History PAST SOCIAL HISTORY: Negative frock all, tobacco or drugs. Physical Exam Vital Signs Vital Signs Date Time Temp Pulse Resp B/P Pulse Ox O2 Delivery O2 Flow Rate FiO2 01/24/17 18:30 97.9 69 18 141/63 96 Room Air 01/24/17 16:57 98.0 63 17 183/77 96 Room Air 01/24/17 16:53 96 Room Air 01/24/17 16:53 18 96 Room Air 01/24/17 16:28 66 18 96 Room Air 01/24/17 16:12 97.5 66 25 169/116 94 Physical Exam PE: GENERAL: Elderly white female in no acute distress. Lethargic, difficult to arouse, wakes intermittently and answers few questions. HEENT: PERRLA, EOMI. No scleral icterus or conjunctival pallor. No lid lag or facial droop. CARDIOVASCULAR: Regular rate and rhythm. No obvious murmurs to auscultation. No chest tenderness to palpation. RESPIRATORY: No obvious rhonchi or wheezing. Clear to auscultation. Breath sounds equal bilaterally. GASTROINTESTINAL: Abdomen soft, non-tender, nondistended. BS normal. MUSCULOSKELETAL: Extremities without clubbing, cyanosis, or edema. No obvious deformities. Lumbar wound w/ sutures in place, no surrounding erythema, +serous drainage NEUROLOGICAL: Lethargic, wakes intermittently. No focal neurologic deficits. Moving both upper and lower extremities spontaneously. Laboratory Laboratory Tests Test 01/24/17 17:00 White Blood Count 5.4 Red Blood Count 3.11 Hemoglobin 8.8 Hematocrit 26.9 Mean Corpuscular Volume 86.5 Mean Corpuscular Hemoglobin 28.1 Mean Corpuscular Hemoglobin 32.5 Concent Red Cell Distribution Width 14.1 Platelet Count 299 Mean Platelet Volume 8.0 Neutrophils (%) (Auto) 57.2 Lymphocytes (%) (Auto) 24.7 Monocytes (%) (Auto) 13.7 Eosinophils (%) (Auto) 3.1 Basophils (%) (Auto) 1.3 Neutrophils # (Auto) 3.1 Lymphocytes # (Auto) 1.3 Monocytes # (Auto) 0.7 Eosinophils # (Auto) 0.2 Basophils # (Auto) 0.1 CBC Comment DIFF FINAL Differential Comment Prothrombin Time 12.1 Prothromb Time International 1.1 Ratio Activated Partial 28.5 Thromboplast Time Urine Color YELLOW Urine Turbidity HAZY Urine pH 5.5 Urine Specific [place] 1.019 Urine Protein TRACE Urine Glucose (UA) NEG Urine Ketones NEG Urine Occult Blood NEG Urine Nitrite NEG Urine Bilirubin NEG Urine Urobilinogen LESS THAN 2.0 Urine Leukocyte Esterase NEG Urine RBC 7 Urine Amorphous Sediment RARE Urine Hyaline Casts 8 Urine Mucus FEW Microscopic Urinalysis Comment CATH-CULT NOT IND Sodium Level 142 Potassium Level 4.3 Chloride Level 111 Carbon Dioxide Level 25.8 Anion Gap 5 Blood Urea Nitrogen 14 Creatinine 0.80 Estimat Glomerular Filtration 70 Rate Random Glucose 81 Lactic Acid Level 0.5 Calcium Level 8.7 Total Bilirubin 0.2 Aspartate Amino Transf 16 (AST/SGOT) Alanine Aminotransferase 14 (ALT/SGPT) Alkaline Phosphatase 103 Total Protein 6.9 Albumin 3.0 Date/Time Procedure Status Source Growth 01/24/17 17:00 Gram Stain Received Wound Back Pending 01/24/17 17:00 Wound Culture Received Wound Back Pending 01/24/17 17:00 Aerobic Blood Culture Received Blood Peripheral Pending 01/24/17 17:00 Anaerobic Blood Culture Received Blood Peripheral Pending Result Diagram: 01/24/17 1700 01/24/17 1700 Assessment and Plan Problem List: (1) Encephalopathy ICD Code: G93.40 Status: Acute (2) Infected surgical wound ICD Code: T81.4XXA Status: Acute (3) Dehydration ICD Code: E86.0 Status: Acute Assessment and Plan A/P: 1. Encephalopathy: Unclear etiology. Significant lethargy w/ intermittent episodes of arousal. Afebrile, no evidence of sepsis. U/a negative, CXR w/ no acute infiltrate, images reviewed by me. Surgical wound w/ serous drainage, s/ p Blood/Wound Culture, follow up cultures, continue IV Vanc, s/p Clinda in ER. Check CT Head. Neuro Checks. 2. Infected Surgical Wound: Recent admit 01/09-01/21/17 for L4-L5 surgical wound s/p debridement 01/17/[address] Morrissey, wound cultures 01/09/17 +MRSA, s/p eval by ID, recommendation for long-term IV Vanc x4-6wks via PICC. Last dose Vanc today. Will continue w/ IV Vanc. +serous drainage from wound, no foul odor. In light of AMS w/ recent infected surgical wound will obtain MRI L-Spine for further eval. NxSx as needed. 3. Dehydration: GFR 70, previously 74. BUN/Creatinine normal. IVF for hydration, repeat labs in am. 4. DVT Prophylaxis: SCD/Teds. 5. Social work for d/c planning as needed. 6. Case discussed w/ ER physician and w/ Active Directory Architect at length. Physician Certification 2 Midnight Certification Type: Admission for Inpatient Services Order for Inpatient Services The services are ordered in accordance with Medicare regulations or non- Medicare payer requirements, as applicable. In the case of services not specified as inpatient-only, they are appropriately provided as inpatient services in accordance with the 2-midnight benchmark. Estimated LOS (days): 2 days is the estimated time the patient will need to remain in the hospital, assuming treatment plan goals are met and no additional complications. Post-Hospital Plan: Not yet determined Problem Qualifiers (1) Infected surgical wound: Qualified Code: T81.4XXA - Postoperative wound infection, initial encounter Nan Vela MD Jan 24, 2017 20:10
[2017-01-24 20:15] VITALS: BP 172/70; PULSE 68; RESP 14; O2SAT 99
[2017-01-24] MEDS ORDERED: ACETAMINOPHEN 325 MG TAB PO PRN (20:15)
[2017-01-24] MEDS ORDERED: Vancomycin Consult Pharmacy 1 EA OTHER SCH (20:15)
[2017-01-24] MEDS ORDERED: DEXTROSE 50% IN WATER 50 ML VIAL(D50) ONE (20:33)
[2017-01-24] MEDS ORDERED: MISCELLANEOUS NURSING INFORMATION XX SCH (20:45)
[2017-01-24] MEDS ORDERED: CHLORHEXIDINE GLUCONATE 2 % 1 PACK (2 CLOTHS) TOP PRN (20:45)
[2017-01-24] MEDS: SODIUM CHLOR 0.9% 1000 ML INJ 1,000 ML IV SCH (21:00)
[2017-01-24] MEDS: DOCUSATE SODIUM 50 MG/SENNA 8.6 MG TAB PO SCH (21:00)
[2017-01-24] MEDS: SODIUM CHLORIDE 0.9% FLUSH 10 ML FLUSH IV FLUSH SCH (21:00)
[2017-01-24] MEDS ORDERED: SODIUM CHLORIDE 0.9% FLUSH 10 ML FLUSH IV FLUSH SCH (21:00)
--- NOTE | 2017-01-24 21:19 | RADRPT ---
EXAM DATE/TIME: 01/24/2017 20:41 [facility] COMPARISON: CT BRAIN W/O CONTRAST, November 06, 2016, 15:49. INDICATIONS : Altered mental status. RADIATION DOSE: 56.35 CTDIvol (mGy) MEDICAL HISTORY : None SURGICAL HISTORY : section. Appendectomy.D & C ENCOUNTER: Initial ACUITY: 1 day PAIN SCALE: 0/10 LOCATION: cranial TECHNIQUE: Multiple contiguous axial images were obtained of the head. Using automated exposure control and adj ustment of the mA and/or kV according to patient size, radiation dose was kept as low as reasonably a chievable to obtain optimal diagnostic quality images. DICOM format image data is available electro nically for review and comparison. FINDINGS: CEREBRUM: The ventricles are normal for age. No evidence of midline shift, mass lesion, hemorrhage or acute in farction. No extra-axial fluid collections are seen. POSTERIOR FOSSA: The cerebellum and brainstem are intact. The 4th ventricle is midline. The cerebellopontine angle i s unremarkable. EXTRACRANIAL: The visualized portion of the orbits is intact. SKULL: The calvaria is intact. No evidence of skull fracture. CONCLUSION: Negative noncontrast CT brain. Sav Medina MD on January 24, 2017 at 21:16 Board Certified Radiologist. This report was verified electronically.
[2017-01-24] MEDS ORDERED: GADODIAMIDE PF 287 MG/ML 5 ML VIAL (for RAD MRI) IV ONE (22:09)
[2017-01-24 22:30] VITALS: BP 134/66; PULSE 74; RESP 16; O2SAT 98
--- NOTE | 2017-01-24 22:52 | RADRPT ---
EXAM DATE/TIME: 01/24/2017 21:46 [facility] COMPARISON: MRI LUMBAR SPINE W & W/O CONTRAST, January 14, 2017, 10:01. INDICATIONS : Osteomyelitis. CONTRAST: 12 cc Omniscan (gadodiamide) IV MEDICAL HISTORY : Carcinoma, breast. SURGICAL HISTORY : Hysterectomy. section. Fusion, lumbar. Cholecystectomy. Breast implants. Appendectomy. ENCOUNTER: Subsequent ACUITY: 1 day PAIN SCORE: 5/10 LOCATION: Lower back. TECHNIQUE: Multiplanar multisequence MRI of the lumbar spine was performed with and without contrast. FINDINGS: Patient had MRI of the lumbar spine with without contrast on 01/14/17 but are demonstrated spinal sten osis at L1 to neuroforaminal stenosis at L4-5, lipoma of the filum terminale, and normal configuratio n 2 transpedicular posterior fixation L2-5. On today's MRI performed with and without contrast, the configuration of the thecal sac is very simil ar including the spinal stenosis at L1-2. No epidural fluid collections seen. On the postcontrast i mages, stable pattern of enhancement along the right laminectomy site at at L4-5. There has been an increase in the amount of subcutaneous fluid superficial to L4-5. The fluid collection measures 2.9 x 0.9 cm. CONCLUSION: The only change in the appearance of the lumbar spine when compared to 01/14/17 is an increase in the amount of fluid in the cutaneous soft tissues superficial to L4-5, now measuring 2.0 x 0.9 cm per Sav Medina MD on January 24, 2017 at 22:45 Board Certified Radiologist. This report was verified electronically.
[2017-01-25] VITALS (7 sets, daily range): BP systolic 150–185; BP diastolic 67–85; PULSE 74–93; RESP 11–18; TEMP 96.5–97.7; O2SAT 95–97
[2017-01-25] MEDS: CHLORHEXIDINE GLUCONATE 2 % 1 PACK (2 CLOTHS) TOP SCH ×2 (00:04→20:14)
[2017-01-25] MEDS ORDERED: ALPRAZolam 0.5 MG TAB PO ONE (03:15)
[2017-01-25 05:10] LABS: AUTOMATED NEUTROPHIL # 4.2 TH/MM3 (1.8-7.7); BASOPHIL # 0.1 TH/MM3 (0-0.2); BASOPHIL % 0.9 % (0.0-2.0); EOSINOPHIL # 0.2 TH/MM3 (0-0.4); EOSINOPHIL % 2.8 % (0.0-4.0); HEMO FLAGS DIFF FINAL; LYMPH % 17.9 % (9.0-44.0); LYMPHOCYTE # 1.1 TH/MM3 (1.0-4.8); MEAN CELL VOLUME 86.2 FL (80.0-100.0); MEAN CORPUSCULAR HEMOGLOBIN 28.1 PG (27.0-34.0); MEAN CORPUSCULAR HGB CONC 32.7 % (32.0-36.0); MONO % 11.2 % (0.0-8.0); NEUT % 67.2 % (16.0-70.0); PLATELET COUNT 283 TH/MM3 (150-450); RED BLOOD COUNT 3.25 MIL/MM3 (4.00-5.30); RED CELL DISTRIBUTION WIDTH 13.8 % (11.6-17.2); WHITE BLOOD COUNT 6.3 TH/MM3 (4.0-11.0)
[2017-01-25] MEDS: SODIUM CHLOR 0.9% 1000 ML INJ 1,000 ML IV SCH ×3 (05:36→20:14)
[2017-01-25 05:41] LABS: BICARBONATE 25.1 MEQ/L (21.0-32.0)
[2017-01-25] MEDS: DOCUSATE SODIUM 50 MG/SENNA 8.6 MG TAB PO SCH ×2 (09:00→20:14)
[2017-01-25] MEDS: SODIUM CHLORIDE 0.9% FLUSH 10 ML FLUSH IV FLUSH SCH ×2 (09:00→20:14)
[2017-01-25] MEDS: CEFEPIME INJ 1,000 MG in SODIUM CHLORIDE 0.9% INJ 100 ML IV SCH ×2 (09:08→20:13)
--- NOTE | 2017-01-25 10:21 | HHI.PR ---
Subjective Remarks in no acute distress. now is awake, alert and oriented. no fever. d/w the RN and no other acute issues over night. Objective Vitals Vital Signs Date Time Temp Pulse Resp B/P Pulse Ox O2 Delivery O2 Flow Rate FiO2 01/25/17 08:00 97.7 93 17 156/72 97 01/25/17 00:00 96.5 74 11 165/76 96 01/24/17 22:30 74 16 134/66 98 01/24/17 20:15 68 14 172/70 99 Room Air 01/24/17 18:30 97.9 69 18 141/63 96 Room Air 01/24/17 16:57 98.0 63 17 183/77 96 Room Air 01/24/17 16:53 96 Room Air 01/24/17 16:53 18 96 Room Air 01/24/17 16:28 66 18 96 Room Air 01/24/17 16:12 97.5 66 25 169/116 94 I/O 01/24/17 01/24/17 01/24/17 01/25/17 01/25/17 01/25/17 07:00 15:00 23:00 07:00 15:00 23:00 Intake Total 1165 ml Balance 1165 ml Intake Oral 480 ml IV Total 685 ml # Voids 3 Result Diagram: 01/25/17 0337 01/25/17 0337 Imaging Last Impressions Chest X-Ray 01/24/17 1650 Signed Impressions: Service Date/Time: Tuesday, January 24, 2017 16:51 - CONCLUSION: PICC line in good position. Negative for consolidation.. Lexa Baer MD FACR Lumbar Spine MRI 01/24/17 0000 Signed Impressions: Service Date/Time: Tuesday, January 24, 2017 21:46 - CONCLUSION: The only change in the appearance of the lumbar spine when compared to 01/14/17 is an increase in the amount of fluid in the cutaneous soft tissues superficial to L4-5, now measuring 2.0 x 0.9 cm per Sav Medina MD Head CT 01/24/17 0000 Signed Impressions: Service Date/Time: Tuesday, January 24, 2017 20:41 - CONCLUSION: Negative noncontrast CT brain. Sav Medina MD Objective Remarks GENERAL: This is a well-nourished, well-developed patient, in no apparent distress. CARDIOVASCULAR: Regular rate and regular rhythm without murmurs, gallops, or rubs. RESPIRATORY: Clear to auscultation. Breath sounds equal bilaterally. No wheezes , rales, or rhonchi. GASTROINTESTINAL: Abdomen soft, non-tender, nondistended. Normal, active bowel sounds MUSCULOSKELETAL: Extremities without clubbing, cyanosis, or edema. NEURO: Alert & Oriented x4 to person, place, time, situation. Moves all ext x4 Medications and IVs Current Medications Clindamycin Phosphate 600 mg/ Sodium Chloride 104 ml @ 208 mls/hr ONCE ONCE IV Last administered on 01/24/17 17:32; Start 01/24/17 at 17:00; Stop 01/24/17 at 17:29; Status DC Vancomycin HCl 1000 mg/Sodium Chloride 250 ml @ 250 mls/hr ONCE ONCE IV Last administered on 01/24/17 17:02; Start 01/24/17 at 17:00; Stop 01/24/17 at 17:31; Status DC Sodium Chloride (NS 1000 ml Inj) 1,000 ml @ 100 mls/hr Q10H IV Last administered on 01/24/17 20:15; Start 01/24/17 at 20:00; Stop 01/24/17 at 20:25; Status DC Sodium Chloride (NS Flush) 2 ml UNSCH PRN IV FLUSH FLUSH AFTER USING IV ACCESS ; Start 01/24/17 at 19:30; Stop 01/24/17 at 20:25; Status DC Sodium Chloride (NS Flush) 2 ml BID IV FLUSH ; Start 01/24/17 at 21:00; Stop 01/24 at 21:00; Status DC Ondansetron HCl (Zofran Inj) 4 mg Q6H PRN IVP NAUSEA OR VOMITING; Start at 19:30 Naloxone HCl (Narcan Inj) 0.4 mg UNSCH PRN IV SEE LABEL COMMENTS; Start at 19:30 Senna/Docusate Sodium (Dorothy-Colace) 1 tab BID PO Last administered on 01/25/17 09:00; Start 01/24/17 at 21:00 Magnesium Hydroxide (Milk Of Magnesia Liq) 30 ml Q12H PRN PO MILD - MODERATE CONSTIPATION; Start 01/24/17 at 19:30 Sennosides (Senokot) 17.2 mg Q12H PRN PO MODERATE - SEVERE CONSTIPATION; Start 01/24/17 at 19:30 Bisacodyl (Dulcolax Supp) 10 mg DAILY PRN RECTAL SEVERE CONSITIPATION; Start at 19:30 Lactulose 30 ml 30 ml DAILY PRN PO SEVERE CONSITIPATION; Start 01/24/17 at 19:30 Pharmacy Profile Note 0 ml @ 0 mls/hr UNSCH OTHER ; Start 01/24/17 at 20:15 Cefepime HCl 1000 mg/Sodium Chloride 100 ml @ 200 mls/hr Q12H IV Last administered on 01/25/17 09:08; Start 01/25/17 at 09:00 Sodium Chloride (NS 1000 ml Inj) 1,000 ml @ 100 mls/hr Q10H IV Last administered on 01/25/17 05:36; Start 01/24/17 at 21:00 Sodium Chloride (NS Flush) 2 ml UNSCH PRN IV FLUSH FLUSH AFTER USING IV ACCESS ; Start 01/24/17 at 20:15 Sodium Chloride (NS Flush) 2 ml BID IV FLUSH ; Start 01/24/17 at 21:00 Acetaminophen (Tylenol) 650 mg Q6H PRN PO FEVER/PAIN SCALE 1 TO 2 Last administered on 01/25/17 09:10; Start 01/24/17 at 20:15 Dextrose (D50w (Vial) Inj) 50 ml STK-MED ONCE .ROUTE ; Start 01/24/17 at 20:33; Stop 01/24/17 at 20:34; Status DC Miscellaneous Information 1 Q361D XX ; Start 01/24/17 at 20:45 Chlorhexidine Gluconate (Chlorhexidine 2% Cloth) 3 pack Taper DAILY@04 TOP ; Start 01/25/17 at 04:00; Stop 01/21/18 at 03:59 Chlorhexidine Gluconate 3 pack 3 pack UNSCH PRN TOP HYGIENIC CARE; Start at 20:45 Vancomycin HCl/ Sodium Chloride (Vancomycin Inj/ NS 250 ml Inj) 262.5 ml @ 250 mls/hr Q24H IV ; Start 01/25/17 at 14:00 Miscellaneous Information SPECIFIC LAB TO BE RYLEY... ONCE ONCE .XX ; Start at 13:45; Stop 01/27/17 at 13:46 Gadodiamide (Omniscan Pf Inj) 12 ml STK-MED ONCE IV Last administered on 22:09; Start 01/24/17 at 22:09; Stop 01/24/17 at 22:10; Status DC Alprazolam (Xanax) 0.5 mg ONCE ONCE PO Last administered on 01/25/17 03:17; Start 01/25/17 at 03:15; Stop 01/25/17 at 03:16; Status DC A/P Assessment and Plan A/P 1. Encephalopathy: Unclear etiology.improved- Afebrile, no evidence of sepsis. U/a negative, CXR w/ no acute infiltrate. Surgical wound w/ serous drainage, s/p Blood/Wound Culture, follow up cultures. continue IV antibiotics. CT head with no acute abnormality. 2. Infected Surgical Wound: Recent admit 01/09-01/21/17 for L4-L5 surgical wound s/p debridement 01/17/[address] Morrissey, wound cultures 01/09/17 +MRSA, s/p eval by ID, recommendation for long-term IV Vanc x4-6wks via PICC. Will continue w/ IV Vanc. MRI lumbar spine was reviewed with ; no further surgical interventions needed at this time. 3. Dehydration: IVF for hydration, repeat labs in am. 4. DVT Prophylaxis: SCD/Teds. 5.consult PT and case management. Elida Neves MD Jan 25, 2017 10:21
[2017-01-25] MEDS: LACTOBACILLUS ACIDOPHILUS TAB PO SCH ×2 (13:39→17:50)
[2017-01-25] MEDS: VANCOMYCIN INJ 1,250 MG in SODIUM CHLOR 0.9% 250 ML INJ 250 ML IV SCH (13:41)
--- NOTE | 2017-01-25 13:59 | EKG ---
Date Performed: 01/24/2017 Time Performed: 16:33:04 PTAGE: 76 years EKG: Sinus rhythm Since previous tracing, no significant change noted NORMAL ECG PREVIOUS TRACING : 11/06/2016 15.33 DOCTOR: Shilpa Mora Interpretating Date/Time 01/25/2017 13:56:52
[2017-01-25] MEDS: ALPRAZolam 0.5 MG TAB PO PRN (16:00)
[2017-01-25] MEDS: cloNIDine HCL 0.1 MG TAB PO PRN (16:36)
[2017-01-25] MEDS: [UNRECOGNIZED DRUG - OTHER] EACH EYE SCH (20:13)
[2017-01-25] MEDS: CYCLOSPORINE OPTH 0.05% EACH EYE SCH (20:13)
[2017-01-25] MEDS: METOPROLOL TARTRATE 25 MG TAB PO SCH (20:14)
[2017-01-25] MEDS: PRAVASTATIN SOD 80 MG TAB PO SCH (20:14)
[2017-01-26 00:02] VITALS: BP 160/63; PULSE 81; RESP 17; TEMP 97.6; O2SAT 93
[2017-01-26 04:22] VITALS: BP 161/72; PULSE 82; RESP 17; TEMP 97.4; O2SAT 94
[2017-01-26 09:00] VITALS: BP 177/77; PULSE 83; RESP 19; TEMP 96.5; O2SAT 95
[2017-01-26] MEDS: CYCLOSPORINE OPTH 0.05% EACH EYE SCH ×2 (09:00→21:00)
[2017-01-26] MEDS: METOPROLOL TARTRATE 25 MG TAB PO SCH ×2 (09:00→21:18)
[2017-01-26] MEDS: [UNRECOGNIZED DRUG - OTHER] EACH EYE SCH ×2 (09:00→21:00)
[2017-01-26] MEDS: SODIUM CHLORIDE 0.9% FLUSH 10 ML FLUSH IV FLUSH SCH ×2 (09:00→21:18)
[2017-01-26] MEDS: LACTOBACILLUS ACIDOPHILUS TAB PO SCH ×3 (09:42→17:42)
[2017-01-26] MEDS: DOCUSATE SODIUM 50 MG/SENNA 8.6 MG TAB PO SCH ×2 (09:42→21:00)
[2017-01-26] MEDS: CEFEPIME INJ 1,000 MG in SODIUM CHLORIDE 0.9% INJ 100 ML IV SCH ×2 (09:43→21:19)
[2017-01-26] MEDS: SODIUM CHLOR 0.9% 1000 ML INJ 1,000 ML IV SCH ×2 (09:43→21:19)
--- NOTE | 2017-01-26 09:43 | HHI.PR ---
Subjective Remarks awake, alert and oriented. in no acute distress. however is complaining of low back pain and she says that she couldn't sleep well last night. BP is on high side. d/w the RN at the bedside. Objective Vitals Vital Signs Date Time Temp Pulse Resp B/P Pulse Ox O2 Delivery O2 Flow Rate FiO2 01/26/17 04:22 97.4 82 17 161/72 94 01/26/17 00:02 97.6 81 17 160/63 93 01/25/17 20:13 96.6 81 17 183/84 95 01/25/17 20:10 78 01/25/17 17:00 172/77 01/25/17 16:00 96.9 86 18 185/85 95 01/25/17 12:00 97.3 89 17 150/67 97 01/25/17 10:10 18 I/O 01/25/17 01/25/17 01/25/17 01/26/17 01/26/17 01/26/17 07:00 15:00 23:00 07:00 15:00 23:00 Intake Total 1165 ml 600 ml 1140 ml 1085 ml Output Total 750 ml Balance 1165 ml -150 ml 1140 ml 1085 ml Intake Oral 480 ml 600 ml 360 ml 360 ml IV Total 685 ml 780 ml 725 ml Output Urine Total 750 ml # Voids 3 3 4 # Bowel Movements 1 3 4 Result Diagram: 01/25/17 0337 01/25/17 0337 Imaging Last Impressions Chest X-Ray 01/24/17 1650 Signed Impressions: Service Date/Time: Tuesday, January 24, 2017 16:51 - CONCLUSION: PICC line in good position. Negative for consolidation.. Lexa Baer MD FACR Lumbar Spine MRI 01/24/17 0000 Signed Impressions: Service Date/Time: Tuesday, January 24, 2017 21:46 - CONCLUSION: The only change in the appearance of the lumbar spine when compared to 01/14/17 is an increase in the amount of fluid in the cutaneous soft tissues superficial to L4-5, now measuring 2.0 x 0.9 cm per Sav Medina MD Head CT 01/24/17 0000 Signed Impressions: Service Date/Time: Tuesday, January 24, 2017 20:41 - CONCLUSION: Negative noncontrast CT brain. Sav Medina MD Objective Remarks GENERAL: This is a well-nourished, well-developed patient, in no apparent distress. CARDIOVASCULAR: Regular rate and regular rhythm without murmurs, gallops, or rubs. RESPIRATORY: Clear to auscultation. Breath sounds equal bilaterally. No wheezes , rales, or rhonchi. GASTROINTESTINAL: Abdomen soft, non-tender, nondistended. Normal, active bowel sounds MUSCULOSKELETAL: Extremities without clubbing, cyanosis, or edema. NEURO: Alert & Oriented x4 to person, place, time, situation. Moves all ext x4 Medications and IVs Current Medications Clindamycin Phosphate 600 mg/ Sodium Chloride 104 ml @ 208 mls/hr ONCE ONCE IV Last administered on 01/24/17 17:32; Start 01/24/17 at 17:00; Stop 01/24/17 at 17:29; Status DC Vancomycin HCl 1000 mg/Sodium Chloride 250 ml @ 250 mls/hr ONCE ONCE IV Last administered on 01/24/17 17:02; Start 01/24/17 at 17:00; Stop 01/24/17 at 17:31; Status DC Sodium Chloride (NS 1000 ml Inj) 1,000 ml @ 100 mls/hr Q10H IV Last administered on 01/24/17 20:15; Start 01/24/17 at 20:00; Stop 01/24/17 at 20:25; Status DC Sodium Chloride (NS Flush) 2 ml UNSCH PRN IV FLUSH FLUSH AFTER USING IV ACCESS ; Start 01/24/17 at 19:30; Stop 01/24/17 at 20:25; Status DC Sodium Chloride (NS Flush) 2 ml BID IV FLUSH ; Start 01/24/17 at 21:00; Stop 01/24 at 21:00; Status DC Ondansetron HCl (Zofran Inj) 4 mg Q6H PRN IVP NAUSEA OR VOMITING; Start at 19:30 Naloxone HCl (Narcan Inj) 0.4 mg UNSCH PRN IV SEE LABEL COMMENTS; Start at 19:30 Senna/Docusate Sodium (Dorothy-Colace) 1 tab BID PO Last administered on 01/25/17 09:00; Start 01/24/17 at 21:00 Magnesium Hydroxide (Milk Of [employer] Liq) 30 ml Q12H PRN PO MILD - MODERATE CONSTIPATION; Start 01/24/17 at 19:30 Sennosides (Senokot) 17.2 mg Q12H PRN PO MODERATE - SEVERE CONSTIPATION; Start 01/24/17 at 19:30 Bisacodyl (Dulcolax Supp) 10 mg DAILY PRN RECTAL SEVERE CONSITIPATION; Start at 19:30 Lactulose 30 ml 30 ml DAILY PRN PO SEVERE CONSITIPATION; Start 01/24/17 at 19:30 Pharmacy Profile Note 0 ml @ 0 mls/hr UNSCH OTHER ; Start 01/24/17 at 20:15 Cefepime HCl 1000 mg/Sodium Chloride 100 ml @ 200 mls/hr Q12H IV Last administered on 01/25/17 20:13; Start 01/25/17 at 09:00 Sodium Chloride (NS 1000 ml Inj) 1,000 ml @ 100 mls/hr Q10H IV Last administered on 01/25/17 20:14; Start 01/24/17 at 21:00 Sodium Chloride (NS Flush) 2 ml UNSCH PRN IV FLUSH FLUSH AFTER USING IV ACCESS ; Start 01/24/17 at 20:15 Sodium Chloride (NS Flush) 2 ml BID IV FLUSH Last administered on 01/25/17 20: 14; Start 01/24/17 at 21:00 Acetaminophen (Tylenol) 650 mg Q6H PRN PO FEVER/PAIN SCALE 1 TO 2 Last administered on 01/25/17 09:10; Start 01/24/17 at 20:15 Dextrose (D50w (Vial) Inj) 50 ml STK-MED ONCE .ROUTE ; Start 01/24/17 at 20:33; Stop 01/24/17 at 20:34; Status DC Miscellaneous Information 1 Q361D XX ; Start 01/24/17 at 20:45 Chlorhexidine Gluconate (Chlorhexidine 2% Cloth) 3 pack Taper DAILY@04 TOP ; Start 01/25/17 at 04:00; Stop 01/21/18 at 03:59 Chlorhexidine Gluconate 3 pack 3 pack UNSCH PRN TOP HYGIENIC CARE; Start at 20:45 Vancomycin HCl/ Sodium Chloride (Vancomycin Inj/ NS 250 ml Inj) 262.5 ml @ 250 mls/hr Q24H IV Last administered on 01/25/17 13:41; Start 01/25/17 at 14:00 Miscellaneous Information SPECIFIC LAB TO BE ... ONCE ONCE .XX ; Start at 13:45; Stop 01/27/17 at 13:46 Gadodiamide (Omniscan Pf Inj) 12 ml STK-MED ONCE IV Last administered on 22:09; Start 01/24/17 at 22:09; Stop 01/24/17 at 22:10; Status DC Alprazolam (Xanax) 0.5 mg ONCE ONCE PO Last administered on 01/25/17 03:17; Start 01/25/17 at 03:15; Stop 01/25/17 at 03:16; Status DC Alprazolam (Xanax) 0.5 mg TID PRN PO ANXIETY Last administered on 01/25/17 16: 00; Start 01/25/17 at 10:45 Lactobacillus Acidophilus (Lactinex) 1 tab TID PO Last administered on 17:50; Start 01/25/17 at 13:00 Metoprolol Tartrate (Lopressor) 25 mg BID PO Last administered on 01/25/17 20: 14; Start 01/25/17 at 21:00 Pravastatin Sodium (Pravachol) 80 mg HS PO Last administered on 01/25/17 20:14 ; Start 01/25/17 at 21:00 Patient Own Medication 1 ea BID EACH EYE DRYEYE; Start 01/25/17 at 21:00 Clonidine (Catapres) 0.1 mg Q8HR PRN PO SBP> OR = 180, DBP> OR = 100 Last administered on 01/25/17 16:36; Start 01/25/17 at 16:15 A/P Assessment and Plan A/P 1. Encephalopathy: Unclear etiology.improved- Afebrile, no evidence of sepsis. U/a negative, CXR w/ no acute infiltrate. Surgical wound w/ minimal serous drainage, s/p Blood/Wound Culture, follow up cultures. continue IV antibiotics. CT head with no acute abnormality. 2. Infected Surgical Wound: Recent admit 01/09-01/21/17 for L4-L5 surgical wound s/p debridement 01/17/[address] Morrissey, wound cultures 01/09/17 +MRSA, s/p eval by ID, recommendation for long-term IV Vanc x4-6wks via PICC. Will continue w/ IV Vanc. dc Cefepime if repeated cultures remain negative. MRI lumbar spine was reviewed with ; no further surgical interventions needed at this time; recommended that current treatment to be continued. 3. Dehydration: improved after IV fluid. 4. DVT Prophylaxis: SCD/Teds. 5.consulted PT and case management. Discharge Planning discharge tomorrow - pending PT evaluation and cultures. outpatient IV antibiotic per ID recommendations from recent admission. Elida Neves MD Jan 26, 2017 09:43
--- NOTE | 2017-01-26 11:55 | HHI.FF ---
Face to Face Verification Diagnosis: (1) Paraspinal abscess Physical Therapy Order: Evaluate and Treat Home Health Nursing Order: Medical education Signs/symptoms of disease process Medication education-adverse effect Nursing assessment with vital signs IV medication administration Instructions: IV antibiotic administration. I have seen patient Karma Parsons on 01/26/17. My clinical findings support the need for the requested home health care services because: Ltd mobility - disease progression I certify that my clinical findings support that this patient is homebound because: Unsteady gait/balance Elida Neves MD Jan 26, 2017 11:55
[2017-01-26 12:00] VITALS: BP 179/77; PULSE 79; RESP 18; TEMP 97; O2SAT 97
[2017-01-26] MEDS: VANCOMYCIN INJ 1,250 MG in SODIUM CHLOR 0.9% 250 ML INJ 250 ML IV SCH (12:20)
[2017-01-26] MEDS: ACETAMINOPHEN/HYDROcodone 325 MG/5 MG TAB PO PRN (12:20)
[2017-01-26] MEDS: LOSARTAN 50 MG TAB PO SCH (12:20)
[2017-01-26 16:00] VITALS: BP 186/86; PULSE 77; RESP 17; TEMP 96.9; O2SAT 94
[2017-01-26 20:39] VITALS: BP 191/81; PULSE 94; RESP 17; TEMP 96.1; O2SAT 97
[2017-01-26] MEDS: PRAVASTATIN SOD 80 MG TAB PO SCH (21:17)
[2017-01-26] MEDS: CHLORHEXIDINE GLUCONATE 2 % 1 PACK (2 CLOTHS) TOP SCH (21:19)
[2017-01-26] MEDS: ALPRAZolam 0.5 MG TAB PO PRN (21:26)
[2017-01-27 00:01] VITALS: BP 165/73; PULSE 80; RESP 17; TEMP 97.1; O2SAT 97
[2017-01-27 08:00] VITALS: BP 198/86; PULSE 78; RESP 14; TEMP 97.5; O2SAT 94
[2017-01-27] MEDS: DOCUSATE SODIUM 50 MG/SENNA 8.6 MG TAB PO SCH ×2 (08:03→21:00)
[2017-01-27] MEDS: METOPROLOL TARTRATE 25 MG TAB PO SCH ×2 (08:04→21:18)
[2017-01-27] MEDS: LACTOBACILLUS ACIDOPHILUS TAB PO SCH ×3 (08:04→17:16)
[2017-01-27] MEDS: CEFEPIME INJ 1,000 MG in SODIUM CHLORIDE 0.9% INJ 100 ML IV SCH (08:04)
[2017-01-27] MEDS: LOSARTAN 50 MG TAB PO SCH (08:04)
[2017-01-27] MEDS: SODIUM CHLOR 0.9% 1000 ML INJ 1,000 ML IV SCH (08:05)
[2017-01-27] MEDS: [UNRECOGNIZED DRUG - OTHER] EACH EYE SCH ×2 (08:05→21:00)
[2017-01-27] MEDS: CYCLOSPORINE OPTH 0.05% EACH EYE SCH ×2 (08:05→21:00)
[2017-01-27] MEDS: SODIUM CHLORIDE 0.9% FLUSH 10 ML FLUSH IV FLUSH SCH ×2 (08:05→21:18)
--- NOTE | 2017-01-27 08:14 | HHI.PR ---
Subjective Remarks resting comfortably with no distress. no fever. has some back pain. noted elevated BP's over night. d/w the RN and no acute issues over night. Objective Vitals Vital Signs Date Time Temp Pulse Resp B/P Pulse Ox O2 Delivery O2 Flow Rate FiO2 01/27/17 00:01 97.1 80 17 165/73 97 01/26/17 20:39 96.1 94 17 191/81 97 01/26/17 16:00 96.9 77 17 186/86 94 01/26/17 12:00 97.0 79 18 179/77 97 01/26/17 09:00 96.5 83 19 177/77 95 I/O 01/26/17 01/26/17 01/26/17 01/27/17 01/27/17 01/27/17 07:00 15:00 23:00 07:00 15:00 23:00 Intake Total 1085 ml 600 ml 550 ml 240 ml Output Total 1100 ml 1000 ml 1000 ml Balance 1085 ml -500 ml -450 ml -760 ml Intake Oral 360 ml 600 ml 360 ml 240 ml IV Total 725 ml 190 ml Output Urine Total 1100 ml 1000 ml 1000 ml # Voids 4 # Bowel Movements 4 4 1 1 Result Diagram: 01/25/17 0337 01/27/17 0620 Imaging Last Impressions Chest X-Ray 01/24/17 1650 Signed Impressions: Service Date/Time: Tuesday, January 24, 2017 16:51 - CONCLUSION: PICC line in good position. Negative for consolidation.. Lexa Baer MD FACR Lumbar Spine MRI 01/24/17 0000 Signed Impressions: Service Date/Time: Tuesday, January 24, 2017 21:46 - CONCLUSION: The only change in the appearance of the lumbar spine when compared to 01/14/17 is an increase in the amount of fluid in the cutaneous soft tissues superficial to L4-5, now measuring 2.0 x 0.9 cm per Sav Medina MD Head CT 01/24/17 0000 Signed Impressions: Service Date/Time: Tuesday, January 24, 2017 20:41 - CONCLUSION: Negative noncontrast CT brain. Sav Medina MD Objective Remarks GENERAL: This is a well-nourished, well-developed patient, in no apparent distress. CARDIOVASCULAR: Regular rate and regular rhythm without murmurs, gallops, or rubs. RESPIRATORY: Clear to auscultation. Breath sounds equal bilaterally. No wheezes , rales, or rhonchi. GASTROINTESTINAL: Abdomen soft, non-tender, nondistended. Normal, active bowel sounds MUSCULOSKELETAL: Extremities without clubbing, cyanosis, or edema. NEURO: Alert & Oriented x4 to person, place, time, situation. Moves all ext x4 Procedures none Medications and IVs Current Medications Clindamycin Phosphate 600 mg/ Sodium Chloride 104 ml @ 208 mls/hr ONCE ONCE IV Last administered on 01/24/17 17:32; Start 01/24/17 at 17:00; Stop 01/24/17 at 17:29; Status DC Vancomycin HCl 1000 mg/Sodium Chloride 250 ml @ 250 mls/hr ONCE ONCE IV Last administered on 01/24/17 17:02; Start 01/24/17 at 17:00; Stop 01/24/17 at 17:31; Status DC Sodium Chloride (NS 1000 ml Inj) 1,000 ml @ 100 mls/hr Q10H IV Last administered on 01/24/17 20:15; Start 01/24/17 at 20:00; Stop 01/24/17 at 20:25; Status DC Sodium Chloride (NS Flush) 2 ml UNSCH PRN IV FLUSH FLUSH AFTER USING IV ACCESS ; Start 01/24/17 at 19:30; Stop 01/24/17 at 20:25; Status DC Sodium Chloride (NS Flush) 2 ml BID IV FLUSH ; Start 01/24/17 at 21:00; Stop 01/24 at 21:00; Status DC Ondansetron HCl (Zofran Inj) 4 mg Q6H PRN IVP NAUSEA OR VOMITING; Start at 19:30 Naloxone HCl (Narcan Inj) 0.4 mg UNSCH PRN IV SEE LABEL COMMENTS; Start at 19:30 Senna/Docusate Sodium (Dorothy-Colace) 1 tab BID PO Last administered on 01/26/17 09:42; Start 01/24/17 at 21:00 Magnesium Hydroxide (Milk Of Magnesia Liq) 30 ml Q12H PRN PO MILD - MODERATE CONSTIPATION; Start 01/24/17 at 19:30 Sennosides (Senokot) 17.2 mg Q12H PRN PO MODERATE - SEVERE CONSTIPATION; Start 01/24/17 at 19:30 Bisacodyl (Dulcolax Supp) 10 mg DAILY PRN RECTAL SEVERE CONSITIPATION; Start at 19:30 Lactulose 30 ml 30 ml DAILY PRN PO SEVERE CONSITIPATION; Start 01/24/17 at 19:30 Pharmacy Profile Note 0 ml @ 0 mls/hr UNSCH OTHER ; Start 01/24/17 at 20:15 Cefepime HCl 1000 mg/Sodium Chloride 100 ml @ 200 mls/hr Q12H IV Last administered on 01/27/17 08:04; Start 01/25/17 at 09:00 Sodium Chloride (NS 1000 ml Inj) 1,000 ml @ 100 mls/hr Q10H IV Last administered on 01/27/17 08:05; Start 01/24/17 at 21:00 Sodium Chloride (NS Flush) 2 ml UNSCH PRN IV FLUSH FLUSH AFTER USING IV ACCESS ; Start 01/24/17 at 20:15 Sodium Chloride (NS Flush) 2 ml BID IV FLUSH Last administered on 01/26/17 21: 18; Start 01/24/17 at 21:00 Acetaminophen (Tylenol) 650 mg Q6H PRN PO FEVER/PAIN SCALE 1 TO 2 Last administered on 01/25/17 09:10; Start 01/24/17 at 20:15 Dextrose (D50w (Vial) Inj) 50 ml STK-MED ONCE .ROUTE ; Start 01/24/17 at 20:33; Stop 01/24/17 at 20:34; Status DC Miscellaneous Information 1 Q361D XX ; Start 01/24/17 at 20:45 Chlorhexidine Gluconate (Chlorhexidine 2% Cloth) 3 pack Taper DAILY@04 TOP ; Start 01/25/17 at 04:00; Stop 01/21/18 at 03:59 Chlorhexidine Gluconate 3 pack 3 pack UNSCH PRN TOP HYGIENIC CARE; Start at 20:45 Vancomycin HCl/ Sodium Chloride (Vancomycin Inj/ NS 250 ml Inj) 262.5 ml @ 250 mls/hr Q24H IV Last administered on 01/26/17 12:20; Start 01/25/17 at 14:00 Miscellaneous Information SPECIFIC LAB TO BE .. ONCE ONCE .XX ; Start at 13:45; Stop 01/27/17 at 13:46 Gadodiamide (Omniscan Pf Inj) 12 ml STK-MED ONCE IV Last administered on 22:09; Start 01/24/17 at 22:09; Stop 01/24/17 at 22:10; Status DC Alprazolam (Xanax) 0.5 mg ONCE ONCE PO Last administered on 01/25/17 03:17; Start 01/25/17 at 03:15; Stop 01/25/17 at 03:16; Status DC Alprazolam (Xanax) 0.5 mg TID PRN PO ANXIETY Last administered on 01/26/17 21: 26; Start 01/25/17 at 10:45 Lactobacillus Acidophilus (Lactinex) 1 tab TID PO Last administered on 08:04; Start 01/25/17 at 13:00 Metoprolol Tartrate (Lopressor) 25 mg BID PO Last administered on 01/27/17 08: 04; Start 01/25/17 at 21:00 Pravastatin Sodium (Pravachol) 80 mg HS PO Last administered on 01/26/17 21:17 ; Start 01/25/17 at 21:00 Patient Own Medication 1 ea BID EACH EYE DRYEYE; Start 01/25/17 at 21:00 Clonidine (Catapres) 0.1 mg Q8HR PRN PO SBP> OR = 180, DBP> OR = 100 Last administered on 01/25/17 16:36; Start 01/25/17 at 16:15 Acetaminophen/ Hydrocodone Bitart ([place] 5-325 Mg) 1 tab Q6H PRN PO PAIN 3-10 Last administered on 01/26/17 12:20; Start 01/26/17 at 09:45 Losartan Potassium (Cozaar) 100 mg DAILY PO Last administered on 01/27/17 08:04 ; Start 01/26/17 at 10:00 A/P Assessment and Plan A/P 1. Encephalopathy: Unclear etiology- polypharmacy?- now resolved.- Afebrile, no evidence of sepsis. U/a negative, CXR w/ no acute infiltrate. Surgical wound w/ minimal serous drainage, s/p Blood/Wound Culture which are negative so far. continue IV Vanco. CT head with no acute abnormality. 2. Infected Surgical Wound: Recent admit 01/09-01/21/17 for L4-L5 surgical wound s/p debridement 01/17/[address] Morrissey, wound cultures 01/09/17 +MRSA, s/p eval by ID, recommendation for long-term IV Vanc x4-6wks via PICC. Will continue w/ IV Vanc per ID recommendations recent admission: Vancomycin 1 gram IV q 24 hours Stop Treatment: Feb 20, 2017 Additional Information Venous access: PICC Line Additional Instructions [x] Peripheral flush and dressing changes per protocol [x] Implanted port and central laborer pipelines: * Implanted port: 10 ml Normal Saline followed by 5 ml Heparin 100 units/ml Heparin flush after each use and monthly to maintain. [] May leave port accessed during therapy. [] May leave peripheral site accessed for duration of therapy. [x] If patient has SOB or respiratory distress, check oxygen saturation. If less than 90% or clinical signs of respiratory distress, administer oxygen at 2 L/min. via nasal cannula and notify physician. [x] Anaphylaxis/Reaction orders: * Stop infusion. * Keep IV line open with saline flush. * Notify physician. * Monitor vital signs every 15 minutes until symptoms resolve. * Check Oxygen saturation; Oxygen at 2 L/min. via nasal cannula if less than 90% or clinical signs of respiratory distress. * Administer diphenhydramine (Benadryl) 25 mg IV STAT, (unless patient has received as pre-med). May repeat once, if necessary. * Solu-Cortef 250 mg IVP over 30-60 seconds, use 100 mg vials for each dissolution. * Epinephrine (1mg/1 ml) 0.3 mg subcutaneously or IVP now with any signs of respiratory distress. * Check with physician for new additional pre-med orders if patient is re- challenged or re-treated. [x] May remove PICC line when treatment complete, after confirming with Physician. [x] If the patient is admitted to the hospital, the ED, or transferred via [facility] , complete transfer form including medication reconciliation order sheet. Laboratory Tests Weekly Labs: BMP, CBC w/diff, SED Rate, Vancomycin Trough Additional Information Fax lab results to Dr Ricketts [phone] MRI lumbar spine was reviewed with ; no further surgical interventions needed at this time; recommended that current treatment to be continued. 3. Dehydration: improved after IV fluid. 4. DVT Prophylaxis: SCD/Teds. 5.consulted PT and case management. Discharge Planning dc home with [facility] - later today if BP stable. see med list. outpatient IV antibiotics per OD recommendations recent admission. d/w the patient and RN. d/w the case management. time spent 31 min. Elida Neves MD Jan 27, 2017 08:14
[2017-01-27] MEDS: ALPRAZolam 0.5 MG TAB PO PRN ×2 (08:15→21:24)
[2017-01-27] MEDS ORDERED: BACL10TA PO (08:21)
--- NOTE | 2017-01-27 08:21 | HHI.DS ---
Discharge Summary Admission Date Jan 24, 2017 at 19:08 Discharge Date: Jan 27, 2017 Admitting Diagnosis infected wound on back (1) Encephalopathy ICD Code: G93.40 Diagnosis: Principal (2) Infected surgical wound ICD Code: T81.4XXA Diagnosis: Secondary (3) Dehydration ICD Code: E86.0 Diagnosis: Secondary Procedures none Brief History - From Admission This is a 76-year-old female with a PMH of HTN, Hyperlipidemia and Lumbar Wound was brought to the ER by EMS secondary to AMS. Per , patient is admitted to be progressively lethargic over the last 1-2 days, falling asleep while eating and decreasingly verbal. No reported fever or chills. Recent admit 01/09-01/21/17 for Infected Surgical Wound, s/p L4-L5 Laminectomy 05/24/15 w/ wound infection s/p debridement 06/08/15, developed non-healing granuloma and underwent debridement w/ resection 04/24/16. Had presented to [facility] w/ complaints of severe back pain and transferred to [place] 01/09/17 for abnormal fluid collection at L4-L5, s/p eval by Dr. Morrissey w/ I&D 01/17/17. Wound Culture 01/09/17 +MRSA. S/p eval by ID w/ recommendation to continue IV Vanc x4-6 wks. C following, noted pt to have AMS today w/ drainage from lumbar wound and referred to ER. On arrival, BP 183/77, HR 63, O2 sat 96% on RA, Afebrile. WBC normal. Hemoglobin 8.8. GFR 70. Lactic Acid 0.5. INR 1.1. UA negative. CXR with no infiltrate, PICC line in good position. While in the ER, patient difficult to arouse, waxing and waning mental status-conversive at times, altered at others. S/p Blood/Wound Cultures in ER, in addition to Clinda CBC/BMP: 01/25/17 0337 01/27/17 0620 Significant Findings Laboratory Tests Test 01/24/17 01/25/17 17:00 03:37 Red Blood Count 3.11 MIL/MM3 3.25 MIL/MM3 (4.00-5.30) (4.00-5.30) Hemoglobin 8.8 GM/DL 9.1 GM/DL (11.6-15.3) (11.6-15.3) Hematocrit 26.9 % 28.0 % (35.0-46.0) (35.0-46.0) Monocytes (%) (Auto) 13.7 % 11.2 % (0.0-8.0) (0.0-8.0) Prothrombin Time 12.1 SEC (9.8-11.6) Urine Turbidity HAZY (CLEAR) Urine RBC 7 /hpf (0-3) Urine Mucus FEW /lpf (OCC) Chloride Level 111 MEQ/L 111 MEQ/L (98-107) (98-107) Estimat Glomerular Filtration 70 ML/MIN (>89) 87 ML/MIN (>89) Rate Albumin 3.0 GM/DL (3.4-5.0) Imaging Last Impressions Chest X-Ray 01/24/17 1650 Signed Impressions: Service Date/Time: Tuesday, January 24, 2017 16:51 - CONCLUSION: PICC line in good position. Negative for consolidation.. Lexa Baer MD FACR Lumbar Spine MRI 01/24/17 0000 Signed Impressions: Service Date/Time: Tuesday, January 24, 2017 21:46 - CONCLUSION: The only change in the appearance of the lumbar spine when compared to 01/14/17 is an increase in the amount of fluid in the cutaneous soft tissues superficial to L4-5, now measuring 2.0 x 0.9 cm per Sav Medina MD Head CT 01/24/17 0000 Signed Impressions: Service Date/Time: Tuesday, January 24, 2017 20:41 - CONCLUSION: Negative noncontrast CT brain. Sav Medina MD PE at Discharge GENERAL: This is a well-nourished, well-developed patient, in no apparent distress. CARDIOVASCULAR: Regular rate and regular rhythm without murmurs, gallops, or rubs. RESPIRATORY: Clear to auscultation. Breath sounds equal bilaterally. No wheezes , rales, or rhonchi. GASTROINTESTINAL: Abdomen soft, non-tender, nondistended. Normal, active bowel sounds MUSCULOSKELETAL: Extremities without clubbing, cyanosis, or edema. NEURO: Alert & Oriented x4 to person, place, time, situation. Moves all ext x4 Hospital Course 1. Encephalopathy: Unclear etiology- polypharmacy?- now resolved.- Afebrile, no evidence of sepsis. U/a negative, CXR w/ no acute infiltrate. Surgical wound w/ minimal serous drainage, s/p Blood/Wound Culture which are negative so far. continue IV Vanco. CT head with no acute abnormality. 2. Infected Surgical Wound: Recent admit 01/09-01/21/17 for L4-L5 surgical wound s/p debridement 01/17/[address] Morrissey, wound cultures 01/09/17 +MRSA, s/p eval by ID, recommendation for long-term IV Vanc x4-6wks via PICC. Will continue w/ IV Vanc per ID recommendations recent admission: Vancomycin 1 gram IV q 24 hours Stop Treatment: Feb 20, 2017 Additional Information Venous access: PICC Line Additional Instructions [x] Peripheral flush and dressing changes per protocol [x] Implanted port and central online content coordinator: * Implanted port: 10 ml Normal Saline followed by 5 ml Heparin 100 units/ml Heparin flush after each use and monthly to maintain. [] May leave port accessed during therapy. [] May leave peripheral site accessed for duration of therapy. [x] If patient has SOB or respiratory distress, check oxygen saturation. If less than 90% or clinical signs of respiratory distress, administer oxygen at 2 L/min. via nasal cannula and notify physician. [x] Anaphylaxis/Reaction orders: * Stop infusion. * Keep IV line open with saline flush. * Notify physician. * Monitor vital signs every 15 minutes until symptoms resolve. * Check Oxygen saturation; Oxygen at 2 L/min. via nasal cannula if less than 90% or clinical signs of respiratory distress. * Administer diphenhydramine (Benadryl) 25 mg IV STAT, (unless patient has received as pre-med). May repeat once, if necessary. * Solu-Cortef 250 mg IVP over 30-60 seconds, use 100 mg vials for each dissolution. * Epinephrine (1mg/1 ml) 0.3 mg subcutaneously or IVP now with any signs of respiratory distress. * Check with physician for new additional pre-med orders if patient is re- challenged or re-treated. [x] May remove PICC line when treatment complete, after confirming with Physician. [x] If the patient is admitted to the hospital, the ED, or transferred via EVAC , complete transfer form including medication reconciliation order sheet. Laboratory Tests Weekly Labs: BMP, CBC w/diff, SED Rate, Vancomycin Trough Additional Information Fax lab results to Dr Ricketts [phone] MRI lumbar spine was reviewed with ; no further surgical interventions needed at this time; recommended that current treatment to be continued. 3. Dehydration: improved after IV fluid. 4. DVT Prophylaxis: SCD/Teds. 5.consulted PT and case management. Pt Condition on Discharge: Fair Discharge Disposition: Disch w/ Home Health Serv Discharge Time: > 30 minutes Discharge Instructions DIET: Follow Instructions for: Heart Healthy Diet Activities you can perform: Regular-No Restrictions Follow up Referrals: Neurosurgery PCP Follow-up New Medications: Baclofen (Baclofen) 10 Mg Tab 5 MG PO Q8HR PRN MUSCLE SPASM #10 Ref 0 TAB Continued Medications: Alprazolam (Xanax) 0.5 Mg Tab 0.5 MG PO TID PRN ANXIETY Ref [address] (Aspirin 81) 81 Mg Tabdr 81 MG PO DAILY Ref 0 TAB Cholecalciferol (Vitamin D-1000) 1,000 Unit Tab 1000 UNITS PO DAILY Nutritional Supplement Ref 0 BOTTLE Cyanocobalamin (Vitamin B-12) 500 Mcg Subl 500 MCG SL DAILY Nutritional Supplement Ref 0 TAB.SL Cyclosporine Opth 0.05% (Restasis Opth 0.05%) 0.05% Emul 1 DROP EACH EYE BID Dry Eye #1 Ref 0 BOX Gabapentin (Gabapentin) 600 Mg Tab 600 MG PO TID Ref 0 TAB Hydrochlorothiazide (Hydrochlorothiazide) 12.5 Mg Tab 12.5 MG PO DAILY Ref 0 TAB Hydrocodone-Acetaminophen (Lortab) 5-325 Mg Tab 1 TAB PO Q6H PRN PAIN #12 Ref 0 TAB Lactobacillus Acidophilus (Acidophilus/l-Sporogenes) 1 Tab Tab 1 TAB PO TID Probiotic #90 TAB Lidocaine Viscous 2% Liq (Lidocaine Viscous 2% Liq) 2 % Liq 15 ML PO BID Losartan (Cozaar) 100 Mg Tab 100 MG PO DAILY Blood Pressure Management #30 Ref 0 TAB Metoprolol Tartrate (Metoprolol Tartrate) 25 Mg Tab 25 MG PO BID #60 Ref 0 TAB Mirtazapine (Mirtazapine) 15 Mg Tab 15 MG PO HS Depression Control Ref 0 TAB Pravastatin (Pravachol) 80 Mg Tab 80 MG PO HS Cholesterol Management Ref 0 TAB Discontinued Medications: Baclofen (Baclofen) 10 Mg Tab 10 MG PO TID PRN MUSCLE SPASM Ref 0 TAB Meloxicam (Meloxicam) 15 Mg Tab 15 MG PO DAILY Arthritis Pain #30 Ref 0 TAB Elida Neves MD Jan 27, 2017 08:21
--- NOTE | 2017-01-27 08:22 | HHI.DCPOC ---
Discharge Care Plan Diagnosis: (1) Dehydration (2) Encephalopathy Your Health Problems Are: Difficulty with ADL Chronic Pain Goals to Promote Your Health * To prevent worsening of your condition and complications * To maintain your health at the optimal level Directions to Meet Your Goals Take your medications as prescribed Follow your dietary instruction Follow activity as directed Keep your appointments as scheduled Take your immunizations and boosters as scheduled If your symptoms worsen call your PCP, if no PCP go to Urgent Care Center or Emergency Room Smoking is Dangerous to Your Health. Avoid second hand smoke Call the 24-hour hour crisis hotline for domestic abuse at Elida Neves MD Jan 27, 2017 08:22
[2017-01-27] MEDS ORDERED: BACLOFEN 10 MG TAB PO PRN (08:30)
[2017-01-27] MEDS ORDERED: PILL SPLITTER OTHER PRN (08:30)
[2017-01-27] MEDS: GABAPENTIN 300 MG CAP PO SCH ×3 (09:12→17:16)
[2017-01-27] MEDS: HYDROCHLOROTHIAZIDE 12.5 MG CAP PO SCH (09:13)
[2017-01-27] MEDS: cloNIDine HCL 0.1 MG TAB PO PRN (11:15)
[2017-01-27 12:00] VITALS: BP 181/86; PULSE 87; RESP 18; TEMP 97.9; O2SAT 96
[2017-01-27 13:15] VITALS: O2SAT 95
[2017-01-27] MEDS ORDERED: PHARMACY ORDERED LAB ONE (13:45)
[2017-01-27] MEDS ORDERED: NIFEdipine 30 MG SUSTAINED RELEASE TAB PO ONE (14:30)
[2017-01-27] MEDS: VANCOMYCIN INJ 1,250 MG in SODIUM CHLOR 0.9% 250 ML INJ 250 ML IV SCH (14:48)
[2017-01-27] MEDS ORDERED: NIFEdipine 10 MG CAP PO ONE (15:00)
[2017-01-27 16:00] VITALS: BP 165/73; PULSE 80; RESP 17; TEMP 95.6; O2SAT 94
[2017-01-27 20:00] VITALS: BP 170/75; PULSE 89; RESP 19; TEMP 97.7; O2SAT 94
[2017-01-27] MEDS: PRAVASTATIN SOD 80 MG TAB PO SCH (21:18)
[2017-01-27] MEDS: ACETAMINOPHEN/HYDROcodone 325 MG/5 MG TAB PO PRN (22:24)
[2017-01-28] VITALS: BP 138/66; PULSE 86; RESP 19; TEMP 97.6; O2SAT 95
[2017-01-28 04:00] VITALS: BP 131/60; PULSE 86; RESP 19; TEMP 97; O2SAT 96
[2017-01-28] MEDS: CHLORHEXIDINE GLUCONATE 2 % 1 PACK (2 CLOTHS) TOP SCH (04:00)
[2017-01-28] MEDS: ACETAMINOPHEN/HYDROcodone 325 MG/5 MG TAB PO PRN (05:09)
--- NOTE | 2017-01-28 06:46 | HHI.PR ---
Subjective Remarks looks fairly comfortable. back pain is better. BOP has much improved. wants to go home. d/w the RN and no acute issues over night. Objective Vitals Vital Signs Date Time Temp Pulse Resp B/P Pulse Ox O2 Delivery O2 Flow Rate FiO2 01/28/17 04:00 97.0 86 19 131/60 96 01/28/17 00:00 97.6 86 19 138/66 95 01/27/17 20:00 97.7 89 19 170/75 94 01/27/17 16:00 95.6 80 17 165/73 94 01/27/17 12:00 97.9 87 18 181/86 96 01/27/17 08:00 97.5 78 14 198/86 94 I/O 01/27/17 01/27/17 01/27/17 01/28/17 01/28/17 01/28/17 07:00 15:00 23:00 07:00 15:00 23:00 Intake Total 240 ml 230 ml 240 ml 240 ml Output Total 1000 ml 600 ml 500 ml Balance -760 ml -370 ml -260 ml 240 ml Intake Oral 240 ml 230 ml 240 ml 240 ml IV Total 0 ml Output Urine Total 1000 ml 600 ml 500 ml # Voids 1 # Bowel Movements 1 0 0 0 Result Diagram: 01/25/17 0337 01/27/17 0620 Imaging Last Impressions Chest X-Ray 01/24/17 1650 Signed Impressions: Service Date/Time: Tuesday, January 24, 2017 16:51 - CONCLUSION: PICC line in good position. Negative for consolidation.. Lexa Baer MD FACR Lumbar Spine MRI 01/24/17 0000 Signed Impressions: Service Date/Time: Tuesday, January 24, 2017 21:46 - CONCLUSION: The only change in the appearance of the lumbar spine when compared to 01/14/17 is an increase in the amount of fluid in the cutaneous soft tissues superficial to L4-5, now measuring 2.0 x 0.9 cm per Sav Medina MD Head CT 01/24/17 0000 Signed Impressions: Service Date/Time: Tuesday, January 24, 2017 20:41 - CONCLUSION: Negative noncontrast CT brain. Sav Medina MD Objective Remarks GENERAL: This is a well-nourished, well-developed patient, in no apparent distress. CARDIOVASCULAR: Regular rate and regular rhythm without murmurs, gallops, or rubs. RESPIRATORY: Clear to auscultation. Breath sounds equal bilaterally. No wheezes , rales, or rhonchi. GASTROINTESTINAL: Abdomen soft, non-tender, nondistended. Normal, active bowel sounds MUSCULOSKELETAL: Extremities without clubbing, cyanosis, or edema. NEURO: Alert & Oriented x4 to person, place, time, situation. Moves all ext x4 Procedures none Medications and IVs Current Medications Clindamycin Phosphate 600 mg/ Sodium Chloride 104 ml @ 208 mls/hr ONCE ONCE IV Last administered on 01/24/17 17:32; Start 01/24/17 at 17:00; Stop 01/24/17 at 17:29; Status DC Vancomycin HCl 1000 mg/Sodium Chloride 250 ml @ 250 mls/hr ONCE ONCE IV Last administered on 01/24/17 17:02; Start 01/24/17 at 17:00; Stop 01/24/17 at 17:31; Status DC Sodium Chloride (NS 1000 ml Inj) 1,000 ml @ 100 mls/hr Q10H IV Last administered on 01/24/17 20:15; Start 01/24/17 at 20:00; Stop 01/24/17 at 20:25; Status DC Sodium Chloride (NS Flush) 2 ml UNSCH PRN IV FLUSH FLUSH AFTER USING IV ACCESS ; Start 01/24/17 at 19:30; Stop 01/24/17 at 20:25; Status DC Sodium Chloride (NS Flush) 2 ml BID IV FLUSH ; Start 01/24/17 at 21:00; Stop 01/24 at 21:00; Status DC Ondansetron HCl (Zofran Inj) 4 mg Q6H PRN IVP NAUSEA OR VOMITING; Start at 19:30 Naloxone HCl (Narcan Inj) 0.4 mg UNSCH PRN IV SEE LABEL COMMENTS; Start at 19:30 Senna/Docusate Sodium (Dorothy-Colace) 1 tab BID PO Last administered on 01/26/17 09:42; Start 01/24/17 at 21:00 Magnesium Hydroxide (Milk Of Magnesia Liq) 30 ml Q12H PRN PO MILD - MODERATE CONSTIPATION; Start 01/24/17 at 19:30 Sennosides (Senokot) 17.2 mg Q12H PRN PO MODERATE - SEVERE CONSTIPATION; Start 01/24/17 at 19:30 Bisacodyl (Dulcolax Supp) 10 mg DAILY PRN RECTAL SEVERE CONSITIPATION; Start at 19:30 Lactulose 30 ml 30 ml DAILY PRN PO SEVERE CONSITIPATION; Start 01/24/17 at 19:30 Pharmacy Profile Note 0 ml @ 0 mls/hr UNSCH OTHER ; Start 01/24/17 at 20:15 Cefepime HCl 1000 mg/Sodium Chloride 100 ml @ 200 mls/hr Q12H IV Last administered on 01/27/17 08:04; Start 01/25/17 at 09:00; Stop 01/27/17 at 08:17; Status DC Sodium Chloride (NS 1000 ml Inj) 1,000 ml @ 100 mls/hr Q10H IV Last administered on 01/27/17 08:05; Start 01/24/17 at 21:00; Stop 01/27/17 at 08:18; Status DC Sodium Chloride (NS Flush) 2 ml UNSCH PRN IV FLUSH FLUSH AFTER USING IV ACCESS ; Start 01/24/17 at 20:15 Sodium Chloride (NS Flush) 2 ml BID IV FLUSH Last administered on 01/27/17 21: 18; Start 01/24/17 at 21:00 Acetaminophen (Tylenol) 650 mg Q6H PRN PO FEVER/PAIN SCALE 1 TO 2 Last administered on 01/25/17 09:10; Start 01/24/17 at 20:15 Dextrose (D50w (Vial) Inj) 50 ml STK-MED ONCE .ROUTE ; Start 01/24/17 at 20:33; Stop 01/24/17 at 20:34; Status DC Miscellaneous Information 1 Q361D XX ; Start 01/24/17 at 20:45 Chlorhexidine Gluconate (Chlorhexidine 2% Cloth) 3 pack Taper DAILY@04 TOP ; Start 01/25/17 at 04:00; Stop 01/21/18 at 03:59 Chlorhexidine Gluconate 3 pack 3 pack UNSCH PRN TOP HYGIENIC CARE; Start at 20:45 Vancomycin HCl/ Sodium Chloride (Vancomycin Inj/ NS 250 ml Inj) 262.5 ml @ 250 mls/hr Q24H IV Last administered on 01/27/17 14:48; Start 01/25/17 at 14:00 Miscellaneous Information SPECIFIC LAB TO BE RYLEY... ONCE ONCE .XX Last administered on 01/27/17 13:45; Start 01/27/17 at 13:45; Stop 01/27/17 at 13:49; Status DC Gadodiamide (Omniscan Pf Inj) 12 ml STK-MED ONCE IV Last administered on 22:09; Start 01/24/17 at 22:09; Stop 01/24/17 at 22:10; Status DC Alprazolam (Xanax) 0.5 mg ONCE ONCE PO Last administered on 01/25/17 03:17; Start 01/25/17 at 03:15; Stop 01/25/17 at 03:16; Status DC Alprazolam (Xanax) 0.5 mg TID PRN PO ANXIETY Last administered on 01/27/17 21: 24; Start 01/25/17 at 10:45 Lactobacillus Acidophilus (Lactinex) 1 tab TID PO Last administered on 17:16; Start 01/25/17 at 13:00 Metoprolol Tartrate (Lopressor) 25 mg BID PO Last administered on 01/27/17 21: 18; Start 01/25/17 at 21:00 Pravastatin Sodium (Pravachol) 80 mg HS PO Last administered on 01/27/17 21:18 ; Start 01/25/17 at 21:00 Patient Own Medication 1 ea BID EACH EYE DRYEYE; Start 01/25/17 at 21:00 Clonidine (Catapres) 0.1 mg Q8HR PRN PO SBP> OR = 180, DBP> OR = 100 Last administered on 01/27/17 11:15; Start 01/25/17 at 16:15 Acetaminophen/ Hydrocodone Bitart (Pomfret 5-325 Mg) 1 tab Q6H PRN PO PAIN 3-10 Last administered on 01/28/17 05:09; Start 01/26/17 at 09:45 Losartan Potassium (Cozaar) 100 mg DAILY PO Last administered on 01/27/17 08:04 ; Start 01/26/17 at 10:00 Baclofen (Lioresal) 5 mg Q8H PRN PO MUSCLE SPASM Last administered on 01/28/17 05:07; Start 01/27/17 at 08:30 Gabapentin (Neurontin) 600 mg TID PO Last administered on 01/27/17 17:16; Start 01/27/17 at 09:00 Hydrochlorothiazide (Microzide) 12.5 mg DAILY PO Last administered on 01/27/17 09:13; Start 01/27/17 at 09:00 Miscellaneous (Pill Splitter) 1 ea UNSCH PRN OTHER SEE LABEL COMMENTS; Start at 08:30 Nifedipine (Procardia) 30 mg NOW ONCE PO ; Start 01/27/17 at 15:00; Stop at 15:01; Status Cancel Nifedipine (Procardia Xl) 30 mg NOW ONCE PO Last administered on 01/27/17 14: 48; Start 01/27/17 at 14:30; Stop 01/27/17 at 14:31; Status DC Miscellaneous Information SPECIFIC LAB TO BE ... ONCE ONCE .XX ; Start 01/30 at 13:45; Stop 01/30/17 at 13:46 A/P Assessment and Plan A/P 1. Encephalopathy: Unclear etiology- polypharmacy?- now resolved.- Afebrile, no evidence of sepsis. U/a negative, CXR w/ no acute infiltrate. Surgical wound w/ minimal serous drainage, s/p Blood/Wound Culture which are negative so far. continue IV Vanco. CT head with no acute abnormality. 2. Infected Surgical Wound: Recent admit 01/09-01/21/17 for L4-L5 surgical wound s/p debridement 01/17/[address] Morrissey, wound cultures 01/09/17 +MRSA, s/p eval by ID, recommendation for long-term IV Vanc x4-6wks via PICC. of note the MRI of the lumbar spine was reviewed with and no surgical intervention at this time and recommended current treatment to be continued. Will continue w/ IV Vanc per ID recommendations recent admission. Vancomycin 1 gram IV q 24 hours Stop Treatment: Feb 20, 2017 Additional Information Venous access: PICC Line Additional Instructions [x] Peripheral flush and dressing changes per protocol [x] Implanted port and central electric power line examiner: * Implanted port: 10 ml Normal Saline followed by 5 ml Heparin 100 units/ml Heparin flush after each use and monthly to maintain. [] May leave port accessed during therapy. [] May leave peripheral site accessed for duration of therapy. [x] If patient has SOB or respiratory distress, check oxygen saturation. If less than 90% or clinical signs of respiratory distress, administer oxygen at 2 L/min. via nasal cannula and notify physician. [x] Anaphylaxis/Reaction orders: * Stop infusion. * Keep IV line open with saline flush. * Notify physician. * Monitor vital signs every 15 minutes until symptoms resolve. * Check Oxygen saturation; Oxygen at 2 L/min. via nasal cannula if less than 90% or clinical signs of respiratory distress. * Administer diphenhydramine (Benadryl) 25 mg IV STAT, (unless patient has received as pre-med). May repeat once, if necessary. * Solu-Cortef 250 mg IVP over 30-60 seconds, use 100 mg vials for each dissolution. * Epinephrine (1mg/1 ml) 0.3 mg subcutaneously or IVP now with any signs of respiratory distress. * Check with physician for new additional pre-med orders if patient is re- challenged or re-treated. [x] May remove PICC line when treatment complete, after confirming with Physician. [x] If the patient is admitted to the hospital, the ED, or transferred via EVAC , complete transfer form including medication reconciliation order sheet. Laboratory Tests Weekly Labs: BMP, CBC w/diff, SED Rate, Vancomycin Trough Additional Information Fax lab results to Dr Ricketts [phone] MRI lumbar spine was reviewed with ; no further surgical interventions needed at this time; recommended that current treatment to be continued. 3. Dehydration: improved after IV fluid. 4. DVT Prophylaxis: SCD/Teds. 5.consulted PT and case management. Discharge Planning dc home with [facility] today. see med list. outpatient IV antibiotics per ID recommendations recent admission. d/w the patient and RN. previously d/w the case management. time spent 31 min. Elida Neves MD Jan 28, 2017 06:46
[2017-01-28] MEDS: CYCLOSPORINE OPTH 0.05% EACH EYE SCH (07:07)
[2017-01-28] MEDS: [UNRECOGNIZED DRUG - OTHER] EACH EYE SCH (07:07)
[2017-01-28 08:00] VITALS: BP 150/70; PULSE 95; RESP 16; TEMP 96; O2SAT 92
[2017-01-28] MEDS: DOCUSATE SODIUM 50 MG/SENNA 8.6 MG TAB PO SCH (08:00)
[2017-01-28] MEDS: LOSARTAN 50 MG TAB PO SCH (08:00)
[2017-01-28] MEDS: GABAPENTIN 300 MG CAP PO SCH ×2 (08:00→13:02)
[2017-01-28] MEDS: METOPROLOL TARTRATE 25 MG TAB PO SCH (08:00)
[2017-01-28] MEDS: SODIUM CHLORIDE 0.9% FLUSH 10 ML FLUSH IV FLUSH SCH (08:00)
[2017-01-28] MEDS: LACTOBACILLUS ACIDOPHILUS TAB PO SCH ×2 (08:00→13:02)
[2017-01-28] MEDS: HYDROCHLOROTHIAZIDE 12.5 MG CAP PO SCH (08:00)
[2017-01-28] MEDS: ALPRAZolam 0.5 MG TAB PO PRN (08:00)
[2017-01-28 12:00] VITALS: BP 137/69; PULSE 92; RESP 16; TEMP 97; O2SAT 91
[2017-01-28] MEDS: VANCOMYCIN INJ 1,250 MG in SODIUM CHLOR 0.9% 250 ML INJ 250 ML IV SCH (13:02)
[2017-01-30] MEDS ORDERED: PHARMACY ORDERED LAB ONE (13:45)
== END 2017-01-28 14:55 | disposition home or self-care (01) | DRG 862 ==
LOC: NEPE 16:08 → NEDA 19:08 → N07A 01-25 01:26
PROVIDERS: ADMIT Internal Medicine; ATTEND Internal Medicine
PROC: 02HV33Z Insertion of Infusion Device into Superior Vena Cava, Percutaneous Approach (ICD-10-PCS; principal; 2017-01-27)
DX: T81.4XXA Infection following a procedure, initial encounter (principal); G93.40 Encephalopathy, unspecified; E86.0 Dehydration; I10 Essential (primary) hypertension; E78.5 Hyperlipidemia, unspecified; G89.29 Other chronic pain; M54.9 Dorsalgia, unspecified; H91.90 Unspecified hearing loss, unspecified ear; Z98.82 Breast implant status
CPT/HCPCS: 70450; 71010; 72158; 80048; 80053; 80202; 81001; 82565; 83605; 85025; 85610; 85730; 87040; 87070; 87205; 93005; 96365; 96367; A9579; J0692; J3370; J7030; J7050

== ENCOUNTER 2017-02-08 21:32 | Inpatient (IN) | payer MEDICARE ==
[~2017-02-08] VITALS: Ht 160 cm; Wt 58.0 kg
[~2017-02-08 21:32] MED LIST changes: -MELO-1 PO; -WALKER/ADULT/FO1 MIS; -WHEEMIS3
[2017-02-08 21:47] VITALS: BP 195/81; PULSE 86; RESP 14; TEMP 98.8; O2SAT 93
[2017-02-08 21:49] VITALS: BP 195/81; PULSE 90; RESP 16; TEMP 98.8; O2SAT 93
--- NOTE | 2017-02-08 21:49 | PD ---
HPI Chief Complaint: left ankle pain Time Seen by Provider: 21:40 Travel History International Travel<30 days: No Contact w/Intl Traveler<30days: No Traveled to known affect area: No History of Present Illness HPI This Is a 76-year-old female who presents via EMS for evaluation of left ankle pain. The patient reports that this morning she tripped and fell, injuring her left ankle and foot. The patient has a history of a recent left distal fibular fracture which was treated nonoperatively. She has been ambulating today in the fracture boot that she was provided from her previous injury. The pain has persisted which prompted evaluation. She received 4 mg of morphine via EMS which curbed her pain. She lives at home with her . She denies any other injuries and she has no other complaints at this time. PFS Past Medical History Arthritis: No Asthma: No Autoimmune Disease: Yes (arthritis) Blood Disorders: No Anxiety: No Depression: No Heart Rhythm Problems: No Cancer: No Cardiovascular Problems: No High Cholesterol: No Chemotherapy: No Chest Pain: No Congestive Heart Failure: No COPD: No Cerebrovascular Accident: No Diabetes: No Diminished Hearing: Yes Endocrine: No Gastrointestinal Disorders: Yes GERD: No Genitourinary: No Headaches: No Hepatitis: No Hiatal Hernia: No Heparin Induced Thrombocytopen: No Hypertension: Yes Immune Disorder: No Implanted Vascular Access Dvce: No Kidney Stones: No Musculoskeletal: No Neurologic: Yes (back numbness and weakness, open wound oozes) Psychiatric: No Reproductive: No Respiratory: No Immunizations Current: Yes Migraines: No Radiation Therapy: No Renal Failure: No Seizures: No Sickle Cell Disease: No Sleep Apnea: No Thyroid Disease: No Ulcer: No PNEUMOCCOCAL Vaccine (Year): 1 Menopausal: Yes Dilation and Curettage (D&C): Yes Past Surgical History Abdominal Surgery: Yes (appendix out, gall bladder out) AICD: No Arteriovenous Shunt: No Body Medical Devices: LUMBAR HARDWARE, BREASTS Cardiac Surgery: No Ear Surgery: No Endocrine Surgery: No Eye Surgery: Yes (cataracts out both eyes) Genitourinary Surgery: Yes (cesearean) Gynecologic Surgery: Yes Hysterectomy: Yes Insulin Pump: No Joint Replacement: No Mastectomy: Yes Neurologic Surgery: Yes Oral Surgery: No Pacemaker: No Thoracic Surgery: No Tonsillectomy: Yes Other Surgery: Yes (spinal surgery, gall out, appendix out, hysterectomy) Social History Alcohol Use: No Tobacco Use: No (QUIT 15 YEARS AGO) Substance Use: No Allergies-Medications (Allergen,Severity, Reaction): Coded Allergies: benazepril (Verified Allergy, Severe, throat closure facial swelling, 02/04) captopril (Verified Allergy, Severe, throat closure facial swelling, ) enalaprilat (Verified Allergy, Severe, throat closure facial swelling, ) fosinopril (Verified Allergy, Severe, throat closure facial swelling, 02/04) lisinopril (Verified Allergy, Severe, throat closure facial swelling, 02/04) quinapril (Verified Allergy, Severe, throat closure facial swelling, ) *MDRO Multi-Drug Resistant Organism (Verified Adverse Reaction, Unknown, ) 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 Reported Meds & Prescriptions Reported Meds & Active Scripts Active Baclofen 10 Mg Tab 5 Mg PO Q8HR PRN Acidophilus/l-Sporogenes (Lactobacillus Acidophilus) 1 Tab Tab 1 Tab PO TID Lortab (Hydrocodone-Acetaminophen) 5-325 Mg Tab 1 Tab PO Q6H PRN Reported Restasis Opth 0.05% (Cyclosporine Opth 0.05%) 0.05% Emul 1 Drop EACH EYE BID Lidocaine Viscous 2% Liq 2 % Liq 15 Ml PO BID Vitamin D-1000 (Cholecalciferol) 1,000 Unit Tab 1,000 Units PO DAILY Vitamin B-12 (Cyanocobalamin) 500 Mcg Subl 500 Mcg SL DAILY Hydrochlorothiazide 12.5 Mg Tab 12.5 Mg PO DAILY Xanax (Alprazolam) 0.5 Mg Tab 0.5 Mg PO TID PRN Mirtazapine 15 Mg Tab 15 Mg PO HS Metoprolol Tartrate 25 Mg Tab 25 Mg PO BID Gabapentin 600 Mg Tab 600 Mg PO TID Cozaar (Losartan Potassium) 100 Mg Tab 100 Mg PO DAILY Aspirin 81 (Aspirin) 81 Mg Tabdr 81 Mg PO DAILY Pravachol (Pravastatin) 80 Mg Tab 80 Mg PO HS Review of Systems Except as stated in HPI: all other systems reviewed are Neg Physical Exam Narrative GENERAL: Well-developed well-nourished female in no acute distress SKIN: Warm and dry. There is a bruise noted to the dorsal aspect of the left midfoot. HEAD: Atraumatic. Normocephalic. EYES: Pupils equal and round. No scleral icterus. No injection or drainage. ENT: No nasal bleeding or discharge. Mucous membranes pink and moist. NECK: Trachea midline. No JVD. CARDIOVASCULAR: Regular rate and rhythm. No murmur appreciated. RESPIRATORY: No accessory muscle use. Clear to auscultation. Breath sounds equal bilaterally. GASTROINTESTINAL: Abdomen soft, non-tender, nondistended. Hepatic and splenic margins not palpable. MUSCULOSKELETAL: There is some tenderness to palpation along the medial and lateral aspect of the left ankle joint. There is pain with dorsi and plantar flexion of the left ankle. The Achilles tendon is intact and nontender. The calf is nontender. The knee is nontender. 2+ dorsalis pedis and posterior tibial pulses. No tenderness to palpation along the cervical thoracic or lumbar midline spine. NEUROLOGICAL: Awake and alert. No obvious cranial nerve deficits. Motor grossly within normal limits. Normal speech. Data Data Last Documented VS Vital Signs Date Time Temp Pulse Resp B/P Pulse Ox O2 Delivery O2 Flow Rate FiO2 02/08/17 21:49 98.8 90 16 195/81 93 Room Air Orders Ankle, Complete ([id number]) (02/08/17 ) Foot, Complete ([id number]) (02/08/17 ) Ice/Cold Pack (02/08/17 21:46) Complete Blood Count With Diff (02/08/17 22:58) Comprehensive Metabolic Panel (02/08/17 22:58) Act Partial Throm Time (Ptt) (02/08/17 22:58) Prothrombin Time / Inr (Pt) (02/08/17 22:58) Splint Or Brace Apply/Monitor (02/08/17 22:58) Morphine Inj (Morphine Inj) (02/08/17 23:00) Fiberglass Short Leg Splint Ad (02/08/17 ) Fiberglass Sugartong Sp Ad Sl (02/08/17 ) Admit Order (Ed Use Only) (02/08/17 23:13) [facility] Medical Decision Making Medical Screen Exam Complete: Yes Emergency Medical Condition: Yes Medical Record Reviewed: Yes Differential Diagnosis Left ankle sprain, Lisfranc injury, fibular fracture, metatarsal fracture, contusion Narrative Course 76-year-old female with recent left distal fibular fracture which was treated nonoperatively presents after having tripped and fallen this morning with left ankle and left foot pain. X-ray imaging will be obtained. Ice pack provided. X-ray imaging reveals a distal left fibular fracture. Initially the patient was going to be discharged with Damon splint and outpatient follow-up with her orthopedist however the has arrived and the patient and her are both adamant that this patient is not safe going home. Initially the report was that the patient tripped and fell at home but she now reports that she has tremors and this is what caused her to fall. She is concerned that she may fall again because of her current injury and her poor eyesight. Therefore the plan is to admit the patient for observation. Discussed with Dr. Vela was agreeable. Diagnosis Primary Impression: Fracture of distal fibula Qualified Code: S82.832A - Closed fracture of distal end of left fibula, unspecified fracture morphology, initial encounter Admitting Information Admitting Physician Requests: Observation Bo Cheung Feb 08, 2017 21:49
--- NOTE | 2017-02-08 22:35 | RADRPT ---
EXAM DATE/TIME: 02/08/2017 22:15 [facility] COMPARISON: FOOT LEFT COMPLETE ([id number]), July 12, 2015, 10:43. INDICATIONS : Patient tripped and fell today. Complains of left foot pain. Pain and bruising around 1st, 2nd, and 3 rd MTPJs. MEDICAL HISTORY : None. SURGICAL HISTORY : None. ENCOUNTER: Initial ACUITY: 1 day PAIN SCORE: 7/10 LOCATION: Left Foot FINDINGS: There is a fracture of distal fibula above the lateral malleolus. Chronic atherosclerotic calcificati ons are seen involving the visualized arteries. Diffuse osteopenia and superimposed degenerative cota ge is seen. CONCLUSION: Distal fibular fracture. Eduard Marie MD on February 08, 2017 at 22:32 Board Certified Radiologist. This report was verified electronically.
--- NOTE | 2017-02-08 22:36 | RADRPT ---
EXAM DATE/TIME: 02/08/2017 22:13 [facility] COMPARISON: No previous studies available for comparison. INDICATIONS : Patient fell today and complains of left ankle pain. Patient states they had previous left ankle inju ry in Oct, 2016 but does not remember if there was a fracture and had no corrective surgery. MEDICAL HISTORY : None. SURGICAL HISTORY : None. ENCOUNTER: Initial ACUITY: 1 day PAIN SCORE: 7/10 LOCATION: Left Ankle FINDINGS: There is a fracture of distal fibula above the lateral malleolus with slight displacement of the frac ture fragments. CONCLUSION: Distal fibular fracture. Eduard Marie MD on February 08, 2017 at 22:34 Board Certified Radiologist. This report was verified electronically.
[2017-02-08] MEDS ORDERED: MORPHINE SULFATE 4 MG/ML INJ IV PUSH ONE (23:00)
[2017-02-08] MEDS ORDERED: ACETAMINOPHEN 325 MG TAB PO PRN (23:30)
[2017-02-08] MEDS ORDERED: MAGNESIUM HYDROXIDE SUSP 30 ML CUP PO PRN (23:30)
[2017-02-08] MEDS ORDERED: LACTULOSE SYRUP 20 GM/30 ML CUP PO PRN (23:30)
[2017-02-08] MEDS ORDERED: SENNOSIDES 8.6 MG TAB PO PRN (23:30)
[2017-02-08] MEDS ORDERED: ONDANSETRON HCL 4 MG/2 ML VIAL IVP PRN (23:30)
[2017-02-08] MEDS ORDERED: BISACODYL 10 MG SUPP RECTAL PRN (23:30)
--- NOTE | 2017-02-08 23:31 | HHI.HP ---
HPI Service [facility] Primary Care Physician Leander Marcus MD Admission Diagnosis left fibular fracture Diagnoses: (1) Recurrent falls Diagnosis: Principal (2) Ankle fracture, left Diagnosis: Principal (3) Gait instability Diagnosis: Principal (4) DERIC (acute kidney injury) Diagnosis: Principal (5) Infected surgical wound Diagnosis: Principal Travel History International Travel<30 Days: No Contact w/Intl Traveler <30 Da: No Traveled to Known Affected Are: No History of Present Illness This is a 76-year-old female with a PMH of HTN, Hyperlipidemia and Lumbar Wound who presented to the ER w/ complaints of left ankle pain following a fall. Previous h/o Left Ankle Fx, following w/ Dr. Beach, non-operative management. notes pt w/ increasing difficulty walking and recurrent falls, today was ambulating w/ fracture boot and had mechanical trip and fall. Pt states she gets quite tremulous and that makes her lose her balance. No head trauma or LOC. Ankle X-ray w/ distal fibular fracture, similar to previous. Pt to be d/c'd home, however unsteady gait and deemed unsafe discharge home. Of note, pt w/ recent admit 01/24-01/27/17 for infected spinal wound, +MRSA cultures, s/p eval by ID w/ recommendation for long-term IV Abx w/ Vanc IV 1gm q24h stop date 02/20/17. Review of Systems Except as stated in HPI: all other systems reviewed are Neg ROS: 14 point review of systems otherwise negative. Past Family Social History Past Medical History PMH: HTN, Hyperlipidemia and Lumbar Wound Past Surgical History PAST SURGICAL HISTORY: Lumbar Hardware, Cataract Surgery, , Appendectomy, Tonsillectomy, Hysterectomy Allergies: Coded Allergies: benazepril (Verified Allergy, Severe, throat closure facial swelling, 02/04) captopril (Verified Allergy, Severe, throat closure facial swelling, ) enalaprilat (Verified Allergy, Severe, throat closure facial swelling, ) fosinopril (Verified Allergy, Severe, throat closure facial swelling, 02/04) lisinopril (Verified Allergy, Severe, throat closure facial swelling, 02/04) quinapril (Verified Allergy, Severe, throat closure facial swelling, ) *MDRO Multi-Drug Resistant Organism (Verified Adverse Reaction, Unknown, ) 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 No h/o DM or CAD Social History PAST SOCIAL HISTORY: Negative for occult, tobacco or drugs. Physical Exam Vital Signs Vital Signs Date Time Temp Pulse Resp B/P Pulse Ox O2 Delivery O2 Flow Rate FiO2 02/08/17 21:49 98.8 90 16 195/81 93 Room Air 02/08/17 21:47 98.8 86 14 195/81 93 Physical Exam PE: GENERAL: Elderly white female in no acute distress, tearful, mildly agitated. HEENT: PERRLA, EOMI. No scleral icterus or conjunctival pallor. No lid lag or facial droop. CARDIOVASCULAR: Regular rate and rhythm. No obvious murmurs to auscultation. No chest tenderness to palpation. RESPIRATORY: No obvious rhonchi or wheezing. Clear to auscultation. Breath sounds equal bilaterally. GASTROINTESTINAL: Abdomen soft, non-tender, nondistended. BS normal. MUSCULOSKELETAL: Extremities without clubbing, cyanosis, or edema. No obvious deformities. Pain w/ movement left ankle. NEUROLOGICAL: Awake, alert and oriented x4. No focal neurologic deficits. Moving both upper and lower extremities spontaneously. Assessment and Plan Problem List: (1) Recurrent falls ICD Code: R29.6 Status: Acute (2) Ankle fracture, left ICD Code: S82.892A Status: Acute (3) Gait instability ICD Code: R26.81 Status: Acute (4) Infected surgical wound ICD Code: T81.4XXA Status: Acute (5) DERIC (acute kidney injury) ICD Code: N17.9 Status: Acute Assessment and Plan A/P: 1. Recurrent Falls: likely secondary to deconditioning, multiple admissions in last 1-2 months for surgical wound infections. No head trauma or LOC reported. 2. Ankle Fx: Left Ankle Fx, following w/ Dr. Beach for h/o left ankle fracture, non-op, s/p fall today w/ increased pain to left ankle. Ankle X-ray w / distal fibular fracture, images reviewed by me. Nonoperative. Plan for outpatient follow-up with Dr. Beach as previously scheduled. Analgesics/ antiemetics as needed. 3. Gait Instability: Secondary to complaints of left ankle pain, unable to ambulate without assistance, unsafe discharge home at this time. Will consult PT for chilo/tx. Outpatient Ortho follow up as above. 4. Surgical Wound Infxn: Chronic. Recent admit for surgical wound infection, +MRSA wound cultures, s/p eval by IV w/ recommendation for long-term antibiotics w/ IV Vanc 1gm qd, stop date 02/20/17. Will continue w/ IV Vanc. Resume HHC at time of d/c. 5. DERIC: Creatinine 1.16, previously 0.60 on 01/25/17. IVF for hydration, repeat labs in am. 6. DVT Prophylaxis: Mechanical contraindication due to injury. 7. Social work for DC planning as needed. 8. Case discussed at length with ER physician. Nan Vela MD Feb 08, 2017 23:31
[2017-02-08 23:38] LABS: AUTOMATED NEUTROPHIL # 4.4 TH/MM3 (1.8-7.7); BASOPHIL # 0.1 TH/MM3 (0-0.2); BASOPHIL % 0.9 % (0.0-2.0); EOSINOPHIL # 0.1 TH/MM3 (0-0.4); EOSINOPHIL % 1.8 % (0.0-4.0); HEMATOCRIT 27.1 % (35.0-46.0); HEMO FLAGS DIFF FINAL; LYMPH % 24.5 % (9.0-44.0); LYMPHOCYTE # 1.7 TH/MM3 (1.0-4.8); MEAN CELL VOLUME 85.5 FL (80.0-100.0); MEAN CORPUSCULAR HEMOGLOBIN 27.5 PG (27.0-34.0); MEAN CORPUSCULAR HGB CONC 32.2 % (32.0-36.0); MONO % 11.2 % (0.0-8.0); NEUT % 61.6 % (16.0-70.0); PLATELET COUNT 366 TH/MM3 (150-450); RED BLOOD COUNT 3.16 MIL/MM3 (4.00-5.30); RED CELL DISTRIBUTION WIDTH 13.7 % (11.6-17.2); WHITE BLOOD COUNT 7.1 TH/MM3 (4.0-11.0)
[2017-02-08 23:42] LABS: APTT (PATIENT) 27.3 SEC (24.3-30.1); INTERNATIONAL NORMALIZED RATIO 1.1 RATIO; PROTHROMBIN TIME - PATIENT 12.4 SEC (9.8-11.6)
[2017-02-08 23:47] LABS: ALT (GPT) 22 U/L (10-53); ANION GAP 8 MEQ/L (5-15); AST (GOT) 25 U/L (15-37); BICARBONATE 28.2 MEQ/L (21.0-32.0); BLOOD UREA NITROGEN 28 MG/DL (7-18); CHLORIDE 107 MEQ/L (98-107); GLOMERULAR FILTRATION RATE 46 ML/MIN (>89); POTASSIUM 4.5 MEQ/L (3.5-5.1); SODIUM (NA) 143 MEQ/L (136-145)
[2017-02-08 23:49] LABS: ALKALINE PHOSPHATASE 96 U/L (45-117); TOTAL BILIRUBIN ADULT 0.2 MG/DL (0.2-1.0)
[2017-02-08] MEDS: SODIUM CHLOR 0.9% 1000 ML INJ 1,000 ML IV SCH (23:49)
[2017-02-09 00:41] VITALS: BP 161/80; PULSE 85; RESP 16; O2SAT 96
[2017-02-09 01:00] VITALS: BP 184/74; PULSE 87; RESP 19; TEMP 98; O2SAT 95
[2017-02-09] MEDS: ACETAMINOPHEN/HYDROcodone 325 MG/5 MG TAB PO PRN ×3 (01:11→20:06)
[2017-02-09] MEDS: ENOXAPARIN SODIUM 40 MG/0.4 ML SYRINGE SQ SCH (01:12)
[2017-02-09 03:30] VITALS: BP 136/63; PULSE 84; RESP 18; TEMP 97.7; O2SAT 95
[2017-02-09] MEDS: MORPHINE SULFATE 4 MG/ML INJ IV PRN ×4 (04:17→21:34)
[2017-02-09 05:25] LABS: AUTOMATED NEUTROPHIL # 3.1 TH/MM3 (1.8-7.7); BASOPHIL # 0.1 TH/MM3 (0-0.2); BASOPHIL % 1.3 % (0.0-2.0); EOSINOPHIL # 0.1 TH/MM3 (0-0.4); EOSINOPHIL % 2.4 % (0.0-4.0); HEMATOCRIT 23.2 % (35.0-46.0); HEMO FLAGS DIFF FINAL; LYMPH % 24.5 % (9.0-44.0); LYMPHOCYTE # 1.4 TH/MM3 (1.0-4.8); MEAN CELL VOLUME 84.2 FL (80.0-100.0); MEAN CORPUSCULAR HEMOGLOBIN 27.8 PG (27.0-34.0); NEUT % 55.8 % (16.0-70.0); PLATELET COUNT 301 TH/MM3 (150-450); RED BLOOD COUNT 2.76 MIL/MM3 (4.00-5.30); RED CELL DISTRIBUTION WIDTH 13.7 % (11.6-17.2); WHITE BLOOD COUNT 5.5 TH/MM3 (4.0-11.0)
[2017-02-09 06:24] LABS: BLOOD UREA NITROGEN 22 MG/DL (7-18)
[2017-02-09 06:25] LABS: ALKALINE PHOSPHATASE 88 U/L (45-117); ALT (GPT) 15 U/L (10-53); ANION GAP 8 MEQ/L (5-15); AST (GOT) 17 U/L (15-37); BICARBONATE 26.2 MEQ/L (21.0-32.0); CHLORIDE 107 MEQ/L (98-107); GLOMERULAR FILTRATION RATE 50 ML/MIN (>89); POTASSIUM 3.7 MEQ/L (3.5-5.1); SODIUM (NA) 141 MEQ/L (136-145); TOTAL BILIRUBIN ADULT 0.2 MG/DL (0.2-1.0)
[2017-02-09 07:33] LABS: TRANSFERRIN IRON PROFILE 200 MG/DL (200-360)
[2017-02-09 07:35] LABS: FERRITIN 121 NG/ML (8-252)
[2017-02-09 07:48] VITALS: BP 154/69; PULSE 84; TEMP 98; O2SAT 97
--- NOTE | 2017-02-09 08:00 | HHI.PR ---
Subjective Remarks Follow-up for left ankle fracture. The patient is tearful this morning, anxious , complains of pain at the left ankle. We discussed her anemia, she states she does get dizzy occasionally, worse upon standing. She denies noticing any hematochezia/melena. Denies any hematemesis recently. She does complain of multiple episodes of loose stools and intermittent diarrhea since she was started on Vanco. Denies any abdominal pain, nausea, vomiting. We discussed potentially going to rehabilitation however the patient states she absolutely does not want to go back. She is agreeable to home with home health care. Otherwise patient has no other medical complaints, denies any chest pain, shortness of breath, cough, or fever/chills. Objective Vitals Vital Signs Date Time Temp Pulse Resp B/P Pulse Ox O2 Delivery O2 Flow Rate FiO2 02/09/17 07:48 98.0 84 154/69 97 02/09/17 03:30 97.7 84 18 136/63 95 02/09/17 01:00 98.0 87 19 184/74 95 02/09/17 00:41 85 16 161/80 96 Room Air 02/08/17 21:49 98.8 90 16 195/81 93 Room Air 02/08/17 21:47 98.8 86 14 195/81 93 I/O 02/08/17 02/08/17 02/08/17 02/09/17 02/09/17 02/09/17 07:00 15:00 23:00 07:00 15:00 23:00 Intake Total 60 ml Balance 60 ml Intake Oral 60 ml # Voids 3 # Bowel Movements 1 Result Diagram: 02/09/17 0449 02/09/17 0449 Imaging Last Impressions Foot X-Ray 02/08/17 0000 Signed Impressions: Service Date/Time: Wednesday, February 08, 2017 22:15 - CONCLUSION: Distal fibular fracture. Eduard Marie MD Ankle X-Ray 02/08/17 0000 Signed Impressions: Service Date/Time: Wednesday, February 08, 2017 22:13 - CONCLUSION: Distal fibular fracture. Eduard Marie MD Objective Remarks GENERAL: Well-nourished, well-developed elderly female patient in [facility]. SKIN: Warm and dry. No rash. Dorsal left foot with small 1cm well-healing wound. HEAD: Normocephalic. Atraumatic. EYES: Pupils equal and round. No scleral icterus. No injection or drainage. ENT: No nasal bleeding or discharge. Mucous membranes pink and moist. NECK: Supple. Trachea midline. CARDIOVASCULAR: Regular rate and rhythm. S1, S2 noted. No murmur appreciated. RESPIRATORY: No accessory muscle use. Clear to auscultation. Breath sounds equal bilaterally. GASTROINTESTINAL: Abdomen soft, non-tender, nondistended. Normoactive bowel sounds x4. MUSCULOSKELETAL: No obvious deformities. Extremities without clubbing, cyanosis , or edema. LLE in splint. Distal bilaterally sensation intact. Toes warm. Unable to assess capillary refill secondary to red nail lebanese. NEUROLOGICAL: Awake and alert. No obvious cranial nerve deficits. Motor grossly within normal limits. Moves all extremities spontaneously. Normal speech. PSYCHIATRIC: Anxious, tearful mood; insight and judgment normal. Medications and IVs Current Medications Medications (Trade) Dose Ordered Sig/Johan Route Start Time Stop Time Status Last Admin (NS 1000 ml Inj) 1,000 ml @ 100 mls/hr Q10H IV 02/08/17 23:19 02/08/17 23:49 (NS Flush) 2 ml UNSCH PRN IV FLUSH 02/08/17 23:30 (NS Flush) 2 ml BID IV FLUSH 02/09/17 09:00 (Zofran Inj) 4 mg Q6H PRN IVP 02/08/17 23:30 (Lovenox Inj) 40 mg Q24H SQ 02/09/17 00:00 02/09/17 01:12 (Tylenol) 650 mg Q6H PRN PO 02/08/17 23:30 (Hudson 5-325 Mg) 1 tab Q4H PRN PO 02/08/17 23:30 02/09/17 06:18 (Morphine Inj) 2 mg Q3H PRN IV 02/08/17 23:30 02/09/17 07:48 (Dorothy-Colace) 1 tab BID PO 02/09/17 09:00 (Milk Of Magnesia Liq) 30 ml Q12H PRN PO 02/08/17 23:30 (Senokot) 17.2 mg Q12H PRN PO 02/08/17 23:30 (Dulcolax Supp) 10 mg DAILY PRN RECTAL 02/08/17 23:30 (Lactulose Liq) 30 ml DAILY PRN PO 02/08/17 23:30 (Xanax) 0.5 mg TID PRN PO 02/09/17 01:15 (Ecotrin Ec) 81 mg DAILY PO 02/09/17 09:00 (Lioresal) 5 mg Q8HR PRN PO 02/09/17 01:15 (Neurontin) 600 mg TID PO 02/09/17 09:00 (Cozaar) 100 mg DAILY PO 02/09/17 09:00 (Lopressor) 25 mg BID PO 02/09/17 09:00 (Remeron) 15 mg HS PO 02/09/17 21:00 (Pravachol) 80 mg HS PO 02/09/17 21:00 Patient Own Medication PT OWN MED:NON-FORMULARY D... BID EACH EYE 02/09/17 09:00 Future Hold (Vancomycin Inj/ NS 250 ml Inj) 250 ml @ 250 mls/hr Q24H IV 02/09/17 09:00 02/20/17 09:00 A/P Problem List: (1) Recurrent falls ICD Code: R29.6 - Repeated falls Status: Acute (2) Ankle fracture, left ICD Code: S82.892A - Other fracture of left lower leg, initial encounter for closed fracture Status: Acute (3) Gait instability ICD Code: R26.81 - Unsteadiness on feet Status: Acute (4) Infected surgical wound ICD Code: T81.4XXA - Infection following a procedure, initial encounter Status: Acute (5) DERIC (acute kidney injury) ICD Code: N17.9 - Acute kidney failure, unspecified Status: Acute Assessment and Plan 76-year-old female with a PMH of HTN, Hyperlipidemia and Lumbar Wound who presented to the ER w/ complaints of left ankle pain following a fall. Recurrent Falls: likely secondary to deconditioning, multiple admissions in last 1-2 months for surgical wound infections. No head trauma or LOC reported. Ankle Fx: Left Ankle Fx, following w/ Dr. Beach for h/o left ankle fracture, non-op, s/p fall today w/ increased pain to left ankle. Ankle X-ray w/ distal fibular fracture, images reviewed by me. Nonoperative. Plan for outpatient follow-up with Dr. Beach as previously scheduled. Analgesics/antiemetics as needed. Gait Instability: Secondary to complaints of left ankle pain, unable to ambulate without assistance, unsafe discharge home at this time. Will consult PT for chilo/tx. Outpatient Ortho follow up as above. Surgical Wound Infxn: Chronic. Recent admit for surgical wound infection, + MRSA wound cultures, s/p eval by IV w/ recommendation for long-term antibiotics w/ IV Vanc 1gm qd, stop date 02/20/17. Will continue w/ IV Vanc. Resume HHC at time of d/c. DERIC: Creatinine 1.16, previously 0.60 on 01/25/17. IVF for hydration, repeat labs show slight improvement, Cr 1.07. Monitor. Avoid nephrotoxins. Normocyctic Anemia: chronic however hgb 7.7, slightly worse than baseline around 8-9. Check iron studies. Check stool hemoccult. Repeat H&H today. Transfuse as needed. Diarrhea: since starting vanco. Check Cdiff. Continue lactinex tid. DVT Prophylaxis: Mechanical contraindication due to injury. Discharge Planning Discharge pending PT jim. Jessica Roldan PA-C Feb 09, 2017 8:00 am
[2017-02-09] MEDS: LOSARTAN 50 MG TAB PO SCH ×2 (08:40→09:00)
[2017-02-09] MEDS: ASPIRIN EC 81 MG TABEC PO SCH ×2 (08:40→09:00)
[2017-02-09] MEDS: GABAPENTIN 300 MG CAP PO SCH ×5 (08:40→17:16)
[2017-02-09] MEDS: METOPROLOL TARTRATE 25 MG TAB PO SCH ×3 (08:40→20:05)
[2017-02-09] MEDS: DOCUSATE SODIUM 50 MG/SENNA 8.6 MG TAB PO SCH ×2 (09:00→20:05)
[2017-02-09] MEDS: SODIUM CHLORIDE 0.9% FLUSH 10 ML FLUSH IV FLUSH SCH ×2 (09:00→20:05)
[2017-02-09] MEDS ORDERED: CYCLOSPORINE OPTH 0.05% EACH EYE SCH (09:00)
[2017-02-09] MEDS: LACTOBACILLUS ACIDOPHILUS TAB PO SCH ×4 (09:00→17:16)
[2017-02-09] MEDS: VANCOMYCIN INJ 1,000 MG in SODIUM CHLOR 0.9% 250 ML INJ 250 ML IV SCH ×2 (09:00→10:13)
[2017-02-09] MEDS: SODIUM CHLOR 0.9% 1000 ML INJ 1,000 ML IV SCH ×3 (09:19→19:19)
[2017-02-09 10:47] LABS: HEMATOCRIT 25.2 % (35.0-46.0); REVIEW FLAG FINAL
[2017-02-09] MEDS ORDERED: ARTIFICIAL TEARS OPTH SOLN 15 ML BTL EACH EYE PRN (13:30)
[2017-02-09 14:55] VITALS: BP 182/79; PULSE 74; RESP 20; TEMP 98.2; O2SAT 95
[2017-02-09] MEDS: MIRTAZAPINE 15 MG TAB PO SCH (20:06)
[2017-02-09] MEDS: ALPRAZolam 0.5 MG TAB PO PRN (20:06)
[2017-02-09] MEDS: PRAVASTATIN SOD 80 MG TAB PO SCH (20:06)
[2017-02-09] MEDS: SODIUM CHLORIDE 0.9% FLUSH 10 ML FLUSH IV FLUSH PRN (21:34)
[2017-02-09 22:05] VITALS: BP 193/86; PULSE 81; RESP 18; TEMP 98.1; O2SAT 97
[2017-02-10] VITALS (7 sets, daily range): BP systolic 111–180; BP diastolic 61–84; PULSE 67–108; RESP 16–18; TEMP 97.6–98.6; O2SAT 93–97
[2017-02-10] MEDS: ENOXAPARIN SODIUM 40 MG/0.4 ML SYRINGE SQ SCH
[2017-02-10] MEDS: SODIUM CHLOR 0.9% 1000 ML INJ 1,000 ML IV SCH ×3 (05:19→20:25)
[2017-02-10] MEDS: SODIUM CHLORIDE 0.9% FLUSH 10 ML FLUSH IV FLUSH PRN (05:44)
[2017-02-10] MEDS: MORPHINE SULFATE 4 MG/ML INJ IV PRN (05:44)
--- NOTE | 2017-02-10 08:55 | HHI.PR ---
Subjective Remarks Follow up for left ankle fracture, inability to ambulate. The patient reports continued 9/10 left ankle pain, temporarily relieved by IV morphine. She has not been able to ambulate and PT recommending rehab. She is more open to discussing rehab placement. She states she currently has [place] with [facility] however this is only for her IV Vanco infusion which ends on 02/20. She is requesting to see Dr. Beach, has questions regarding splint vs cast vs boot and weightbearing status. She says even if she goes home, she does not know how she will be able to make it into the office to see Dr. Beach. Objective Vitals Vital Signs Date Time Temp Pulse Resp B/P (MAP) Pulse Ox O2 Delivery O2 Flow Rate FiO2 02/10/17 08:27 98.3 108 16 111/61 (78) 97 02/10/17 08:19 97.7 88 16 164/73 (103) 93 02/10/17 06:03 98.0 68 18 154/84 (107) 95 02/10/17 00:20 98.4 67 18 168/84 (112) 96 02/09/17 22:05 98.1 81 18 193/86 (121) 97 02/09/17 21:28 16 02/09/17 14:55 98.2 74 20 182/79 (113) 95 I/O 02/09/17 02/09/17 02/09/17 02/10/17 02/10/17 02/10/17 07:00 15:00 23:00 07:00 15:00 23:00 Intake Total 60 ml 1000 ml Balance 60 ml 1000 ml Intake Oral 60 ml IV Total 1000 ml # Voids 3 1 1 # Bowel Movements 1 Result Diagram: 02/09/17 0946 02/09/17 0449 Imaging Last Impressions Foot X-Ray 02/08/17 0000 Signed Impressions: Service Date/Time: Wednesday, February 08, 2017 22:15 - CONCLUSION: Distal fibular fracture. Eduard Marie MD Ankle X-Ray 02/08/17 0000 Signed Impressions: Service Date/Time: Wednesday, February 08, 2017 22:13 - CONCLUSION: Distal fibular fracture. Eduard Marie MD Objective Remarks GENERAL: Well-nourished, well-developed elderly female patient in [facility]. SKIN: Warm and dry. No rash. Dorsal left foot with small 1cm well-healing wound. HEENT: Normocephalic. Atraumatic. Pupils equal and round. Mucous membranes pink and moist. CARDIOVASCULAR: Regular rate and rhythm. S1, S2 noted. No murmur appreciated. RESPIRATORY: No accessory muscle use. Clear to auscultation. Breath sounds equal bilaterally. GASTROINTESTINAL: Abdomen soft, non-tender, nondistended. Normoactive bowel sounds x4. MUSCULOSKELETAL: No obvious deformities. Extremities without clubbing, cyanosis , or edema. LLE in splint. Distal bilaterally sensation intact. Toes warm. Unable to assess capillary refill secondary to red nail kenyan. NEUROLOGICAL: Awake and alert. No obvious cranial nerve deficits. Motor grossly within normal limits. Moves all extremities spontaneously. Normal speech. PSYCHIATRIC: Appropriate mood; insight and judgment normal. Procedures None. Medications and IVs Current Medications Medications (Trade) Dose Ordered Sig/Johan Route Start Time Stop Time Status Last Admin Sodium Chloride 1,000 ml @ 100 mls/hr Q10H IV 02/08/17 23:19 02/10/17 05:19 (NS Flush) 2 ml UNSCH PRN IV FLUSH 02/08/17 23:30 02/10/17 05:44 (NS Flush) 2 ml BID IV FLUSH 02/09/17 09:00 (Zofran Inj) 4 mg Q6H PRN IVP 02/08/17 23:30 (Lovenox Inj) 40 mg Q24H SQ 02/09/17 00:00 02/10/17 00:00 (Tylenol) 650 mg Q6H PRN PO 02/08/17 23:30 ([place] 5-325 Mg) 1 tab Q4H PRN PO 02/08/17 23:30 02/09/17 20:06 (Morphine Inj) 2 mg Q3H PRN IV 02/08/17 23:30 02/10/17 05:44 (Dorothy-Colace) 1 tab BID PO 02/09/17 09:00 02/09/17 20:05 (Milk Of Magnesia Liq) 30 ml Q12H PRN PO 02/08/17 23:30 (Senokot) 17.2 mg Q12H PRN PO 02/08/17 23:30 (Dulcolax Supp) 10 mg DAILY PRN RECTAL 02/08/17 23:30 (Lactulose Liq) 30 ml DAILY PRN PO 02/08/17 23:30 (Xanax) 0.5 mg TID PRN PO 02/09/17 01:15 02/09/17 20:06 (Ecotrin Ec) 81 mg DAILY PO 02/09/17 09:00 02/09/17 08:40 (Lioresal) 5 mg Q8HR PRN PO 02/09/17 01:15 (Neurontin) 600 mg TID PO 02/09/17 09:00 02/09/17 17:16 (Cozaar) 100 mg DAILY PO 02/09/17 09:00 02/09/17 08:40 (Lopressor) 25 mg BID PO 02/09/17 09:00 02/09/17 20:05 (Remeron) 15 mg HS PO 02/09/17 21:00 02/09/17 20:06 (Pravachol) 80 mg HS PO 02/09/17 21:00 02/09/17 20:06 Patient Own Medication PT OWN MED:NON-FORMULARY D... BID EACH EYE 02/09/17 09:00 Future Hold Vancomycin HCl 1000 mg/Sodium Chloride 250 ml @ 250 mls/hr Q24H IV 02/09/17 09:00 02/20/17 09:00 02/09/17 10:13 (Lactinex) 1 tab TID PO 02/09/17 09:00 02/09/17 17:16 (Tears Naturale Opth Soln) 2 drop Q4H PRN EACH EYE 02/09/17 13:30 (Ferrous Sulfate) 325 mg BID@12,17 PO 02/10/17 12:00 A/P Problem List: (1) Recurrent falls ICD Code: R29.6 - Repeated falls Status: Acute (2) Ankle fracture, left ICD Code: S82.892A - Other fracture of left lower leg, initial encounter for closed fracture Status: Acute (3) Gait instability ICD Code: R26.81 - Unsteadiness on feet Status: Acute (4) Infected surgical wound ICD Code: T81.4XXA - Infection following a procedure, initial encounter Status: Acute (5) DERIC (acute kidney injury) ICD Code: N17.9 - Acute kidney failure, unspecified Status: Acute Assessment and Plan 76-year-old female with a PMH of HTN, Hyperlipidemia and Lumbar Wound who presented to the ER w/ complaints of left ankle pain following a fall. Recurrent Falls: likely secondary to deconditioning, multiple admissions in last 1-2 months for surgical wound infections. No head trauma or LOC reported. Would likely benefit from further rehab placement. Left Ankle Fracture: follows w/ Dr. Beach for h/o left ankle fracture, non-op , s/p fall today w/ increased pain to left ankle. Ankle X-ray w/ recurrent distal fibular fracture, images reviewed. Planned for outpatient follow-up with Dr. Beach however patient admitted and reports she will not be able to get to his office, will consult for further recommendations. Analgesics/antiemetics as needed, patient requiring multiple doses of IV morphine for intractable pain, will admit to inpatient. Gait Instability: Secondary to complaints of left ankle pain, unable to ambulate without assistance, unsafe discharge home at this time. PT recommending rehab. Surgical Wound Infxn: Chronic. Recent admit for surgical wound infection, + MRSA wound cultures, s/p eval by ID recommended long-term antibiotics w/ IV Vanc 1gm qd, stop date 02/20/17. Continue w/ IV Vanc. DERIC: Creatinine 1.16, previously 0.60 on 01/25/17. IVF for hydration, repeat labs show slight improvement, Cr 1.07. Monitor. Avoid nephrotoxins. Normocyctic Anemia: chronic however hgb 7.7, slightly worse than baseline around 8-9. Check stool hemoccult. Repeat labs stable with Hgb 8.7, at baseline. Iron studies consistent with iron deficiency, started on ferrous sulfate bid. Diarrhea: since starting vanco. Check Cdiff. Continue lactinex tid. DVT Prophylaxis: Lovenox. Mechanical contraindication due to injury. Discharge Planning Admit to inpatient for intractable pain requiring multiple doses of IV morphine. PT recommending rehab. Case management consulted for assistance with discharge planning. Jessica Roldan PA-C Feb 10, 2017 08:55
[2017-02-10] MEDS: DOCUSATE SODIUM 50 MG/SENNA 8.6 MG TAB PO SCH ×2 (09:00→22:05)
[2017-02-10] MEDS: SODIUM CHLORIDE 0.9% FLUSH 10 ML FLUSH IV FLUSH SCH ×2 (09:00→21:00)
[2017-02-10] MEDS: GABAPENTIN 300 MG CAP PO SCH ×3 (10:43→20:19)
[2017-02-10] MEDS: LOSARTAN 50 MG TAB PO SCH (10:44)
[2017-02-10] MEDS: ASPIRIN EC 81 MG TABEC PO SCH (10:45)
[2017-02-10] MEDS: METOPROLOL TARTRATE 25 MG TAB PO SCH ×2 (10:45→22:05)
[2017-02-10] MEDS: VANCOMYCIN INJ 1,000 MG in SODIUM CHLOR 0.9% 250 ML INJ 250 ML IV SCH (10:51)
[2017-02-10] MEDS: ALPRAZolam 0.5 MG TAB PO PRN ×3 (11:02→22:05)
[2017-02-10] MEDS: LACTOBACILLUS ACIDOPHILUS TAB PO SCH ×3 (11:11→12:50)
[2017-02-10] MEDS: FERROUS SULFATE 325 MG (65 MG ELEMENTAL IRON) TAB PO SCH ×2 (12:50→20:20)
[2017-02-10] MEDS ORDERED: MELO-1 PO (16:04)
[2017-02-10] MEDS: ACETAMINOPHEN/HYDROcodone 325 MG/5 MG TAB PO PRN ×2 (17:00→22:06)
[2017-02-10] MEDS: PRAVASTATIN SOD 80 MG TAB PO SCH (22:06)
[2017-02-10] MEDS: MIRTAZAPINE 15 MG TAB PO SCH (22:06)
[2017-02-11] MEDS: ENOXAPARIN SODIUM 40 MG/0.4 ML SYRINGE SQ SCH (02:02)
[2017-02-11 04:03] VITALS: BP 151/66; PULSE 75; RESP 18; TEMP 98.4; O2SAT 93
[2017-02-11 06:57] VITALS: BP 182/84; PULSE 86; RESP 16; TEMP 98.6; O2SAT 97
[2017-02-11] MEDS ORDERED: SODIUM CHLORIDE 0.9% FLUSH 10 ML FLUSH IVF PRN (08:00)
--- NOTE | 2017-02-11 08:41 | HHI.PR ---
Subjective Remarks Follow up for left ankle fracture, hypertension, frequent falls. The patient reports left ankle pain. She does have some relief with pain medications. She is tearful again this morning, very anxious. She agrees she will not be able to take care of herself at home. She has no other medical complaints at this time. Objective Vitals Vital Signs Date Time Temp Pulse Resp B/P (MAP) Pulse Ox O2 Delivery O2 Flow Rate FiO2 02/11/17 06:57 98.6 86 16 182/84 (116) 97 02/11/17 04:03 98.4 75 18 151/66 (94) 93 02/10/17 22:10 98.6 75 18 180/81 (114) 02/10/17 18:17 97.8 76 16 175/76 (109) 95 02/10/17 12:52 97.6 85 16 180/74 (109) 94 I/O 02/10/17 02/10/17 02/10/17 02/11/17 02/11/17 02/11/17 06:59 14:59 22:59 06:59 14:59 22:59 # Voids 1 Result Diagram: 02/09/17 0946 02/09/17 0449 Imaging Last Impressions Foot X-Ray 02/08/17 0000 Signed Impressions: Service Date/Time: Wednesday, February 08, 2017 22:15 - CONCLUSION: Distal fibular fracture. Eduard Marie MD Ankle X-Ray 02/08/17 0000 Signed Impressions: Service Date/Time: Wednesday, February 08, 2017 22:13 - CONCLUSION: Distal fibular fracture. Eduard Marie MD Objective Remarks GENERAL: Well-nourished, well-developed elderly female patient in [facility]. SKIN: Warm and dry. No rash. Dorsal left foot with small 1cm well-healing wound. HEENT: Normocephalic. Atraumatic. Pupils equal and round. Mucous membranes pink and moist. CARDIOVASCULAR: Regular rate and rhythm. S1, S2 noted. No murmur appreciated. RESPIRATORY: No accessory muscle use. Clear to auscultation. Breath sounds equal bilaterally. GASTROINTESTINAL: Abdomen soft, non-tender, nondistended. Normoactive bowel sounds x4. MUSCULOSKELETAL: LLE in splint. Distal BLE sensation intact. Toes pink and warm. Unable to assess capillary refill secondary to red nail uzbek. No edema on RLE. NEUROLOGICAL: Awake and alert. No obvious cranial nerve deficits. Motor grossly within normal limits. Moves all extremities spontaneously. Normal speech. PSYCHIATRIC: Mildly anxious mood; insight and judgment normal. Procedures None. Medications and IVs Current Medications Medications (Trade) Dose Ordered Sig/Johan Route Start Time Stop Time Status Last Admin (NS Flush) 2 ml UNSCH PRN IV FLUSH 02/08/17 23:30 02/10/17 05:44 (NS Flush) 2 ml BID IV FLUSH 02/09/17 09:00 02/11/17 09:22 (Zofran Inj) 4 mg Q6H PRN IVP 02/08/17 23:30 (Lovenox Inj) 40 mg Q24H SQ 02/09/17 00:00 02/11/17 02:02 (Tylenol) 650 mg Q6H PRN PO 02/08/17 23:30 ([place] 5-325 Mg) 1 tab Q4H PRN PO 02/08/17 23:30 02/11/17 09:19 (Morphine Inj) 2 mg Q3H PRN IV 02/08/17 23:30 02/10/17 05:44 (Dorothy-Colace) 1 tab BID PO 02/09/17 09:00 02/10/17 22:05 (Milk Of Magnesia Liq) 30 ml Q12H PRN PO 02/08/17 23:30 (Senokot) 17.2 mg Q12H PRN PO 02/08/17 23:30 (Dulcolax Supp) 10 mg DAILY PRN RECTAL 02/08/17 23:30 (Lactulose Liq) 30 ml DAILY PRN PO 02/08/17 23:30 (Xanax) 0.5 mg TID PRN PO 02/09/17 01:15 02/10/17 22:05 (Ecotrin Ec) 81 mg DAILY PO 02/09/17 09:00 02/11/17 09:20 (Lioresal) 5 mg Q8HR PRN PO 02/09/17 01:15 (Neurontin) 600 mg TID PO 02/09/17 09:00 02/11/17 09:18 (Cozaar) 100 mg DAILY PO 02/09/17 09:00 02/11/17 09:20 (Lopressor) 25 mg BID PO 02/09/17 09:00 02/11/17 09:20 (Remeron) 15 mg HS PO 02/09/17 21:00 02/10/17 22:06 (Pravachol) 80 mg HS PO 02/09/17 21:00 02/10/17 22:06 Patient Own Medication PT OWN MED:NON-FORMULARY D... BID EACH EYE 02/09/17 09:00 Future Hold Vancomycin HCl 1000 mg/Sodium Chloride 250 ml @ 250 mls/hr Q24H IV 02/09/17 09:00 02/20/17 09:00 02/11/17 09:20 (Lactinex) 1 tab TID PO 02/09/17 09:00 02/11/17 09:18 (Tears Naturale Opth Soln) 2 drop Q4H PRN EACH EYE 02/09/17 13:30 (Ferrous Sulfate) 325 mg BID@,17 PO 02/10/17 12:00 02/10/17 20:20 (Heparin Central Flush) 500 units UNSCH IV FLUSH 02/11/17 08:00 (NS Flush) 5 ml UNSCH PRN IVF 02/11/17 08:00 (Heparin Central Flush) 250 units UNSCH PRN IV FLUSH 02/11/17 08:00 A/P Problem List: (1) Recurrent falls ICD Code: R29.6 - Repeated falls Status: Acute (2) Ankle fracture, left ICD Code: S82.892A - Other fracture of left lower leg, initial encounter for closed fracture Status: Acute (3) Gait instability ICD Code: R26.81 - Unsteadiness on feet Status: Acute (4) Infected surgical wound ICD Code: T81.4XXA - Infection following a procedure, initial encounter Status: Acute (5) DERIC (acute kidney injury) ICD Code: N17.9 - Acute kidney failure, unspecified Status: Acute Assessment and Plan 76-year-old female with a PMH of HTN, Hyperlipidemia and Lumbar Wound who presented to the ER w/ complaints of left ankle pain following a fall. Recurrent Falls: likely secondary to deconditioning, multiple admissions in last 1-2 months for surgical wound infections. No head trauma or LOC reported. Would benefit from further rehab. Left Ankle Fracture: follows w/ Dr. Beach for h/o left ankle fracture, non-op , s/p fall today w/ increased pain to left ankle. Ankle X-ray w/ recurrent distal fibular fracture, images reviewed. Planned for outpatient follow-up with Dr. Beach however patient admitted and unable to get to his office, consulted for further recommendations, recommended protected WB with fracture boot ( patient already has boot), ROM exercises L ankle; would benefit from PT; f/up as outpatient with Dr. Beach in 2 weeks. Analgesics/antiemetics as needed, patient requiring multiple doses of IV morphine for intractable pain. Gait Instability: Secondary to complaints of left ankle pain, unable to ambulate without assistance, unsafe discharge home at this time. PT recommending rehab. Surgical Wound Infxn: Chronic. Recent admit for surgical wound infection, + MRSA wound cultures, s/p eval by ID recommended long-term antibiotics w/ IV Vanc 1gm qd, stop date 02/20/17. Continue w/ IV Vanc. DERIC: Creatinine 1.16, previously 0.60 on 01/25/17. IVF for hydration, repeat labs show slight improvement, Cr 1.07. Monitor. Avoid nephrotoxins. D/c fluids today 02/11. Repeat labs in am. Normocyctic Anemia: chronic however hgb 7.7, slightly worse than baseline around 8-9. Check stool hemoccult. Repeat labs stable with Hgb 8.7, at baseline. Iron studies consistent with iron deficiency, started on ferrous sulfate bid. Diarrhea: since starting vanco. Check Cdiff. Continue lactinex tid. No further diarrhea to provide stool sample. Hypertension: uncontrolled, likely compounded by pain. Continued patient's losartan 100mg daily, increased patient's metoprolol to 50mg bid. Consider adding norvasc if no improvement. Clonidine prn. DVT Prophylaxis: Lovenox. Mechanical contraindication due to injury. Discharge Planning Admit to inpatient for intractable pain requiring multiple doses of IV morphine. PT recommending rehab. Case management consulted for assistance with discharge planning. Jessica Roldan PA-C Feb 11, 2017 8:41 am
--- NOTE | 2017-02-11 08:57 | PD.ORT.PN ---
Subjective Subjective Remarks patient well known. hx of L distal fibula fx in October 2016. recent fall with increase in pain L ankle. patient complains of tremors causing her falls. Objective Vitals Vital Signs Date Time Temp Pulse Resp B/P (MAP) Pulse Ox O2 Delivery O2 Flow Rate FiO2 02/11/17 06:57 98.6 86 16 182/84 (116) 97 02/11/17 04:03 98.4 75 18 151/66 (94) 93 02/10/17 22:10 98.6 75 18 180/81 (114) 02/10/17 18:17 97.8 76 16 175/76 (109) 95 02/10/17 12:52 97.6 85 16 180/74 (109) 94 I/O 02/10/17 02/10/17 02/10/17 02/11/17 02/11/17 02/11/17 06:59 14:59 22:59 06:59 14:59 22:59 # Voids 1 Result Diagram: 02/09/17 0946 02/09/17 0449 Objective Remarks in bed, nad L ankle splint c/d/i nvi cap refill sensation intact Assessment & Plan Problem List: (1) Closed fibular fracture ICD Codes: S82.409A - Unspecified fracture of shaft of unspecified fibula, initial encounter for closed fracture Status: Acute Qualifiers: Qualified Codes: S82.832G - Other fracture of upper and lower end of left fibula, subsequent encounter for closed fracture with delayed healing Assessment and Plan hx of L distal fibula fx October 2016 continued falls fx minimally displaced with minimal callous formation visualized on xray protected WB with Fracture boot. patient has boot ROM exercises L ankle patient would benefit from PT f/up as OP with Dr. Beach 2 weeks Wu Vaca Feb 11, 2017 08:57
[2017-02-11 09:16] VITALS: BP 192/86; PULSE 87; RESP 20; TEMP 97.5; O2SAT 95
[2017-02-11] MEDS: GABAPENTIN 300 MG CAP PO SCH ×3 (09:18→17:39)
[2017-02-11] MEDS: DOCUSATE SODIUM 50 MG/SENNA 8.6 MG TAB PO SCH ×2 (09:18→21:00)
[2017-02-11] MEDS: LACTOBACILLUS ACIDOPHILUS TAB PO SCH ×3 (09:18→17:39)
[2017-02-11] MEDS: ACETAMINOPHEN/HYDROcodone 325 MG/5 MG TAB PO PRN ×2 (09:19→17:40)
[2017-02-11] MEDS: VANCOMYCIN INJ 1,000 MG in SODIUM CHLOR 0.9% 250 ML INJ 250 ML IV SCH (09:20)
[2017-02-11] MEDS: LOSARTAN 50 MG TAB PO SCH (09:20)
[2017-02-11] MEDS: ASPIRIN EC 81 MG TABEC PO SCH (09:20)
[2017-02-11] MEDS: METOPROLOL TARTRATE 25 MG TAB PO SCH (09:20)
[2017-02-11] MEDS: SODIUM CHLORIDE 0.9% FLUSH 10 ML FLUSH IV FLUSH SCH ×2 (09:22→20:53)
[2017-02-11] MEDS: SODIUM CHLOR 0.9% 1000 ML INJ 1,000 ML IV SCH (09:22)
[2017-02-11] MEDS ORDERED: METOPROLOL TARTRATE 25 MG TAB PO ONE (10:45)
[2017-02-11] MEDS ORDERED: cloNIDine HCL 0.1 MG TAB PO PRN (11:00)
[2017-02-11] MEDS: ALPRAZolam 0.5 MG TAB PO PRN ×2 (11:25→20:53)
[2017-02-11] MEDS: BACLOFEN 10 MG TAB PO PRN ×2 (11:26→20:54)
[2017-02-11] MEDS: MORPHINE SULFATE 4 MG/ML INJ IV PRN ×2 (11:35→21:03)
[2017-02-11 12:39] VITALS: BP 185/80; PULSE 79; RESP 16; TEMP 97.6; O2SAT 96
[2017-02-11] MEDS: FERROUS SULFATE 325 MG (65 MG ELEMENTAL IRON) TAB PO SCH ×2 (14:16→16:46)
[2017-02-11 14:30] VITALS: BP 154/70
[2017-02-11 15:23] LABS: C. DIFF EPI 027 PRESUMPTIVE NEGATIVE (NEGATIVE)
[2017-02-11 19:27] VITALS: BP 183/79; PULSE 75; RESP 16; TEMP 97.8; O2SAT 95
[2017-02-11] MEDS: MIRTAZAPINE 15 MG TAB PO SCH (20:53)
[2017-02-11] MEDS: METOPROLOL TARTRATE 50 MG TAB PO SCH (20:53)
[2017-02-11] MEDS: PRAVASTATIN SOD 80 MG TAB PO SCH (20:54)
[2017-02-12] VITALS (7 sets, daily range): BP systolic 142–185; BP diastolic 65–83; PULSE 65–88; RESP 16–20; TEMP 96.6–98.5; O2SAT 92–98
[2017-02-12] MEDS: MORPHINE SULFATE 4 MG/ML INJ IV PRN ×2 (01:43→08:30)
[2017-02-12] MEDS: ENOXAPARIN SODIUM 40 MG/0.4 ML SYRINGE SQ SCH (01:43)
[2017-02-12] MEDS: METOPROLOL TARTRATE 50 MG TAB PO SCH (08:29)
[2017-02-12] MEDS: LOSARTAN 50 MG TAB PO SCH (08:29)
[2017-02-12] MEDS: DOCUSATE SODIUM 50 MG/SENNA 8.6 MG TAB PO SCH (08:30)
[2017-02-12] MEDS: ASPIRIN EC 81 MG TABEC PO SCH (08:30)
[2017-02-12] MEDS: GABAPENTIN 300 MG CAP PO SCH ×3 (08:30→18:45)
[2017-02-12] MEDS: LACTOBACILLUS ACIDOPHILUS TAB PO SCH ×3 (08:30→18:45)
[2017-02-12] MEDS: VANCOMYCIN INJ 1,000 MG in SODIUM CHLOR 0.9% 250 ML INJ 250 ML IV SCH (08:32)
[2017-02-12] MEDS: SODIUM CHLORIDE 0.9% FLUSH 10 ML FLUSH IV FLUSH SCH ×2 (08:32→20:12)
[2017-02-12] MEDS: ALPRAZolam 0.5 MG TAB PO PRN (09:55)
[2017-02-12] MEDS: BACLOFEN 10 MG TAB PO PRN (09:55)
[2017-02-12] MEDS: metroNIDAZOLE 500 MG TAB PO SCH ×3 (09:55→20:14)
--- NOTE | 2017-02-12 10:31 | HHI.PR ---
Subjective Remarks Follow-up for C. difficile, left ankle pain, hypertension. The patient has no acute complaints today. She continues to have left ankle pain, states the morphine helps. She did try to bear some weight on her left ankle today, but was unable to fully bear weight on it. She denies any diarrhea or bowel movements today. Her BP remains elevated today, but is better than yesterday. Agreeable for short-term rehabilitation. Objective Vitals Vital Signs Date Time Temp Pulse Resp B/P (MAP) Pulse Ox O2 Delivery O2 Flow Rate FiO2 02/12/17 08:14 98.1 88 20 178/77 (110) 96 02/12/17 06:41 96.6 78 17 167/76 (106) 94 02/12/17 00:37 97.6 73 16 142/65 (90) 95 02/11/17 19:27 97.8 75 16 183/79 (113) 95 02/11/17 14:30 154/70 (98) 02/11/17 12:39 97.6 79 16 185/80 (115) 96 I/O 02/11/17 02/11/17 02/11/17 02/12/17 02/12/17 02/12/17 07:00 15:00 23:00 07:00 15:00 23:00 # Voids 1 2 Result Diagram: 02/09/17 0946 02/09/17 0449 Imaging Last Impressions Foot X-Ray 02/08/17 0000 Signed Impressions: Service Date/Time: Wednesday, February 08, 2017 22:15 - CONCLUSION: Distal fibular fracture. Eduard Marie MD Ankle X-Ray 02/08/17 0000 Signed Impressions: Service Date/Time: Wednesday, February 08, 2017 22:13 - CONCLUSION: Distal fibular fracture. Eduard Marie MD Objective Remarks GENERAL: Well-developed well-nourished. In no acute distress. SKIN: Warm and dry. No lesions noted. HEENT: Normocephalic. Pupils equal and round. Mucous membranes pink and moist. CARDIOVASCULAR: Regular rate and rhythm. No murmur appreciated. RESPIRATORY: No accessory muscle use. Clear to auscultation. Breath sounds equal bilaterally. GASTROINTESTINAL: Abdomen soft, non-tender, nondistended. Bowel sounds x4. MUSCULOSKELETAL: Left foot and ankle with a soft splint. Able to wiggle toes, well-perfused. No clubbing or cyanosis. No edema. NEUROLOGICAL: Awake and alert. No focal neurological deficits. Moves upper and lower extremities spontaneously. Normal speech. PSYCHIATRIC: Appropriate mood and affect; insight and judgment normal. Procedures None. A/P Problem List: (1) Recurrent falls ICD Code: R29.6 - Repeated falls Status: Acute (2) Ankle fracture, left ICD Code: S82.892A - Other fracture of left lower leg, initial encounter for closed fracture Status: Chronic (3) Gait instability ICD Code: R26.81 - Unsteadiness on feet Status: Acute (4) Infected surgical wound ICD Code: T81.4XXA - Infection following a procedure, initial encounter Status: Chronic (5) DERIC (acute kidney injury) ICD Code: N17.9 - Acute kidney failure, unspecified Status: Acute Assessment and Plan 76-year-old female with a PMH of HTN, Hyperlipidemia and Lumbar Wound who presented to the ER w/ complaints of left ankle pain following a fall. Recurrent Falls: likely secondary to deconditioning, multiple admissions in last 1-2 months for surgical wound infections. No head trauma or LOC reported. Would benefit from further rehab. Left Ankle Fracture: follows w/ Dr. Beach for h/o left ankle fracture, non-op , s/p fall today w/ increased pain to left ankle. Ankle X-ray w/ recurrent distal fibular fracture. Consulted Dr. Beach while admitted, recommended protected WB with fracture boot (patient already has boot), ROM exercises L ankle; would benefit from PT; f/up as outpatient with Dr. Beach in 2 weeks. Continue [place] and IV morphine as needed for pain. Gait Instability: Secondary to complaints of left ankle pain, unable to ambulate without assistance, unsafe discharge home at this time. PT recommending rehab. Surgical Wound Infxn: Chronic. Recent admit for surgical wound infection, + MRSA wound cultures, s/p eval by ID recommended long-term antibiotics w/ IV Vanc 1gm qd, stop date 02/20/17. Continue w/ IV Vanc. DERIC: Creatinine 1.16, previously 0.60 on 01/25/17. IVF for hydration, repeat labs show slight improvement, Cr 1.07. Monitor. Avoid nephrotoxins. S/P IVF. Repeat BMP. Normocyctic Anemia: chronic however hgb 7.7, slightly worse than baseline around 8-9. Check stool hemoccult. Repeat labs stable with Hgb 8.7, at baseline. Iron studies consistent with iron deficiency, started on ferrous sulfate bid. C. difficile: Patient developed diarrhea since starting vanco. C. difficile assay positive. Continue lactinex tid. Start Flagyl, continue 14 days after stopping vancomycin. Diarrhea improved. Hypertension: uncontrolled, likely compounded by pain. Continued patient's losartan 100mg daily, increased patient's metoprolol to 50mg bid. BP is slightly better today, but still uncontrolled. Continue to monitor and adjust regimen as indicated. Clonidine prn. DVT Prophylaxis: Lovenox. Mechanical contraindication due to splint. Discharge Planning Follow-up labs. Monitor BP. If BP is better and labs are stable, discharge planning to SNF tomorrow. Problem Qualifiers (1) Ankle fracture, left: Qualified Codes: S82.892S - Other fracture of left lower leg, sequela (2) Infected surgical wound: Qualified Codes: T81.4XXD - Infection following a procedure, subsequent encounter Samuel Morrell Feb 12, 2017 10:31
[2017-02-12] MEDS: ACETAMINOPHEN/HYDROcodone 325 MG/5 MG TAB PO PRN ×3 (11:56→21:26)
[2017-02-12] MEDS: FERROUS SULFATE 325 MG (65 MG ELEMENTAL IRON) TAB PO SCH ×2 (11:57→18:45)
--- NOTE | 2017-02-12 14:31 | MB ---
cc: ASYA SHIN MD DATE OF CONSULTATION: 02/12/2017 REQUESTING PHYSICIAN Samuel Morrell. REASON FOR CONSULTATION The patient on long-term IV antibiotic for postop wound infection. C-difficile colitis. HISTORY OF PRESENT ILLNESS This is a 76-year-old white female who is well-known to me from prior hospitalization. The patient was receiving IV antibiotics in the form of vancomycin for MRSA wound infection of the back. She has had chronic draining wound of her back with an abscess. She had undergone debridement of lumbar wound which appeared to be a granuloma and the culture prior to that grew out MRSA from the drainage from the back. She was discharged home on IV antibiotics and was due to receive IV antibiotics at home until February 20, 2017. The patient tells me that the drainage from her back had decreased and she had very little in the way of drainage. She saw the neurosurgeon a week ago and the vane were removed from the back. She fell at home and fractured her left ankle and was admitted to the hospital after she presented to the emergency department and she also had workup of loose stools that came back showing diarrhea. She was seen by the orthopedic physician and had placement of a cast at the left leg. Because of loose stools a test for C-difficile was sent and it came back positive. The patient tells me that she had two bowel movements yesterday and these were not diarrhea. She has had no bowel movements today. During the last hospitalization she had diarrhea and C-difficile test was done and was negative. The patient is afebrile. She states to me that she feels fine. Her white blood cell count is 5.5. The patient notes to me that she gets tremors periodically. She states that she fell at home because she was walking to the bathroom with her walker and suddenly developed shaking tremors and after that she fell. She states that this has occurred on a few occasions. She notes that the tremor is not a daily occurrance. PAST MEDICAL HISTORY 1. Chronic lumbar wound infection and fistula. Patient is status post debridement. 2. Hypertension. 3. Status post lumbar laminectomy with instrumentation. 4. Hyperlipidemia. 5. Anxiety. 6. Depression. 7. Hysterectomy. 8. Breast augmentation. 9. Appendectomy. 10. Cataract surgery. 11. History of surgery for throat tumor. ALLERGIES QUINIPRIL, LISINOPRIL, PHOSPHENOPRIL, ENALAPRILAT, CAPTOPRIL, BENAZEPRIL. MEDICATIONS 1. Metronidazole p.o. 2. Vancomycin intravenous. 3. Lactinex. 4. Xanax. 5. Ferrous sulfate. 6. Remeron. 7. Pravachol. 8. Lopressor. 9. Eva 5 p.r.n. 10. Morphine sulfate p.r.n. SOCIAL HISTORY No tobacco, no alcohol. No illicit drugs. FAMILY HISTORY Noncontributory. REVIEW OF SYSTEMS Review of systems negative on 10-point review except for left ankle pain. PHYSICAL EXAMINATION GENERAL: This is a well-developed slender female, in no acute distress. She is awake and alert and oriented. VITAL SIGNS: Vitals include temperature 98.1, BP 177/80, respirations 17, heart rate 85. HEENT: Head is atraumatic. Extraocular movements grossly intact, pupils reactive to light. No icterus. Oropharynx no visible lesions. NECK: Supple without adenopathy. LUNGS: Clear breath sounds which are diminished. HEART: Regular rate and rhythm without murmurs, rubs or gallops. ABDOMEN: Bowel sounds present, soft, nontender. BACK: The back has healed wound with a very tiny slit where the dressing is located. There is serous drainage on the current dressing. The dressing appears saturated with drainage. It is a flat nonadherent dressing. There is no erythema at the back area. RECTAL: Not performed. EXTREMITIES: The left leg is wrapped in a surgical dressing with partial cast in place. The other extremities have no clubbing, cyanosis or edema. SKIN: No rash. NEURO: No gross focal findings. Patient is alert and oriented. PSYCHE: The patient is calm and cooperative. LABORATORY DATA WBC 5.5, platelets 301, creatinine 1.07, BUN 22, sodium 141. IMPRESSION 1. C. Difficile positive test in a patient with some loose but not diarrhea stools. 2. Chronic postoperative wound of the lower back in a patient with history of spinal surgery and positive culture with MRSA in December 2016 and continuing to receive IV antibiotics in the form of vancomycin which is due to continue up until February 20, 2017. Continued drainage from the back wound. 3. Status post fracture of the left leg from fall. RECOMMENDATIONS 1. Continue p.o. Flagyl. 2. Continue Lactinex. 3. Continue the intravenous vancomycin. 4. Obtain a culture from the back drainage again to see if there is any other bacteria which may be in their incomplete resolution. 5. Monitor the patient's clinical response and clinical status. I would give a 10-14 day course of p.o. Flagyl for the C-difficile. Thank you for this consultation. I will follow the patient's progress with you and make further recommendations on followup if necessary. Asya Shin MD FD/TLL /1:32 PM /1:56 PM
[2017-02-12] MEDS ORDERED: METOPROLOL TARTRATE 25 MG TAB PO ONE (14:45)
[2017-02-12] MEDS: MIRTAZAPINE 15 MG TAB PO SCH (20:14)
[2017-02-12] MEDS: PRAVASTATIN SOD 80 MG TAB PO SCH (20:14)
[2017-02-12] MEDS ORDERED: METOPROLOL TARTRATE 25 MG TAB PO SCH (21:00)
[2017-02-12 23:00] LABS: AUTOMATED NEUTROPHIL # 4.7 TH/MM3 (1.8-7.7); BASOPHIL # 0.1 TH/MM3 (0-0.2); BASOPHIL % 0.9 % (0.0-2.0); EOSINOPHIL # 0.2 TH/MM3 (0-0.4); EOSINOPHIL % 2.8 % (0.0-4.0); HEMATOCRIT 25.9 % (35.0-46.0); HEMO FLAGS DIFF FINAL; LYMPH % 16.6 % (9.0-44.0); LYMPHOCYTE # 1.2 TH/MM3 (1.0-4.8); MEAN CELL VOLUME 84.5 FL (80.0-100.0); MEAN CORPUSCULAR HEMOGLOBIN 26.7 PG (27.0-34.0); MEAN CORPUSCULAR HGB CONC 31.6 % (32.0-36.0); MONO % 11.6 % (0.0-8.0); NEUT % 68.1 % (16.0-70.0); PLATELET COUNT 349 TH/MM3 (150-450); RED BLOOD COUNT 3.07 MIL/MM3 (4.00-5.30); RED CELL DISTRIBUTION WIDTH 13.9 % (11.6-17.2); WHITE BLOOD COUNT 6.9 TH/MM3 (4.0-11.0)
[2017-02-12 23:22] LABS: POTASSIUM 3.9 MEQ/L (3.5-5.1)
[2017-02-13] MEDS: ENOXAPARIN SODIUM 40 MG/0.4 ML SYRINGE SQ SCH (00:16)
[2017-02-13 03:52] VITALS: BP 150/87; PULSE 78; RESP 18; TEMP 98.6; O2SAT 98
[2017-02-13] MEDS: metroNIDAZOLE 500 MG TAB PO SCH ×2 (05:39→13:38)
[2017-02-13 07:11] VITALS: BP 182/84; PULSE 89; RESP 19; TEMP 98.6; O2SAT 95
[2017-02-13] MEDS: SODIUM CHLORIDE 0.9% FLUSH 10 ML FLUSH IV FLUSH SCH (08:45)
[2017-02-13] MEDS: LACTOBACILLUS ACIDOPHILUS TAB PO SCH ×2 (08:47→13:38)
[2017-02-13] MEDS: VANCOMYCIN INJ 1,000 MG in SODIUM CHLOR 0.9% 250 ML INJ 250 ML IV SCH (08:47)
[2017-02-13] MEDS: GABAPENTIN 300 MG CAP PO SCH ×2 (08:48→13:38)
[2017-02-13] MEDS: ACETAMINOPHEN/HYDROcodone 325 MG/5 MG TAB PO PRN ×2 (08:48→15:44)
[2017-02-13] MEDS: LOSARTAN 50 MG TAB PO SCH (08:48)
[2017-02-13] MEDS: ASPIRIN EC 81 MG TABEC PO SCH (08:48)
[2017-02-13] MEDS ORDERED: METOPROLOL TARTRATE 100 MG TAB PO SCH (09:00)
[2017-02-13] MEDS: ALPRAZolam 0.5 MG TAB PO PRN (10:35)
[2017-02-13] MEDS: BACLOFEN 10 MG TAB PO PRN (10:36)
[2017-02-13] MEDS: FERROUS SULFATE 325 MG (65 MG ELEMENTAL IRON) TAB PO SCH (11:38)
[2017-02-13] MEDS: MORPHINE SULFATE 4 MG/ML INJ IV PRN (11:39)
--- NOTE | 2017-02-13 11:48 | HHI.FF ---
Infusion Therapy Location of Infusion Therapy: [facility] Infusion Therapy Order Patient Information Patient Weight 58 kg Diagnosis: (1) Infected surgical wound (2) Non-healing surgical wound Coded Allergies: benazepril (Verified Allergy, Severe, throat closure facial swelling, 02/04) captopril (Verified Allergy, Severe, throat closure facial swelling, ) enalaprilat (Verified Allergy, Severe, throat closure facial swelling, ) fosinopril (Verified Allergy, Severe, throat closure facial swelling, 02/04) lisinopril (Verified Allergy, Severe, throat closure facial swelling, 02/04) quinapril (Verified Allergy, Severe, throat closure facial swelling, ) *MDRO Multi-Drug Resistant Organism (Verified Adverse Reaction, Unknown, ) 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 Administer Medication Vancomycin 1 gram IV q 24 hours Stop Treatment: Feb 20, 2017 Additional Information Venous access: PICC Line Additional Instructions [x] Peripheral flush and dressing changes per protocol [x] Implanted port and central line lead: * Implanted port: 10 ml Normal Saline followed by 5 ml Heparin 100 units/ml Heparin flush after each use and monthly to maintain. [] May leave port accessed during therapy. [] May leave peripheral site accessed for duration of therapy. [x] If patient has SOB or respiratory distress, check oxygen saturation. If less than 90% or clinical signs of respiratory distress, administer oxygen at 2 L/min. via nasal cannula and notify physician. [x] Anaphylaxis/Reaction orders: * Stop infusion. * Keep IV line open with saline flush. * Notify physician. * Monitor vital signs every 15 minutes until symptoms resolve. * Check Oxygen saturation; Oxygen at 2 L/min. via nasal cannula if less than 90% or clinical signs of respiratory distress. * Administer diphenhydramine (Benadryl) 25 mg IV STAT, (unless patient has received as pre-med). May repeat once, if necessary. * Solu-Cortef 250 mg IVP over 30-60 seconds, use 100 mg vials for each dissolution. * Epinephrine (1mg/1 ml) 0.3 mg subcutaneously or IVP now with any signs of respiratory distress. * Check with physician for new additional pre-med orders if patient is re- challenged or re-treated. [x] May remove PICC line when treatment complete, after confirming with Physician. [x] If the patient is admitted to the hospital, the ED, or transferred via [facility] , complete transfer form including medication reconciliation order sheet. Laboratory Tests Weekly Labs: BMP, Vancomycin Trough Additional Information Fax results of labs to Dr Ricketts [phone] Francois Ricketts MD Feb 13, 2017 11:48
--- NOTE | 2017-02-13 11:48 | HHI.PR ---
Subjective Remarks Follow-up for ankle fracture, post surgical wound, C. difficile. The patient was taken out of cast being placed in fracture boot and states that that was painful. She states she's had some bruising of her ankle, denies any winds, discussed with RN no lower extremity wounds noted. She still reports that the pain medicine helps curb the pain. Soft stool earlier, but no diarrhea overnight. She is unsure why her blood pressure is running so high. Discussed with ID, Dr. Ricketts, would continue on IV vancomycin and oral Flagyl at rehabilitation. Objective Vitals Vital Signs Date Time Temp Pulse Resp B/P (MAP) Pulse Ox O2 Delivery O2 Flow Rate FiO2 02/13/17 07:11 98.6 89 19 182/84 (116) 95 02/13/17 03:52 98.6 78 18 150/87 (108) 98 02/12/17 23:57 98.5 65 18 153/83 (106) 98 02/12/17 20:18 97.7 77 18 185/83 (117) 94 02/12/17 15:20 97.9 82 18 164/73 (103) 95 I/O 02/12/17 02/12/17 02/12/17 02/13/17 02/13/17 02/13/17 07:00 15:00 23:00 07:00 15:00 23:00 Intake Total 675 ml 250 ml Balance 675 ml 250 ml Intake Oral 675 ml IV Total 250 ml # Voids 2 5 Result Diagram: 02/12/17223102/12/172231 Imaging Last Impressions Foot X-Ray 02/08/17 0000 Signed Impressions: Service Date/Time: Wednesday, February 08, 2017 22:15 - CONCLUSION: Distal fibular fracture. Eduard Marie MD Ankle X-Ray 02/08/17 0000 Signed Impressions: Service Date/Time: Wednesday, February 08, 2017 22:13 - CONCLUSION: Distal fibular fracture. Eduard Marie MD Objective Remarks GENERAL: Well-developed well-nourished. In no acute distress. SKIN: Warm and dry. No lesions noted. HEENT: Normocephalic. Pupils equal and round. Mucous membranes pink and moist. CARDIOVASCULAR: Regular rate and rhythm. No murmur appreciated. RESPIRATORY: No accessory muscle use. Clear to auscultation. Breath sounds equal bilaterally. GASTROINTESTINAL: Abdomen soft, non-tender, nondistended. Bowel sounds x4. MUSCULOSKELETAL: Left foot and ankle in a fracture boot. Able to wiggle toes, well-perfused. No clubbing or cyanosis. No edema. NEUROLOGICAL: Awake and alert. No focal neurological deficits. Moves upper and lower extremities spontaneously. Normal speech. PSYCHIATRIC: Appropriate mood and affect; insight and judgment normal. Procedures None. A/P Problem List: (1) Recurrent falls ICD Code: R29.6 - Repeated falls Status: Acute (2) Ankle fracture, left ICD Code: S82.892A - Other fracture of left lower leg, initial encounter for closed fracture Status: Chronic (3) Gait instability ICD Code: R26.81 - Unsteadiness on feet Status: Acute (4) Infected surgical wound ICD Code: T81.4XXA - Infection following a procedure, initial encounter Status: Chronic (5) DERIC (acute kidney injury) ICD Code: N17.9 - Acute kidney failure, unspecified Status: Resolved Assessment and Plan 76-year-old female with a PMH of HTN, Hyperlipidemia and Lumbar Wound who presented to the ER w/ complaints of left ankle pain following a fall. Recurrent Falls: likely secondary to deconditioning, multiple admissions in last 1-2 months for surgical wound infections. No head trauma or LOC reported. Would benefit from further rehab. Left Ankle Fracture: follows w/ Dr. Beach for h/o left ankle fracture, non-op , s/p fall today w/ increased pain to left ankle. Ankle X-ray w/ recurrent distal fibular fracture. Consulted Dr. Beach while admitted, recommended protected WB with fracture boot (placed by [employer] today), ROM exercises L ankle; would benefit from PT; f/up as outpatient with Dr. Beach in 2 weeks. Continue [place] and IV morphine as needed for pain. Gait Instability: Secondary to complaints of left ankle pain, unable to ambulate without assistance, unsafe discharge home at this time. PT recommending rehab. Surgical Wound Infxn: Chronic. Recent admit for surgical wound infection, + MRSA wound cultures, s/p eval by ID recommended long-term antibiotics w/ IV Vanc 1gm qd, stop date 02/20/17. Consulted ID, recommended continue w/ IV Vanc. DERIC: Creatinine 1.16, previously 0.60 on 01/25/17. IVF for hydration, repeat labs show slight improvement, Cr 1.07. Monitor. Avoid nephrotoxins. S/P IVF. BMP stable. Normocyctic Anemia: chronic however hgb 7.7, slightly worse than baseline around 8-9. Check stool hemoccult. Repeat labs stable with Hgb 8.7, at baseline. Iron studies consistent with iron deficiency, started on ferrous sulfate bid. C. difficile: Patient developed diarrhea since starting vanco. C. difficile assay positive. Continue lactinex tid. ID on board, recommends continuing Flagyl for 10-14 days. Diarrhea improved. Hypertension: uncontrolled, likely compounded by pain. Continued patient's losartan 100mg daily. Increase patient's metoprolol to 100mg bid. BP is still uncontrolled. Consider adding nifedipine. Clonidine prn. DVT Prophylaxis: Lovenox. Discharge Planning Discharge planning to SNF if BP is better controlled. Discussed with case management. Problem Qualifiers (1) Ankle fracture, left: Qualified Codes: S82.892S - Other fracture of left lower leg, sequela (2) Infected surgical wound: Qualified Codes: T81.4XXD - Infection following a procedure, subsequent encounter Samuel Morrell Feb 13, 2017 11:48
[2017-02-13 12:00] VITALS: BP 167/72; PULSE 69; RESP 17; TEMP 97.8; O2SAT 95
--- NOTE | 2017-02-13 12:55 | HHI.IDPN ---
Note Infectious Disease Note Patient feels oaky. No fever. No back pain. No diarrhea. Afebrile. Back wound drainage culture pending. PAST MEDICAL HISTORY 1. Chronic lumbar wound infection and fistula. Patient is status post debridement. 2. Hypertension. 3. Status post lumbar laminectomy with instrumentation. 4. Hyperlipidemia. 5. Anxiety. 6. Depression. 7. Hysterectomy. 8. Breast augmentation. 9. Appendectomy. 10. Cataract surgery. 11. History of surgery for throat tumor. ALLERGIES QUINAPRIL, LISINOPRIL, PHOSPHENOPRIL, ENALAPRILAT, CAPTOPRIL, BENAZEPRIL. ANTBIOTICS: 1. Metronidazole p.o. 2. Vancomycin intravenous. OBJECTIVE: Vital Signs Date Time Temp Pulse Resp B/P (MAP) Pulse Ox O2 Delivery O2 Flow Rate FiO2 02/13/17 07:11 98.6 89 19 182/84 (116) 95 02/13/17 03:52 98.6 78 18 150/87 (108) 98 02/12/17 23:57 98.5 65 18 153/83 (106) 98 02/12/17 20:18 97.7 77 18 185/83 (117) 94 02/12/17 15:20 97.9 82 18 164/73 (103) 95 02/13/17 02/13/17 02/14/17 15:00 23:00 07:00 Intake Total 250 ml Balance 250 ml IV Total 250 ml Laboratory Tests Test 02/12/17 22:32 White Blood Count 6.9 TH/MM3 Red Blood Count 3.07 MIL/MM3 Hemoglobin 8.2 GM/DL Hematocrit 25.9 % Mean Corpuscular Volume 84.5 FL Mean Corpuscular Hemoglobin 26.7 PG Mean Corpuscular Hemoglobin Concent 31.6 % Red Cell Distribution Width 13.9 % Platelet Count 349 TH/MM3 Mean Platelet Volume 7.6 FL Neutrophils (%) (Auto) 68.1 % Lymphocytes (%) (Auto) 16.6 % Monocytes (%) (Auto) 11.6 % Eosinophils (%) (Auto) 2.8 % Basophils (%) (Auto) 0.9 % Neutrophils # (Auto) 4.7 TH/MM3 Lymphocytes # (Auto) 1.2 TH/MM3 Monocytes # (Auto) 0.8 TH/MM3 Eosinophils # (Auto) 0.2 TH/MM3 Basophils # (Auto) 0.1 TH/MM3 CBC Comment DIFF FINAL Differential Comment Laboratory Tests Test 02/12/17 22:32 Blood Urea Nitrogen 20 MG/DL Creatinine 1.19 MG/DL Random Glucose 129 MG/DL Calcium Level 8.8 MG/DL Sodium Level 141 MEQ/L Potassium Level 3.9 MEQ/L Chloride Level 105 MEQ/L Carbon Dioxide Level 28.0 MEQ/L Anion Gap 8 MEQ/L Estimat Glomerular Filtration Rate 44 ML/MIN Microbiology Date/Time Source Procedure Growth Status 02/12/17 16:00 Wound Back Gram Stain - Final Resulted 02/12/17 16:00 Wound Back Wound Culture Pending Resulted PHYSICAL EXAMINATION GENERAL: No acute distress. She is awake and alert and oriented. HEENT: No icterus. Oropharynx no visible lesions. NECK: Supple without adenopathy. LUNGS: Clear breath sounds which are diminished. HEART: Regular rate and rhythm without murmurs, rubs or gallops. ABDOMEN: Bowel sounds present, soft, nontender. BACK: The back has healed wound with a very tiny slit where the dressing is located. There is serous drainage on the dressing. No erythema at the back. EXTREMITIES: The left leg is wrapped in a surgical dressing with partial cast in place. The other extremities have no clubbing, cyanosis or edema. Right foot has a bandage over a dry scabbed tiny superficial ulcer near the great toe. SKIN: No rash. NEURO: No gross focal findings. Patient is alert and oriented. PSYCHE: The patient is calm and cooperative. IMPRESSION 1. C. Difficile positive test in a patient with some loose but not diarrhea stools. 2. Chronic postoperative wound of the lower back in a patient with history of spinal surgery and positive culture with MRSA in December 2016 and continuing to receive IV antibiotics in the form of vancomycin which is due to continue up until February 20, 2017. Continued drainage from the back wound. 3. Status post fracture of the left leg from fall. RECOMMENDATIONS 1. Continue p.o. Flagyl x 10 days. 2. Continue Lactinex. 3. Continue the intravenous vancomycin until 02/20. Orders written on infusion form. 4. Follow up with [facility] - Lexy Berger MD outpatient for the chronic draining back wound in 1 week. Francois Ricketts MD Feb 13, 2017 12:54
[2017-02-13] MEDS ORDERED: AMLO5TAB2 PO (13:15)
[2017-02-13] MEDS ORDERED: METO-338 PO (13:15)
[2017-02-13] MEDS ORDERED: ALPR.5 PO (13:15)
[2017-02-13] MEDS ORDERED: HYDR-3533 PO (13:15)
[2017-02-13] MEDS ORDERED: METR-1 PO (13:15)
[2017-02-13] MEDS ORDERED: FERR325T20 PO (13:15)
--- NOTE | 2017-02-13 13:22 | HHI.DS ---
Discharge Summary Admission Date Feb 10, 2017 at 08:44 Discharge Date: Feb 13, 2017 Admitting Diagnosis left fibular fracture (1) Recurrent falls ICD Code: R29.6 - Repeated falls Diagnosis: Principal Status: Acute (2) Ankle fracture, left ICD Code: S82.892A - Other fracture of left lower leg, initial encounter for closed fracture Diagnosis: Secondary Status: Chronic (3) Gait instability ICD Code: R26.81 - Unsteadiness on feet Diagnosis: Principal Status: Acute (4) Infected surgical wound ICD Code: T81.4XXA - Infection following a procedure, initial encounter Diagnosis: Secondary Status: Chronic (5) DERIC (acute kidney injury) ICD Code: N17.9 - Acute kidney failure, unspecified Diagnosis: Secondary Status: Resolved Procedures None. Brief History - From Admission This is a 76-year-old female with a PMH of HTN, Hyperlipidemia and Lumbar Wound who presented to the ER w/ complaints of left ankle pain following a fall. Previous h/o Left Ankle Fx, following w/ Dr. Beach, non-operative management. notes pt w/ increasing difficulty walking and recurrent falls, today was ambulating w/ fracture boot and had mechanical trip and fall. Pt states she gets quite tremulous and that makes her lose her balance. No head trauma or LOC. Ankle X-ray w/ distal fibular fracture, similar to previous. Pt to be d/c'd home, however unsteady gait and deemed unsafe discharge home. Of note, pt w/ recent admit 01/24-01/27/17 for infected spinal wound, +MRSA cultures, s/p eval by ID w/ recommendation for long-term IV Abx w/ Vanc IV 1gm q24h stop date 02/20/17. CBC/BMP: 02/12/17223102/12/172231 Significant Findings Laboratory Tests Test 02/12/17 22:32 Red Blood Count 3.07 MIL/MM3 (4.00-5.30) Hemoglobin 8.2 GM/DL (11.6-15.3) Hematocrit 25.9 % (35.0-46.0) Mean Corpuscular Hemoglobin 26.7 PG (27.0-34.0) Mean Corpuscular Hemoglobin Concent 31.6 % (32.0-36.0) Monocytes (%) (Auto) 11.6 % (0.0-8.0) Blood Urea Nitrogen 20 MG/DL (7-18) Creatinine 1.19 MG/DL (0.50-1.00) Random Glucose 129 MG/DL (74-106) Estimat Glomerular Filtration Rate 44 ML/MIN (>89) Imaging Last Impressions Foot X-Ray 02/08/17 0000 Signed Impressions: Service Date/Time: Wednesday, February 08, 2017 22:15 - CONCLUSION: Distal fibular fracture. Eduard Marie MD Ankle X-Ray 02/08/17 0000 Signed Impressions: Service Date/Time: Wednesday, February 08, 2017 22:13 - CONCLUSION: Distal fibular fracture. Eduard Marie MD PE at Discharge GENERAL: Well-developed well-nourished. In no acute distress. SKIN: Warm and dry. No lesions noted. HEENT: Normocephalic. Pupils equal and round. Mucous membranes pink and moist. CARDIOVASCULAR: Regular rate and rhythm. No murmur appreciated. RESPIRATORY: No accessory muscle use. Clear to auscultation. Breath sounds equal bilaterally. GASTROINTESTINAL: Abdomen soft, non-tender, nondistended. Bowel sounds x4. MUSCULOSKELETAL: Left foot and ankle in a fracture boot. Able to wiggle toes, well-perfused. No clubbing or cyanosis. No edema. NEUROLOGICAL: Awake and alert. No focal neurological deficits. Moves upper and lower extremities spontaneously. Normal speech. PSYCHIATRIC: Appropriate mood and affect; insight and judgment normal. Pt update on day of discharge BP is better controlled with increased dose of metoprolol, but not optimize yet. Add amlodipine. Discharged to SNF today. Hospital Course 76-year-old female with a PMH of HTN, Hyperlipidemia and Lumbar Wound who presented to the ER w/ complaints of left ankle pain following a fall. Recurrent Falls and gait instability: likely secondary to deconditioning, ankle fracture/pain. PT and orthopedics consulted, would benefit from further rehab. Left Ankle Fracture: follows w/ Dr. Beach for h/o left ankle fracture, non-op , s/p fall w/ increased pain to left ankle. Ankle X-ray w/ recurrent distal fibular fracture. Consulted Dr. Beach while admitted, recommended protected WB with fracture boot (placed by [employer] today), ROM exercises L ankle; would benefit from PT; f/up as outpatient with Dr. Beach in 2 weeks. Continue [place] as needed for pain. Surgical Wound Infxn: Chronic. Recent admit for surgical wound infection, + MRSA wound cultures, s/p eval by ID recommended long-term antibiotics w/ IV Vanc 1gm qd, stop date 02/20/17. Consulted ID, recommended continue w/ IV Vanc and follow-up as outpatient for results of wound culture. C. difficile: Patient developed diarrhea since starting vanco. C. difficile assay positive. Continue lactinex tid. ID recommends continuing Flagyl for 10- 14 days. Diarrhea improved. Hypertension: uncontrolled, likely compounded by pain. Continued patient's losartan 100mg daily. Increased patient's metoprolol to 100mg bid. Amlodipine 5 mg started. Pt Condition on Discharge: Stable Discharge Disposition: Discharge to SNF Discharge Time: > 30 minutes Discharge Instructions DIET: Follow Instructions for: Heart Healthy Diet Activities you can perform: Regular-No Restrictions Other Activity Instructions: Protected weightbearing left lower extremity with fracture boot Follow up Referrals: Infectious Disease - 1 Week with Ab Pugh MD Orthopedics - 2 Weeks with Wu Beach MD PCP Follow-up - 2-3 Days New Medications: Amlodipine (Amlodipine) 5 Mg Tab 5 MG PO DAILY for Blood Pressure Management, #30 TAB 0 Refills Ferrous Sulfate (Ferosul) 325 Mg Tablet 325 MG PO BID@12,17 for anemia, #60 TAB Metoprolol Tartrate (Lopressor) 100 Mg Tab 100 MG PO BID for Blood Pressure Management, #60 TAB Metronidazole (Flagyl) 500 Mg Tab 500 MG PO Q8HR for c diff, #30 TAB Continued Medications: Alprazolam (Xanax) 0.5 Mg Tab 0.5 MG PO TID PRN for ANXIETY, #9 TAB 0 Refills (This prescription has been renewed) Aspirin (Aspirin 81) 81 Mg Tabdr 81 MG PO DAILY, TAB 0 Refills Baclofen (Baclofen) 10 Mg Tab 5 MG PO Q8HR PRN for MUSCLE SPASM, #10 TAB 0 Refills Cholecalciferol (Vitamin D-1000) 1,000 Unit Tab 1000 UNITS PO DAILY for Nutritional Supplement, BOTTLE 0 Refills Cyanocobalamin (Vitamin B-12) 500 Mcg Subl 500 MCG SL DAILY for Nutritional Supplement, TAB.SL 0 Refills Cyclosporine Opth 0.05% (Restasis Opth 0.05%) 0.05% Emul 1 DROP EACH EYE BID for Dry Eye, #1 BOX 0 Refills Gabapentin (Gabapentin) 600 Mg Tab 600 MG PO TID, TAB 0 Refills Hydrochlorothiazide (Hydrochlorothiazide) 12.5 Mg Tab 12.5 MG PO DAILY, TAB 0 Refills Hydrocodone-Acetaminophen (Lortab) 5-325 Mg Tab 1 TAB PO Q6H PRN for PAIN, #12 TAB 0 Refills (This prescription has been renewed ) Lactobacillus Acidophilus (Acidophilus/l-Sporogenes) 1 Tab Tab 1 TAB PO TID for Probiotic, #90 TAB Losartan (Cozaar) 100 Mg Tab 100 MG PO DAILY for Blood Pressure Management, #30 TAB 0 Refills Meloxicam (Meloxicam) 15 Mg Tab 15 MG PO DAILY for Arthritis Pain, #30 TAB 0 Refills Mirtazapine (Mirtazapine) 15 Mg Tab 15 MG PO HS for Depression Control, TAB 0 Refills Pravastatin (Pravachol) 80 Mg Tab 80 MG PO HS for Cholesterol Management, TAB 0 Refills Discontinued Medications: Lidocaine Viscous 2% Liq (Lidocaine Viscous 2% Liq) 2 % Liq 15 ML PO BID Metoprolol Tartrate (Metoprolol Tartrate) 25 Mg Tab 25 MG PO BID, #60 TAB 0 Refills Samuel Morrell Feb 13, 2017 13:22
[2017-02-13] MEDS ORDERED: amLODIPine BESYLATE 5 MG TAB PO SCH (13:30)
[2017-02-13] MEDS ORDERED: GABAPENTIN 300 MG CAP PO SCH (21:00)
== END 2017-02-13 17:08 | DRG 563 ==
LOC: NEPD 21:32 → NEDA 23:14 → NEPFCDU 02-09 00:56 → OBSVTOIN 02-10 08:44
PROVIDERS: ADMIT Family Medicine; ATTEND Family Medicine
DX: S82.832A Other fracture of upper and lower end of left fibula, initial encounter for closed fracture (principal); N17.9 Acute kidney failure, unspecified; T81.4XXA Infection following a procedure, initial encounter; H91.90 Unspecified hearing loss, unspecified ear; I10 Essential (primary) hypertension; E78.5 Hyperlipidemia, unspecified; Y83.8 Other surgical procedures as the cause of abnormal reaction of the patient, or of later complication, without mention of misadventure at the time of the procedure; R29.6 Repeated falls; W01.0XXA Fall on same level from slipping, tripping and stumbling without subsequent striking against object, initial encounter; Z79.82 Long term (current) use of aspirin; Z87.891 Personal history of nicotine dependence; Y92.009 Unspecified place in unspecified non-institutional (private) residence as the place of occurrence of the external cause
CPT/HCPCS: 73610; 73630; 80048; 80053; 80202; 82565; 82728; 83540; 83550; 84520; 85014; 85018; 85025; 85610; 85730; 87070; 87077; 87186; 87205; 87493; 96372; 96374; 96376; G0378; G8987-GP; G8988-GP; J1650; J2270; J3370; J7030; J7050; L2114